=== PATIENT | female | born 1945 | race Hispanic/Latino ===

== ENCOUNTER → 2017-12-23 | Outpatient (CLI) | payer OTHER | END | disposition home or self-care (01) | LOC: SHCH 08:29 | PROVIDERS: ATTEND Internal Medicine Cardiovascular Disease | DX: I08.1 Rheumatic disorders of both mitral and tricuspid valves (principal); I10 Essential (primary) hypertension; I48.91 Unspecified atrial fibrillation; E78.5 Hyperlipidemia, unspecified | CPT/HCPCS: 93306 ==

== ENCOUNTER → 2019-04-22 | Outpatient (CLI) | payer OTHER ==
[~2019-04-22] MED LIST: IOHEXOL 350 MG/ML 100ML INFUS..BTL IV ONE
== END | disposition home or self-care (01) ==
LOC: RAH 08:15
PROVIDERS: ATTEND Internal Medicine Cardiovascular Disease
DX: J98.11 Atelectasis (principal); I71.2 Thoracic aortic aneurysm, without rupture; Z95.2 Presence of prosthetic heart valve
CPT/HCPCS: 71275; Q9967

== ENCOUNTER → 2019-12-03 | Outpatient (CLI) | payer OTHER | END | disposition home or self-care (01) | LOC: SHCH 10:00 | PROVIDERS: ATTEND Internal Medicine Cardiovascular Disease | DX: I08.3 Combined rheumatic disorders of mitral, aortic and tricuspid valves (principal); I27.20 Pulmonary hypertension, unspecified; Z95.0 Presence of cardiac pacemaker; Z95.4 Presence of other heart-valve replacement | CPT/HCPCS: 93306; 93356 ==

== ENCOUNTER → 2019-12-14 | Outpatient (CLI) | payer OTHER | END | disposition home or self-care (01) | LOC: RAH 13:46 | PROVIDERS: ATTEND Internal Medicine Cardiovascular Disease | DX: I49.5 Sick sinus syndrome (principal); Z45.010 Encounter for checking and testing of cardiac pacemaker pulse generator [battery] | CPT/HCPCS: 78481; A9512 ==

== ENCOUNTER 2020-01-24 05:45 | Day surgery (SDC) | payer OTHER ==
[2020-01-21 13:40] LABS: BASOPHILS % (AUTO) 0.3 % (0.0-5.0); EOSINOPHILS % (AUTO) 3.5 % (0.0-8.0); HEMATOCRIT 41.2 % (36-48); LYMPHOCYTES % (AUTO) 22.7 % (21.0-51.0); MEAN CORPUSCULAR HEMOGLOBIN 29.4 pg (27.0-33.0); MEAN CORPUSCULAR VOLUME 91.8 fL (79-99); MONOCYTES % (AUTO) 10.8 % (3.0-13.0); NEUTROPHILS % (AUTO) 61.9 % (40.0-77.0); PLATELET COUNT (AUTO) 368 K/uL (130-400); RED BLOOD CELL COUNT(AUTO) 4.49 MIL/uL (4.00-5.50); RED CELL DISTRIBUTION WIDTH 14.5 % (11.0-15.5); WHITE BLOOD COUNT (AUTO) 14.3 K/uL (4.8-10.8)
[2020-01-21 13:56] LABS: CREATININE 0.9 mg/dL (0.5-1.5); POTASSIUM 4.5 mmol/L (3.5-5.1)
[2020-01-21 13:58] LABS: PARTIAL THROMBOPLASTIN TIME 24.5 SEC (26.3-35.5); PROTHROMBIN TIME 10.8 SEC (9.6-11.6)
[2020-01-21 14:50] VITALS: BP 142/66
--- NOTE | 2020-01-21 15:42 | NUR ---
RE: ABNORMAL LABS REPORTED ELEVATED WBC 14.[address] NAVARRO. RECEIVED ORDERS TO REPEAT CBC IN AM OF PROCEDURE.
[2020-01-24] VITALS (11 sets, daily range): BP systolic 112–146; BP diastolic 40–53
[~2020-01-24] VITALS: Ht 152.4 cm; Wt 63.1 kg
[~2020-01-24 05:45] MED LIST changes: +AMLO2.5T4 PO; +FE F1CAP8 PO; +FURO20TA4 PO; -IOHEXOL 350 MG/ML 100ML INFUS..BTL IV ONE; +METO-409 PO; +OMEP40CA13 PO; +POTA10CA44 PO
[2020-01-24] MEDS ORDERED: SODIUM CHLORIDE 0.9% 1000ML 1,000 ML IV ONE (06:19)
[2020-01-24 06:43] LABS: BASOPHILS % (AUTO) 0.4 % (0.0-5.0); HEMATOCRIT 37.9 % (36-48); LYMPHOCYTES % (AUTO) 19.6 % (21.0-51.0); MEAN CORPUSCULAR HEMOGLOBIN 29.6 pg (27.0-33.0); MEAN CORPUSCULAR HGB CONC 32.5 g/dL (32.0-36.0); MEAN CORPUSCULAR VOLUME 91.1 fL (79-99); MONOCYTES % (AUTO) 11.4 % (3.0-13.0); NEUTROPHILS % (AUTO) 63.8 % (40.0-77.0); PLATELET COUNT (AUTO) 276 K/uL (130-400); RED BLOOD CELL COUNT(AUTO) 4.16 MIL/uL (4.00-5.50); RED CELL DISTRIBUTION WIDTH 14.7 % (11.0-15.5); WHITE BLOOD COUNT (AUTO) 10.3 K/uL (4.8-10.8)
[2020-01-24] MEDS ORDERED: BUPIVACAINE/PF 0.25% 30ML VIAL IJ ONE (07:37)
[2020-01-24] MEDS ORDERED: MIDAZOLAM HCL 1 MG/ML 2ML VIAL ONE (07:38)
[2020-01-24] MEDS ORDERED: CEFAZOLIN SODIUM 1 GM VIAL ONE (07:38)
[2020-01-24] MEDS ORDERED: LIDOCAINE HCL 1% MDV 50ML VIAL ONE (07:38)
[2020-01-24] MEDS ORDERED: MEPERIDINE-PF 25 MG/ML SYG ONE (07:38)
[2020-01-24] MEDS ORDERED: ACETAMINOPHEN-CODEINE 300/30MG TAB PO PRN (09:30)
--- NOTE | 2020-01-24 09:30 | NUR ---
PATIENT RETURNED FROM [facility] VIA BED BY JIM OGLESBY. PATIENT AAOX3, RESPIRATIONS UNLABORED, VITAL SIGNS STABLE. DENIES ANY PAIN AT THIS TIME. DRESSING TO LEFT UPPER CHEST WITH NON ADHERENT PAD AND TEGADERM IS DRY/INTACT. NO HEMATOMA, NO BLEEDING NOTED. PATIENT'S SPOUSE AT BEDSIDE.
--- NOTE | 2020-01-24 10:15 | NUR ---
DRESSING TO LEFT UPPER CHEST IS DRY/INTACT. NO BLEEDING/NO HEMATOMA NOTED.
--- NOTE | 2020-01-24 10:30 | NUR ---
DRESSING TO LEFT UPPER CHEST IS DRY/INTACT. NO BLEEDING/NO HEMATOMA NOTED.
--- NOTE | 2020-01-24 10:45 | NUR ---
DRESSING TO LEFT UPPER CHEST IS DRY/INTACT. NO BLEEDING/NO HEMATOMA NOTED.
--- NOTE | 2020-01-24 11:15 | NUR ---
DRESSING TO LEFT UPPER CHEST IS DRY/INTACT. NO BLEEDING/NO HEMATOMA NOTED.
--- NOTE | 2020-01-24 11:45 | NUR ---
DRESSING TO LEFT UPPER CHEST IS DRY/INTACT. NO BLEEDING/NO HEMATOMA NOTED.
--- NOTE | 2020-01-24 12:15 | NUR ---
DRESSING TO LEFT UPPER CHEST IS DRY/INTACT.SCANT AMOUNT OF SEROSANGUINEOUS DRAINAGE NOTED TO GAUZE. NO HEMATOMA NO BLEEDING NOTED.
--- NOTE | 2020-01-24 12:30 | NUR ---
DRESSING TO LEFT UPPER CHEST IS DRY/INTACT.SCANT AMOUNT OF SEROSANGUINEOUS DRAINAGE NOTED TO GAUZE. NO HEMATOMA NO BLEEDING NOTED.
--- NOTE | 2020-01-24 12:35 | NUR ---
DISCHARGE INSTRUCTIONS PROVIDED TO PATIENT AND PATIENT'S SPOUSE. FOLLOW UP APPOINTMENT PROVIDED AND DRESSING CHANGE INSTRUCTIONS PROVIDED WELL. PATIENT VERBALIZED UNDERSTANDING.
--- NOTE | 2020-01-24 12:55 | NUR ---
PATIENT DISCHARGED FROM FACILITY VIA WHEELCHAIR AND ASSISTED INTO PRIVATE VEHICLE DRIVEN BY SPOUSE.
== END 2020-01-24 12:55 | disposition home or self-care (01) ==
LOC: DAH 05:45
PROVIDERS: ATTEND Internal Medicine Cardiovascular Disease
DX: Z45.010 Encounter for checking and testing of cardiac pacemaker pulse generator [battery] (principal); I44.2 Atrioventricular block, complete; I49.5 Sick sinus syndrome; I10 Essential (primary) hypertension; I48.0 Paroxysmal atrial fibrillation; Z98.890 Other specified postprocedural states; Z98.891 History of uterine scar from previous surgery; Z79.01 Long term (current) use of anticoagulants; Z95.2 Presence of prosthetic heart valve; Z79.899 Other long term (current) drug therapy
CPT/HCPCS: 33228; 36415 ×2; 80048; 85025 ×2; 85610; 85730; 93005; A4215; A4216; A4221; A4222; A4223 ×3; A4606; A4663; C1785; J0690; J2175; J2250; J3490 ×2; J7030; 99156; 99157

== ENCOUNTER → 2020-06-01 | Outpatient (CLI) | payer MEDICARE | END | disposition home or self-care (01) | LOC: SHCH 10:42 | PROVIDERS: ATTEND Internal Medicine Cardiovascular Disease | DX: I08.3 Combined rheumatic disorders of mitral, aortic and tricuspid valves (principal); I27.20 Pulmonary hypertension, unspecified; Z95.0 Presence of cardiac pacemaker; Z95.4 Presence of other heart-valve replacement | CPT/HCPCS: 93306; 93356 ==

== ENCOUNTER 2020-12-06 08:47 | Day surgery (SDC) | payer MEDICARE ==
[2020-12-06] VITALS (7 sets, daily range): BP systolic 120–148; BP diastolic 44–69
[~2020-12-06 08:47] MED LIST changes: -OMEP40CA13 PO; +OMEP40CA21 PO
[2020-12-06 09:32] LABS: HEMATOCRIT 39.7 % (36-48); MEAN CORPUSCULAR HGB CONC 32.7 g/dL (32.0-36.0); MEAN CORPUSCULAR VOLUME 94.7 fL (79-99); PLATELET COUNT (AUTO) 356 K/uL (130-400); RED BLOOD CELL COUNT(AUTO) 4.19 MIL/uL (4.00-5.50); RED CELL DISTRIBUTION WIDTH 13.1 % (11.0-15.5); WHITE BLOOD COUNT (AUTO) 8.2 K/uL (4.8-10.8)
[2020-12-06 09:47] LABS: INR 0.99 (0.85-1.15); PROTHROMBIN TIME 10.8 SEC (9.6-11.6)
[2020-12-06 09:48] LABS: PARTIAL THROMBOPLASTIN TIME 25.5 SEC (26.3-35.5)
[2020-12-06 10:31] LABS: BASOPHILS % (MANUAL) 1 % (0-2); EOSINOPHILS % (MANUAL) 3 % (1-6); LYMPHOCYTES % (MANUAL) 33 % (22-44); MAN.DIFF COMMENT-IMPRESSION MANUAL DIFFERENTIAL; MONOCYTES % (MANUAL) 9 % (2-9); PLATELET MORPHOLOGY COMMENT ADEQUATE; SEGMENTED NEUTROPHILS % 54 % (40-70)
[2020-12-06] MEDS ORDERED: MIDAZOLAM HCL 1 MG/ML 2ML VIAL ONE (10:53)
[2020-12-06] MEDS ORDERED: FENTANYL CITRATE PF 50 MCG/1 ML 2ML VIAL ONE (10:53)
[2020-12-06] MEDS ORDERED: ACETAMINOPHEN 500 MG TABLET ONE (13:13)
== END 2020-12-06 15:05 | disposition home or self-care (01) ==
LOC: DAH 08:47 → EDSTATUS 09:00 → DAH 15:05
PROVIDERS: ATTEND Family Medicine
DX: R59.0 Localized enlarged lymph nodes (principal); S36.892A Contusion of other intra-abdominal organs, initial encounter; K21.9 Gastro-esophageal reflux disease without esophagitis; I48.91 Unspecified atrial fibrillation; Z98.49 Cataract extraction status, unspecified eye; Z98.891 History of uterine scar from previous surgery; Z86.010 Personal history of colon polyps; Z98.890 Other specified postprocedural states; Z79.01 Long term (current) use of anticoagulants; X58.XXXA Exposure to other specified factors, initial encounter
CPT/HCPCS: 36415; 49180; 77012; 85025; 85610; 85730; 88305; 88341; 88342; A4215; J2250; J3010; 99152

== ENCOUNTER → 2021-05-04 | Outpatient (CLI) | payer MEDICARE ==
[~2021-05-04] MED LIST changes: -AMLO2.5T4 PO; +FE F1CAP33 PO; -FE F1CAP8 PO; -FURO20TA4 PO; +METO-391 PO; -METO-409 PO; -POTA10CA44 PO
== END | disposition home or self-care (01) ==
LOC: RAH 11:49
PROVIDERS: ATTEND Internal Medicine Cardiovascular Disease
DX: I08.1 Rheumatic disorders of both mitral and tricuspid valves (principal)
CPT/HCPCS: 93306

== ENCOUNTER → 2022-03-21 | Outpatient (CLI) | payer MEDICARE | END | disposition home or self-care (01) | LOC: LAB 13:15 | PROVIDERS: ATTEND Internal Medicine Cardiovascular Disease | DX: E87.5 Hyperkalemia (principal) | CPT/HCPCS: 36415; 80048 ==

== ENCOUNTER → 2022-09-19 | Outpatient (CLI) | payer MEDICARE ==
[2022-09-19 17:02] LABS: ALBUMIN 4.3 g/dL (3.5-5.0); POTASSIUM 4.3 mmol/L (3.5-5.1)
== END | disposition home or self-care (01) ==
LOC: LAB 11:59
PROVIDERS: ATTEND Internal Medicine Cardiovascular Disease
DX: I71.20 Thoracic aortic aneurysm, without rupture, unspecified (principal)
CPT/HCPCS: 36415; 80053

== ENCOUNTER → 2022-09-24 | Outpatient (CLI) | payer MEDICARE ==
[~2022-09-24] MED LIST changes: +IOHEXOL 350 MG/ML 100ML INFUS..BTL IV ONE
== END | disposition home or self-care (01) ==
LOC: RAH 07:37
PROVIDERS: ATTEND Internal Medicine Cardiovascular Disease
DX: I71.21 Aneurysm of the ascending aorta, without rupture (principal); I70.0 Atherosclerosis of aorta; I51.7 Cardiomegaly
CPT/HCPCS: 71275; Q9967

== ENCOUNTER → 2023-03-27 | Outpatient (CLI) | payer MEDICARE ==
[~2023-03-27] MED LIST changes: -IOHEXOL 350 MG/ML 100ML INFUS..BTL IV ONE
[2023-03-27 16:19] LABS: CREATININE 1.1 mg/dL (0.5-1.5); POTASSIUM 5.3 mmol/L (3.5-5.1)
== END | disposition home or self-care (01) ==
LOC: LAB 12:45
PROVIDERS: ATTEND Internal Medicine Cardiovascular Disease
DX: I50.32 Chronic diastolic (congestive) heart failure (principal)
CPT/HCPCS: 36415; 80048

== ENCOUNTER 2023-04-16 08:28 | Emergency (ER) | payer MEDICARE ==
[~2023-04-16] VITALS: Ht 157.5 cm; Wt 50.8 kg
[2023-04-16 09:18] LABS: BASOPHILS # (AUTO) 0.04 K/uL (0.00-0.20); BASOPHILS % (AUTO) 0.6 % (0.0-5.0); EOSINOPHILS # (AUTO) 0.14 K/uL (0.00-0.70); EOSINOPHILS % (AUTO) 2.2 % (0.0-8.0); HEMATOCRIT 36.4 % (36-48); IMMATURE GRANULOCYTE ABSOLUTE 0.03 K/uL (0-1); LYMPHOCYTES # (AUTO) 1.4 K/uL (1.0-4.8); LYMPHOCYTES % (AUTO) 21.8 % (21.0-51.0); MEAN CORPUSCULAR HEMOGLOBIN 34.7 pg (27.0-33.0); MEAN CORPUSCULAR HGB CONC 34.3 g/dL (32.0-36.0); MEAN CORPUSCULAR VOLUME 101.1 fL (79-99); MONOCYTES # (AUTO) 0.5 K/uL (0.1-1.0); MONOCYTES % (AUTO) 7.9 % (3.0-13.0); NEUTROPHILS # (AUTO) 4.3 K/uL (1.8-7.7); PLATELET COUNT (AUTO) 233 K/uL (130-400); RED CELL DISTRIBUTION WIDTH 12.8 % (11.0-15.5); WHITE BLOOD COUNT (AUTO) 6.4 K/uL (4.8-10.8)
[2023-04-16 09:29] LABS: POTASSIUM 5.6 mmol/L (3.5-5.1)
[2023-04-16 09:33] LABS: ALBUMIN 4.2 g/dL (3.5-5.0); BILIRUBIN,TOTAL 1.2 mg/dL (0.2-1.0); TOTAL PROTEIN, SERUM 7.8 g/dL (6.0-8.3)
[2023-04-16 10:19] VITALS: BP 151/42; PULSE 83; RESP 18; O2SAT 100
[2023-04-16] MEDS ORDERED: KAYEXALATE 15GM/60ML PO ONE (10:30)
== END 2023-04-16 10:23 | disposition home or self-care (01) ==
LOC: EDH 08:28
DX: E87.6 Hypokalemia (principal); C56.9 Malignant neoplasm of unspecified ovary
CPT/HCPCS: 36415; 80053; 85025; 93005

== ENCOUNTER → 2023-05-16 | Outpatient (CLI) | payer MEDICARE ==
[2023-05-16 12:23] LABS: POTASSIUM 5.3 mmol/L (3.5-5.1)
== END | disposition home or self-care (01) ==
LOC: LAB 10:22
PROVIDERS: ATTEND Internal Medicine Cardiovascular Disease
DX: I50.32 Chronic diastolic (congestive) heart failure (principal)
CPT/HCPCS: 36415; 80048

== ENCOUNTER → 2023-05-22 | Outpatient (CLI) | payer MEDICARE ==
[2023-05-22 12:15] LABS: CREATININE 1.1 mg/dL (0.5-1.5)
== END | disposition home or self-care (01) ==
LOC: LAB 09:11
PROVIDERS: ATTEND Internal Medicine Cardiovascular Disease
DX: E87.5 Hyperkalemia (principal)
CPT/HCPCS: 36415; 80048

== ENCOUNTER → 2023-09-23 | Outpatient (CLI) | payer MEDICARE | END | disposition home or self-care (01) | LOC: SHCH 13:15 | PROVIDERS: ATTEND Internal Medicine Cardiovascular Disease | DX: I50.32 Chronic diastolic (congestive) heart failure (principal); I35.1 Nonrheumatic aortic (valve) insufficiency; Z95.3 Presence of xenogenic heart valve; Z95.2 Presence of prosthetic heart valve | CPT/HCPCS: 93306 ==

== ENCOUNTER 2025-01-20 09:01 | Inpatient (IN) | payer MEDICARE ==
[~2025-01-20] VITALS: Ht 154.9 cm; Wt 43.9 kg
[2025-01-20 09:25] LABS: IMMATURE GRANULOCYTE ABSOLUTE 0.08 K/uL (0-1); NUCLEATED RED BLOOD CELLS 0.0 % (0.0-0.19); PLATELET COUNT (AUTO) 237 K/uL (130-400); RED BLOOD CELL COUNT(AUTO) 3.25 MIL/uL (4.00-5.50); RED CELL DISTRIBUTION WIDTH 13.3 % (11.0-15.5); WHITE BLOOD COUNT (AUTO) 12.5 K/uL (4.8-10.8)
[2025-01-20 09:37] LABS: CREATININE 1.0 mg/dL (0.5-1.0); GLOMERULAR FILTR. RATE CALC 57.0 mL/min (>90); GLUCOSE,RANDOM 131.0 mg/dL (70-105); SODIUM SERUM 132.0 mmol/L (136-145); UREA NITROGEN, BLOOD 33.0 mg/dL (7-18)
[2025-01-20 09:38] LABS: INR 0.98 (0.85-1.15)
[2025-01-20 09:42] LABS: CREATINE KINASE, TOTAL 37.0 U/L (21-232)
[2025-01-20 10:30] LABS: APPEARANCE,URINE CLEAR (CLEAR); GLUCOSE, URINE (UA) NEGATIVE (NEGATIVE); LEUKOCYTE ESTERASE ,URINE NEGATIVE Leu/uL (NEGATIVE); NITRATE,URINE NEGATIVE (NEGATIVE); OCCULT BLOOD,URINE MODERATE (NEGATIVE)
[2025-01-20 10:35] LABS: ADD UA MICROSCOPIC YES
[2025-01-20 10:58] VITALS: PULSE 82; RESP 24
--- NOTE | 2025-01-20 10:59 | ERN ---
General Chief Complaint: Cough Stated Complaint: COUGHING BLOOD Time Seen by MD: 09:07 Source: patient, family History of Present Illness Initial Comments Patient is an 79-year-old female coming in complaining of URI symptoms. Per patient she was evaluated by her PCP and sent in due to an abnormal x-ray. Patient states that she has been having right upper chest discomfort. Allergies: Coded Allergies: No Allergy Information Available (Verified Allergy, Unknown, 01/24/20) Home Meds Active Scripts Metoprolol Succinate (Metoprolol Succinate) 50 Mg Tab.er.24h, 50 MG PO DAILY for 30 Days, #30 TAB Prov:ERICKA MAIN Jr., MD 04/17/21 Reported Medications Fe Fumarate/FA/Mv, Min Comb#15 (Centratex Capsule) 1 Each Capsule, 1 EACH PO DAILY, CAP 04/17/21 Omeprazole (Omeprazole) 40 Mg Capsule.dr, 40 MG PO DAILY, CAP 04/17/21 Past Medical History Past Medical History: Cancer, Other Medical History Other: ovarian cancer Past Surgical History: Other Surgical History Other: hear valve Social History Social History: Lives with family Female( History) History: Not Applicable ROS Dictation CONSTITUTIONAL: No chills, no fever, no weakness, no diaphoresis, no malaise. HEAD/FACE: No signs of trauma. EENT: No eye pain, no blurred vision, no tearing, no double vision, no ear pain, no ear discharge, no nose pain, no nasal congestion, no throat pain, no throat swelling, no mouth pain. RESPIRATORY: cough, no orthopnea, no SOB, no stridor, no wheezing. CARDIOVASCULAR: No chest pain, no edema, no palpitations, no syncope. GASTROINTESTINAL/ABDOMINAL: No abdominal pain, no constipation, no diarrhea, no nausea, no vomiting. GENITOURINARY: No abnormal discharge, no dysuria, no frequent urination, no hematuria. No complaints of pain in the genitals. MUSCULOSKELETAL: No back pain, no gout, no joint pain, no joint swelling, no muscle pain, no muscle stiffness, no neck pain. INTEGUMENTARY: No change in color, no change in hair/nails, no dryness, no lesion, no lumps, no rash. NEUROLOGICAL/PSYCH: No anxiety, not depressed, no emotional problem, no headache, no numbness, no pre-existing deficit, no history of seizures, no tremors, no weakness. HEMATOLOGIC/LYMPHATIC: Not anemic, no history of blood clots, no apparent bleeding, no bruising, glands not swollen. All Systems Negative, Except as Noted. Physical Exam Physical Exam Dictation VITAL SIGNS: Reviewed. GENERAL APPEARANCE: Alert, oriented x3, no acute distress, obese. HEAD AND FACE: Non-traumatic. EYES: PERRL, pink conjunctivas, eyelid no trauma, anterior chamber clear. EARS: Pinnas intact and no signs of trauma or erythema. Ear canals clear and no discharge. TMs no erythema. NOSE: No discharge, no bleeding. OROPHARYNX: Mouth normal, teeth no caries, tongue pink. Pharynx clear, no erythema. Tonsils no exudates, no abscesses noted. Mucous membrane moist. NECK: Supple, non-tender, no thyromegaly, no masses, no JVD, no bruits. BREAST: Deferred. CHEST: No tenderness, no crepitus, no paradoxical movement, no retractions. LUNGS: Clear, well-ventilated, symmetric, no rales, no wheezing, no rhonchi, no stridor, good breath sounds bilaterally. HEART: Regular rate, regular rhythm, no murmur, no gallops. VASCULAR: No peripheral edema. ABDOMEN: Soft, positive bowel sounds, nondistended, no guarding, nontender, no rebound, no masses no hepatomegaly, no splenomegaly, no Aragon's sign, no hernias. RECTAL: Deferred. GENITAL: Deferred. NEUROLOGICAL: Normal speech, gross motor function intact, gross sensory function intact. MUSCULOSKELETAL: Neck nontender, full range of motion, back nontender, full range of motion. EXTREMITIES: Nontender, full range of motion. SKIN: Color pink, dry, no turgor, no rash, no lacerations, no abrasions, no contusions. LYMPHATICS: Deferred. Results Laboratory and Microbiology Lab and Micro Result Laboratory Tests Test 01/20/25 09:22 01/20/25 10:18 01/20/25 10:59 White Blood Count 12.5 K/uL (4.8-10.8) H Red Blood Count 3.25 MIL/uL (4.00-5.50) L Hemoglobin 10.5 g/dL (12.0-16.0) L Hematocrit 31.5 % (36-48) L Mean Corpuscular Volume 96.9 fL (79-99) Mean Corpuscular Hemoglobin 32.3 pg (27.0-33.0) Mean Corpuscular Hemoglobin Concent 33.3 g/dL (32.0-36.0) Red Cell Distribution Width 13.3 % (11.0-15.5) Platelet Count 237 K/uL (130-400) Mean Platelet Volume 10.3 fL (7.5-10.5) Immature Granulocyte % (Auto) 0.6 % (0-1) Neutrophils (%) (Auto) 84.0 % (40.0-77.0) H Lymphocytes (%) (Auto) 7.9 % (21.0-51.0) L Monocytes (%) (Auto) 6.6 % (3.0-13.0) Eosinophils (%) (Auto) 0.7 % (0.0-8.0) Basophils (%) (Auto) 0.2 % (0.0-5.0) Neutrophils # (Auto) 10.5 K/uL (1.8-7.7) H Lymphocytes # (Auto) 1.0 K/uL (1.0-4.8) Monocytes # (Auto) 0.8 K/uL (0.1-1.0) Eosinophils # (Auto) 0.09 K/uL (0.00-0.70) Basophils # (Auto) 0.02 K/uL (0.00-0.20) Absolute Immature Granulocyte (auto 0.08 K/uL (0-1) Nucleated Red Blood Cells 0.0 % (0.0-0.19) White Cell Morphology Comment See comments Prothrombin Time 10.4 SEC (9.6-11.6) Prothromb Time International Ratio 0.98 (0.85-1.15) Activated Partial Thromboplast Time 28.0 SEC (26.3-35.5) Sodium Level 132 mmol/L (136-145) L Potassium Level 4.1 mmol/L (3.5-5.1) Chloride Level 99 mmol/L (101-111) L Carbon Dioxide Level 22 mmol/L (21-32) Blood Urea Nitrogen 33 mg/dL (7-18) H Creatinine 1.0 mg/dL (0.5-1.0) Glomerular Filtration Rate Calc 57 mL/min (>90) Random Glucose 131 mg/dL (70-105) H Total Calcium 9.0 mg/dL (8.5-10.1) Magnesium Level 2.20 mg/dL (1.80-2.40) Total Creatine Kinase 37 U/L (21-232) # Troponin I High Sensitivity 17 ng/L (4-50) Urine Color LIGHT-YELLOW (YELLOW) Urine Appearance CLEAR (CLEAR) Urine pH 5.0 (5.0-8.0) Urine Specific [place] 1.009 (1.001-1.031) Urine Protein NEGATIVE mg/dL (NEGATIVE) Urine Glucose (UA) NEGATIVE mg/dL (NEGATIVE) Urine Ketones NEGATIVE mg/dL (NEGATIVE) Urine Occult Blood MODERATE (NEGATIVE) H Urine Nitrate NEGATIVE (NEGATIVE) Urine Bilirubin NEGATIVE mg/dL (NEGATIVE) Urine Urobilinogen 0.2 mg/dL (0.2-1.0) Urine Leukocyte Esterase NEGATIVE [place]/uL Urine RBC 2-5 /HPF (0-1) H Urine WBC 2-5 /HPF (0-1) H Urine Bacteria None Seen /HPF (None Seen) Blood Gas Specimen Type Arterial Arterial Blood pH 7.436 (7.350-7.450) Arterial Blood Partial Pressure CO2 29 mmHg (32-45) L Arterial Blood Partial Pressure O2 66.1 mmHg (83.0-108.0) L Arterial Blood HCO3 18.7 mmol/L (21.0-28.0) L Arterial Blood Oxygen Saturation 93.3 % (94.0-98.0) L Arterial Blood Base Excess -4.4 mmol/L (-2.0-3.0) L Hemoglobin (Blood Gas) 10.7 g/dL (12.0-16.0) L Sodium (Blood Gas) 129 MMOL/L (136-145) L Bedside Potassium (Blood Gas) 4.3 MMOL/L (3.4-4.5) Bedside Chloride (Blood Gas) 102 MMOL/L (98-107) Bedside Glucose (Blood Gas) 123 MG/DL (65-95) H Bedside Ionized Calcium (Blood Gas) 1.20 MMOL/L (1.15-1.33) Bedside Lactic Acid (Blood Gas) 0.86 MMOL/L (0.36-0.75) H Blood Gas Temperature 37.0 CELSIUS (35.5-37.0) FiO2 28.0 % Blood Gas Specimen Comment DR.REYNA LEONOR Labs Reviewed?: Yes EKG/XRAY/US/CT/MRI EKG Comment 01/20/2025 time 9:10 a.m. Ventricular rate 106 Ventricular paced rhythm [place] [address] wave elevation or depression X-RAY Comment Chest x-ray-right lung infiltrates suggestive of pneumonia MDM MDM: Differential diagnosis: Right lung pneumonia, URI, respiratory distress Rationale: Tests considered and ordered secondary to shared decision making include: labs, ECG and radiology Previous outside records reviewed: Old ER visits. Risk of complication and/or morbidity or mortality of patient management: None Medications-Per medication reconciliation Need for hospitalization: Patient does meet criteria for hospitalization. Need for emergency major/minor surgery: No There are no social concerns with this patient. Prescription drug management Prescriptions will include symptomatic care Patient's prior external medical records from other ER visits were reviewed by me as indicated. Prior testing and results from previous visits were reviewed. Prior tests were taken into account with medical decision making and resource utilization, independent historian/historians were used to obtain complete medical history. I independently interpreted the test that were performed, results were reviewed by me and considered findings on radiology if ordered. Medical management and examination interpretation discussions were had by me with other qualified healthcare professionals as indicated for the patient's care. Patient will be admitted under the care of hospitalist group for ongoing management ED Course Orders Procedure Category Date Status Time Cbc With Differential LAB 01/20/25 Complete 09:09 Prothrombin Time With LAB 01/20/25 Complete INR 09:09 Chest 1vw RAD 01/20/25 Taken 09:09 12 Lead Ekg Tracing- EKG 01/20/25 Logged Technical 09:09 Magnesium LAB 01/20/25 Complete 09:09 Creatine Kinase, Total LAB 01/20/25 Complete 09:09 Troponin I High LAB 01/20/25 Complete Sensitivity 09:09 Urinalysis Profile LAB 01/20/25 Complete 09:09 Partial LAB 01/20/25 Complete Thromboplastin Time 09:09 Basic Metabolic Panel LAB 01/20/25 Complete 09:09 Arterial Blood Gas + RT 01/20/25 Transmitted 10:39 Ipratropium/Albuterol PHA 01/20/25 Complete Neb (Duoneb) 11:00 Methylprednisolone PHA 01/20/25 Complete Succ 125mg (Solu-Medr 11:00 Covid Rna Naat LAB 01/20/25 In Process 10:52 Influenza Type A & B, LAB 01/20/25 In Process Rapid 10:52 Rapid (Group A Strep) LAB 01/20/25 In Process 10:52 Arterial Blood Gas LAB 01/20/25 Complete Arterial + 10:59 Ceftriaxone 1g Vial PHA 01/20/25 Complete (Rocephine 1g Inj) 11:30 Azithromycin 500mg+Ns PHA 01/20/25 In Process 250ml (Azithromyci 12:00 Current Medications Medications (Trade) Dose Ordered Sig/Sadi Route PRN Reason Start Time Stop Time Status Last Admin Dose Admin Albuterol (DUOneb) 2 udvial ONCE ONCE IH 01/20/25 11:00 01/20/25 11:01 DC 01/20/25 10:52 Azithromycin 250 ml @ 250 mls/hr Q24H ONCE IVPB 01/20/25 12:00 01/20/25 12:59 Ceftriaxone Sodium (ROCEphine 1G INJ) 1 gm ONCE ONCE IVPB 01/20/25 11:30 01/20/25 11:31 DC Methylprednisolone Sodium Succinate (Solu-medROL 125MG) 125 mg ONCE ONCE IVP 01/20/25 11:00 01/20/25 11:01 DC 01/20/25 11:13 Vital Signs Date Time Temp Pulse Resp B/P (MAP) Pulse Ox O2 Delivery O2 Flow Rate FiO2 01/20/25 10:58 82 24 01/20/25 09:10 98.4 99 20 149/38 95 Room Air* 0 21 01/20/25 09:05 98.4 99 20 149/38 95 0 DX & DISP Disposition: Inpatient Decision to Admit Time: 11:33 Departure Impression: Primary Impression: Pneumonia involving right lung Additional Impressions: Respiratory distress, Mild dehydration Condition: Stable Referrals: AMEYA HOLDER MD (PCP) NIDIA MCKEON MD Jan 20, 2025 10:59
[2025-01-20 11:01] LABS: ABG BASE EXCESS -4.4 mmol/L (-2.0-3.0); ABG HCO3 18.7 mmol/L (21.0-28.0); ABG OXYGEN SATURATION 93.3 % (94.0-98.0); ABG PCO2 29 mmHg (32-45); ABG PH 7.436 (7.350-7.450); CARBON MONOXIDE 0.4 % (0.5-1.5); PO2, ARTERIAL BG 66.1 mmHg (83.0-108.0); TEMPERATURE, CELSIUS BG 37.0 CELSIUS (35.5-37.0)
[2025-01-20 11:37] LABS: RAPID GROUP A STREP negative (NEGATIVE)
[2025-01-20 11:40] LABS: SARS-CoV-2, RNA, NAAT NEGATIVE SARS CoV-2 (NEGATIVE)
[2025-01-20 11:46] LABS: INFLUENZA TYPE A Negative For Type A (NEGATIVE); INFLUENZA TYPE B Negative For Type B (NEGATIVE)
--- NOTE | 2025-01-20 11:50 | NUR ---
dr mercado hospitalist at bedside for admission
[2025-01-20] MEDS ORDERED: 0.9%NACL 50ML IV SCH (12:00)
[2025-01-20] MEDS: AZITHROMYCIN 500MG+NS 250ML 250 ML IVPB ONE (12:12)
--- NOTE | 2025-01-20 12:36 | HP ---
[facility] PH[facility] Date of Service: Jan 20, 2025 Time of Service: 12:19 HISTORY OF PRESENT ILLNESS: 79-year-old female with past medical history of ovarian cancer, hypertension, history of gastric ulcer, history of history of aortic valve stenosis status post valve replacement who presented to the hospital secondary to hemoptysis. The patient states she has noted cough at home which is productive in nature. She has noted blood with her sputum. She does not have any hematemesis, melena, hematochezia. Denied any recent epistaxis. She has noted previous episodes of epistaxis in the past but denied any recent episode. Her blood is mainly present after coughing in the sputum. Denied any fever, chills, chest pain, abdominal pain, nausea. She does get short of breath with her underlying cough. She has been followed by Dr. Small as outpatient regards to aortic valve stenosis. She currently denies taking any antiplatelet or anticoagulants at home. She denied any night sweats, recent weight loss. Labs were notable for white count of 12.5, hemoglobin was 10.5, platelet count was 237 K, sodium was 132, potassium was 4.1, creatinine was 1.0 Chest x-ray infiltrates on the right side. REVIEW OF SYSTEMS CONSTITUTIONAL: Denies fevers, chills, or night sweats. No unintentional weight loss reported. NEUROLOGICAL: Denies headache, amaurosis fugax, motor weakness, sensory deficit, vertigo/spinning sensation, gait abnormalities, or tremors. ENT: No hearing loss, otalgia, otorrhea, rhinitis, rhinorrhea, hoarseness, or sore throat. CARDIOVASCULAR: Denies any exertional angina, dyspnea on exertion, orthopnea, paroxysmal nocturnal dyspnea, palpitations, life-threatening arrhythmias, claudication. PULMONARY: Positive for hemoptysis, cough, sputum production SLEEP: Denies morning headaches, daytime somnolence or napping. Denies difficulty falling asleep, staying asleep, waking from sleep. Denies knowledge of snoring. GASTROINTESTINAL: Denies any type of dysphagia to either liquids or solids. Denies nausea, vomiting, pyrosis, early satiety, abdominal pain, diarrhea, constipation, or changes in stool consistency or caliber. Denies coffee-ground emesis, hematemesis, hematochezia, or melanotic stools. GENITOURINARY: Denies frequency, urgency, nocturia, hematuria or incontinence (Storage/Irritative symptoms.) Low urinary stream, straining to void, urinary intermittency or hesitancy, splitting of the voiding stream, terminal dribbling. ENDOCRINOLOGIC: Denies polyuria, polydipsia, polyphagia or heat/cold intolerances. HEMATOLOGIC: Denies thrombophilia/previous clots, or coagulopathy/bleeding disorders. ONCOLOGIC: Denies personal history of malignancy. DERMATOLOGIC: Denies rashes or pruritus. PSYCHIATRIC: Denies any suicidal or homicidal ideation. Denies hallucinations. PAST MEDICAL HISTORY: History of ovarian cancer, hypertension, history of gastric ulcer, history of aortic valve stenosis, PAST SURGICAL HISTORY: History of aortic valve replacement PAST SOCIAL HISTORY: Denied any smoking, alcohol, drug use FAMILY HISTORY: Denied any pertinent family history Coded Allergies: No Allergy Information Available (Verified Allergy, Unknown, 01/24/20) PHYSICAL EXAM GENERAL APPEARANCE: The patient is awake, alert, and oriented, in no acute cardiopulmonary distress. Patient is bright red blood in the cup present at bedside NEUROLOGICAL: Cranial nerves II-XII grossly intact. Motor is 5/5 in bilateral upper and lower extremities proximal to distal. No sensory deficits. HEENT: Face is symmetric. Pupils are equal and reactive. Extraocular movements are intact. NECK: Supple. No JVD. No thyromegaly. No submental, submandibular, pre- /postauricular, occipital or supraclavicular lymphadenopathy. CHEST: Normal chest expansion. No Telemetry. LUNGS: She has a crackles present bilaterally CARDIOVASCULAR: Regular. S1 and S2 normal. No appreciable rubs, murmurs or gallops. ABDOMEN: Soft, nontender, and nondistended. There is no rebound, voluntary guarding, or rigidity. : Deferred. No Wallace. EXTREMITIES: Non-edematous and not cyanotic. No clubbing. Good capillary refill. SKIN: No skin breakdown. Vital Sign (Last 24 Hours) 01/20/25 01/20/25 09:10 10:58 Temp 98.4 Pulse 82 Resp 24 B/P (MAP) 149/38 Pulse Ox 95 O2 Delivery Room Air* O2 Flow Rate 0 FiO2 21 LABS: Laboratory: Test 01/20/25 11:16 01/20/25 10:59 01/20/25 10:18 01/20/25 09:22 Range/Units Influenza Type A Antigen Negative For Type A NEGATIVE Influenza Type B Antigen Negative For Type B NEGATIVE SARS-CoV-2, RNA, NAAT NEGATIVE SARS CoV-2 NEGATIVE Group A Streptococcus Rapid negative NEGATIVE Blood Gas Specimen Type Arterial Arterial Blood pH 7.436 7.350-7.450 Arterial Blood Partial Pressure CO2 29 L 32-45 mmHg Arterial Blood Partial Pressure O2 66.1 L 83.0-108.0 mmHg Arterial Blood HCO3 18.7 L 21.0-28.0 mmol/L Arterial Blood Oxygen Saturation 93.3 L 94.0-98.0 % Arterial Blood Base Excess -4.4 L -2.0-3.0 mmol/L Hemoglobin (Blood Gas) 10.7 L 12.0-16.0 g/dL Sodium (Blood Gas) 129 L 136-145 MMOL/L Bedside Potassium (Blood Gas) 4.3 3.4-4.5 MMOL/L Bedside Chloride (Blood Gas) 102 98-107 MMOL/L Bedside Glucose (Blood Gas) 123 H 65-95 MG/DL Bedside Ionized Calcium (Blood Gas) 1.20 1.15-1.33 MMOL/L Bedside Lactic Acid (Blood Gas) 0.86 H 0.36-0.75 MMOL/L Blood Gas Temperature 37.0 35.5-37.0 CELSIUS FiO2 28.0 % Blood Gas Specimen Comment LEONOR, Urine Color LIGHT-YELLOW YELLOW Urine Appearance CLEAR CLEAR Urine pH 5.0 5.0-8.0 Urine Specific [place] 1.009 1.001-1.031 Urine Protein NEGATIVE NEGATIVE mg/dL Urine Glucose (UA) NEGATIVE NEGATIVE mg/dL Urine Ketones NEGATIVE NEGATIVE mg/dL Urine Occult Blood MODERATE H NEGATIVE Urine Nitrate NEGATIVE NEGATIVE Urine Bilirubin NEGATIVE NEGATIVE mg/dL Urine Urobilinogen 0.2 0.2-1.0 mg/dL Urine Leukocyte Esterase NEGATIVE NEGATIVE [place]/uL Urine RBC 2-5 H 0-1 /HPF Urine WBC 2-5 H 0-1 /HPF Urine Bacteria None Seen None Seen /HPF White Blood Count 12.5 H 4.8-10.8 K/uL Red Blood Count 3.25 L 4.00-5.50 MIL/uL Hemoglobin 10.5 L 12.0-16.0 g/dL Hematocrit 31.5 L 36-48 % Mean Corpuscular Volume 96.9 79-99 fL Mean Corpuscular Hemoglobin 32.3 27.0-33.0 pg Mean Corpuscular Hemoglobin Concent 33.3 32.0-36.0 g/dL Red Cell Distribution Width 13.3 11.0-15.5 % Platelet Count 237 130-400 K/uL Mean Platelet Volume 10.3 7.5-10.5 fL Immature Granulocyte % (Auto) 0.6 0-1 % Neutrophils (%) (Auto) 84.0 H 40.0-77.0 % Lymphocytes (%) (Auto) 7.9 L 21.0-51.0 % Monocytes (%) (Auto) 6.6 3.0-13.0 % Eosinophils (%) (Auto) 0.7 0.0-8.0 % Basophils (%) (Auto) 0.2 0.0-5.0 % Neutrophils # (Auto) 10.5 H 1.8-7.7 K/uL Lymphocytes # (Auto) 1.0 1.0-4.8 K/uL Monocytes # (Auto) 0.8 0.1-1.0 K/uL Eosinophils # (Auto) 0.09 0.00-0.70 K/uL Basophils # (Auto) 0.02 0.00-0.20 K/uL Absolute Immature Granulocyte (auto 0.08 0-1 K/uL Nucleated Red Blood Cells 0.0 0.0-0.19 % White Cell Morphology Comment See comments Prothrombin Time 10.4 9.6-11.6 SEC Prothromb Time International Ratio 0.98 0.85-1.15 Activated Partial Thromboplast Time 28.0 26.3-35.5 SEC Sodium Level 132 L 136-145 mmol/L Potassium Level 4.1 3.5-5.1 mmol/L Chloride Level 99 L 101-111 mmol/L Carbon Dioxide Level 22 21-32 mmol/L Blood Urea Nitrogen 33 H 7-18 mg/dL Creatinine 1.0 0.5-1.0 mg/dL Glomerular Filtration Rate Calc 57 >90 mL/min Random Glucose 131 H 70-105 mg/dL Total Calcium 9.0 8.5-10.1 mg/dL Magnesium Level 2.20 1.80-2.40 mg/dL Total Creatine Kinase 37 # 21-232 U/L Troponin I High Sensitivity 17 4-50 ng/L Current Medications Medications (Trade) Dose Ordered Sig/Sadi Route PRN Reason Start Time Stop Time Status Last Admin Dose Admin Famotidine (Pepcid 20mg Vial) 20 mg Q24H IV 01/20/25 21:00 02/19/25 20:59 Magnesium Sulfate 50 ml @ 0 mls/hr PROTOCOL PRN IV hypomagnesemia 01/20/25 12:00 02/19/25 11:59 Piperacillin Sod/ Tazobactam Sod (Zosyn 3.375gm+NS 50ml) 3.375 gm Q8H IVPB 01/20/25 12:00 01/30/25 11:59 Potassium Chloride 100 ml @ 100 mls/hr AD PRN IV POTASSIUM PROTOCOL 01/20/25 12:00 02/19/25 11:59 Potassium Chloride (K-Dur/Klor-Con 20meq) 20 meq AD PRN PO POTASSIUM PROTOCOL 01/20/25 12:00 02/19/25 11:59 Potassium Chloride (KCl 10% Elixir 20meq/15ml) 20 meq AD PRN PO POTASSIUM PROTOCOL 01/20/25 12:00 02/19/25 11:59 Sodium Chloride (NS 50ml) 50 ml AD IV 01/20/25 12:00 01/20/25 12:10 DC DIAGNOSTICS / RADIOLOGY: CXR shows right-sided infiltrate ASSESSMENT: Hemoptysis POA Suspected a community-acquired pneumonia POA Aortic valve stenosis status post aortic valve replacement with a repeat echo from 2023 showing moderate aortic regurgitation moderate Hypertension Hyperlipidemia History of gastric ulcer History of ovarian cancer Mild hyponatremia PLAN: -patient to be admitted to PCCU -in reference to hemoptysis. We will keep patient upright for now we will request consultation with pulmonology. We will consider CT chest for further evaluation -in reference to right-sided infiltrate with concern for pneumonia. Patient will be started on Zosyn and azithromycin. Obtain a sputum culture. Check mycoplasma, Legionella, Streptococcus -obtain patient's home medications will be reconciled once available. -patient currently declines a repeat echocardiogram. -check TSH, A1c, procaine, CRP -further orders per hospitalization Advanced Care Planning Which of the following were discussed: Hospice care: Yes __ No _x_ Therapeutic options: Yes __ No __ Advance directives: Yes __ No __ Other discussions: Pt is full code Discussed with who?: patient (Patient, family or surrogates) Voluntary nature of this service was explained to the patient? Yes _x_ No __ Amount of time spent: 25 minutes MERVIN Lozada MD, MD Jan 20, 2025 12:36
--- NOTE | 2025-01-20 12:55 | EKG ---
[facility] Test Date: 2025-01-20 Test Time: 09:10:49 Pat Name: NEHEMIAS BAINS Department: EDHIP Room: ED 11 Gender: F Evaluator: [id number] : 1945 Requested By: NIDIA MCKEON Order Number: [id number] Reading MD: Nabil Bello Measurements Intervals [place] Rate: 106 P: 0 MS: 161 QRS: -75 QRSD: 168 T: 103 QT: 398 QTc: 529 Interpretive Statements Ventricular-paced rhythm Compared to ECG 04/16/2023 08:38:27 Atrial-paced complex(es) or rhythm no longer present Left ventricular hypertrophy no longer present Q waves no longer present Electronically Signed On 01-20-2025 16:32:19 CDT by Nabil Bello Please click the below link to view image of tracing.
[2025-01-20] MEDS ORDERED: LIDOCAINE HCL 2% VISCOUS 30 ML, MAG/ALUM/SIMETH 30ML 30 ML, DICYCLOMINE HCL 20 MG PO PRN (13:00)
[2025-01-20] MEDS ORDERED: LOPERAMIDE HCL 2 MG CAP PO PRN (13:00)
[2025-01-20] MEDS ORDERED: NITROGLYCERIN 0.4 MG SL TAB SL PRN (13:00)
[2025-01-20] MEDS ORDERED: ARTIFICAL TEARS SOL 15 ML OP PRN (13:00)
[2025-01-20] MEDS ORDERED: LACTULOSE 20 GM/30 ML UDCUP PO PRN (13:00)
[2025-01-20] MEDS ORDERED: guaiFENesin-DM 200/20MG 10ML PO PRN (13:00)
[2025-01-20] MEDS ORDERED: BENZOCAINE/MENTH/CETYLPYRD CL 1 EACH LOZENGE MM PRN (13:00)
[2025-01-20] MEDS: ZOSYN 3.375GM +NS 50ML IVPB SCH (13:11)
--- NOTE | 2025-01-20 14:27 | NUR ---
DCP:HOME Pt currently lives at home with her Franklin Lazo [phone]. Pt does not have any DME, home health, or provider services. Pt states that she is able to complete ADLs independently. PCP is Dr Sandeep Curry and uses [facility] for any RX needs. At MD pt will want to go home and family can assist with transportation. Addendum: 01/20/25 at 1429 by JOSÉ MANUEL SANTIAGO SS Amended: Links added.
[2025-01-20] MEDS ORDERED: IOHEXOL-350 75 ML VIAL IV ONE (14:31)
--- NOTE | 2025-01-20 14:58 | CONS ---
[facility] CONSULTATION NOTE Date Patient Seen: Jan 20, 2025 Time of Visit: 14:58 Supervising Physician: Dr. Trevor Jane Reason for Consultation: Hemotysis, shortness of the breath Primary Care Physician: [ ] Outpatient Specialists: [ ] Inpatient Consults: [ ] PROBLEM LIST: 1. Acute hypoxic respiratory failure 2. Right lower lobe pneumonia 3. Hemotysis HPI: Bobbi Lazo is an 79-year-old lady , health history: Hypertension, gastric ulcer, GERD, ovarian cancer status post treatment, aortic valves diagnosis s/p aortic valve replacement, presented to the emergency department on 01/20/2025 because of generalized body weakness, and hemoptysis. The patient reports having a few episodes. Patient denies Melena, hematochezia, & hematemesis, additionally patient denies recent ill person contact foreign travel, fever, chills, nauseousness, and diarrhea currently. Vital signs: Temperature 98.4, pulse 99, respirations 20, blood pressure 149/39, oxygen saturation 95 FiO2 21. Lab results: Sodium 132, potassium 4.1, BUN 33, creatinine 1.0, GFR 57, WBC 12.5, hemoglobin 10.5 hematocrit 31.5%, and platelets 237. Urine: Negative for nitrate, leukocyte esterase. EKG rate 106 beats per minute. Rhythm sinus tach. No ST segment elevation or depression. This is from ED provider report. Chest x-ray: Right lower lobe pneumonia. CT chest without contrast results: Ground-glass opacities right lower lobe. Pulmonary congestion. Recommendations: Telemetry. Antibiotics: Zithromax 250 mg IV Q 24 hours and Zosyn 3.375 g IV q.8 hours Breathing treatments scheduled q.6 hours Continue with DVT and GI prophylaxis A.m. labs PAST MEDICAL HX: see above PAST SURGICAL HX: noncontributory SOCIAL HISTORY: No tobacco, ETOH, or illicit drug use Coded Allergies: No Allergy Information Available (Verified Allergy, Unknown, 01/24/20) REVIEW OF SYSTEMS: 12 point ROS reviewed with patient. Pertinent positives mentioned above. Otherwise negative. PHYSICAL EXAM: GENERAL: alert, weak, awake oriented x 3 HEENT: EOMI, Sclera non icteric, moist mucosa NECK: Supple, no JVD, trachea midline LUNGS: Clear breath sounds bilaterally. No wheezes HEART: Regular rate and rhythm. Normal S1 and S2, without murmurs ABD: Abdomen soft, nontender. Bowel sounds present EXT: No clubbing cyanosis or edema NEURO: Alert and oriented to person, follows commands Vital Signs (last 8hr) Date Time Temp Pulse Resp B/P (MAP) Pulse Ox O2 Delivery O2 Flow Rate FiO2 01/20/25 10:58 82 24 01/20/25 09:10 98.4 99 20 149/38 95 Room Air* 0 21 01/20/25 09:05 98.4 99 20 149/38 95 0 LABS: Hematology Labs: Test 01/20/25 09:22 Range/Units White Blood Count 12.5 H 4.8-10.8 K/uL Red Blood Count 3.25 L 4.00-5.50 MIL/uL Hemoglobin 10.5 L 12.0-16.0 g/dL Hematocrit 31.5 L 36-48 % Mean Corpuscular Volume 96.9 79-99 fL Mean Corpuscular Hemoglobin 32.3 27.0-33.0 pg Mean Corpuscular Hemoglobin Concent 33.3 32.0-36.0 g/dL Red Cell Distribution Width 13.3 11.0-15.5 % Platelet Count 237 130-400 K/uL Mean Platelet Volume 10.3 7.5-10.5 fL Immature Granulocyte % (Auto) 0.6 0-1 % Neutrophils (%) (Auto) 84.0 H 40.0-77.0 % Lymphocytes (%) (Auto) 7.9 L 21.0-51.0 % Monocytes (%) (Auto) 6.6 3.0-13.0 % Eosinophils (%) (Auto) 0.7 0.0-8.0 % Basophils (%) (Auto) 0.2 0.0-5.0 % Neutrophils # (Auto) 10.5 H 1.8-7.7 K/uL Lymphocytes # (Auto) 1.0 1.0-4.8 K/uL Monocytes # (Auto) 0.8 0.1-1.0 K/uL Eosinophils # (Auto) 0.09 0.00-0.70 K/uL Basophils # (Auto) 0.02 0.00-0.20 K/uL Absolute Immature Granulocyte (auto 0.08 0-1 K/uL Nucleated Red Blood Cells 0.0 0.0-0.19 % White Cell Morphology Comment See comments Chemistry Labs: Test 01/20/25 09:22 Range/Units Sodium Level 132 L 136-145 mmol/L Potassium Level 4.1 3.5-5.1 mmol/L Chloride Level 99 L 101-111 mmol/L Carbon Dioxide Level 22 21-32 mmol/L Blood Urea Nitrogen 33 H 7-18 mg/dL Creatinine 1.0 0.5-1.0 mg/dL Glomerular Filtration Rate Calc 57 >90 mL/min Random Glucose 131 H 70-105 mg/dL Hemoglobin A1c 5.2 4.0-6.0 % Estimated Average Glucose (eAG) 103 70-126 mg/dL Total Calcium 9.0 8.5-10.1 mg/dL Magnesium Level 2.20 1.80-2.40 mg/dL Total Creatine Kinase 37 # 21-232 U/L Troponin I High Sensitivity 17 4-50 ng/L C-Reactive Protein, Quantitative 106.50 H 0.5-3.0 mg/L B-Type Natriuretic Peptide 555 H 0-100 pg/mL Procalcitonin 0.14 0.05-0.5 ng/mL Coagulation Labs: Test 01/20/25 09:22 Range/Units Prothrombin Time 10.4 9.6-11.6 SEC Prothromb Time International Ratio 0.98 0.85-1.15 Activated Partial Thromboplast Time 28.0 26.3-35.5 SEC DIAGNOSTICS / RADIOLOGY RESULTS: [ ] PLAN NEURO: Minimize central acting medications as possible. Maintain fall precautions, adequate lighting during the day PULMONARY: Supplemental 02 as needed. Maintain aspiration precautions at all times CARDIOVASCULAR: Follow hemodynamics. Vital signs per facility protocol GI & NUTRITION: Continue with nutritional support. Continue stool softeners and laxatives as needed. KIDNEYS & ELECTROLYTES: Strict monitoring of intake, output and overall fluid balance. Avoid nephrotoxic medications to the extent possible. Medications to be dosed according to renal function. Monitor electrolytes and replace as needed ENDOCRINE: Maintain blood glucose between 100-180 at all times. Hypoglycemia protocol in place INFECTIOUS DISEASE: Trend temperature, WBC and procalcitonin level Follow cultures, deescalate antibiotics as soon as possible. Panculture if new onset fever ONCOLOGY/HEMATOLOGY/COAGULATION: Monitor for s/s of bleeding Monitor hemoglobin, coagulation studies as needed SKIN: Pressure ulcer prevention per facility protocol Specialty mattress ORTHO/REHAB: Continue PT/OT Prophylaxis: Continue GI and DVT prophylaxis Code Status: Full Resuscitation Disposition: TBD Other: Total patient care time exceeds 35 minutes excluding all procedures. ANNABELLA RODRIGUEZ AGAP Jan 20, 2025 14:58
--- NOTE | 2025-01-20 16:24 | NUR ---
PENDING UPDATE ON MEDICATIONS FAMILY IS GOING TO BRING THEM
--- NOTE | 2025-01-20 18:39 | NUR ---
SPEECH TRIGGER COMPLETED / PNEUMONIA Pt IS AN 79 Y.O. FEMALE ADMITTED SECONDARY TO RIGHT LOWER LOBE PNA. Pt HAS A PAST MEDICAL HISTORY SIGNIFICANT FOR HYPERTENSION, OVARIAN CANCER, GASTRIC ULCER AND AORTIC VALVE STENOSIS. Pt PRESENTED WITH "AREAS OF GOUNDGLASS OPACITIES WITH INTERLOBULAR SEPTAL THICKENING GIVING RISE TO A CRAZY PAVING PATTERN IN THE RIGHT LOWER LOBE" ON MOST RECENT CHEST CT (01/20/2025). Pt CURRENTLY ON CLEAR LIQUIDS (THIN LIQUIDS). PER NURSE BARTOLOME, Pt TOLERATING DIET WITH NO OVERT S/S OF ASPIRATION. PLEASE REQUEST SPEECH THERAPY SERVICES FOR SKILLED BEDSIDE SWALLOW EVALUATION IF Pt PRESENTS WITH +S/S OF ASPIRATION SUCH COUGH RESPONSE, THROAT CLEAR, OR WET VOCAL QUALITY DURING ORAL INTAKE. ALL QUESTIONS ANSWERED AT THIS TIME. Addendum: 01/21/[address] GLORIA SAINI Amended: Links added.
[2025-01-20] MEDS: FAMOTIDINE 20MG VIAL IV SCH (21:03)
--- NOTE | 2025-01-21 00:41 | HMCIMG ---
EXAM: CTA examination of the chest. CLINICAL HISTORY: Hemoptysis. TECHNIQUE: Thin collimated axial CTA images of the chest were obtained, and sagittal and coronal reformatted images were also submitted. A CT scan is done according to ALARA (As Low as Reasonably Achievable). COMPARISON: None provided. FINDINGS: There is a large consolidation along with areas of groundglass opacities with interlobular septal thickening, giving rise to a crazy paving pattern in the right lower lobe. Similar smaller areas are in the right middle lobe and the inferior segment of the lingula. Small subsegmental atelectasis in the left lower lobe posteriorly. No pleural effusions. No pericardial effusion. Moderate cardiomegaly. 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 No filling defect or pulmonary thromboembolism. Significant atherosclerotic calcification of the thoracic aorta. Moderate calcification of the coronary arteries. There is an AICD device. No axillary, supraclavicular, or mediastinal lymphadenopathy. Limited views of the upper abdomen demonstrate no abnormality. No acute or suspicious osseous abnormality. IMPRESSION: No pulmonary thromboembolism. Large consolidation is likely of infectious origin. The areas of groundglass opacities with interlobular septal thickening giving rise to a crazy paving pattern in the right lower lobe could suggest underlying pulmonary edema. Similar smaller areas are in the right middle lobe and the inferior segment of the lingula. Small subsegmental atelectasis in the left lower lobe posteriorly. Moderate cardiomegaly. 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 Other chronic findings as described. /[place]
[2025-01-21 05:17] LABS: IMMATURE GRANULOCYTE ABSOLUTE 0.07 K/uL (0-1); NUCLEATED RED BLOOD CELLS 0.0 % (0.0-0.19); PLATELET COUNT (AUTO) 244 K/uL (130-400); RED BLOOD CELL COUNT(AUTO) 3.13 MIL/uL (4.00-5.50); RED CELL DISTRIBUTION WIDTH 13.7 % (11.0-15.5); WHITE BLOOD COUNT (AUTO) 14.9 K/uL (4.8-10.8)
[2025-01-21 05:33] LABS: CREATININE 1.0 mg/dL (0.5-1.0); GLOMERULAR FILTR. RATE CALC 57.0 mL/min (>90); GLUCOSE,RANDOM 138.0 mg/dL (70-105); SODIUM SERUM 136.0 mmol/L (136-145); UREA NITROGEN, BLOOD 27.0 mg/dL (7-18)
[2025-01-21] MEDS ORDERED: AMLO-258 PO (08:22)
[2025-01-21] MEDS ORDERED: FURO20TA4 PO (08:22)
[2025-01-21] MEDS ORDERED: RAMI10CA76 PO (08:22)
--- NOTE | 2025-01-21 09:21 | NUR ---
ATTEMPTED TO CALL REPORT AT THIS TIME. GOT TRANSFERRED 5 TIMES. NO ANSWER. PENDING CALL BACK.
--- NOTE | 2025-01-21 09:59 | NUR ---
GAVE REPORT TO RADHA AT THIS TIME.
--- NOTE | 2025-01-21 10:20 | NUR ---
TRANSFER TO FLOOR DELAY: ROUNDING MD'S HAVE ASKED PT NOT TO BE SENT TO THE FLOOR UNTIL THEY HAVE SPOKEN/ASSESSED THE PT.
[2025-01-21] MEDS: DOXYCYCLINE 100MG+NS 250ML 250 ML IV SCH (11:06)
[2025-01-21 12:00] VITALS: BP 129/48; PULSE 72; RESP 16; TEMP 97.4
--- NOTE | 2025-01-21 13:10 | HMCIMG ---
CHEST 1VW REASON: cp COMPARISON: None. FINDINGS: Single view of the chest was obtained. There is cardiomegaly with median sternotomy with cardiac revascularization procedure. There is a left-sided pacemaker with lead in right atrium and right ventricle. The lung avila demonstrate airspace consolidation involving the right upper and middle lobe. The left lung appears to be clear. There is blunting of both costophrenic sulcus suggesting of pleural reaction.. Mediastinum appears minimal. The bony thorax demonstrate osteopenia and deformity of the right humeral neck suggesting of an old trauma. IMPRESSION: 1. Cardiomegaly with median sternotomy with cardiac tube aspiration procedure 2. There is airspace consolidation involving the right middle and right lower lung 3. There is blunting of both costophrenic sulcus suggesting a pleural reaction.
--- NOTE | 2025-01-21 13:49 | PN ---
[facility] PROGRESS NOTE Date of Service: Jan 21, 2025 Time of Service: 13:47 SUBJECTIVE: 79-year-old female with past medical history of ovarian cancer, hypertension, history of gastric ulcer, history of history of aortic valve stenosis status post valve replacement who presented to the hospital secondary to hemoptysis. The patient states she has noted cough at home which is productive in nature. She has noted blood with her sputum. She does not have any hematemesis, melena, hematochezia. Denied any recent epistaxis. She has noted previous episodes of epistaxis in the past but denied any recent episode. Her blood is mainly present after coughing in the sputum. Denied any fever, chills, chest pain, abdominal pain, nausea. She does get short of breath with her underlying cough. She has been followed by Dr. Small as outpatient regards to aortic valve stenosis. She currently denies taking any antiplatelet or anticoagulants at home. She denied any night sweats, recent weight loss. Labs were notable for white count of 12.5, hemoglobin was 10.5, platelet count was 237 K, sodium was 132, potassium was 4.1, creatinine was 1.0. Chest x-ray infiltrates on the right side. Patient will be admitted for further medical management. 01/21/2025: Patient was seen and evaluated bedside in ED 11. Case discussed with RN, no acute overnight events. Patient says she is feeling well, denies chest pain, shortness of breath, palpitations, nausea, vomiting. X-ray shows airspace consolidation involving right middle and right lower lung and blunting of both costophrenic sulcus suggesting a pleural reaction. CT chest shows large consolidation likely of infectious origin, ground-glass opacities with interlobular septal thickening giving rise to crazy paving pattern in right lower lobe suggesting underlying pulmonary edema. Lab shows white count 14.9, CRP 106, BNP 555. EKG showed prolonged QTC, azithromycin was discontinued and doxycycline was started, continue Zosyn. Cardiology was consulted for further evaluation. REVIEW OF SYSTEMS CONSTITUTIONAL: Denies fevers, chills, or night sweats. No unintentional weight loss reported. NEUROLOGICAL: Denies headache, amaurosis fugax, motor weakness, sensory deficit, vertigo/spinning sensation, gait abnormalities, or tremors. ENT: No hearing loss, otalgia, otorrhea, rhinitis, rhinorrhea, hoarseness, or sore throat. CARDIOVASCULAR: Denies any exertional angina, dyspnea on exertion, orthopnea, paroxysmal nocturnal dyspnea, palpitations, life-threatening arrhythmias, claudication. PULMONARY: Positive for hemoptysis, cough, sputum production SLEEP: Denies morning headaches, daytime somnolence or napping. Denies difficulty falling asleep, staying asleep, waking from sleep. Denies knowledge of snoring. GASTROINTESTINAL: Denies any type of dysphagia to either liquids or solids. Denies nausea, vomiting, pyrosis, early satiety, abdominal pain, diarrhea, constipation, or changes in stool consistency or caliber. Denies coffee-ground emesis, hematemesis, hematochezia, or melanotic stools. GENITOURINARY: Denies frequency, urgency, nocturia, hematuria or incontinence (Storage/Irritative symptoms.) Low urinary stream, straining to void, urinary intermittency or hesitancy, splitting of the voiding stream, terminal dribbling. ENDOCRINOLOGIC: Denies polyuria, polydipsia, polyphagia or heat/cold intolerances. HEMATOLOGIC: Denies thrombophilia/previous clots, or coagulopathy/bleeding disorders. ONCOLOGIC: Denies personal history of malignancy. DERMATOLOGIC: Denies rashes or pruritus. PSYCHIATRIC: Denies any suicidal or homicidal ideation. Denies hallucinations. PHYSICAL EXAM GENERAL APPEARANCE: The patient is awake, alert, and oriented, in no acute cardiopulmonary distress. Patient is bright red blood in the cup present at bedside NEUROLOGICAL: Cranial nerves II-XII grossly intact. Motor is 5/5 in bilateral upper and lower extremities proximal to distal. No sensory deficits. HEENT: Face is symmetric. Pupils are equal and reactive. Extraocular movements are intact. NECK: Supple. No JVD. No thyromegaly. No submental, submandibular, pre- /postauricular, occipital or supraclavicular lymphadenopathy. CHEST: Normal chest expansion. No Telemetry. LUNGS: She has a crackles present bilaterally CARDIOVASCULAR: Regular. S1 and S2 normal. No appreciable rubs, murmurs or gallops. ABDOMEN: Soft, nontender, and nondistended. There is no rebound, voluntary guarding, or rigidity. : Deferred. No Wallace. EXTREMITIES: Non-edematous and not cyanotic. No clubbing. Good capillary refill. SKIN: No skin breakdown. Vital Signs (last 8hr) Date Time Temp Pulse Resp B/P (MAP) Pulse Ox O2 Delivery O2 Flow Rate FiO2 01/21/25 12:00 97.3 72 16 129/48 98 Nasal Cannula 2.0 01/21/25 11:30 Nasal Cannula* 2 28 01/21/25 09:59 78 20 136/67 99 Room Air* 0 21 01/21/25 07:44 98.1 67 20 113/57 97 Nasal Cannula* 2 28 01/21/25 06:27 98.4 91 19 159/53 99 Nasal Cannula* 3 32 LABS: Laboratory: Test 01/21/25 05:07 01/20/25 11:16 01/20/25 10:59 01/20/25 10:18 Range/Units White Blood Count 14.9 H 4.8-10.8 K/uL Red Blood Count 3.13 L 4.00-5.50 MIL/uL Hemoglobin 10.3 L 12.0-16.0 g/dL Hematocrit 29.9 L 36-48 % Mean Corpuscular Volume 95.5 79-99 fL Mean Corpuscular Hemoglobin 32.9 27.0-33.0 pg Mean Corpuscular Hemoglobin Concent 34.4 32.0-36.0 g/dL Red Cell Distribution Width 13.7 11.0-15.5 % Platelet Count 244 130-400 K/uL Mean Platelet Volume 10.8 H 7.5-10.5 fL Immature Granulocyte % (Auto) 0.5 0-1 % Neutrophils (%) (Auto) 92.5 H 40.0-77.0 % Lymphocytes (%) (Auto) 3.2 L 21.0-51.0 % Monocytes (%) (Auto) 3.7 3.0-13.0 % Eosinophils (%) (Auto) 0.0 0.0-8.0 % Basophils (%) (Auto) 0.1 0.0-5.0 % Neutrophils # (Auto) 13.8 H 1.8-7.7 K/uL Lymphocytes # (Auto) 0.5 L 1.0-4.8 K/uL Monocytes # (Auto) 0.6 0.1-1.0 K/uL Eosinophils # (Auto) 0.00 0.00-0.70 K/uL Basophils # (Auto) 0.01 0.00-0.20 K/uL Absolute Immature Granulocyte (auto 0.07 0-1 K/uL Nucleated Red Blood Cells 0.0 0.0-0.19 % Sodium Level 136 136-145 mmol/L Potassium Level 4.4 3.5-5.1 mmol/L Chloride Level 101 101-111 mmol/L Carbon Dioxide Level 21 21-32 mmol/L Blood Urea Nitrogen 27 H 7-18 mg/dL Creatinine 1.0 0.5-1.0 mg/dL Glomerular Filtration Rate Calc 57 >90 mL/min Random Glucose 138 H 70-105 mg/dL Total Calcium 9.4 8.5-10.1 mg/dL Mycoplasma pneumoniae IgM Antibody NEGATIVE NEGATIVE Influenza Type A Antigen Negative For Type A NEGATIVE Influenza Type B Antigen Negative For Type B NEGATIVE SARS-CoV-2, RNA, NAAT NEGATIVE SARS CoV-2 NEGATIVE Group A Streptococcus Rapid negative NEGATIVE Blood Gas Specimen Type Arterial Arterial Blood pH 7.436 7.350-7.450 Arterial Blood Partial Pressure CO2 29 L 32-45 mmHg Arterial Blood Partial Pressure O2 66.1 L 83.0-108.0 mmHg Arterial Blood HCO3 18.7 L 21.0-28.0 mmol/L Arterial Blood Oxygen Saturation 93.3 L 94.0-98.0 % Arterial Blood Base Excess -4.4 L -2.0-3.0 mmol/L Hemoglobin (Blood Gas) 10.7 L 12.0-16.0 g/dL Sodium (Blood Gas) 129 L 136-145 MMOL/L Bedside Potassium (Blood Gas) 4.3 3.4-4.5 MMOL/L Bedside Chloride (Blood Gas) 102 98-107 MMOL/L Bedside Glucose (Blood Gas) 123 H 65-95 MG/DL Bedside Ionized Calcium (Blood Gas) 1.20 1.15-1.33 MMOL/L Bedside Lactic Acid (Blood Gas) 0.86 H 0.36-0.75 MMOL/L Blood Gas Temperature 37.0 35.5-37.0 CELSIUS FiO2 28.0 % Blood Gas Specimen Comment DR.REYNA LEONOR Urine Color LIGHT-YELLOW YELLOW Urine Appearance CLEAR CLEAR Urine pH 5.0 5.0-8.0 Urine Specific [place] 1.009 1.001-1.031 Urine Protein NEGATIVE NEGATIVE mg/dL Urine Glucose (UA) NEGATIVE NEGATIVE mg/dL Urine Ketones NEGATIVE NEGATIVE mg/dL Urine Occult Blood MODERATE H NEGATIVE Urine Nitrate NEGATIVE NEGATIVE Urine Bilirubin NEGATIVE NEGATIVE mg/dL Urine Urobilinogen 0.2 0.2-1.0 mg/dL Urine Leukocyte Esterase NEGATIVE NEGATIVE [place]/uL Urine RBC 2-5 H 0-1 /HPF Urine WBC 2-5 H 0-1 /HPF Urine Bacteria None Seen None Seen /HPF Test 01/20/25 09:22 Range/Units White Cell Morphology Comment See comments Prothrombin Time 10.4 9.6-11.6 SEC Prothromb Time International Ratio 0.98 0.85-1.15 Activated Partial Thromboplast Time 28.0 26.3-35.5 SEC Hemoglobin A1c 5.2 4.0-6.0 % Estimated Average Glucose (eAG) 103 70-126 mg/dL Magnesium Level 2.20 1.80-2.40 mg/dL Total Creatine Kinase 37 # 21-232 U/L Troponin I High Sensitivity 17 4-50 ng/L C-Reactive Protein, Quantitative 106.50 H 0.5-3.0 mg/L B-Type Natriuretic Peptide 555 H 0-100 pg/mL Procalcitonin 0.14 0.05-0.5 ng/mL Current Medications Medications (Trade) Dose Ordered Sig/Sadi Route PRN Reason Start Time Stop Time Status Last Admin Dose Admin Acetaminophen (TYLenol 325MG TAB) 650 mg Q4H PRN PO MILD PAIN (1-3) 01/20/25 13:00 02/19/25 12:59 Acetaminophen (TYLenol 325MG TAB) 650 mg Q6H PRN PO TEMPERATURE GREATER THAN 101.5 01/20/25 13:00 02/19/25 12:59 Amlodipine Besylate (NorvASC 2.5MG TAB) 2.5 mg DAILY PO 01/22/25 09:00 02/21/25 08:59 Amlodipine Besylate (NorvASC 5MG TAB) 5 mg DAILY PO 01/22/25 09:00 02/21/25 08:59 Artificial Tears (Artificial Tears) 1 DROP Q2H PRN OP DRY EYES 01/20/25 13:00 02/19/25 12:59 Azithromycin 250 ml @ 250 mls/hr Q24H IVPB 01/21/25 14:30 01/21/25 10:33 DC Benzocaine (Cepacol Sore Throat Lozenge) 1 each Q2H PRN MM SORE THROAT 01/20/25 13:00 02/19/25 12:59 Docusate Sodium (COLace 100MG CAP) 100 mg BID PRN PO CONSTIPATION 01/20/25 13:00 02/19/25 12:59 Doxycycline Hyclate 250 ml @ 125 mls/hr Q12H IV 01/21/25 10:30 01/31/25 10:29 01/21/25 11:06 125 MLS/HR Famotidine (Pepcid 20mg Vial) 20 mg Q24H IV 01/20/25 21:00 02/19/25 20:59 01/20/25 21:03 20 MG Furosemide (LASix 20MG TAB) 20 mg AD PO 01/21/25 09:00 01/21/25 08:59 DC Guaifenesin (RobiTUSSin SUGAR-FREE 100 MG/ 5 ML UDCUP) 200 mg Q4H PRN PO COUGH 01/20/25 13:00 02/19/25 12:59 Guaifenesin/ Dextromethorphan (RobiTUSSin DM 200/20MG 10ML) 10 ml Q4H PRN PO COUGH 01/20/25 13:00 02/19/25 12:59 Lactulose (Constulose 20gm/ 30ml Udcup) 20 gm BID PRN PO CONSTIPATION 01/20/25 13:00 02/19/25 12:59 Lidocaine HCl/Al Hydroxide/Mg Hydroxide/ Dicyclomine HCl 20ML OR AD MAALOX P... Q6H PRN PO HEARTBURN 01/20/25 13:00 02/19/25 12:59 Lisinopril (Prinivil 20mg) 20 mg DAILY PO 01/22/25 09:00 02/21/25 08:59 Loperamide HCl (Imodium) 2 mg Q6H PRN PO AFTER EACH LOOSE STOOL 01/20/25 13:00 02/19/25 12:59 Magnesium Sulfate 50 ml @ 0 mls/hr PROTOCOL PRN IV hypomagnesemia 01/20/25 12:00 02/19/25 11:59 Metoprolol Succinate (TopROL XL) 50 mg DAILY PO 01/21/25 09:00 02/20/25 08:59 01/21/25 10:21 50 MG Nitroglycerin (Nitrostat) 0.4 mg PROTOCOL PRN SL CHEST PAIN 01/20/25 13:00 02/19/25 12:59 Ondansetron HCl (zoFRAN 4MG INJ) 4 mg Q6H PRN IV NAUSEA/VOMITING 01/20/25 13:00 02/19/25 12:59 Piperacillin Sod/ Tazobactam Sod (Zosyn 3.375gm+NS 50ml) 3.375 gm Q8H IVPB 01/20/25 12:00 01/21/25 13:17 DC 01/21/25 04:05 3.375 GM Piperacillin Sod/ Tazobactam Sod (Zosyn 3.375gm+NS 50ml) 3.375 gm Q8H IVPB 01/21/25 14:30 01/31/25 14:29 Polyethylene Glycol (MIRalax 3350 17 GM POWD.PACK) 17 gm DAILY PRN PO CONSTIPATION 01/20/25 13:00 02/19/25 12:59 Potassium Chloride 100 ml @ 100 mls/hr AD PRN IV POTASSIUM PROTOCOL 01/20/25 12:00 02/19/25 11:59 Potassium Chloride (K-Dur/Klor-Con 20meq) 20 meq AD PRN PO POTASSIUM PROTOCOL 01/20/25 12:00 02/19/25 11:59 Potassium Chloride (KCl 10% Elixir 20meq/15ml) 20 meq AD PRN PO POTASSIUM PROTOCOL 01/20/25 12:00 02/19/25 11:59 Sodium Chloride (NS 50ml) 50 ml AD IV 01/20/25 12:00 01/20/25 12:10 DC DIAGNOSTICS / RADIOLOGY: [place] [address] IMAGING REPORT Signed PATIENT: NEHEMIAS BAINS MR#: [id number] : 1945 SEX: F AGE: 79 LOCATION: 3CH ORDER 0 STATUS: ADM IN REPORT#: [id number] SERVICE 0909 REASON: cp ORDERING PHYSICIAN: INDIA MCKEON MD PROCEDURE: CXR1VW - CHEST 1VW CHEST 1VW REASON: cp COMPARISON: None. FINDINGS: Single view of the chest was obtained. There is cardiomegaly with median sternotomy with cardiac revascularization procedure. There is a left-sided pacemaker with lead in right atrium and right ventricle. The lung avila demonstrate airspace consolidation involving the right upper and middle lobe. The left lung appears to be clear. There is blunting of both costophrenic sulcus suggesting of pleural reaction.. Mediastinum appears minimal. The bony thorax demonstrate osteopenia and deformity of the right humeral neck suggesting of an old trauma. IMPRESSION: 1. Cardiomegaly with median sternotomy with cardiac tube aspiration procedure 2. There is airspace consolidation involving the right middle and right lower lung 3. There is blunting of both costophrenic sulcus suggesting a pleural reaction. DICTATED BY: SPRING RODRÍGUEZ MD DATE: 01/21/25 1306 ELECTRONICALLY SIGNED BY: SPRING RODRÍGUEZ MD DATE: 01/21/[address] [address] IMAGING REPORT Signed PATIENT: NEHEMIAS BAINS MR#: [id number] : 1945 SEX: F AGE: 79 LOCATION: EDHIP ORDER 1340 STATUS: ADM IN REPORT#: [id number] SERVICE 1339 REASON: hemoptysis ORDERING PHYSICIAN: MERVIN FARNSWORTH MD PROCEDURE: PE CHEST - CT CHEST PE WWO EXAM: CTA examination of the chest. CLINICAL HISTORY: Hemoptysis. TECHNIQUE: Thin collimated axial CTA images of the chest were obtained, and sagittal and coronal reformatted images were also submitted. A CT scan is done according to ALARA (As Low as Reasonably Achievable). COMPARISON: None provided. FINDINGS: There is a large consolidation along with areas of groundglass opacities with interlobular septal thickening, giving rise to a crazy paving pattern in the right lower lobe. Similar smaller areas are in the right middle lobe and the inferior segment of the lingula. Small subsegmental atelectasis in the left lower lobe posteriorly. No pleural effusions. No pericardial effusion. Moderate cardiomegaly. 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 No filling defect or pulmonary thromboembolism. Significant atherosclerotic calcification of the thoracic aorta. Moderate calcification of the coronary arteries. There is an AICD device. No axillary, supraclavicular, or mediastinal lymphadenopathy. Limited views of the upper abdomen demonstrate no abnormality. No acute or suspicious osseous abnormality. IMPRESSION: No pulmonary thromboembolism. Large consolidation is likely of infectious origin. The areas of groundglass opacities with interlobular septal thickening giving rise to a crazy paving pattern in the right lower lobe could suggest underlying pulmonary edema. Similar smaller areas are in the right middle lobe and the inferior segment of the lingula. Small subsegmental atelectasis in the left lower lobe posteriorly. Moderate cardiomegaly. 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 Other chronic findings as described. /[place] DICTATED BY: ZHANE MOORE Jr., MD DATE: 01/21/25139 ELECTRONICALLY SIGNED BY: ZHANE MOORE Jr., MD DATE: 01/21/25139 ASSESSMENT: Hemoptysis POA Community-acquired pneumonia POA Aortic valve stenosis status post aortic valve replacement POA Hypertension POA Hyperlipidemia History of gastric ulcer History of ovarian cancer Mild hyponatremia PLAN: Community-acquired pneumonia POA * Patient came to ED with cough which is productive in nature noted blood with her sputum. * CT chest showed large consolidation likely of infectious origin * WBC Count trended up from 12.5 to 14.9 this morning * Patient was started on Zosyn IV, azithromycin IV on 01/20/2025 * Patient's EKG showed prolonged QTC, azithromycin was discontinued this morning. * Continue IV Zosyn 3.375 G IV Q8 (day 2), started doxycycline 250 mL IV q.12h (day 1) * Critical Care on board, we will follow up with the recommendations. Hemoptysis POA * Patient noted blood after coughing out phlegm at home. * CBC shows hemoglobin 10.5, hematocrit 31.5 at presentation. * Patient denied further episodes of coughing out blood this morning. * Critical Care on board for further evaluation Aortic valve stenosis status post aortic valve replacement POA * Patient has history of recall stenosis status post valve replacement. * We echo from 09/23/2023 shows bioprosthetic aortic wall is present, with thickened and possible degenerating left coronary cusp, moderate aortic regurgitation. * Patient denied 2D echo yesterday and said that she follows with Dr. Small. * Dr. Small was consulted for further evaluation. Hypertension POA * Patient is known case of hypertension taking amlodipine 10 mg, metoprolol 50 mg ER, ramipril 10 mg at home * Presentation blood pressure was 149/38 * Patient was started on her home medication Pepcid 20 mg Q 24 H IV for GI prophylaxis ATTESTATION BY PHYSICIAN I have seen and examined the patient. I reviewed the documentation, medical decision making, and treatment plan as noted by the resident physician above. I agree with the findings and plan of care. STACY BAUMAN MD, ADIL SHAH QUADRI MD Jan 21, 2025 13:49
[2025-01-21] MEDS ORDERED: AZITHROMYCIN 500MG+NS 250ML 250 ML IVPB SCH (14:30)
[2025-01-21] MEDS: ZOSYN 3.375GM +NS 50ML IVPB SCH (14:45)
--- NOTE | 2025-01-21 15:59 | PN ---
[facility] PROGRESS NOTE Date Patient Seen: Jan 21, 2025 Time of Visit: 15:58 Supervising Physician: Dr Maxime Reynoso Primary Care Physician: [ ] Outpatient Specialists: [ ] Inpatient Consults: [ ] PROBLEM LIST: Community-acquired pneumonia Aortic valve stenosis history of aortic valve replacement Hemoptysis Hypertension INTERVAL HISTORY: Patient seen and examined, sitting comfortably in bed, she remained in ER bed 11 pending transfer upstairs We will family at bedside Nursing reports no acute events overnight. Labs and imaging have been reviewed, she is pending a echocardiogram her last 1 performed in September of 2024 revealed an EF of 60% with moderate mitral regurg along with the aortic valve replacement No anticoagulation therapy per med review Azithromycin was discontinued because of prolonged QTC she is now on doxycycline and Zosyn Sputum cultures have resulted with Gram-negative rods and Gram-positive cocci Plan: Follow cultures, sensitivities, antibiotics Supplemental O2, RT treatments Possible addition of steroids in a.m. Viral panel was negative Daily labs Care time 47 minutes, this excludes any time spent on teaching or procedures REVIEW OF SYSTEMS: 12 point ROS reviewed with patient. Pertinent positives mentioned above. Otherwise negative. PHYSICAL EXAM: GENERAL: alert, weak, awake oriented x 3 HEENT: EOMI, Sclera non icteric, moist mucosa NECK: Supple, no JVD, trachea midline LUNGS: Clear breath sounds bilaterally. No wheezes HEART: Regular rate and rhythm. Normal S1 and S2, without murmurs ABD: Abdomen soft, nontender. Bowel sounds present EXT: No clubbing cyanosis or edema NEURO: Alert and oriented to person, follows commands Vital Signs (last 8hr) Date Time Temp Pulse Resp B/P (MAP) Pulse Ox O2 Delivery O2 Flow Rate FiO2 01/21/25 12:00 97.3 72 16 129/48 98 Nasal Cannula 2.0 01/21/25 11:30 Nasal Cannula* 2 28 01/21/25 09:59 78 20 136/67 99 Room Air* 0 21 LABS: Hematology Labs: Test 01/21/25 05:07 01/20/25 09:22 Range/Units White Blood Count 14.9 H 4.8-10.8 K/uL Red Blood Count 3.13 L 4.00-5.50 MIL/uL Hemoglobin 10.3 L 12.0-16.0 g/dL Hematocrit 29.9 L 36-48 % Mean Corpuscular Volume 95.5 79-99 fL Mean Corpuscular Hemoglobin 32.9 27.0-33.0 pg Mean Corpuscular Hemoglobin Concent 34.4 32.0-36.0 g/dL Red Cell Distribution Width 13.7 11.0-15.5 % Platelet Count 244 130-400 K/uL Mean Platelet Volume 10.8 H 7.5-10.5 fL Immature Granulocyte % (Auto) 0.5 0-1 % Neutrophils (%) (Auto) 92.5 H 40.0-77.0 % Lymphocytes (%) (Auto) 3.2 L 21.0-51.0 % Monocytes (%) (Auto) 3.7 3.0-13.0 % Eosinophils (%) (Auto) 0.0 0.0-8.0 % Basophils (%) (Auto) 0.1 0.0-5.0 % Neutrophils # (Auto) 13.8 H 1.8-7.7 K/uL Lymphocytes # (Auto) 0.5 L 1.0-4.8 K/uL Monocytes # (Auto) 0.6 0.1-1.0 K/uL Eosinophils # (Auto) 0.00 0.00-0.70 K/uL Basophils # (Auto) 0.01 0.00-0.20 K/uL Absolute Immature Granulocyte (auto 0.07 0-1 K/uL Nucleated Red Blood Cells 0.0 0.0-0.19 % White Cell Morphology Comment See comments Chemistry Labs: Test 01/21/25 05:07 01/20/25 09:22 Range/Units Sodium Level 136 136-145 mmol/L Potassium Level 4.4 3.5-5.1 mmol/L Chloride Level 101 101-111 mmol/L Carbon Dioxide Level 21 21-32 mmol/L Blood Urea Nitrogen 27 H 7-18 mg/dL Creatinine 1.0 0.5-1.0 mg/dL Glomerular Filtration Rate Calc 57 >90 mL/min Random Glucose 138 H 70-105 mg/dL Total Calcium 9.4 8.5-10.1 mg/dL Hemoglobin A1c 5.2 4.0-6.0 % Estimated Average Glucose (eAG) 103 70-126 mg/dL Magnesium Level 2.20 1.80-2.40 mg/dL Total Creatine Kinase 37 # 21-232 U/L Troponin I High Sensitivity 17 4-50 ng/L C-Reactive Protein, Quantitative 106.50 H 0.5-3.0 mg/L B-Type Natriuretic Peptide 555 H 0-100 pg/mL Procalcitonin 0.14 0.05-0.5 ng/mL Coagulation Labs: Test 01/20/25 09:22 Range/Units Prothrombin Time 10.4 9.6-11.6 SEC Prothromb Time International Ratio 0.98 0.85-1.15 Activated Partial Thromboplast Time 28.0 26.3-35.5 SEC DIAGNOSTICS / RADIOLOGY RESULTS: [ ] PLAN NEURO: Minimize central acting medications as possible. Maintain fall precautions, adequate lighting during the day PULMONARY: Supplemental 02 as needed. Maintain aspiration precautions at all times CARDIOVASCULAR: Follow hemodynamics. Vital signs per facility protocol GI & NUTRITION: Continue with nutritional support. Continue stool softeners and laxatives as needed. KIDNEYS & ELECTROLYTES: Strict monitoring of intake, output and overall fluid balance. Avoid nephrotoxic medications to the extent possible. Medications to be dosed according to renal function. Monitor electrolytes and replace as needed ENDOCRINE: Maintain blood glucose between 100-180 at all times. Hypoglycemia protocol in place INFECTIOUS DISEASE: Trend temperature, WBC and procalcitonin level Follow cultures, deescalate antibiotics as soon as possible. Panculture if new onset fever ONCOLOGY/HEMATOLOGY/COAGULATION: Monitor for s/s of bleeding Monitor hemoglobin, coagulation studies as needed SKIN: Pressure ulcer prevention per facility protocol Specialty mattress ORTHO/REHAB: Continue PT/OT Prophylaxis: Continue GI and DVT prophylaxis Code Status: Full Resuscitation Disposition: APRYL TRAN PAC Jan 21, 2025 15:59
[2025-01-21 16:00] VITALS: BP 123/66; PULSE 77; RESP 16; TEMP 97.4
[2025-01-21 17:39] LABS: CREATININE 1.1 mg/dL (0.5-1.0); GLOMERULAR FILTR. RATE CALC 51.0 mL/min (>90); GLUCOSE,RANDOM 117.0 mg/dL (70-105); SODIUM SERUM 136.0 mmol/L (136-145); UREA NITROGEN, BLOOD 26.0 mg/dL (7-18)
--- NOTE | 2025-01-21 19:05 | CONS ---
CONSULT NOTE: Reason for consult: delirium Reason for medical admission: 79-year-old female with past medical history of ovarian cancer, hypertension, history of gastric ulcer, history of history of aortic valve stenosis status post valve replacement who presented to the hospital secondary to hemoptysis. The patient states she has noted cough at home which is productive in nature. She has noted blood with her sputum. She does not have any hematemesis, melena, hematochezia. Denied any recent epistaxis. She has noted previous episodes of epistaxis in the past but denied any recent episode. Her blood is mainly present after coughing in the sputum. Denied any fever, chills, chest pain, abdominal pain, nausea. She does get short of breath with her underlying cough. She has been followed by Dr. Small as outpatient regards to aortic valve stenosis. She currently denies taking any antiplatelet or anticoagulants at home. She denied any night sweats, recent weight loss. Labs were notable for white count of 12.5, hemoglobin was 10.5, platelet count was 237 K, sodium was 132, potassium was 4.1, creatinine was 1.0 Chest x-ray infiltrates on the right side. 01/21/2025: Patient was seen and evaluated bedside in ED 11. Case discussed w ith RN, no acute overnight events. Patient says she is feeling well, denies chest pain, shortness of breath, palpitations, nausea, vomiting. X-ray shows airspace consolidation involving right middle and right lower lung and blunting of both costophrenic sulcus suggesting a pleural reaction. CT chest shows large consolidation likely of infectious origin, ground-glass opacities with interlobular septal thickening giving rise to crazy paving pattern in right lower lobe suggesting underlying pulmonary edema. Lab shows white count 14.9, CRP 106, BNP 555. EKG showed prolonged QTC, azithromycin was discontinued and doxycycline was started, continue Zosyn. Cardiology was consulted for further evaluation. CC: "I'm very well" HPI: Patient states she is doing very well today. Her son is in the room visiting her. When asked why she is in the hospital she starts talking about being to the same man for 51 years. 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 She says she is in the hospital to get her daughter checked out and she does not think she is the patient. When I ask her to tell me her name and . She tells me her name and address. When I ask her her again she is able to report it. She thinks she is in her house in [place]. She can tell me date, month and year. She reports the season as Fall and the next holiday as ow. She can report current president but not past president. She cannot do simple calculations. She can spell WORLD forwards and backwards. She cannot do serial 7's. She denies sadness or depression and she says she is very happy. She denied anxiety or nervousness. She denied AVH. She does not make any paranoid statements. She is eating and sleeping well. She is taking her medications. Son reports that she has not slept and she has been very restless and agitated. She has been seeing babies and dogs in the room and having conversations with people that are not there. Vital Signs Date Time Temp Pulse Resp B/P (MAP) Pulse Ox O2 Delivery O2 Flow Rate FiO2 01/21/25 16:00 97.3 77 16 123/66 97 Nasal Cannula 2.0 01/21/25 11:30 28 Current Medications Medications Dose Ordered Sig/Sadi Start Time Stop Time Status Last Admin Famotidine 20 mg Q24H 01/20/25 21:00 02/19/25 20:59 01/20/25 21:03 Potassium Chloride 100 ml @ 100 mls/hr AD PRN 01/20/25 12:00 02/19/25 11:59 Potassium Chloride 20 meq AD PRN 01/20/25 12:00 02/19/25 11:59 Potassium Chloride 20 meq AD PRN 01/20/25 12:00 02/19/25 11:59 Magnesium Sulfate 50 ml @ 0 mls/hr PROTOCOL PRN 01/20/25 12:00 02/19/25 11:59 Acetaminophen 650 mg Q6H PRN 01/20/25 13:00 02/19/25 12:59 Acetaminophen 650 mg Q4H PRN 01/20/25 13:00 02/19/25 12:59 Ondansetron HCl 4 mg Q6H PRN 01/20/25 13:00 02/19/25 12:59 Lactulose 20 gm BID PRN 01/20/25 13:00 02/19/25 12:59 Nitroglycerin 0.4 mg PROTOCOL PRN 01/20/25 13:00 02/19/25 12:59 Guaifenesin/ Dextromethorphan 10 ml Q4H PRN 01/20/25 13:00 02/19/25 12:59 Guaifenesin 200 mg Q4H PRN 01/20/25 13:00 02/19/25 12:59 Loperamide HCl 2 mg Q6H PRN 01/20/25 13:00 02/19/25 12:59 Docusate Sodium 100 mg BID PRN 01/20/25 13:00 02/19/25 12:59 Polyethylene Glycol 17 gm DAILY PRN 01/20/25 13:00 02/19/25 12:59 Lidocaine HCl/Al Hydroxide/Mg Hydroxide/ Dicyclomine HCl 20ML OR AD MAALOX P... Q6H PRN 01/20/25 13:00 02/19/25 12:59 Artificial Tears 1 DROP Q2H PRN 01/20/25 13:00 02/19/25 12:59 Benzocaine 1 each Q2H PRN 01/20/25 13:00 02/19/25 12:59 Metoprolol Succinate 50 mg DAILY 01/21/25 09:00 02/20/25 08:59 01/21/25 10:21 Amlodipine Besylate 5 mg DAILY 01/22/25 09:00 02/21/25 08:59 Lisinopril 20 mg DAILY 01/22/25 09:00 02/21/25 08:59 Amlodipine Besylate 2.5 mg DAILY 01/22/25 09:00 02/21/25 08:59 Doxycycline Hyclate 250 ml @ 125 mls/hr Q12H 01/21/25 10:30 01/31/25 10:29 01/21/25 11:06 Piperacillin Sod/ Tazobactam Sod 3.375 gm Q8H 01/21/25 14:30 01/31/25 14:29 01/21/25 14:45 Enoxaparin Sodium 30 mg DAILY 01/22/25 09:00 02/21/25 08:59 Laboratory Tests Test 01/21/25 05:07 01/21/25 17:16 White Blood Count 14.9 K/uL (4.8-10.8) H Red Blood Count 3.13 MIL/uL (4.00-5.50) L Hemoglobin 10.3 g/dL (12.0-16.0) L Hematocrit 29.9 % (36-48) L Mean Corpuscular Volume 95.5 fL (79-99) Mean Corpuscular Hemoglobin 32.9 pg (27.0-33.0) Mean Corpuscular Hemoglobin Concent 34.4 g/dL (32.0-36.0) Red Cell Distribution Width 13.7 % (11.0-15.5) Platelet Count 244 K/uL (130-400) Mean Platelet Volume 10.8 fL (7.5-10.5) H Immature Granulocyte % (Auto) 0.5 % (0-1) Neutrophils (%) (Auto) 92.5 % (40.0-77.0) H Lymphocytes (%) (Auto) 3.2 % (21.0-51.0) L Monocytes (%) (Auto) 3.7 % (3.0-13.0) Eosinophils (%) (Auto) 0.0 % (0.0-8.0) Basophils (%) (Auto) 0.1 % (0.0-5.0) Neutrophils # (Auto) 13.8 K/uL (1.8-7.7) H Lymphocytes # (Auto) 0.5 K/uL (1.0-4.8) L Monocytes # (Auto) 0.6 K/uL (0.1-1.0) Eosinophils # (Auto) 0.00 K/uL (0.00-0.70) Basophils # (Auto) 0.01 K/uL (0.00-0.20) Absolute Immature Granulocyte (auto 0.07 K/uL (0-1) Nucleated Red Blood Cells 0.0 % (0.0-0.19) Sodium Level 136 mmol/L (136-145) 136 mmol/L (136-145) Potassium Level 4.4 mmol/L (3.5-5.1) 5.2 mmol/L (3.5-5.1) H Chloride Level 101 mmol/L (101-111) 101 mmol/L (101-111) Carbon Dioxide Level 21 mmol/L (21-32) 23 mmol/L (21-32) Blood Urea Nitrogen 27 mg/dL (7-18) H 26 mg/dL (7-18) H Creatinine 1.0 mg/dL (0.5-1.0) 1.1 mg/dL (0.5-1.0) H Glomerular Filtration Rate Calc 57 mL/min (>90) 51 mL/min (>90) Random Glucose 138 mg/dL (70-105) H 117 mg/dL (70-105) H Total Calcium 9.4 mg/dL (8.5-10.1) 9.5 mg/dL (8.5-10.1) Mycoplasma pneumoniae IgM Antibody NEGATIVE (NEGATIVE) Ammonia < 10 umol/L (11-32) L Vitamin B12 Level 5005 pg/mL (193-986) H MSE: Patient is an 79 yo female. She is awake and alert. She is pleasant but confused. She is orient to person. Speech is fluent. Eye contact is intermittent. Gait is not evaluated. No AIMS or psychomotor disturbances. Mood is "happy" and affect is a bit elevated. Thought process is mostly goal directed but a bit odd and tangential. Thought content is + for AVH. No SI, HI, paranoia. Memory and cognition are impaired. Insight and judgment are limited. Assessment: Acute delirium Recommendations: -Patient likely having acute delirium from multiple medical issues. Her WBC and Cr are trending up. She is hallucinating, agitated and not sleeping. Ultimately, treating the underlying cause of the delirium is the main treatment and this is being addressed by medical team. -Recommend that EKG be repeated. Her QTc was elevated yesterday but she was also tachycardic. -Recommend use of PRN antipsychotics if QTc has come down. Seroquel 12.5 mg BID PRN for agitation, restlessness or psycohsis and 25 mg QHS for sleep. -If she cannot tolerate antipsychotics due to QTc then recommend PRN Ativan tonight 0.5-1 mg QHS to help her rest and get some sleep. Getting her back on a good sleep schedule will also greatly help the delirium. USE BENOS VERY SPARINGLY. They will not help the psychosis at all, they will only calm her down. -Patient does not meet criteria for psychiatric hospitalization and that is not necessary at this time. -Please re-consult as needed. *20 mins was spent [id number] with patient and 25 mins was spent on chart review and documentation. SEE CHILDRESS DO Jan 21, 2025 19:05
[2025-01-21 20:00] VITALS: BP 136/48; PULSE 78; RESP 17; TEMP 97.8
--- NOTE | 2025-01-21 21:49 | NUR ---
Report given to Bull @ this time; pt. to be transferred to Rm. #[id number].
--- NOTE | 2025-01-21 22:18 | NUR ---
Pt. transferred to 4th floor @ this time via bed, son accompanying pt.; pt. in no distress.
--- NOTE | 2025-01-21 22:27 | NUR ---
PATIENT ARRIVED TO FLOOR, IN A CONFUSED STATE, UNABLE TO STATE NAME AND , FAMILY AT BEDSIDE REPORT PATIENT HAS BEEN CONFUSED THOUGH OUT THE DAY. IV PATENT AND FLUSHED, O2 AT 2 LITERS PER NC
[2025-01-22] VITALS (33 sets, daily range): BP systolic 95–140; BP diastolic 33–73; PULSE 66–166; RESP 16–38; TEMP 97.7–100.2; O2SAT 94–100
--- NOTE | 2025-01-22 00:25 | NUR ---
LATE ENTRY PATIENT RESTLESS
--- NOTE | 2025-01-22 00:25 | NUR ---
VITALS 117/71 p75 O2 SAT 86, PATIENT CONTINUES IN CONFUSED STATE, RECHECKED AT 0038 BP 95/69 o2SAT 84 ON 2L PATIENT OXYGEN INCREASED TO 5 LITERS
[2025-01-22 01:05] LABS: ABG BASE EXCESS -4.0 mmol/L (-2.0-3.0); ABG HCO3 18.7 mmol/L (21.0-28.0); ABG OXYGEN SATURATION 86.6 % (94.0-98.0); ABG PCO2 29 mmHg (32-45); ABG PH 7.436 (7.350-7.450); DEVICE COMMENT RR RN; TEMPERATURE, CELSIUS BG 37.0 CELSIUS (35.5-37.0); VENT MODE, BG 4LNC (ROOM AIR)
--- NOTE | 2025-01-22 01:05 | NUR ---
[employer] SALES ENGINEER PROVIDER NOTIFIED OF LOW O2 SATS IN THE 80'S,PATIENT APPEARED PALE AND CONFUSED ORDER GIVEN FOR STATE ABG, CXR, CBC, CMP. AT 0107 NOTIFIED PROVIDER REGARDING ABG RESULTS
--- NOTE | 2025-01-22 01:21 | NUR ---
PAGED TIRE MOLD ENGRAVER PENDING CALL BACK
--- NOTE | 2025-01-22 01:35 | NUR ---
CALL BACK FROM PROVIDER ORDER GIVEN FOR [place], AND CONSULT PULMONARY TOP KNITTER FOR POSSIBLE TRANSFER TO ICU
[2025-01-22 01:50] LABS: IMMATURE GRANULOCYTE ABSOLUTE 0.11 K/uL (0-1); NUCLEATED RED BLOOD CELLS 0.0 % (0.0-0.19); PLATELET COUNT (AUTO) 248 K/uL (130-400); RED BLOOD CELL COUNT(AUTO) 2.79 MIL/uL (4.00-5.50); RED CELL DISTRIBUTION WIDTH 13.6 % (11.0-15.5); WHITE BLOOD COUNT (AUTO) 16.6 K/uL (4.8-10.8)
--- NOTE | 2025-01-22 01:55 | NUR ---
NOTIFIED PULMONOLOGY INTERNAL GRINDING MACHINE OPERATOR DR LOJA, ORDER GIVEN TO HOLD TRANSFER AND TO RECONSULT HOSPITALIST FOR EVALUATION. PER DR LOJA HOSPITALIST CAN CALL HIM DIRECTLY FOR ORDERS
[2025-01-22 01:59] LABS: CREATININE 0.9 mg/dL (0.5-1.0); GLOMERULAR FILTR. RATE CALC 65.0 mL/min (>90); GLUCOSE,RANDOM 108.0 mg/dL (70-105); SODIUM SERUM 138.0 mmol/L (136-145); UREA NITROGEN, BLOOD 27.0 mg/dL (7-18)
[2025-01-22 02:03] LABS: ASPARTATE AMINOTRANSFERASE 23.0 U/L (10-37); TOTAL PROTEIN, SERUM 6.2 g/dL (6.0-8.3)
--- NOTE | 2025-01-22 02:17 | NUR ---
SHILPA ON FLOOR TO EVALUATE PATIENT NEW ORDERS GIVEN FOR BNP, D-DIMER, LASIX 20MG IV PUSH ONCE, 2 D ECHO IN AM , PLACE HERNANDEZ CATH, PATIENT TO BE ON BIPAP
--- NOTE | 2025-01-22 02:25 | NUR ---
ORDER GIVEN FOR BIPAP, RESPIRATORY NOTIFIED STTING 01/09 -16 100%
--- NOTE | 2025-01-22 02:40 | NUR ---
BP 140/56 O2SAT 100% ON BIPAP
--- NOTE | 2025-01-22 02:48 | CONS ---
[facility] CONSULTATION NOTE Date Patient Seen: Jan 22, 2025 Time of Visit: 02:48 Supervising Physician: Dr. Neeru Reynoso Reason for Consultation: [facility] Primary Care Physician: [facility] hospitalist team Outpatient Specialists: Inpatient Consults: BIS, critical Care team PROBLEM LIST: Acute hypoxemic respiratory failure, SpO2 worsened on 01/23/2024 from prior/arrival POA Community-acquired pneumonia, POA worsening on 01/22/2025 POA Fluid overload, Elevated BNP, increased from POA (BNP 555 on 01/20/2025 and 1530 on 01/22/2025) Elevated DDIMER, negative for PE and DVT on 01/20/2025 Leukocytosis, POA, worsened from arrival LVEF 45-50% Lactic acidosis Acute on chronic renal failure stage 3a, GFR 51 Hyperglycemia Hypoalbuminemia Aortic valve stenosis history of aortic valve replacement Hypertension Multiple wound ulcers to bilateral lower extremities, POA Peripheral vascular disease, POA Hypertension, hyperlipidemia, uncontrolled diabetes mellitus Anemia of chronic disease Debility/frailty/general body weakness Severe bilateral hearing impairment Hematuria HPI: Per chart review: Bobbi Lazo is an 79-year-old female with history of hypertension, gastric ulcer, GERD, ovarian cancer status post treatment, aortic valves diagnosis s/p aortic valve replacement who presented to the emergency department on 01/20/2025 for evaluation of generalized body weakness, and hemoptoic sputum. The patient reported having a few episodes. Patient denied Melena, hematochezia, & hematemesis, additionally patient denies recent ill person contact foreign travel, fever, chills, nauseousness, and diarrhea currently. EKG rate 106 beats per minute. Rhythm sinus tach. No ST segment elevation or depression. Chest x-ray: Right lower lobe pneumonia. CT chest without contrast results: Ground-glass opacities right lower lobe. Pulmonary congestion. Swabs : Influenza, COVID, strep, mycoplasma pneumoniae are all negative. On 01/22/2025 at 2:15 [place], ICU AMBULATORY CARE NURSE called me to report that RN called him to reports hypoxemia O2 sats in the 80s on this patient. I went to assess the patient at bedside in room number 402. Son was at bedside who reported that he and his sister are the patient caretakers and help make decisions for the patient. The patient was on BiPAP, tachypneic, breathing 38-42 breaths per minute, O2 sats 84-87%, and very anxious. No attempt to follow command, no attempt to track, no attempt to speak. Multiple nursing staff were in the room holding the patient down. The patient was anxious, swinging her arms. RN attempting to put a Wallace catheter and two RNs attempting to start IV lines. ABGs: PH 7.436, pCO2 29, PO2 49 (last PO2 66.1 on 01/20/25), bicarbonate 18.7, O2 sats 96.6, base excess -4. I spoke to the son at bedside and informed him of ABGs/hypoxemia. He reports that he and his sister will like patient to be a full code. I informed him of medications that patient will be receiving (albuterol treatments q.4 hours, Solu-Medrol 125 now then Solu-Medrol 40 mg IV q.6 hours, Versed 2.5 mg IV now for anxiety and to stop biting the vent), and that the patient we will be going to ICU for closer monitoring. I answered the sons multiple questions. He verbalized understanding and is in agreement with the plan. Plan and assessment are listed below. PAST MEDICAL HX: see above PAST SURGICAL HX: noncontributory SOCIAL HISTORY: No tobacco, ETOH, or illicit drug use Coded Allergies: No Allergy Information Available (Verified Allergy, Unknown, 01/24/20) REVIEW OF SYSTEMS: Unable to obtain ROS from patient due to patient being confused, and in respiratory distress. PHYSICAL EXAM: GENERAL: Anxious. HEENT: EOMI, Sclera non icteric, moist mucosa NECK: Supple, no JVD, trachea midline LUNGS: Tachypneic, on BiPAP, respiration rate 40s. Diminished breath sounds bilaterally. No wheezes HEART: Tachycardic. Regular rate and rhythm. Normal S1 and S2, without murmurs ABD: Abdomen soft, nontender. Bowel sounds present EXT: No clubbing cyanosis or edema NEURO: No attempt to follow command, no attempt to speak, no attempt to track. Vital Signs (last 8hr) Date Time Temp Pulse Resp B/P (MAP) Pulse Ox O2 Delivery O2 Flow Rate FiO2 01/22/25 02:36 84 38 100 01/21/25 20:00 97.9 78 17 136/48 90 Room Air LABS: Hematology Labs: Test 01/22/25 01:35 01/20/25 09:22 Range/Units White Blood Count 16.6 H 4.8-10.8 K/uL Red Blood Count 2.79 L 4.00-5.50 MIL/uL Hemoglobin 9.1 L 12.0-16.0 g/dL Hematocrit 26.7 L 36-48 % Mean Corpuscular Volume 95.7 79-99 fL Mean Corpuscular Hemoglobin 32.6 27.0-33.0 pg Mean Corpuscular Hemoglobin Concent 34.1 32.0-36.0 g/dL Red Cell Distribution Width 13.6 11.0-15.5 % Platelet Count 248 130-400 K/uL Mean Platelet Volume 10.3 7.5-10.5 fL Immature Granulocyte % (Auto) 0.7 0-1 % Neutrophils (%) (Auto) 87.3 H 40.0-77.0 % Lymphocytes (%) (Auto) 4.4 L 21.0-51.0 % Monocytes (%) (Auto) 7.4 3.0-13.0 % Eosinophils (%) (Auto) 0.1 0.0-8.0 % Basophils (%) (Auto) 0.1 0.0-5.0 % Neutrophils # (Auto) 14.5 H 1.8-7.7 K/uL Lymphocytes # (Auto) 0.7 L 1.0-4.8 K/uL Monocytes # (Auto) 1.2 H 0.1-1.0 K/uL Eosinophils # (Auto) 0.01 0.00-0.70 K/uL Basophils # (Auto) 0.01 0.00-0.20 K/uL Absolute Immature Granulocyte (auto 0.11 0-1 K/uL Nucleated Red Blood Cells 0.0 0.0-0.19 % White Cell Morphology Comment See comments Chemistry Labs: Test 01/22/25 01:35 01/21/25 17:16 01/20/25 09:22 Range/Units Sodium Level 138 136-145 mmol/L Potassium Level 4.0 3.5-5.1 mmol/L Chloride Level 102 101-111 mmol/L Carbon Dioxide Level 22 21-32 mmol/L Blood Urea Nitrogen 27 H 7-18 mg/dL Creatinine 0.9 0.5-1.0 mg/dL Glomerular Filtration Rate Calc 65 >90 mL/min Random Glucose 108 H 70-105 mg/dL Total Calcium 9.0 8.5-10.1 mg/dL Total Bilirubin 1.4 H 0.2-1.0 mg/dL Aspartate Amino Transf (AST/SGOT) 23 10-37 U/L Alanine Aminotransferase (ALT/SGPT) 29 12-78 U/L Alkaline Phosphatase 63 50-136 U/L Total Protein 6.2 6.0-8.3 g/dL Albumin 3.1 L 3.5-5.0 g/dL Ammonia < 10 L 11-32 umol/L Vitamin B12 Level 5005 H 193-986 pg/mL Hemoglobin A1c 5.2 4.0-6.0 % Estimated Average Glucose (eAG) 103 70-126 mg/dL Magnesium Level 2.20 1.80-2.40 mg/dL Total Creatine Kinase 37 # 21-232 U/L Troponin I High Sensitivity 17 4-50 ng/L C-Reactive Protein, Quantitative 106.50 H 0.5-3.0 mg/L B-Type Natriuretic Peptide 555 H 0-100 pg/mL Procalcitonin 0.14 0.05-0.5 ng/mL Coagulation Labs: Test 01/20/25 09:22 Range/Units Prothrombin Time 10.4 9.6-11.6 SEC Prothromb Time International Ratio 0.98 0.85-1.15 Activated Partial Thromboplast Time 28.0 26.3-35.5 SEC DIAGNOSTICS / RADIOLOGY RESULTS: [ ] PLAN The patient was admitted to ICU by [facility] hospitalist team with BIS team as critical care management. Lasix 40 mg IV b.i.d., 1st dose now. Obtain echo in a.m.. Start BiPAP, titrate to keep SpO2 equal to greater than 92% and according to ABGs. Start Solu-Medrol 125 mg IV push now then Solu-Medrol 40 mg IV b.i.d.. Diazepam 2.5 mg IV x1 dose, while patient gets moved to ICU and started on Precedex. Monitor respiratory status closely. Start Precedex in ICU. Albuterol and Atrovent nebulizer treatment scheduled q.6 hours. Continue antibiotic therapy: Doxycycline IV and Zosyn IV. Strict I&Os. Fluid restriction 1500 mL in 24 hours. P.r.n. medications for: Pain management, fever, hypertension, nausea, vomiting, constipation. Glucometer checks a.c. and HS with insulin regular sliding scale coverage as needed per protocol. Vital signs per ICU. Monitor renal and liver function. Monitor electrolytes and treat accordingly. A.m. labs. Repeat ABGS in a.m.. GI and DVT prophylaxis. Further plan/orders per hospitalization course and per admitting team. NEURO: Minimize central acting medications as possible. Fall Precautions. Well lighted room through the day and minimize interruptions through the night to prevent acute delirium. PULMONARY: Supplemental 02 as needed Titrate Fio2 to keep Spo2 > or = 90% DuoNebs and CPT as needed IS hourly while awake for pulmonary hygiene Out of bed to chair as tolerated VAP Bundle CARDIOVASCULAR: Follow hemodynamics. Titrate vasopressor to keep MAP >65 or systolic blood pressure >95mmHg GI & NUTRITION: Continue nutritional support Aspirations precautions Prokinetic agents and laxatives as needed KIDNEYS & ELECTROLYTES: Strict monitoring of intake and output Daily weights Avoid nephrotoxic agents Monitor electrolytes and replace as needed Goal urine output of 30mL/hr or 0.5mL/kg/hr ENDOCRINE: Maintain blood glucose between 100-180 at all times. Insulin sliding scale for blood glucose management INFECTIOUS DISEASE: Trend temperature. Greenberg-culture if febrile. HEMATOLOGY & COAGULATION: Monitor H&H. Keep Hgb > 7 Transfuse 1 unit of PRBC for Hgb < 7 Transfuse 1 pack of platelets of platelets < 20, 000 Watch for any signs and symptoms of bleeding SKIN: Pressure ulcer prevention per facility protocol Rehab: PT/OT Code Status: Full Resuscitation Disposition: [Admit to ICU ] Other: Total patient critical care time exceeds 45 minutes excluding all procedures. ATTESTATION BY PHYSICIAN I reviewed the documentation, medical decision making, and treatment plan as noted by the mid-level provider above. I agree with the findings and plan of care. Neeru Reynoso MD, [facility] [employer] Jan 22, 2025 02:48 NEERU REYNOSO MD Jan 22, 2025 15:34
--- NOTE | 2025-01-22 02:50 | NUR ---
EVELIO TO EVALUATE PATIENT NEW STAT ORDERS GIVEN, ORDER GIVEN TO TRANSFER TO ICU.
--- NOTE | 2025-01-22 02:55 | HMCIMG ---
EXAM: CR Chest, 1 view CLINICAL HISTORY: Shortness of breath. COMPARISON: Chest radiograph dated 01/20/2025. FINDINGS: Status poststernotomy. Left-sided cardiac pacemaker device in place. Moderate cardiomegaly with mild pulmonary vascular congestion. Diffuse airspace disease on the right side with air bronchogram in the right upper to mid zones, concerning pneumonia. Small pleural effusions bilaterally. Mild to moderate COPD. Mild atherosclerotic aorta. Mild osteopenia. Oblique fracture around the right humeral neck. Degenerative osseous changes. No acute osseous abnormality. IMPRESSION: Diffuse airspace disease on the right side with air bronchogram in the right upper to mid zones, concerning pneumonia. Mild interval worsening in this finding. Stable moderate cardiomegaly with mild pulmonary vascular congestion. Stable small pleural effusions bilaterally. /Rapelje
[2025-01-22 02:56] LABS: PO2, ARTERIAL BG 49.0 mmHg (83.0-108.0)
[2025-01-22] MEDS: ALBUTEROL 0.083% 2.5 MG/3 ML INH IH SCH (03:12)
[2025-01-22] MEDS ORDERED: dexmedeTOMIDINE 200MCG/NS 50ML IV SCH (03:30)
--- NOTE | 2025-01-22 03:52 | NUR ---
REPORT GIVEN TO ICU, BERNA FERNANDEZ
[2025-01-22 03:54] LABS: NUCLEATED RED BLOOD CELLS 0.0 % (0.0-0.19); PLATELET COUNT (AUTO) 276.0 K/uL (130-400); RED BLOOD CELL COUNT(AUTO) 2.92 MIL/uL (4.00-5.50); RED CELL DISTRIBUTION WIDTH 13.8 % (11.0-15.5); WHITE BLOOD COUNT (AUTO) 18.3 K/uL (4.8-10.8)
[2025-01-22 04:11] LABS: ASPARTATE AMINOTRANSFERASE 24.0 U/L (10-37); CREATININE 1.1 mg/dL (0.5-1.0); GLOMERULAR FILTR. RATE CALC 51.0 mL/min (>90); GLUCOSE,RANDOM 148.0 mg/dL (70-105); SODIUM SERUM 139.0 mmol/L (136-145); TOTAL PROTEIN, SERUM 6.4 g/dL (6.0-8.3); UREA NITROGEN, BLOOD 26.0 mg/dL (7-18)
[2025-01-22] MEDS ORDERED: ENOXAPARIN SODIUM 30 MG/0.3 ML SQ SCH ×2 (09:00→16:00)
[2025-01-22] MEDS ORDERED: LISINOPRIL 20 MG TABLET PO SCH (09:00)
[2025-01-22 09:53] LABS: ABG BASE EXCESS -1.5 mmol/L (-2.0-3.0); ABG HCO3 21.5 mmol/L (21.0-28.0); ABG OXYGEN SATURATION 96.3 % (94.0-98.0); ABG PCO2 30 mmHg (32-45); ABG PH 7.474 (7.350-7.450); CARBON MONOXIDE 0.3 % (0.5-1.5); DEVICE COMMENT RBJOSE; PO2, ARTERIAL BG 80.6 mmHg (83.0-108.0); TEMPERATURE, CELSIUS BG 37.0 CELSIUS (35.5-37.0); VENT MODE, BG BIPAP 12-6 (ROOM AIR)
[2025-01-22] MEDS: amLODIPine 2.5 MG TAB PO SCH (11:11)
[2025-01-22] MEDS: amLODIPine 5 MG TAB PO SCH (11:11)
--- NOTE | 2025-01-22 12:01 | CONS ---
[facility] CARDIOLOGY CONSULTATION NOTE Date Patient Seen: Jan 22, 2025 Time of Visit: 11:34 Requesting Physician: [ ] Reason for Consultation: [ ] History of Present Illness: [ 79-year-old female that follows up in cardiology clinic with Dr Small , with a history of sick sinus syndrome status post permanent pacemaker insertion and subsequent generator replacement on 01/24/2020 with a Biotronik Edora 8 DR-T dual-chamber device, brief self-limiting episodes of atrial fibrillation and atrial tachycardia (with recurrent epistaxis limiting anticoagulation in the past), hypertension, stable 3,8 cm descending aortic aneurysm, normal coronaries by remote cardiac catheterization 03/26/2001, prior gastric ulcer with upper GI bleed in 2019, severe aortic stenosis status post mechanical aortic valve replacement in March 2001, complicated by a perivalvular leak, requiring a redo aortic valve replacement with a mechanical prosthesis on 03/31/2001, complicated by sepsis and perivalvular leak with hemolysis, requiring a second redo procedure in [place], [place] with a homograft in April 2001. 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 Finally she has been diagnosed with ovarian cancer, status post chemotherapy and hysterectomy/oophorectomy in early 2021, followed at [facility]. Who presented to the hospital secondary to hemoptysis on 01-20-25 ,Chest x-ray infiltrates on the right side, was found with a multifocal pneumonia, started on broad-spectrum antibiotics, and placed on BiPAP therapy due to worsening S O2, Sputum cultures have resulted with Gram-negative rods and Gram-positive cocci , presenting ECG ventricular paced rhythm, troponin was negative x2, [employer] 1530, Cr 1.1. Of note she is known to have perivalvular leak with at least moderate degree of aortic insufficiency. Her 2D echocardiogram 09/23/2023 demonstrated an increased LV cavity size to 5.5 cm, moderate central valvular aortic regurgitation primarily over the left coronary cusp with a 30% jet diameter and within AR pressure half- time of 441 ms. She was recommended to undergo a transesophageal 2D echocardiogram in February 2024 which she declined. Patient currently on BiPAP support, altered, alert and oriented x2, she is not endorsing any chest pain, side from ongoing shortness of breath. Past Medical History: [ Refer to chart] Past Surgical History: [Refer to HPI ] Family History: [Refer to HPI ] Social History: [Refer to HPI ] Habits: [Never] smoker. [Denies] alcohol consumption. [Denies] illicit drug use Review of Systems: A review of12 point system was negative set per HPI Physical Examination: GENERAL: Anxious. HEENT: EOMI, Sclera non icteric, moist mucosa NECK: Supple, no JVD, trachea midline LUNGS: Tachypneic, on BiPAP, respiration rate 40s. Diminished breath sounds bilaterally. No wheezes HEART: Tachycardic. Regular rate and rhythm. Normal S1 and S2, without murmurs ABD: Abdomen soft, nontender. Bowel sounds present EXT: No clubbing cyanosis or edema NEURO: Altered, alert and oriented x2 Vital Signs (last 8hr) Date Time Temp Pulse Resp B/P (MAP) Pulse Ox O2 Delivery O2 Flow Rate FiO2 01/22/25 10:30 86 18 N/Cannula Low lpm 4.0 36 01/22/25 10:02 82 38 35 01/22/25 10:00 50 01/22/25 10:00 88 22 121/46 99 BIPAP 40 01/22/25 09:00 89 23 115/43 100 BIPAP 60 01/22/25 08:22 82 38 70 01/22/25 08:00 100 Bi-PAP+ 70 01/22/25 08:00 98.2 86 22 123/38 100 BIPAP 70 01/22/25 06:39 66 28 01/22/25 06:37 90 28 80 01/22/25 06:30 99.7 80 26 111/46 100 BIPAP 80 01/22/25 06:00 79 25 113/39 100 BIPAP 80 01/22/25 05:30 80 27 102/49 100 BIPAP 80 01/22/25 05:00 92 29 132/57 100 BIPAP 100 01/22/25 05:00 100 Bi-PAP+ 100 01/22/25 04:30 100.2 80 24 136/59 99 BIPAP 100 01/22/25 04:15 71 24 124/73 99 BIPAP 100 Laboratory: [ ] Hematology Labs: Test 01/22/25 03:44 01/22/25 01:35 Range/Units White Blood Count 18.3 H 4.8-10.8 K/uL Red Blood Count 2.92 L 4.00-5.50 MIL/uL Hemoglobin 9.5 L 12.0-16.0 g/dL Hematocrit 27.6 L 36-48 % Mean Corpuscular Volume 94.5 79-99 fL Mean Corpuscular Hemoglobin 32.5 27.0-33.0 pg Mean Corpuscular Hemoglobin Concent 34.4 32.0-36.0 g/dL Red Cell Distribution Width 13.8 11.0-15.5 % Platelet Count 276 130-400 K/uL Mean Platelet Volume 10.5 7.5-10.5 fL Nucleated Red Blood Cells 0.0 0.0-0.19 % Immature Granulocyte % (Auto) 0.7 0-1 % Neutrophils (%) (Auto) 87.3 H 40.0-77.0 % Lymphocytes (%) (Auto) 4.4 L 21.0-51.0 % Monocytes (%) (Auto) 7.4 3.0-13.0 % Eosinophils (%) (Auto) 0.1 0.0-8.0 % Basophils (%) (Auto) 0.1 0.0-5.0 % Neutrophils # (Auto) 14.5 H 1.8-7.7 K/uL Lymphocytes # (Auto) 0.7 L 1.0-4.8 K/uL Monocytes # (Auto) 1.2 H 0.1-1.0 K/uL Eosinophils # (Auto) 0.01 0.00-0.70 K/uL Basophils # (Auto) 0.01 0.00-0.20 K/uL Absolute Immature Granulocyte (auto 0.11 0-1 K/uL Chemistry Labs: Test 01/22/25 07:50 01/22/25 03:44 01/22/25 01:35 01/21/25 17:16 Range/Units Lactic Acid Level 1.3 0.8-2.5 mmol/L Magnesium Level 2.10 1.80-2.40 mg/dL Thyroid Stimulating Hormone (TSH) 0.56 0.36-3.74 uIU/mL Sodium Level 139 136-145 mmol/L Potassium Level 4.0 3.5-5.1 mmol/L Chloride Level 102 101-111 mmol/L Carbon Dioxide Level 21 21-32 mmol/L Blood Urea Nitrogen 26 H 7-18 mg/dL Creatinine 1.1 H 0.5-1.0 mg/dL Glomerular Filtration Rate Calc 51 >90 mL/min Random Glucose 148 H 70-105 mg/dL Total Calcium 8.9 8.5-10.1 mg/dL Total Bilirubin 1.5 H 0.2-1.0 mg/dL Aspartate Amino Transf (AST/SGOT) 24 10-37 U/L Alanine Aminotransferase (ALT/SGPT) 30 12-78 U/L Alkaline Phosphatase 67 50-136 U/L C-Reactive Protein, Quantitative 85.20 H 0.5-3.0 mg/L B-Type Natriuretic Peptide 1530 H 0-100 pg/mL Total Protein 6.4 6.0-8.3 g/dL Albumin 3.2 L 3.5-5.0 g/dL Troponin I High Sensitivity 28 4-50 ng/L Ammonia < 10 L 11-32 umol/L Vitamin B12 Level 5005 H 193-986 pg/mL Coagulation Labs: Test 01/22/25 03:44 Range/Units D-Dimer Quantitative (PE/DVT) 2294 *H 0-500 ng/mL Diagnostics / Radiology: [Copy/Paste Echos/Imaging Report here] Assessment: [Sick sinus syndrome status post permanent pacemaker insertion and subsequent generator replacement on 01/24/2020 with a Biotronik Edora 8 DR-T dual-chamber device Atrial fibrillation not on anticoagulation for history of epistaxis Hypertension Stable ascending aortic aneurysm (3.8 cm) Hemoptysis Community-acquired pneumonia Plan: [# moderate prosthetic aortic valve regurgitation ] Status post mechanical aortic valve replacement in March 2001 Complicated by a perivalvular leak, requiring a redo aortic valve replacement with a mechanical prosthesis on 03/31/2001 Complicated by sepsis and perivalvular leak with hemolysis, requiring a second redo procedure in [place], [place] with a homograft in April 2001. She is known to have perivalvular leak with at least moderate degree of aortic insufficiency. Her 2D echocardiogram 09/23/2023 demonstrated an increased LV cavity size to 5.5 cm, moderate central valvular aortic regurgitation primarily over the left alexis nary cusp with a 30% jet diameter and within AR pressure half-time of 441 ms. She was recommended to undergo a transesophageal 2D echocardiogram in February 2024 which she declined. Strict I's and O's and daily weights. We will start Lasix IV 40 mg every 12 hours For afterload reduction we will start [id number] mg daily Defer use of beta-blockers for the moment given her aortic regurgitation Keep on telemetry, monitor/replace electrolytes as needed We will order a repeat 2D echocardiogram to assess her bioprosthetic aortic valve and wall motion abnormalities Thank you for this consult cardiology will continue to follow along, formal recommendations pending 2D echocardiogram results Bouchra claros MD ATTESTATION BY PHYSICIAN I have seen and examined the patient, reviewed the above documentation, participated in medical decision making, made necessary modifications, and agree with the treatment plan as documented by my mid-level provider above. MD PINKY Glez,BOUCHRA Argueta MD Jan 22, 2025 12:01
--- NOTE | 2025-01-22 12:07 | PN ---
[facility] PROGRESS NOTE Date of Service: Jan 22, 2025 Time of Service: 12:07 SUBJECTIVE: 79-year-old female with past medical history of ovarian cancer, hypertension, history of gastric ulcer, history of history of aortic valve stenosis status post valve replacement who presented to the hospital secondary to hemoptysis. The patient states she has noted cough at home which is productive in nature. She has noted blood with her sputum. She does not have any hematemesis, melena, hematochezia. Denied any recent epistaxis. She has noted previous episodes of epistaxis in the past but denied any recent episode. Her blood is mainly present after coughing in the sputum. Denied any fever, chills, chest pain, abdominal pain, nausea. She does get short of breath with her underlying cough. She has been followed by Dr. Small as outpatient regards to aortic valve stenosis. She currently denies taking any antiplatelet or anticoagulants at home. She denied any night sweats, recent weight loss. Labs were notable for white count of 12.5, hemoglobin was 10.5, platelet count was 237 K, sodium was 132, potassium was 4.1, creatinine was 1.0. Chest x-ray infiltrates on the right side. Patient will be admitted for further medical management. 01/21/2025: Patient was seen and evaluated bedside in ED 11. Case discussed with RN, no acute overnight events. Patient says she is feeling well, denies chest pain, shortness of breath, palpitations, nausea, vomiting. X-ray shows airspace consolidation involving right middle and right lower lung and blunting of both costophrenic sulcus suggesting a pleural reaction. CT chest shows large consolidation likely of infectious origin, ground-glass opacities with interlobular septal thickening giving rise to crazy paving pattern in right lower lobe suggesting underlying pulmonary edema. Lab shows white count 14.9, CRP 106, BNP 555. EKG showed prolonged QTC, azithromycin was discontinued and doxycycline was started, continue Zosyn. Cardiology was consulted for further evaluation. 01/22/2025: Patient was seen and evaluated bedside in room 228. Patient developed acute delirium yesterday afternoon and tele psychiatric consultation was requested. Psychiatry evaluation revealed acute delirium and recommended to start Seroquel 12.5 mg b.i.d. p.r.n. for agitation, restlessness or psychosis and 25 mg q.h.s. for sleep. Lab this morning shows elevated white count at 18.3, BNP 1500, D-dimer 2294. X-ray revealed worsening consolidation on right side. Patient started on Lasix 40 mg q.12h, Solu-Medrol 40 mg q.6h, continue IV antibiotics. Infectious Disease, Cardiology, pulmonology on board and we will follow up with the recommendations. REVIEW OF SYSTEMS CONSTITUTIONAL: Denies fevers, chills, or night sweats. No unintentional weight loss reported. NEUROLOGICAL: Denies headache, amaurosis fugax, motor weakness, sensory deficit, vertigo/spinning sensation, gait abnormalities, or tremors. ENT: No hearing loss, otalgia, otorrhea, rhinitis, rhinorrhea, hoarseness, or sore throat. CARDIOVASCULAR: Denies any exertional angina, dyspnea on exertion, orthopnea, paroxysmal nocturnal dyspnea, palpitations, life-threatening arrhythmias, claudication. PULMONARY: Positive for hemoptysis, cough, sputum production SLEEP: Denies morning headaches, daytime somnolence or napping. Denies difficulty falling asleep, staying asleep, waking from sleep. Denies knowledge of snoring. GASTROINTESTINAL: Denies any type of dysphagia to either liquids or solids. Denies nausea, vomiting, pyrosis, early satiety, abdominal pain, diarrhea, constipation, or changes in stool consistency or caliber. Denies coffee-ground emesis, hematemesis, hematochezia, or melanotic stools. GENITOURINARY: Denies frequency, urgency, nocturia, hematuria or incontinence (Storage/Irritative symptoms.) Low urinary stream, straining to void, urinary intermittency or hesitancy, splitting of the voiding stream, terminal dribbling. ENDOCRINOLOGIC: Denies polyuria, polydipsia, polyphagia or heat/cold intolerances. HEMATOLOGIC: Denies thrombophilia/previous clots, or coagulopathy/bleeding disorders. ONCOLOGIC: Denies personal history of malignancy. DERMATOLOGIC: Denies rashes or pruritus. PSYCHIATRIC: Denies any suicidal or homicidal ideation. Denies hallucinations. PHYSICAL EXAM GENERAL APPEARANCE: The patient is awake, alert, and oriented, in no acute cardiopulmonary distress. Patient is bright red blood in the cup present at b edside NEUROLOGICAL: Cranial nerves II-XII grossly intact. Motor is 5/5 in bilateral upper and lower extremities proximal to distal. No sensory deficits. HEENT: Face is symmetric. Pupils are equal and reactive. Extraocular movements are intact. NECK: Supple. No JVD. No thyromegaly. No submental, submandibular, pre- /postauricular, occipital or supraclavicular lymphadenopathy. CHEST: Normal chest expansion. No Telemetry. LUNGS: She has a crackles present bilaterally CARDIOVASCULAR: Regular. S1 and S2 normal. No appreciable rubs, murmurs or gallops. ABDOMEN: Soft, nontender, and nondistended. There is no rebound, voluntary guarding, or rigidity. : Deferred. No Wallace. EXTREMITIES: Non-edematous and not cyanotic. No clubbing. Good capillary refill. SKIN: No skin breakdown. Vital Signs (last 8hr) Date Time Temp Pulse Resp B/P (MAP) Pulse Ox O2 Delivery O2 Flow Rate FiO2 01/22/25 10:30 86 18 N/Cannula Low lpm 4.0 36 01/22/25 10:02 82 38 35 01/22/25 10:00 50 01/22/25 10:00 88 22 121/46 99 BIPAP 40 01/22/25 09:00 89 23 115/43 100 BIPAP 60 01/22/25 08:22 82 38 70 01/22/25 08:00 100 Bi-PAP+ 70 01/22/25 08:00 98.2 86 22 123/38 100 BIPAP 70 01/22/25 06:39 66 28 01/22/25 06:37 90 28 80 01/22/25 06:30 99.7 80 26 111/46 100 BIPAP 80 01/22/25 06:00 79 25 113/39 100 BIPAP 80 01/22/25 05:30 80 27 102/49 100 BIPAP 80 01/22/25 05:00 92 29 132/57 100 BIPAP 100 01/22/25 05:00 100 Bi-PAP+ 100 01/22/25 04:30 100.2 80 24 136/59 99 BIPAP 100 01/22/25 04:15 71 24 124/73 99 BIPAP 100 LABS: Laboratory: Test 01/22/25 09:51 01/22/25 07:50 01/22/25 03:44 01/22/25 01:35 Range/Units Blood Gas Specimen Type Arterial Arterial Blood pH 7.474 H 7.350-7.450 Arterial Blood Partial Pressure CO2 30 L 32-45 mmHg Arterial Blood Partial Pressure O2 80.6 L 83.0-108.0 mmHg Arterial Blood HCO3 21.5 21.0-28.0 mmol/L Arterial Blood Oxygen Saturation 96.3 94.0-98.0 % Arterial Blood Base Excess -1.5 -2.0-3.0 mmol/L Hemoglobin (Blood Gas) 9.5 L 12.0-16.0 g/dL Sodium (Blood Gas) 135 L 136-145 MMOL/L Bedside Potassium (Blood Gas) 3.8 3.4-4.5 MMOL/L Bedside Chloride (Blood Gas) 105 98-107 MMOL/L Bedside Glucose (Blood Gas) 130 H 65-95 MG/DL Bedside Ionized Calcium (Blood Gas) 1.18 1.15-1.33 MMOL/L Bedside Lactic Acid (Blood Gas) 1.04 H 0.36-0.75 MMOL/L Blood Gas Temperature 37.0 35.5-37.0 CELSIUS Blood Gas Vent Mode BIPAP 12-6 ROOM AIR FiO2 50.0 % Blood Gas Specimen Comment RBJOSE Lactic Acid Level 1.3 0.8-2.5 mmol/L Magnesium Level 2.10 1.80-2.40 mg/dL Thyroid Stimulating Hormone (TSH) 0.56 0.36-3.74 uIU/mL White Blood Count 18.3 H 4.8-10.8 K/uL Red Blood Count 2.92 L 4.00-5.50 MIL/uL Hemoglobin 9.5 L 12.0-16.0 g/dL Hematocrit 27.6 L 36-48 % Mean Corpuscular Volume 94.5 79-99 fL Mean Corpuscular Hemoglobin 32.5 27.0-33.0 pg Mean Corpuscular Hemoglobin Concent 34.4 32.0-36.0 g/dL Red Cell Distribution Width 13.8 11.0-15.5 % Platelet Count 276 130-400 K/uL Mean Platelet Volume 10.5 7.5-10.5 fL Nucleated Red Blood Cells 0.0 0.0-0.19 % D-Dimer Quantitative (PE/DVT) 2294 *H 0-500 ng/mL Sodium Level 139 136-145 mmol/L Potassium Level 4.0 3.5-5.1 mmol/L Chloride Level 102 101-111 mmol/L Carbon Dioxide Level 21 21-32 mmol/L Blood Urea Nitrogen 26 H 7-18 mg/dL Creatinine 1.1 H 0.5-1.0 mg/dL Glomerular Filtration Rate Calc 51 >90 mL/min Random Glucose 148 H 70-105 mg/dL Total Calcium 8.9 8.5-10.1 mg/dL Total Bilirubin 1.5 H 0.2-1.0 mg/dL Aspartate Amino Transf (AST/SGOT) 24 10-37 U/L Alanine Aminotransferase (ALT/SGPT) 30 12-78 U/L Alkaline Phosphatase 67 50-136 U/L C-Reactive Protein, Quantitative 85.20 H 0.5-3.0 mg/L B-Type Natriuretic Peptide 1530 H 0-100 pg/mL Total Protein 6.4 6.0-8.3 g/dL Albumin 3.2 L 3.5-5.0 g/dL Immature Granulocyte % (Auto) 0.7 0-1 % Neutrophils (%) (Auto) 87.3 H 40.0-77.0 % Lymphocytes (%) (Auto) 4.4 L 21.0-51.0 % Monocytes (%) (Auto) 7.4 3.0-13.0 % Eosinophils (%) (Auto) 0.1 0.0-8.0 % Basophils (%) (Auto) 0.1 0.0-5.0 % Neutrophils # (Auto) 14.5 H 1.8-7.7 K/uL Lymphocytes # (Auto) 0.7 L 1.0-4.8 K/uL Monocytes # (Auto) 1.2 H 0.1-1.0 K/uL Eosinophils # (Auto) 0.01 0.00-0.70 K/uL Basophils # (Auto) 0.01 0.00-0.20 K/uL Absolute Immature Granulocyte (auto 0.11 0-1 K/uL Troponin I High Sensitivity 28 4-50 ng/L Test 01/22/25 01:04 01/21/25 17:16 01/21/25 05:07 Range/Units Blood Gas Flow-by 4.00 0.00-15.00 L/min Ammonia < 10 L 11-32 umol/L Vitamin B12 Level 5005 H 193-986 pg/mL Mycoplasma pneumoniae IgM Antibody NEGATIVE NEGATIVE Current Medications Medications (Trade) Dose Ordered Sig/Sadi Route PRN Reason Start Time Stop Time Status Last Admin Dose Admin Acetaminophen (TYLenol 325MG TAB) 650 mg Q4H PRN PO MILD PAIN (1-3) 01/20/25 13:00 02/19/25 12:59 Acetaminophen (TYLenol 325MG TAB) 650 mg Q6H PRN PO TEMPERATURE GREATER THAN 101.5 01/20/25 13:00 02/19/25 12:59 Albuterol (DUOneb) 1 UDVIAL [id number] IH 01/22/25 06:00 01/22/25 03:00 DC Albuterol Sulfate (Proventil 0.083% 2.5mg/3ml) 2.5 mg W2HDTFI IH 01/22/25 03:00 02/21/25 02:59 01/22/25 06:35 2.5 MG Amlodipine Besylate (NorvASC 2.5MG TAB) 2.5 mg DAILY PO 01/22/25 09:00 02/21/25 08:59 01/22/25 11:11 2.5 MG Amlodipine Besylate (NorvASC 5MG TAB) 5 mg DAILY PO 01/22/25 09:00 02/21/25 08:59 01/22/25 11:11 5 MG Artificial Tears (Artificial Tears) 1 DROP Q2H PRN OP DRY EYES 01/20/25 13:00 02/19/25 12:59 Azithromycin 250 ml @ 250 mls/hr Q24H IVPB 01/21/25 14:30 01/21/25 10:33 DC Benzocaine (Cepacol Sore Throat Lozenge) 1 each Q2H PRN MM SORE THROAT 01/20/25 13:00 02/19/25 12:59 Dexmedetomidine/ Sodium Chloride (PRECEdex 200MCG/ 50ML-NS) 200 mcg PROTOCOL IV 01/22/25 03:30 02/21/25 03:29 Docusate Sodium (COLace 100MG CAP) 100 mg BID PRN PO CONSTIPATION 01/20/25 13:00 02/19/25 12:59 Doxycycline Hyclate 250 ml @ 125 mls/hr Q12H IV 01/21/25 10:30 01/31/25 10:29 01/22/25 09:40 125 MLS/HR Enoxaparin Sodium (Lovenox) 30 mg DAILY SQ 01/22/25 09:00 01/22/25 09:00 DC Famotidine (Pepcid 20mg Vial) 20 mg Q24H IV 01/20/25 21:00 02/19/25 20:59 01/21/25 20:38 20 MG Furosemide (LASix 20MG TAB) 20 mg AD PO 01/21/25 09:00 01/21/25 08:59 DC Furosemide (LASix 20MG TAB) 20 mg DAILY PO 01/23/25 09:00 01/22/25 09:17 DC Furosemide (LASix 40MG VIAL) 40 mg Q12H IV 01/22/25 09:30 02/21/25 09:29 01/22/25 09:40 40 MG Guaifenesin (RobiTUSSin SUGAR-FREE 100 MG/ 5 ML UDCUP) 200 mg Q4H PRN PO COUGH 01/20/25 13:00 02/19/25 12:59 01/21/25 20:38 200 MG Guaifenesin/ Dextromethorphan (RobiTUSSin DM 200/20MG 10ML) 10 ml Q4H PRN PO COUGH 01/20/25 13:00 02/19/25 12:59 Ipratropium [place] (AtrovENT UD) 0.5 mg [id number] IH 01/22/25 03:00 02/21/25 02:59 01/22/25 10:00 0.5 MG Lactulose (Constulose 20gm/ 30ml Udcup) 20 gm BID PRN PO CONSTIPATION 01/20/25 13:00 02/19/25 12:59 Lidocaine HCl/Al Hydroxide/Mg Hydroxide/ Dicyclomine HCl 20ML OR AD MAALOX P... Q6H PRN PO HEARTBURN 01/20/25 13:00 02/19/25 12:59 Lisinopril (Prinivil 20mg) 20 mg DAILY PO 01/22/25 09:00 01/22/25 09:26 DC Loperamide HCl (Imodium) 2 mg Q6H PRN PO AFTER EACH LOOSE STOOL 01/20/25 13:00 02/19/25 12:59 Lorazepam (AtiVAN) 0.5 mg HS PRN PO INSOMNIA 01/21/25 22:30 02/20/25 22:29 01/21/25 23:29 0.5 MG Losartan Potassium (CozAAR 25MG TAB) 25 mg DAILY PO 01/22/25 11:00 02/21/25 10:59 01/22/25 11:11 25 MG Losartan Potassium (CozAAR 25MG TAB) 25 mg DAILY PO 01/23/25 09:00 01/22/25 10:58 DC Magnesium Sulfate 50 ml @ 0 mls/hr PROTOCOL PRN IV hypomagnesemia 01/20/25 12:00 02/19/25 11:59 Methylprednisolone Sodium Succinate (Solu-medROL 125MG) 40 mg Q6H IVP 01/22/25 09:00 02/21/25 08:59 01/22/25 09:55 40 MG Metoprolol Succinate (TopROL XL) 50 mg DAILY PO 01/21/25 09:00 01/22/25 09:17 DC 01/21/25 10:21 50 MG Nitroglycerin (Nitrostat) 0.4 mg PROTOCOL PRN SL CHEST PAIN 01/20/25 13:00 02/19/25 12:59 Ondansetron HCl (zoFRAN 4MG INJ) 4 mg Q6H PRN IV NAUSEA/VOMITING 01/20/25 13:00 02/19/25 12:59 Piperacillin Sod/ Tazobactam Sod (Zosyn 3.375gm+NS 50ml) 3.375 gm Q8H IVPB 01/20/25 12:00 01/21/25 13:17 DC 01/21/25 04:05 3.375 GM Piperacillin Sod/ Tazobactam Sod (Zosyn 3.375gm+NS 50ml) 3.375 gm Q8H IVPB 01/21/25 14:30 01/31/25 14:29 01/22/25 06:31 3.375 GM Polyethylene Glycol (MIRalax 3350 17 GM POWD.PACK) 17 gm DAILY PRN PO CONSTIPATION 01/20/25 13:00 02/19/25 12:59 Potassium Chloride 100 ml @ 100 mls/hr AD PRN IV POTASSIUM PROTOCOL 01/20/25 12:00 02/19/25 11:59 Potassium Chloride (K-Dur/Klor-Con 20meq) 20 meq AD PRN PO POTASSIUM PROTOCOL 01/20/25 12:00 02/19/25 11:59 Potassium Chloride (KCl 10% Elixir 20meq/15ml) 20 meq AD PRN PO POTASSIUM PROTOCOL 01/20/25 12:00 02/19/25 11:59 Quetiapine Fumarate (SEROquel 25 mg TAB) 12.5 mg BID PRN PO Agitation 01/21/25 22:30 02/20/25 22:29 Quetiapine Fumarate (SEROquel 25 mg TAB) 25 mg HS PO 01/22/25 21:00 02/21/25 20:59 Sodium Chloride (NS 50ml) 50 ml AD IV 01/20/25 12:00 01/20/25 12:10 DC DIAGNOSTICS / RADIOLOGY: [place] [address] IMAGING REPORT Signed PATIENT: NEHEMIAS BAINS MR#: [id number] : 1945 SEX: F AGE: 79 LOCATION: [facility] ORDER 0101 STATUS: ADM IN REPORT#: [id number] SERVICE [id number] REASON: SOB ORDERING PHYSICIAN: LEILANI MASSEY DENTAL HYGIENE TEACHER PROCEDURE: CXR1VW - CHEST 1VW EXAM: CR Chest, 1 view CLINICAL HISTORY: Shortness of breath. COMPARISON: Chest radiograph dated 01/20/2025. FINDINGS: Status poststernotomy. Left-sided cardiac pacemaker device in place. Moderate cardiomegaly with mild pulmonary vascular congestion. Diffuse airspace disease on the right side with air bronchogram in the right upper to mid zones, concerning pneumonia. Small pleural effusions bilaterally. Mild to moderate COPD. Mild atherosclerotic aorta. Mild osteopenia. Oblique fracture around the right humeral neck. Degenerative osseous changes. No acute osseous abnormality. IMPRESSION: Diffuse airspace disease on the right side with air bronchogram in the right upper to mid zones, concerning pneumonia. Mild interval worsening in this finding. Stable moderate cardiomegaly with mild pulmonary vascular congestion. Stable small pleural effusions bilaterally. /[place] DICTATED BY: ZHANE MOORE Jr., MD DATE: 01/22/25353 ELECTRONICALLY SIGNED BY: ZHANE MOORE Jr., MD DATE: 01/22/25353 ASSESSMENT: Hemoptysis POA Community-acquired pneumonia POA Aortic valve stenosis status post aortic valve replacement POA Hypertension POA Hyperlipidemia History of gastric ulcer History of ovarian cancer Mild hyponatremia PLAN: Community-acquired pneumonia POA * Patient came to ED with cough which is productive in nature noted blood with her sputum. * CT chest showed large consolidation likely of infectious origin * WBC Count trended up from 14.9 to 18.3 this morning * Patient was started on Zosyn IV, azithromycin IV on 01/20/2025 * Patient's EKG showed prolonged QTC, azithromycin was discontinued this morning. * Continue IV Zosyn 3.375 G IV Q8 (day 3), started doxycycline 250 mL IV q.12h (day 2) * Critical Care on board, we will follow up with the recommendations. Hemoptysis POA * Patient noted blood after coughing out phlegm at home. * CBC shows hemoglobin 10.5, hematocrit 31.5 at presentation. * Patient denied further episodes of coughing out blood this morning. * CBC shows hemoglobin 9.5, hematocrit 27.6 on 01/22/2025 * Critical Care on board for further evaluation Aortic valve stenosis status post aortic valve replacement POA * Patient has history of recall stenosis status post valve replacement. * We echo from 09/23/2023 shows bioprosthetic aortic wall is present, with thickened and possible degenerating left coronary cusp, moderate aortic regurgitation. * Lab showed BNP of 1530 this morning, IV Lasix 40 mg b.i.d. has been started * 2D echo was done, pending report. Hypertension POA * Patient is known case of hypertension taking amlodipine 10 mg, metoprolol 50 mg ER, ramipril 10 mg at home * Presentation blood pressure was 116/38 * Patient was started on her home medication amlodipine, metoprolol and losartan 25 mg daily started Pepcid 20 mg Q 24 H IV for GI prophylaxis Lovenox 30 mg SQ daily for DVT prophylaxis ATTESTATION BY PHYSICIAN I have seen and examined the patient. I reviewed the documentation, medical decision making, and treatment plan as noted by the resident physician above. I agree with the findings and plan of care. MITUL, TONI ASHLEY MD, MD Jan 22, 2025 12:07
--- NOTE | 2025-01-22 13:09 | NUR ---
[employer] answering service notified of device interrogation, spoke with Tawanna.
--- NOTE | 2025-01-22 13:22 | PN ---
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 Currently on nasal cannula at 4 L with good O2 saturations She is awake alert and oriented, following commands Nursing reports that she was on Precedex overnight to tolerate the BiPAP currently off No acute events overnight. Afebrile Currently on Zosyn and doxycycline for community-acquired pneumonia CTA was negative for PE Patient pending echocardiogram Plan: Follow cultures, sensitivities, antibiotics Supplemental O2, RT treatments Steroids, diuresis Follow cardiology recs RT, nebs, BiPAP p.r.n. Care time 54 minutes, this excludes any time spent on teaching or procedures REVIEW OF SYSTEMS: Unable to obtain ROS from patient due to patient being confused, and in respiratory distress. PHYSICAL EXAM: GENERAL: Anxious. HEENT: EOMI, Sclera non icteric, moist mucosa NECK: Supple, no JVD, trachea midline LUNGS: Tachypneic, on BiPAP, respiration rate 40s. Diminished breath sounds bilaterally. No wheezes HEART: Tachycardic. Regular rate and rhythm. Normal S1 and S2, without murmurs ABD: Abdomen soft, nontender. Bowel sounds present EXT: No clubbing cyanosis or edema NEURO: No attempt to follow command, no attempt to speak, no attempt to track. Vital Signs (last 8hr) Date Time Temp Pulse Resp B/P (MAP) Pulse Ox O2 Delivery O2 Flow Rate FiO2 01/22/25 11:40 97.9 93 18 120/52 99 36 01/22/25 10:30 86 18 N/Cannula Low lpm 4.0 36 01/22/25 10:02 82 38 35 01/22/25 10:00 50 01/22/25 10:00 88 22 121/46 99 BIPAP 40 01/22/25 09:00 89 23 115/43 100 BIPAP 60 01/22/25 08:22 82 38 70 01/22/25 08:00 100 Bi-PAP+ 70 01/22/25 08:00 98.2 86 22 123/38 100 BIPAP 70 01/22/25 06:39 66 28 01/22/25 06:37 90 28 80 01/22/25 06:30 99.7 80 26 111/46 100 BIPAP 80 01/22/25 06:00 79 25 113/39 100 BIPAP 80 01/22/25 05:30 80 27 102/49 100 BIPAP 80 LABS: Hematology Labs: Test 01/22/25 03:44 01/22/25 01:35 Range/Units White Blood Count 18.3 H 4.8-10.8 K/uL Red Blood Count 2.92 L 4.00-5.50 MIL/uL Hemoglobin 9.5 L 12.0-16.0 g/dL Hematocrit 27.6 L 36-48 % Mean Corpuscular Volume 94.5 79-99 fL Mean Corpuscular Hemoglobin 32.5 27.0-33.0 pg Mean Corpuscular Hemoglobin Concent 34.4 32.0-36.0 g/dL Red Cell Distribution Width 13.8 11.0-15.5 % Platelet Count 276 130-400 K/uL Mean Platelet Volume 10.5 7.5-10.5 fL Nucleated Red Blood Cells 0.0 0.0-0.19 % Immature Granulocyte % (Auto) 0.7 0-1 % Neutrophils (%) (Auto) 87.3 H 40.0-77.0 % Lymphocytes (%) (Auto) 4.4 L 21.0-51.0 % Monocytes (%) (Auto) 7.4 3.0-13.0 % Eosinophils (%) (Auto) 0.1 0.0-8.0 % Basophils (%) (Auto) 0.1 0.0-5.0 % Neutrophils # (Auto) 14.5 H 1.8-7.7 K/uL Lymphocytes # (Auto) 0.7 L 1.0-4.8 K/uL Monocytes # (Auto) 1.2 H 0.1-1.0 K/uL Eosinophils # (Auto) 0.01 0.00-0.70 K/uL Basophils # (Auto) 0.01 0.00-0.20 K/uL Absolute Immature Granulocyte (auto 0.11 0-1 K/uL Chemistry Labs: Test 01/22/25 07:50 01/22/25 03:44 01/22/25 01:35 01/21/25 17:16 Range/Units Lactic Acid Level 1.3 0.8-2.5 mmol/L Magnesium Level 2.10 1.80-2.40 mg/dL Thyroid Stimulating Hormone (TSH) 0.56 0.36-3.74 uIU/mL Sodium Level 139 136-145 mmol/L Potassium Level 4.0 3.5-5.1 mmol/L Chloride Level 102 101-111 mmol/L Carbon Dioxide Level 21 21-32 mmol/L Blood Urea Nitrogen 26 H 7-18 mg/dL Creatinine 1.1 H 0.5-1.0 mg/dL Glomerular Filtration Rate Calc 51 >90 mL/min Random Glucose 148 H 70-105 mg/dL Total Calcium 8.9 8.5-10.1 mg/dL Total Bilirubin 1.5 H 0.2-1.0 mg/dL Aspartate Amino Transf (AST/SGOT) 24 10-37 U/L Alanine Aminotransferase (ALT/SGPT) 30 12-78 U/L Alkaline Phosphatase 67 50-136 U/L C-Reactive Protein, Quantitative 85.20 H 0.5-3.0 mg/L B-Type Natriuretic Peptide 1530 H 0-100 pg/mL Total Protein 6.4 6.0-8.3 g/dL Albumin 3.2 L 3.5-5.0 g/dL Troponin I High Sensitivity 28 4-50 ng/L Ammonia < 10 L 11-32 umol/L Vitamin B12 Level 5005 H 193-986 pg/mL Coagulation Labs: Test 01/22/25 03:44 Range/Units D-Dimer Quantitative (PE/DVT) 2294 *H 0-500 ng/mL DIAGNOSTICS / RADIOLOGY RESULTS: [ ] PLAN NEURO: Minimize central acting medications as possible. Maintain fall precautions, adequate lighting during the day PULMONARY: Supplemental 02 as needed. Maintain aspiration precautions at all times CARDIOVASCULAR: Follow hemodynamics. Vital signs per facility protocol GI & NUTRITION: Continue with nutritional support. Continue stool softeners and laxatives as needed. KIDNEYS & ELECTROLYTES: Strict monitoring of intake, output and overall fluid balance. Avoid nephrotoxic medications to the extent possible. Medications to be dosed according to renal function. Monitor electrolytes and replace as needed ENDOCRINE: Maintain blood glucose between 100-180 at all times. Hypoglycemia protocol in place INFECTIOUS DISEASE: Trend temperature, WBC and procalcitonin level Follow cultures, deescalate antibiotics as soon as possible. Panculture if new onset fever ONCOLOGY/HEMATOLOGY/COAGULATION: Monitor for s/s of bleeding Monitor hemoglobin, coagulation studies as needed SKIN: Pressure ulcer prevention per facility protocol Specialty mattress ORTHO/REHAB: Continue PT/OT Prophylaxis: Continue GI and DVT prophylaxis Code Status: Full Resuscitation Disposition: APRYL TRAN PAC Jan 22, 2025 13:22
--- NOTE | 2025-01-22 17:40 | HMCSR ---
APPROVED REPORT EXAM: Two-dimensional and M-mode echocardiogram with Doppler and color Doppler. INDICATION ICD: overload 2D Dimensions RVDd3.7 cmLVEF(%)45.8 (>50%)LVED Vol(simp.)121.0 mL IVSd0.8 (0.7-1.1cm)FS(%)23 %LVES Vol(simp.)59.5 mL LVDd5.2 (3.8-5.6cm)LA (2D)3.3 (1.6-4.0cm)LVEF(%, simp.)51 % PWd1.0 (0.7-1.1cm)Ao Root(2D)2.5 (2.0-3.7cm)LA ESV INDEX (BP)62.42 mL/m2 LVDs4.0 (2.5-4.0cm)LVOT diam2.1 (1.8-2.4cm) IVC diam2.3 cm Deformation Strain Apical 4-16.6 % Apical 2-15.0 % Apical 3-19.9 % Global Strain-17.2 % M-Mode Dimensions EPSS1.2 cm Aortic Valve AoV Vmax3.3 m/Caryn Peak GR45.4 mmHgLVOT Vmax1.2 m/s AoV VTI0.7 mAo Mean GR25.5 mmHgLVOT VTI0.23 m THEE (VMAX)1.24 cm2Al P1/2T277 msAVA (VTI) 1.2 cm2 Mitral Valve MV E Vmax76.1 cm/sDECEL Dzcq588 ms MV A Vmax91.5 cm/sP 1/2 T43 ms E/A ratio0.8MVA (PHT)5.1 cm2 TDI E/E' Wivkky12.5E/E' Lateral6.9 Medial E' Peak V4.34 cm/sLateral E' Peak V11.09 cm/s Pulmonary Valve PV Vmax1.2 m/sPV VTI0.24 mPV Mean GR3.0 mmHg PV Peak GR5.9 mmHg Tricuspid Valve TR Vmax3.0 m/sRAP (EST) 15 dpBdSGNG74.2 mmHg TR Peak GR37.2 mmHg Left Ventricle The left ventricle is normal size. There is normal LV segmental wall motion. Mild concentric left jorje tricular hypertrophy. LVEF is 50-55%. Stage II diastolic dysfunction. Right Ventricle The right ventricle is normal size. The right ventricular systolic function is normal. Device lead is present in the right ventricle. Atria The left atrium is severely dilated. The right atrium is dilated. Pacemaker lead is present in the ri ght atrium. Aortic Valve Bioprosthetic aortic valve is present. Prosthetic aortic valve opening is decreased with highest mean gradient of 31mmHg, pk gradient of 59mmHg. Trace-mild aortic regurgitation. There is no aortic valv ular stenosis. Mitral Valve The mitral valve is normal in structure. Mitral regurgitation is mild. There is no mitral valve steno sis. Tricuspid Valve The tricuspid valve is normal in structure. There is moderate tricuspid valve regurgitation noted, RV SP 52mmHg. Pulmonic Valve Pulmonic valve is not well visualized. There is no pulmonic valvular regurgitation. Great Vessels The aortic root is normal in size. IVC is dilated and collapses <50% with inspiration. Pericardium There is no pericardial effusion. Other Information Quality : Good Conclusion The left ventricle is normal size. LVEF is 50-55% with normal LV segmental wall motion. Mild concentric left ventricular hypertrophy. Stage II diastolic dysfunction. The right ventricular systolic function is normal. Device lead is present in the rightsided chambers. The left atrium is severely dilated. Bioprosthetic aortic valve is present. (Prosthetic aortic valve opening is decreased with highest genesis n gradient of 31mmHg) Trace-mild aortic regurgitation. There is moderate tricuspid valve regurgitation noted, RVSP 52mmHg. IVC is dilated and collapses <50% with inspiration. There is no pericardial effusion.
[2025-01-22] MEDS ORDERED: ALBUTEROL 0.083% 2.5 MG/3 ML INH IH SCH (18:00)
[2025-01-22] MEDS: ENOXAPARIN SODIUM 30 MG/0.3 ML SQ SCH (19:29)
--- NOTE | 2025-01-22 19:45 | NUR ---
CARDIOLOGY DR. VANCE CALLED UPDATED ON PT STATUS HR 160'S SVT ON 12LEAD EKG PT IS ASYMPTOMATIC. NEW ORDERS RECEIVED AT THIS TIME.
--- NOTE | 2025-01-22 19:50 | EKG ---
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
--- NOTE | 2025-01-22 19:50 | EKG ---
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 : 1945 Requested By: LEILANI MASSEY Order Number: [id number] Reading MD: Aaron Sotomayor Measurements Intervals [place] Rate: 160 P: 0 NM: 272 QRS: 80 QRSD: 94 T: 269 QT: 286 QTc: 469 Interpretive Statements Supraventricular tachycardia PVCs Probable LVH with secondary repol abnrm Anterior Q waves, possibly due to LVH ST depression, probably rate related Compared to ECG 01/22/2025 18:22:05 Sinus pause or arrest now present Left ventricular hypertrophy now present Q waves now present ST (T wave) deviation now present Electronically Signed On 01-23-2025 12:50:40 CDT by Aaron Sotomayor Please click the below link to view image of tracing.
[2025-01-22] MEDS: Solu-medROL 40MG VIAL IVP SCH (21:31)
--- NOTE | 2025-01-22 21:53 | CONS ---
INFECTIOUS DISEASE CONSULTATION DATE OF SERVICE: 01/22/2025 REASON FOR CONSULTATION: Pneumonia and antibiotic management. HISTORY OF PRESENT ILLNESS: An 79-year-old female with a history of ovarian cancer, hypertension, gastric ulcer, and aortic stenosis, brought to the Emergency Room with ____. The patient has no fever, no chills. The patient has some pleuritic pain. CT angiogram done, came back unremarkable, but shows large consolidation. The patient developed respiratory failure and was admitted to the ICU. No nausea, vomiting, or diarrhea. The patient has been started on Zosyn and doxycycline. PAST MEDICAL HISTORY: * Ovarian cancer. * Gastroesophageal reflux disease. * Hypertension. * Atrial fibrillation. * Stenosis. PAST SURGICAL HISTORY: * Mitral valve replacement. ALLERGIES: No known drug allergy. CURRENT MEDICATIONS: * Zosyn. * Solu-Medrol. * Lasix. * Pepcid. * Doxycycline. * Meropenem. SOCIAL HISTORY: No alcohol, tobacco or illicit drug use. FAMILY HISTORY: Noncontributory. REVIEW OF SYSTEMS: Greater than 10 systems were reviewed, negative except as documented above. PHYSICAL EXAMINATION: GENERAL: Elderly female, alert, not in distress. VITAL SIGNS: Temperature 97.9, pulse 93, respiratory rate 18, BP 122/52. EYES: No icterus. Pupils are equal and reactive. HENT: No oral thrush. Moist oral mucosa. NECK: Supple. No JVD or thyromegaly. LUNGS: Good air entry. Crackles bilaterally. CARDIOVASCULAR SYSTEM: S1, S2, regular. No murmur, no gallop. ABDOMEN: Full, soft. Bowel sounds are present. CENTRAL NERVOUS SYSTEM: The patient is awake, alert, and oriented x3. No focal deficits. SKIN: No rashes. LYMPHATIC: No peripheral lymphadenopathy. BACK: No deformity, no pressure ulcer. MUSCULOSKELETAL: No joint swelling, erythema or tenderness. LABORATORY DATA: Sodium 139, potassium 4.0, BUN 21, creatinine 1.1. WBC 13.7, hemoglobin 9.5, platelets 276. Sputum culture shows normal iram. RADIOLOGY DATA: CT chest negative for pulmonary embolism, showed large consolidation. ASSESSMENT: An 79-year-old female who presented with cough, shortness of breath. * Pneumonia. * Possible respiratory failure. * Anemia. * Hypertension. * History of ovarian cancer. * Leukocytosis due to steroids. PLAN: * We will continue Zosyn. * Continue doxycycline. * Continue nutritional support. * Continue ____. * Follow up cultures. * Continue DVT prophylaxis. * Continue bronchodilator. * Continue Solu-Medrol. * Monitor electrolytes and correct as needed. Thank you for allowing me to participate in the care of this patient. TID: [id number] RECEIPT: [id number]
[2025-01-22] MEDS: ALBUMIN HUMAN 25% 100 ML IV ONE (23:30)
[2025-01-23] VITALS (13 sets, daily range): BP systolic 105–148; BP diastolic 42–72; PULSE 72–120; RESP 18–22; TEMP 97.5–98.6; O2SAT 94–98
--- NOTE | 2025-01-23 00:22 | NUR ---
HR CALLED BY MONITORS HR 130'S AFIB. PT ASYMPTOMATIC WHEN IN ROOM HR 110'S DAUGHTER STATED THEY WERE ADJUSTING HER AND SHEETS IN BED. PT GIVEN METOPROLOL 25MG PO AT THIS TIME WITH MIDODRINE 10MG BP 106/44. WILL CONTINUE TO MONITOR.
[2025-01-23 03:40] LABS: NUCLEATED RED BLOOD CELLS 0.0 % (0.0-0.19); PLATELET COUNT (AUTO) 210.0 K/uL (130-400); RED BLOOD CELL COUNT(AUTO) 2.52 MIL/uL (4.00-5.50); RED CELL DISTRIBUTION WIDTH 13.3 % (11.0-15.5); WHITE BLOOD COUNT (AUTO) 11.0 K/uL (4.8-10.8)
[2025-01-23 03:58] LABS: ASPARTATE AMINOTRANSFERASE 24.0 U/L (10-37); CREATININE 1.0 mg/dL (0.5-1.0); GLOMERULAR FILTR. RATE CALC 57.0 mL/min (>90); GLUCOSE,RANDOM 145.0 mg/dL (70-105); SODIUM SERUM 140.0 mmol/L (136-145); TOTAL PROTEIN, SERUM 6.0 g/dL (6.0-8.3); UREA NITROGEN, BLOOD 29.0 mg/dL (7-18)
[2025-01-23] MEDS: PoTASSium chl 10% ELIXIR 20MEQ 20 MEQ/15 ML UDCUP PO PRN (04:10)
--- NOTE | 2025-01-23 08:23 | HMCIMG ---
EXAM: CR Chest, 1 view CLINICAL HISTORY: Shortness of breath. COMPARISON: Chest radiograph dated 01/20/2025. FINDINGS: Status poststernotomy. Left-sided cardiac pacemaker device in place. Moderate cardiomegaly. Mild pulmonary vascular congestion and diffuse airspace disease on the right side with air bronchogram in the right upper to mid zones -slightly improved when compared with the prior exam. Small pleural effusions bilaterally. Mild to moderate COPD. Mild atherosclerotic aorta. Mild osteopenia. Oblique fracture around the right humeral neck. Degenerative osseous changes. No acute osseous abnormality. IMPRESSION: Mild pulmonary vascular congestion and diffuse airspace disease on the right side with air bronchogram in the right upper to mid zones -slightly improved when compared with the prior exam. Otherwise, stable exam. /Melony
--- NOTE | 2025-01-23 08:31 | HMCIMG ---
EXAMINATION: SPECTRAL DOPPLER ULTRASOUND EXAMINATION OF THE BILATERAL LOWER EXTREMITY VEINS. CLINICAL HISTORY: Elevated D-Dimer. COMPARISON: None provided. TECHNIQUE: Real-time ultrasound scan of the veins of the bilateral lower extremity with color Doppler flow, spectral waveform analysis and compression. FINDINGS: DEEP VEINS: The common femoral, superficial femoral, and popliteal veins are echolucent and compressible. There is normal color Doppler flow throughout. The visualized calf veins appear patent. SUPERFICIAL VEINS: The greater saphenous veins are patent and compressible. SOFT TISSUES: No popliteal fossa cyst or other abnormalities. IMPRESSION: No deep venous thrombosis evident in the bilateral lower extremity. No superficial thrombophlebitis in the bilateral lower extremity. /Melony
[2025-01-23] MEDS: PoTASSium chloRIDE 20MEQ ER 20 MEQ ERTAB PO PRN (09:40)
--- NOTE | 2025-01-23 10:54 | PN ---
[facility] CARDIOLOGY PROGRESS NOTE Date Patient Seen: Jan 23, 2025 Time of Visit: 10:41 Interval History: [ Hb 8.2] Physical Examination: GENERAL: Anxious. HEENT: EOMI, Sclera non icteric, moist mucosa NECK: Supple, no JVD, trachea midline LUNGS: Tachypneic, on BiPAP, respiration rate 40s. Diminished breath sounds bilaterally. No wheezes HEART: Tachycardic. Regular rate and rhythm. diastolic murmur ABD: Abdomen soft, nontender. Bowel sounds present EXT: No clubbing cyanosis or edema NEURO: Altered, alert and oriented x2 Laboratory: [ ] Hematology Labs: Test 01/23/25 09:30 01/23/25 03:18 01/22/25 01:35 Range/Units Hemoglobin 8.6 L 12.0-16.0 g/dL Hematocrit 25.5 L 36-48 % White Blood Count 11.0 #H 4.8-10.8 K/uL Red Blood Count 2.52 L 4.00-5.50 MIL/uL Mean Corpuscular Volume 92.5 79-99 fL Mean Corpuscular Hemoglobin 32.5 27.0-33.0 pg Mean Corpuscular Hemoglobin Concent 35.2 32.0-36.0 g/dL Red Cell Distribution Width 13.3 11.0-15.5 % Platelet Count 210 130-400 K/uL Mean Platelet Volume 10.7 H 7.5-10.5 fL Nucleated Red Blood Cells 0.0 0.0-0.19 % Immature Granulocyte % (Auto) 0.7 0-1 % Neutrophils (%) (Auto) 87.3 H 40.0-77.0 % Lymphocytes (%) (Auto) 4.4 L 21.0-51.0 % Monocytes (%) (Auto) 7.4 3.0-13.0 % Eosinophils (%) (Auto) 0.1 0.0-8.0 % Basophils (%) (Auto) 0.1 0.0-5.0 % Neutrophils # (Auto) 14.5 H 1.8-7.7 K/uL Lymphocytes # (Auto) 0.7 L 1.0-4.8 K/uL Monocytes # (Auto) 1.2 H 0.1-1.0 K/uL Eosinophils # (Auto) 0.01 0.00-0.70 K/uL Basophils # (Auto) 0.01 0.00-0.20 K/uL Absolute Immature Granulocyte (auto 0.11 0-1 K/uL Chemistry Labs: Test 01/23/25 03:18 01/22/25 07:50 01/22/25 01:35 01/21/25 17:16 Range/Units Sodium Level 140 136-145 mmol/L Potassium Level 3.2 L 3.5-5.1 mmol/L Chloride Level 103 101-111 mmol/L Carbon Dioxide Level 25 21-32 mmol/L Blood Urea Nitrogen 29 H 7-18 mg/dL Creatinine 1.0 0.5-1.0 mg/dL Glomerular Filtration Rate Calc 57 >90 mL/min Random Glucose 145 H 70-105 mg/dL Total Calcium 8.7 8.5-10.1 mg/dL Magnesium Level 2.00 1.80-2.40 mg/dL Total Bilirubin 1.6 H 0.2-1.0 mg/dL Aspartate Amino Transf (AST/SGOT) 24 10-37 U/L Alanine Aminotransferase (ALT/SGPT) 26 12-78 U/L Alkaline Phosphatase 74 50-136 U/L C-Reactive Protein, Quantitative 130.30 H 0.5-3.0 mg/L B-Type Natriuretic Peptide 1080 H 0-100 pg/mL Total Protein 6.0 6.0-8.3 g/dL Albumin 3.4 L 3.5-5.0 g/dL Lactic Acid Level 1.3 0.8-2.5 mmol/L Thyroid Stimulating Hormone (TSH) 0.56 0.36-3.74 uIU/mL Troponin I High Sensitivity 28 4-50 ng/L Ammonia < 10 L 11-32 umol/L Vitamin B12 Level 5005 H 193-986 pg/mL Coagulation Labs: Test 01/22/25 03:44 Range/Units D-Dimer Quantitative (PE/DVT) 2294 *H 0-500 ng/mL Diagnostics / Radiology: [Copy/Paste Echos/Imaging Report here] Impression and Plan: [Sick sinus syndrome status post permanent pacemaker insertion and subsequent generator replacement on 01/24/2020 with a Biotronik Edora 8 DR-T dual-chamber device Atrial fibrillation not on anticoagulation for history of epistaxis Hypertension Stable ascending aortic aneurysm (3.8 cm) Hemoptysis Community-acquired pneumonia Plan: [# h/o moderate prosthetic aortic valve regurgitation ] Status post mechanical aortic valve replacement in March 2001 Complicated by a perivalvular leak, requiring a redo aortic valve replacement with a mechanical prosthesis on 03/31/2001 Complicated by sepsis and perivalvular leak with hemolysis, requiring a second redo procedure in [place], [place] with a homograft in April 2001. She is known to have perivalvular leak with at least moderate degree of aortic insufficiency. Given ongoing and worsening anemia, ordered LDH, haptoglobin Her 2D echocardiogram 09/23/2023 demonstrated an increased LV cavity size to 5.5 cm, moderate central valvular aortic regurgitation primarily over the left coronary cusp with a 30% jet diameter and within AR pressure half-time of 441 ms. She was recommended to undergo a transesophageal 2D echocardiogram in February 2024 which she declined. Strict I's and O's and daily weights. We will start Lasix IV 40 mg every 12 hours Patient got midodrine once, so stopped losartan Defer use of beta-blockers for the moment given her echo findings for poor valvu lar systolic excursion Keep on telemetry, monitor/replace electrolytes as needed 2d echo LVEF is 50-55%. Stage II diastolic dysfunction, severe LAE, Bioprosthetic aortic valve is present. Prosthetic aortic valve opening is decreased with highest mean gradient of 31mmHg, DVI 0.4 cm. Mild to moderate aortic valvular regurgitation. For systolic excursion and paravalvular leak an outpatient CCTA in [place] may be obtained since she has deferred OLIVER in the past and if she refuses this procedure again, will discuss options with patient today Thank you for this consult cardiology Jennifer Sotomayor MD ] JENNIFER SOTOMAYOR MD Jan 23, 2025 10:54
--- NOTE | 2025-01-23 13:40 | EKG ---
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 : 1945 Requested By: STACY BAUMAN Order Number: [id number] Reading MD: Gabi Massey Measurements Intervals [place] Rate: 75 P: 0 ND: 45 QRS: 74 QRSD: 97 T: -25 QT: 394 QTc: 440 Interpretive Statements Atrial-paced complexes Probable LVH with secondary repol abnrm Anterior Q waves, possibly due to LVH Compared to ECG 01/22/2025 19:31:00 Supraventricular tachycardia no longer present Ventricular premature complex(es) no longer present ST (T wave) deviation no longer present Electronically Signed On 01-24-2025 20:15:42 CDT by Gabi Massey Please click the below link to view image of tracing.
--- NOTE | 2025-01-23 14:00 | NUR ---
CALL PLACED TO Hire An [employer] HOTLINE TO REQUEST PACEMAKER INTERROGATION. PENDING CALL BACK
--- NOTE | 2025-01-23 14:30 | NUR ---
A FIB PENDING PPM INTERROGATION. Addendum: 01/23/25 at 1516 by BÁRBARA LOPEZ PT Amended: Links added.
--- NOTE | 2025-01-23 15:25 | PN ---
[facility] PROGRESS NOTE Date Patient Seen: Jan 23, 2025 Time of Visit: 15:19 Supervising Physician: Dr Maxime Reynoso Primary Care Physician: [facility] hospitalist team Outpatient Specialists: Inpatient Consults: BIS, critical Care team PROBLEM LIST: New onset AFib with RVR SVT Acute hypoxemic respiratory failure, SpO2 worsened on 01/23/2024 from prior/arrival POA Community-acquired pneumonia, POA worsening on 01/22/2025 POA Fluid overload, Elevated BNP, increased from POA (BNP 555 on 01/20/2025 and 1530 on 01/22/2025) Elevated DDIMER, negative for PE and DVT on 01/20/2025 Leukocytosis, POA, worsened from arrival LVEF 45-50% Lactic acidosis Acute on chronic renal failure stage 3a, GFR 51 Hyperglycemia Hypoalbuminemia Aortic valve stenosis history of aortic valve replacement Hypertension Multiple wound ulcers to bilateral lower extremities, POA Peripheral vascular disease, POA Hypertension, hyperlipidemia, uncontrolled diabetes mellitus Anemia of chronic disease Debility/frailty/general body weakness Severe bilateral hearing impairment Hematuria INTERVAL HISTORY: Patient was seen and examined, patient resting comfortably in bed, tolerating her BiPAP overnight, currently on nasal cannula 2 L satting 98% Patient states that she does not want to proceed with the OLIVER, Her recent echo shows an EF of 50-55%, she has moderate regurg from the prosthetic aortic valve, overnight nursing reports patient had run of supraventricular tachycardia now in AFib RVR. Treated with Lopressor back in sinus Nursing for the I&Os Continues on antibiotics Zosyn and doxycycline, but were deal following cultures No family members present at time of evaluation Plan: Follow cultures, sensitivities, antibiotics Supplemental O2, RT treatments Steroids, diuresis Follow cardiology recs RT, nebs, BiPAP p.r.n. Critical care time 44 minutes, this excludes any time spent on teaching or procedures REVIEW OF SYSTEMS: Unable to obtain ROS from patient due to patient being confused, and in respiratory distress. PHYSICAL EXAM: GENERAL: Anxious. HEENT: EOMI, Sclera non icteric, moist mucosa NECK: Supple, no JVD, trachea midline LUNGS: Tachypneic, on BiPAP, respiration rate 40s. Diminished breath sounds bilaterally. No wheezes HEART: Tachycardic. Regular rate and rhythm. Normal S1 and S2, without murmurs ABD: Abdomen soft, nontender. Bowel sounds present EXT: No clubbing cyanosis or edema NEURO: No attempt to follow command, no attempt to speak, no attempt to track. Vital Signs (last 8hr) Date Time Temp Pulse Resp B/P (MAP) Pulse Ox O2 Delivery O2 Flow Rate FiO2 01/23/25 11:12 76 18 01/23/25 11:12 76 18 N/Cannula Low lpm 3.0 32 01/23/25 11:00 98.1 72 22 113/48 93 Nasal Cannula 2.0 LABS: Hematology Labs: Test 01/23/25 09:30 01/23/25 03:18 01/22/25 01:35 Range/Units Hemoglobin 8.6 L 12.0-16.0 g/dL Hematocrit 25.5 L 36-48 % White Blood Count 11.0 #H 4.8-10.8 K/uL Red Blood Count 2.52 L 4.00-5.50 MIL/uL Mean Corpuscular Volume 92.5 79-99 fL Mean Corpuscular Hemoglobin 32.5 27.0-33.0 pg Mean Corpuscular Hemoglobin Concent 35.2 32.0-36.0 g/dL Red Cell Distribution Width 13.3 11.0-15.5 % Platelet Count 210 130-400 K/uL Mean Platelet Volume 10.7 H 7.5-10.5 fL Nucleated Red Blood Cells 0.0 0.0-0.19 % Immature Granulocyte % (Auto) 0.7 0-1 % Neutrophils (%) (Auto) 87.3 H 40.0-77.0 % Lymphocytes (%) (Auto) 4.4 L 21.0-51.0 % Monocytes (%) (Auto) 7.4 3.0-13.0 % Eosinophils (%) (Auto) 0.1 0.0-8.0 % Basophils (%) (Auto) 0.1 0.0-5.0 % Neutrophils # (Auto) 14.5 H 1.8-7.7 K/uL Lymphocytes # (Auto) 0.7 L 1.0-4.8 K/uL Monocytes # (Auto) 1.2 H 0.1-1.0 K/uL Eosinophils # (Auto) 0.01 0.00-0.70 K/uL Basophils # (Auto) 0.01 0.00-0.20 K/uL Absolute Immature Granulocyte (auto 0.11 0-1 K/uL Chemistry Labs: Test 01/23/25 09:30 01/23/25 03:18 01/22/25 07:50 01/22/25 01:35 Range/Units Lactate Dehydrogenase 243 H 81-234 U/L Sodium Level 140 136-145 mmol/L Potassium Level 3.2 L 3.5-5.1 mmol/L Chloride Level 103 101-111 mmol/L Carbon Dioxide Level 25 21-32 mmol/L Blood Urea Nitrogen 29 H 7-18 mg/dL Creatinine 1.0 0.5-1.0 mg/dL Glomerular Filtration Rate Calc 57 >90 mL/min Random Glucose 145 H 70-105 mg/dL Total Calcium 8.7 8.5-10.1 mg/dL Magnesium Level 2.00 1.80-2.40 mg/dL Total Bilirubin 1.6 H 0.2-1.0 mg/dL Aspartate Amino Transf (AST/SGOT) 24 10-37 U/L Alanine Aminotransferase (ALT/SGPT) 26 12-78 U/L Alkaline Phosphatase 74 50-136 U/L C-Reactive Protein, Quantitative 130.30 H 0.5-3.0 mg/L B-Type Natriuretic Peptide 1080 H 0-100 pg/mL Total Protein 6.0 6.0-8.3 g/dL Albumin 3.4 L 3.5-5.0 g/dL Lactic Acid Level 1.3 0.8-2.5 mmol/L Thyroid Stimulating Hormone (TSH) 0.56 0.36-3.74 uIU/mL Troponin I High Sensitivity 28 4-50 ng/L Test 01/21/25 17:16 Range/Units Ammonia < 10 L 11-32 umol/L Vitamin B12 Level 5005 H 193-986 pg/mL Coagulation Labs: Test 01/22/25 03:44 Range/Units D-Dimer Quantitative (PE/DVT) 2294 *H 0-500 ng/mL DIAGNOSTICS / RADIOLOGY RESULTS: [ ] PLAN NEURO: Minimize central acting medications as possible. Fall Precautions. Well lighted room through the day and minimize interruptions through the night to prevent acute delirium. PULMONARY: Supplemental 02 as needed Titrate Fio2 to keep Spo2 > or = 90% DuoNebs and CPT as needed IS hourly while awake for pulmonary hygiene Out of bed to chair as tolerated VAP Bundle CARDIOVASCULAR: Follow hemodynamics. Titrate vasopressor to keep MAP >65 or systolic blood pressure >95mmHg GI & NUTRITION: Continue nutritional support Aspirations precautions Prokinetic agents and laxatives as needed KIDNEYS & ELECTROLYTES: Strict monitoring of intake and output Daily weights Avoid nephrotoxic agents Monitor electrolytes and replace as needed Goal urine output of 30mL/hr or 0.5mL/kg/hr ENDOCRINE: Maintain blood glucose between 100-180 at all times. Insulin sliding scale for blood glucose management INFECTIOUS DISEASE: Trend temperature. Greenberg-culture if febrile. HEMATOLOGY & COAGULATION: Monitor H&H. Keep Hgb > 7 Transfuse 1 unit of PRBC for Hgb < 7 Transfuse 1 pack of platelets of platelets < 20, 000 Watch for any signs and symptoms of bleeding SKIN: Pressure ulcer prevention per facility protocol Rehab: PT/OT Code Status: Full Resuscitation Disposition: [Admit to ICU ] APRYL STEPHENS PAC Jan 23, 2025 15:25
--- NOTE | 2025-01-23 15:27 | PN ---
[facility] PROGRESS NOTE Date of Service: Jan 23, 2025 Time of Service: 15:27 SUBJECTIVE: 79-year-old female with past medical history of ovarian cancer, hypertension, history of gastric ulcer, history of history of aortic valve stenosis status post valve replacement who presented to the hospital secondary to hemoptysis. The patient states she has noted cough at home which is productive in nature. She has noted blood with her sputum. She does not have any hematemesis, melena, hematochezia. Denied any recent epistaxis. She has noted previous episodes of epistaxis in the past but denied any recent episode. Her blood is mainly present after coughing in the sputum. Denied any fever, chills, chest pain, abdominal pain, nausea. She does get short of breath with her underlying cough. She has been followed by Dr. Small as outpatient regards to aortic valve stenosis. She currently denies taking any antiplatelet or anticoagulants at home. She denied any night sweats, recent weight loss. Labs were notable for white count of 12.5, hemoglobin was 10.5, platelet count was 237 K, sodium was 132, potassium was 4.1, creatinine was 1.0. Chest x-ray infiltrates on the right side. Patient will be admitted for further medical management. 01/21/2025: Patient was seen and evaluated bedside in ED 11. Case discussed with RN, no acute overnight events. Patient says she is feeling well, denies chest pain, shortness of breath, palpitations, nausea, vomiting. X-ray shows airspace consolidation involving right middle and right lower lung and blunting of both costophrenic sulcus suggesting a pleural reaction. CT chest shows large consolidation likely of infectious origin, ground-glass opacities with interlobular septal thickening giving rise to crazy paving pattern in right lower lobe suggesting underlying pulmonary edema. Lab shows white count 14.9, CRP 106, BNP 555. EKG showed prolonged QTC, azithromycin was discontinued and doxycycline was started, continue Zosyn. Cardiology was consulted for further evaluation. 01/22/2025: Patient was seen and evaluated bedside in room 228. Patient developed acute delirium yesterday afternoon and tele psychiatric consultation was requested. Psychiatry evaluation revealed acute delirium and recommended to start Seroquel 12.5 mg b.i.d. p.r.n. for agitation, restlessness or psychosis and 25 mg q.h.s. for sleep. Lab this morning shows elevated white count at 18.3, BNP 1500, D-dimer 2294. X-ray revealed worsening consolidation on right side. Patient started on Lasix 40 mg q.12h, Solu-Medrol 40 mg q.6h, continue IV antibiotics. Infectious Disease, Cardiology, pulmonology on board and we will follow up with the recommendations. 01/23/2025: Patient was seen and evaluated in room 228 while patient's family was present at the bedside. Patient had high heart rate yesterday and the rhythm strip revealed SVTs for which metoprolol tartarate 25 mg once and midodrine 10 mg was given. This morning patient still had her heart rate in 120s but patient was asymptomatic. Patient currently denies shortness of breath, chest pain, palpitations and was well oriented to time, place, person. A repeat chest x-ray today showed slight improvement. Patient reported that she has had history of nosebleeds as a child and had more frequent episodes when she was taking Coumadin. At the time of admission she had hemoptysis when she noticed mild blood-streaked sputum while she cough but does not have hemoptysis now. Currently denies nosebleeds despite being on Lovenox 30 mg for DVT prophylaxis. Cardiology recommended continuing IV Lasix 40 mg q.12 and hold losartan. Patient admitted to declining evaluation with transesophageal ECHO in the past however would like to initiate the conversation with undercutter once the pneumonia is resolved after discharge from the hospital. REVIEW OF SYSTEMS CONSTITUTIONAL: Denies fevers, chills, or night sweats. No unintentional weight loss reported. NEUROLOGICAL: Denies headache, motor weakness, sensory deficit, vertigo/spinning sensation, gait abnormalities, or tremors. ENT: No hearing loss, otalgia, otorrhea, rhinitis, rhinorrhea, hoarseness, or sore throat. CARDIOVASCULAR: Denies any exertional angina, dyspnea on exertion, orthopnea, paroxysmal nocturnal dyspnea, palpitations, life-threatening arrhythmias, claudication. PULMONARY: Positive for hemoptysis, cough, sputum production, all resolved now SLEEP: Denies morning headaches, daytime somnolence or napping. Denies difficulty falling asleep, staying asleep, waking from sleep. Denies knowledge of snoring. GASTROINTESTINAL: Denies any type of dysphagia to either liquids or solids. Denies nausea, vomiting, pyrosis, early satiety, abdominal pain, diarrhea, constipation, or changes in stool consistency or caliber. Denies coffee-ground emesis, hematemesis, hematochezia, or melanotic stools. GENITOURINARY: Denies frequency, urgency, nocturia, hematuria or incontinence (Storage/Irritative symptoms.) Low urinary stream, straining to void, urinary intermittency or hesitancy, splitting of the voiding stream, terminal dribbling. ENDOCRINOLOGIC: Denies polyuria, polydipsia, polyphagia or heat/cold intolerances. HEMATOLOGIC: Denies thrombophilia/previous clots, or coagulopathy/bleeding disorders. PSYCHIATRIC: Denies any suicidal or homicidal ideation. Denies hallucinations. PHYSICAL EXAM GENERAL APPEARANCE: The patient is awake, alert, and oriented, in no acute cardiopulmonary distress. Patient is bright red blood in the cup present at bedside NEUROLOGICAL: Cranial nerves II-XII grossly intact. Motor is 5/5 in bilateral upper and lower extremities proximal to distal. No sensory deficits. HEENT: Face is symmetric. Pupils are equal and reactive. Extraocular movements are intact. NECK: Supple. No JVD. No thyromegaly. No submental, submandibular, pre- /postauricular, occipital or supraclavicular lymphadenopathy. CHEST: Normal chest expansion. No Telemetry. LUNGS: She has a crackles present bilaterally, more on the right side. CARDIOVASCULAR: Regular. S1 and S2 normal. No appreciable rubs, murmurs or gallops. ABDOMEN: Soft, nontender, and nondistended. There is no rebound, voluntary guarding, or rigidity. : Deferred. No Wallace. EXTREMITIES: Non-edematous and not cyanotic. No clubbing. Good capillary refill. SKIN: No skin breakdown. Vital Signs (last 8hr) Date Time Temp Pulse Resp B/P (MAP) Pulse Ox O2 Delivery O2 Flow Rate FiO2 01/23/25 11:12 76 18 01/23/25 11:12 76 18 N/Cannula Low lpm 3.0 32 01/23/25 11:00 98.1 72 22 113/48 93 Nasal Cannula 2.0 LABS: Laboratory: Test 01/23/25 09:30 01/23/25 03:18 01/22/25 09:51 01/22/25 07:50 Range/Units Hemoglobin 8.6 L 12.0-16.0 g/dL Hematocrit 25.5 L 36-48 % Lactate Dehydrogenase 243 H 81-234 U/L White Blood Count 11.0 #H 4.8-10.8 K/uL Red Blood Count 2.52 L 4.00-5.50 MIL/uL Mean Corpuscular Volume 92.5 79-99 fL Mean Corpuscular Hemoglobin 32.5 27.0-33.0 pg Mean Corpuscular Hemoglobin Concent 35.2 32.0-36.0 g/dL Red Cell Distribution Width 13.3 11.0-15.5 % Platelet Count 210 130-400 K/uL Mean Platelet Volume 10.7 H 7.5-10.5 fL Nucleated Red Blood Cells 0.0 0.0-0.19 % Sodium Level 140 136-145 mmol/L Potassium Level 3.2 L 3.5-5.1 mmol/L Chloride Level 103 101-111 mmol/L Carbon Dioxide Level 25 21-32 mmol/L Blood Urea Nitrogen 29 H 7-18 mg/dL Creatinine 1.0 0.5-1.0 mg/dL Glomerular Filtration Rate Calc 57 >90 mL/min Random Glucose 145 H 70-105 mg/dL Total Calcium 8.7 8.5-10.1 mg/dL Magnesium Level 2.00 1.80-2.40 mg/dL Total Bilirubin 1.6 H 0.2-1.0 mg/dL Aspartate Amino Transf (AST/SGOT) 24 10-37 U/L Alanine Aminotransferase (ALT/SGPT) 26 12-78 U/L Alkaline Phosphatase 74 50-136 U/L C-Reactive Protein, Quantitative 130.30 H 0.5-3.0 mg/L B-Type Natriuretic Peptide 1080 H 0-100 pg/mL Total Protein 6.0 6.0-8.3 g/dL Albumin 3.4 L 3.5-5.0 g/dL Blood Gas Specimen Type Arterial Arterial Blood pH 7.474 H 7.350-7.450 Arterial Blood Partial Pressure CO2 30 L 32-45 mmHg Arterial Blood Partial Pressure O2 80.6 L 83.0-108.0 mmHg Arterial Blood HCO3 21.5 21.0-28.0 mmol/L Arterial Blood Oxygen Saturation 96.3 94.0-98.0 % Arterial Blood Base Excess -1.5 -2.0-3.0 mmol/L Hemoglobin (Blood Gas) 9.5 L 12.0-16.0 g/dL Sodium (Blood Gas) 135 L 136-145 MMOL/L Bedside Potassium (Blood Gas) 3.8 3.4-4.5 MMOL/L Bedside Chloride (Blood Gas) 105 98-107 MMOL/L Bedside Glucose (Blood Gas) 130 H 65-95 MG/DL Bedside Ionized Calcium (Blood Gas) 1.18 1.15-1.33 MMOL/L Bedside Lactic Acid (Blood Gas) 1.04 H 0.36-0.75 MMOL/L Blood Gas Temperature 37.0 35.5-37.0 CELSIUS Blood Gas Vent Mode BIPAP 12-6 ROOM AIR FiO2 50.0 % Blood Gas Specimen Comment RBJOSE Lactic Acid Level 1.3 0.8-2.5 mmol/L Thyroid Stimulating Hormone (TSH) 0.56 0.36-3.74 uIU/mL Test 01/22/25 03:44 01/22/25 01:35 01/22/25 01:04 01/21/25 17:16 Range/Units D-Dimer Quantitative (PE/DVT) 2294 *H 0-500 ng/mL Immature Granulocyte % (Auto) 0.7 0-1 % Neutrophils (%) (Auto) 87.3 H 40.0-77.0 % Lymphocytes (%) (Auto) 4.4 L 21.0-51.0 % Monocytes (%) (Auto) 7.4 3.0-13.0 % Eosinophils (%) (Auto) 0.1 0.0-8.0 % Basophils (%) (Auto) 0.1 0.0-5.0 % Neutrophils # (Auto) 14.5 H 1.8-7.7 K/uL Lymphocytes # (Auto) 0.7 L 1.0-4.8 K/uL Monocytes # (Auto) 1.2 H 0.1-1.0 K/uL Eosinophils # (Auto) 0.01 0.00-0.70 K/uL Basophils # (Auto) 0.01 0.00-0.20 K/uL Absolute Immature Granulocyte (auto 0.11 0-1 K/uL Troponin I High Sensitivity 28 4-50 ng/L Blood Gas Flow-by 4.00 0.00-15.00 L/min Ammonia < 10 L 11-32 umol/L Vitamin B12 Level 5005 H 193-986 pg/mL Current Medications Medications (Trade) Dose Ordered Sig/Sadi Route PRN Reason Start Time Stop Time Status Last Admin Dose Admin Acetaminophen (TYLenol 325MG TAB) 650 mg Q4H PRN PO MILD PAIN (1-3) 01/20/25 13:00 02/19/25 12:59 Acetaminophen (TYLenol 325MG TAB) 650 mg Q6H PRN PO TEMPERATURE GREATER THAN 101.5 01/20/25 13:00 02/19/25 12:59 Albuterol (DUOneb) 1 UDVIAL [id number] 01/22/25 06:00 01/22/25 03:00 DC Albuterol Sulfate (Proventil 0.083% 2.5mg/3ml) 2.5 mg [id number] 01/22/25 03:00 01/22/25 14:40 DC 01/22/25 06:35 2.5 MG Albuterol Sulfate (Proventil 0.083% 2.5mg/3ml) 2.5 mg [id number] 01/22/25 18:00 01/22/25 19:08 DC Amlodipine Besylate (NorvASC 2.5MG TAB) 2.5 mg DAILY PO 01/22/25 09:00 02/21/25 08:59 01/22/25 11:11 2.5 MG Amlodipine Besylate (NorvASC 5MG TAB) 5 mg DAILY PO 01/22/25 09:00 02/21/25 08:59 01/22/25 11:11 5 MG Artificial Tears (Artificial Tears) 1 DROP Q2H PRN OP DRY EYES 01/20/25 13:00 02/19/25 12:59 Azithromycin 250 ml @ 250 mls/hr Q24H IVPB 01/21/25 14:30 01/21/25 10:33 DC Benzocaine (Cepacol Sore Throat Lozenge) 1 each Q2H PRN MM SORE THROAT 01/20/25 13:00 02/19/25 12:59 Dexmedetomidine/ Sodium Chloride (PRECEdex 200MCG/ 50ML-NS) 200 mcg PROTOCOL IV 01/22/25 03:30 02/21/25 03:29 Docusate Sodium (COLace 100MG CAP) 100 mg BID PRN PO CONSTIPATION 01/20/25 13:00 02/19/25 12:59 Doxycycline Hyclate 250 ml @ 125 mls/hr Q12H IV 01/21/25 10:30 01/31/25 10:29 01/23/25 09:40 125 MLS/HR Enoxaparin Sodium (Lovenox) 30 mg DAILY SQ 01/22/25 09:00 01/22/25 09:00 DC Enoxaparin Sodium (Lovenox) 30 mg DAILY SQ 01/22/25 16:00 01/22/25 19:25 DC Enoxaparin Sodium (Lovenox) 30 mg Q24H SQ 01/22/25 19:30 02/21/25 19:29 01/22/25 19:29 30 MG Famotidine (Pepcid 20mg Vial) 20 mg Q24H IV 01/20/25 21:00 02/19/25 20:59 01/22/25 21:31 20 MG Furosemide (LASix 20MG TAB) 20 mg AD PO 01/21/25 09:00 01/21/25 08:59 DC Furosemide (LASix 20MG TAB) 20 mg DAILY PO 01/23/25 09:00 01/22/25 09:17 DC Furosemide (LASix 40MG VIAL) 40 mg Q12H IV 01/22/25 09:30 02/21/25 09:29 01/23/25 09:40 40 MG Guaifenesin (RobiTUSSin SUGAR-FREE 100 MG/ 5 ML UDCUP) 200 mg Q4H PRN PO COUGH 01/20/25 13:00 02/19/25 12:59 01/21/25 20:38 200 MG Guaifenesin/ Dextromethorphan (RobiTUSSin DM 200/20MG 10ML) 10 ml Q4H PRN PO COUGH 01/20/25 13:00 02/19/25 12:59 Ipratropium Mcqueeney (AtrovENT UD) 0.5 mg [id number] IH 01/22/25 03:00 01/22/25 14:30 DC 01/22/25 10:00 0.5 MG Ipratropium Mcqueeney (AtrovENT UD) 0.5 mg [id number] IH 01/22/25 18:00 02/21/25 02:59 01/23/25 11:12 0.5 MG Lactulose (Constulose 20gm/ 30ml Udcup) 20 gm BID PRN PO CONSTIPATION 01/20/25 13:00 02/19/25 12:59 Lidocaine HCl/Al Hydroxide/Mg Hydroxide/ Dicyclomine HCl 20ML OR AD MAALOX P... Q6H PRN PO HEARTBURN 01/20/25 13:00 02/19/25 12:59 Lisinopril (Prinivil 20mg) 20 mg DAILY PO 01/22/25 09:00 01/22/25 09:26 DC Loperamide HCl (Imodium) 2 mg Q6H PRN PO AFTER EACH LOOSE STOOL 01/20/25 13:00 02/19/25 12:59 Lorazepam (AtiVAN) 0.5 mg HS PRN PO INSOMNIA 01/21/25 22:30 02/20/25 22:29 01/21/25 23:29 0.5 MG Losartan Potassium (CozAAR 25MG TAB) 25 mg DAILY PO 01/22/25 11:00 01/23/25 10:48 DC 01/22/25 11:11 25 MG Losartan Potassium (CozAAR 25MG TAB) 25 mg DAILY PO 01/23/25 09:00 01/22/25 10:58 DC Magnesium Sulfate 50 ml @ 0 mls/hr PROTOCOL PRN IV hypomagnesemia 01/20/25 12:00 02/19/25 11:59 Methylprednisolone Sodium Succinate (Solu-medROL 40MG) 40 mg Q6H IVP 01/22/25 21:00 02/21/25 08:59 01/23/25 09:40 40 MG Methylprednisolone Sodium Succinate (Solu-medROL 125MG) 40 mg Q6H IVP 01/22/25 09:00 01/22/25 15:45 DC 01/22/25 15:37 40 MG Metoprolol Succinate (TopROL XL) 50 mg DAILY PO 01/21/25 09:00 01/22/25 09:17 DC 01/21/25 10:21 50 MG Metoprolol Tartrate (loprESSOR) 25 mg BID PO 01/22/25 21:00 01/23/25 10:47 DC 01/23/25 09:40 25 MG Midodrine (PROAMatine 5 MG TABLET) 10 mg Q8H PRN PO MAP <65 01/22/25 23:00 02/21/25 22:59 01/23/25 00:16 10 MG Nitroglycerin (Nitrostat) 0.4 mg PROTOCOL PRN SL CHEST PAIN 01/20/25 13:00 02/19/25 12:59 Ondansetron HCl (zoFRAN 4MG INJ) 4 mg Q6H PRN IV NAUSEA/VOMITING 01/20/25 13:00 02/19/25 12:59 Piperacillin Sod/ Tazobactam Sod (Zosyn 3.375gm+NS 50ml) 3.375 gm Q8H IVPB 01/20/25 12:00 01/21/25 13:17 DC 01/21/25 04:05 3.375 GM Piperacillin Sod/ Tazobactam Sod (Zosyn 3.375gm+NS 50ml) 3.375 gm Q8H IVPB 01/21/25 14:30 01/31/25 14:29 01/23/25 05:22 3.375 GM Polyethylene Glycol (MIRalax 3350 17 GM POWD.PACK) 17 gm DAILY PRN PO CONSTIPATION 01/20/25 13:00 02/19/25 12:59 Potassium Chloride 100 ml @ 100 mls/hr AD PRN IV POTASSIUM PROTOCOL 01/20/25 12:00 02/19/25 11:59 Potassium Chloride (K-Dur/Klor-Con 20meq) 20 meq AD PRN PO POTASSIUM PROTOCOL 01/20/25 12:00 02/19/25 11:59 01/23/25 09:40 20 MEQ Potassium Chloride (KCl 10% Elixir 20meq/15ml) 20 meq AD PRN PO POTASSIUM PROTOCOL 01/20/25 12:00 02/19/25 11:59 01/23/25 05:22 20 MEQ Quetiapine Fumarate (SEROquel 25 mg TAB) 12.5 mg BID PRN PO Agitation 01/21/25 22:30 02/20/25 22:29 Hold Quetiapine Fumarate (SEROquel 25 mg TAB) 25 mg HS PO 01/22/25 21:00 02/21/25 20:59 Hold Sodium Chloride (NS 50ml) 50 ml AD IV 01/20/25 12:00 01/20/25 12:10 DC DIAGNOSTICS / RADIOLOGY: [ ] PATIENT: NEHEMIAS BAINS MR#: [id number] : 1945 SEX: F AGE: 79 LOCATION: 2DH ORDER 2300 STATUS: ADM IN REPORT#: [id number] SERVICE 0600 REASON: CAP ORDERING PHYSICIAN: TONI MAR MD PROCEDURE: CXR1VW - CHEST 1VW EXAM: CR Chest, 1 view CLINICAL HISTORY: Shortness of breath. COMPARISON: Chest radiograph dated 01/20/2025. FINDINGS: Status poststernotomy. Left-sided cardiac pacemaker device in place. Moderate cardiomegaly. Mild pulmonary vascular congestion and diffuse airspace disease on the right side with air bronchogram in the right upper to mid zones -slightly improved when compared with the prior exam. Small pleural effusions bilaterally. Mild to moderate COPD. Mild atherosclerotic aorta. Mild osteopenia. Oblique fracture around the right humeral neck. Degenerative osseous changes. No acute osseous abnormality. IMPRESSION: Mild pulmonary vascular congestion and diffuse airspace disease on the right side with air bronchogram in the right upper to mid zones -slightly improved when compared with the prior exam. Otherwise, stable exam. /Gilman DICTATED BY: CASSANDRA LOBATO MD DATE: 01/23/25921 ELECTRONICALLY SIGNED BY: CASSANDRA LOBATO MD DATE: 01/23/25921 ASSESSMENT: Hemoptysis POA Community-acquired pneumonia POA Aortic valve stenosis status post aortic valve replacement POA Atrial fibrillation vs SVT not on anticoagulation for history of epistaxis Hypertension POA Hyperlipidemia History of gastric ulcer History of ovarian cancer Mild hyponatremia PLAN: Community-acquired pneumonia POA * Patient came to ED with cough which is productive in nature noted blood with her sputum. * CT chest showed large consolidation likely of infectious origin * WBC Count trended down to 11k. * Patient was started on Zosyn IV, azithromycin IV on 01/20/2025 * Patient's EKG showed prolonged QTC, azithromycin was discontinued this morning. * Continue IV Zosyn 3.375 G IV Q8 (day 3), started doxycycline 250 mL IV q.12h (day 3) * Critical Care on board, we will follow up with the recommendations. Hemoptysis, due to pneumonia POA * Patient noted blood after coughing out phlegm at home. * CBC shows hemoglobin 10.5, hematocrit 31.5 at presentation. * Patient denied further episodes of coughing out blood this morning. * CBC shows hemoglobin 8.6, hematocrit 25.5 on 01/22/2025 * Critical Care on board for further evaluation Aortic valve stenosis status post aortic valve replacement POA * Patient has history of recall stenosis status post valve replacement in 2000 * We echo from 09/23/2023 shows bioprosthetic aortic wall is present, with thickened and possible degenerating left coronary cusp, moderate aortic regurgitation. * BNP improved to 1080 * Continue IV Lasix 40 mg q.12 * 2D echo on 01/22/2025 showed LVEF of 50-55% with normal LV segmental wall motion, concentric LVH with stage II diastolic dysfunction. Bioprosthetic aortic valve present * Cardiology recommended outpatient [facility] in [place] if the patient refuses transesophageal echo procedure again for evaluation of paravalvular leak for aortic valve. Atrial fibrillation vs SVT not on anticoagulation for history of epistaxis * Patient had high heart rate in the range of 110s to 120s last night and rhythm strip revealed suspected atrial fibrillation or supraventricular tachycardia * Patient was started on metoprolol tartrate 25 mg once and a midodrine 10 mg was given * Cardiology recommended to hold losartan and defer use of beta blockers for the moment * Patient admitted to frequent nosebleeds in the past and increased frequency with Coumadin however no nosebleeds currently * Patient tolerating Lovenox 30 mg daily without any bleeding * We will follow up with Cardiology for further management of anticoagulation Pepcid 20 mg Q 24 H IV for GI prophylaxis Lovenox 30 mg SQ daily for DVT prophylaxis ATTESTATION BY PHYSICIAN I have seen and examined the patient. I reviewed the documentation, medical decision making, and treatment plan as noted by the resident physician above. I agree with the findings and plan of care. STACY BAUMAN MD, HARSHAVARDHA MD Jan 23, 2025 15:27
--- NOTE | 2025-01-23 18:10 | NUR ---
2ND CALL PLACED TO [facility] TO REQUEST INTERROGATION. PENDING CALL FROM LOCAL REP
[2025-01-24] VITALS (17 sets, daily range): BP systolic 108–139; BP diastolic 32–60; PULSE 80–154; RESP 18–32; TEMP 97–98.7; O2SAT 89–98
[2025-01-24 00:37] LABS: ABG BASE EXCESS -2.4 mmol/L (-2.0-3.0); ABG HCO3 20.4 mmol/L (21.0-28.0); ABG OXYGEN SATURATION 89.8 % (94.0-98.0); ABG PCO2 29 mmHg (32-45); ABG PH 7.471 (7.350-7.450); CARBON MONOXIDE 0.3 % (0.5-1.5); DEVICE COMMENT OSCAR RN ,RR; PO2, ARTERIAL BG 55.7 mmHg (83.0-108.0); TEMPERATURE, CELSIUS BG 37.0 CELSIUS (35.5-37.0); VENT MODE, BG NC (ROOM AIR)
--- NOTE | 2025-01-24 01:00 | NUR ---
Patient Agitated 01/24/251999: family is at bedside, family states that patient has not slept in over 2 to 3 days, family at bedside unable to leave patient side since patient will try to pull her IV's/Wallace/Nasal Cannula. 2029: Patient's KACIE PIV began leaking due to patient pulling primary line. 2299: Pee AGRICULTURAL SALES REPRESENTATIVE made aware of patient agitation, orders for Benadryl to be placed. 233: Music Educator stated patient is in the 140s bpm Afib, patient states she is seeing 5 different people in her room and she recognizes them all by name. Pee AGRICULTURAL SALES REPRESENTATIVE at bedside. Order placed for one to one sitter for patient safety. 0015: One to one sitter Nicole VETERINARY MANAGER arrived and family was asked to leave so that they may rest. 0025: ABG performed. 0050: Damian made aware of ABG results, made aware of Afib RVR episodes (due to patient trying to get out of bed and agitation), and provider recommends just increasing nasal cannula from 2L to 4L and continue to monitor patient for any signs of distress.
[2025-01-24 03:50] LABS: IMMATURE GRANULOCYTE ABSOLUTE 0.33 K/uL (0-1); NUCLEATED RED BLOOD CELLS 0.0 % (0.0-0.19); PLATELET COUNT (AUTO) 272 K/uL (130-400); RED BLOOD CELL COUNT(AUTO) 2.79 MIL/uL (4.00-5.50); RED CELL DISTRIBUTION WIDTH 13.6 % (11.0-15.5); WHITE BLOOD COUNT (AUTO) 13.5 K/uL (4.8-10.8)
--- NOTE | 2025-01-24 04:02 | PN ---
INFECTIOUS DISEASE FOLLOWUP NOTE DATE OF SERVICE: 01/23/2025 SUBJECTIVE: The patient is seen at bedside today. No fever. No chills. Shortness of breath is better. No sore throat or rhinorrhea. No depression or suicidal ideation. Overall, the patient is feeling much better. Transferred out of ICU. No dysuria or urinary frequency. PHYSICAL EXAMINATION: VITAL SIGNS: Temperature today is 97.35. EYES: No icterus. Pupils are equal and reactive. HENT: No oral thrush seen. Moist oral mucosa. NECK: Supple. No JVD or thyromegaly. LUNGS: Good air entry. No rales. No rhonchi. CARDIOVASCULAR: S1 and S2, regular. No murmur heard. ABDOMEN: Soft, nontender. Bowel sound is present. CENTRAL NERVOUS SYSTEM: Awake, alert, oriented x3. No focal deficits. SKIN: No rashes. No itchiness. LYMPHATIC: No peripheral lymphadenopathy. BACK: No deformity. No pressure ulcers. HEMATOLOGIC: No bleeding or petechial lesions seen. MUSCULOSKELETAL: No joint swelling, erythema, or tenderness ASSESSMENT: An 79-year-old female. * Pneumonia * Possible respiratory failure. * Anemia * Hypertension * Leukocytosis * History of ovarian cancer PLAN: * Continue Zosyn. * Continue doxycycline. * Continue nutritional support. * Continue pain management. * Continue on GI prophylaxis. * Continue telemetry. * The patient will be followed closely. TID: [id number] RECEIPT: [id number]
[2025-01-24 04:28] LABS: CREATININE 1.5 mg/dL (0.5-1.0); GLOMERULAR FILTR. RATE CALC 35.0 mL/min (>90); GLUCOSE,RANDOM 155.0 mg/dL (70-105); SODIUM SERUM 144.0 mmol/L (136-145); UREA NITROGEN, BLOOD 47.0 mg/dL (7-18)
[2025-01-24] MEDS: MAGNESIUM 2GM PREMIX 50ML 50 ML IV PRN (05:55)
--- NOTE | 2025-01-24 07:30 | NUR ---
[employer] Interrogation Efrao from [employer] interrogated pacemaker at this time
--- NOTE | 2025-01-24 08:19 | PN ---
PROBLEM LIST: 1. Paroxysmal atrial fibrillation with rapid ventricular response. 2. Conduction system disease, status post remote dual-chamber permanent pacemaker implant with subsequent generator change out in 01/2020 with a Biotronik dual-chamber device. 3. Hypertension, stable. 4. Mild aortic root dilation. 5. Normal coronary arteries by remote cardiac catheterization. 6. History of prior gastric ulcer with severe GI bleed in 2019. 7. Severe aortic stenosis, status post remote mechanical aortic valve replacement in 03/2001, complicated by perivalvular leak, requiring redo valve replacement with a mechanical prosthesis in 03/2021, complicated by sepsis and perivalvular leak, as well as hemolysis, requiring redo procedure in [place], [place], with a homograft with a bioprosthetic valve in 2001. 8. Documentation of moderate perivalvular leak and aortic insufficiency in 2017. 9. Ovarian cancer, status post chemotherapy, hysterectomy and oophorectomy in early 2022, followed by MD Johansen. 10. History of discontinuation of anticoagulation due to prior history of GI bleed and recurrent epistaxis. 11. Presentation with hemoptysis on this admission with likely right middle lobe multifactorial pneumonia. 12. EF of 50-55% with increased LV cavity size to 5.5 with moderate central valve aortic regurgitation with pressure half-time of 441. 13. Respiratory therapy, requiring BiPAP therapy. 14. Sputum culture positive for Gram-negative rods and Gram-positive cocci. 15. Frail octogenarian. 16. Altered mental status. SUBJECTIVE: This patient is presenting with complex problems, including paroxysmal atrial fibrillation with rapid ventricular response. initially revealed atrial pacing; however, currently she is not pacing. She had concerns for QT prolongation and her medications have been adjusted. She is currently maintained on midodrine, which is on a p.r.n. use. She is on methylprednisolone. Her Seroquel has been held because of concerns for QT prolongation. She is on low-dose Lovenox and Atrovent. Her losartan has been held because of marginal pressures. She is on furosemide and amlodipine, which is reduced to 2.5 mg because of her marginal pressures and is currently on hold. She is on Zosyn, doxycycline, famotidine and p.r.n. medications. OBJECTIVE: The patient's vital signs in the last 24 hours have revealed stable status. She is afebrile. Her heart rate is in the 80s. Her respiratory rate is 18-20. Blood pressure is in the 135-145 systolic range; however, she does have widened pulse pressure likely due to her AI. Her diastolic is in the 40s. She is saturating at 97% on nasal cannula. She has been previously on BiPAP. She is currently maintained on 5 L of nasal cannula. The patient is followed by Pulmonary and Critical Care, Infectious Diseases, Primary Care and Cardiology. On exam, the patient appears to be comfortable but is confused. She is lying flat in bed, in no apparent distress. The cardiac exam is remarkable for prominent parasternal heave and displaced PMI. The patient has a normal S1 and a soft S2. She has 3/6 systolic ejection murmur at the left sternal border and the aortic region and a 2-3/6 decrescendo diastolic murmur with features of an Linwood Hatteras murmur. LABORATORY DATA: The patient's current laboratory studies reveal white count of 13.5, down from 16.6 and 18.3 on 01/22. She has an H and H of 8.9 and 26.9, which have been essentially stable. Platelet count is currently 272,000. Chemistries reveal sodium of 144, potassium is 3.6, chloride is 106, CO2 is 24, BUN is 47 with creatinine of 1.5, up from 1.0 on 01/23, and GFR of 35, down from 57. The patient's random glucose is 155. Her calcium is 9.1 and magnesium is 1.9. The BNP is measured at 1210. The albumin was measured at 3.4 yesterday. PLAN: At this point, the patient has been confused and will be monitored closely. She is going to get an EKG today to check for QT interval. Her device interrogation has revealed evidence of paroxysmal atrial fibrillation with previous left ventricular response with no other complex ectopy. The patient's neurologic status will be monitored closely and followed by the primary care team. She had been offered OLIVER in the past and had declined that, but at this point, she is clearly not a candidate for that procedure. Her valvular disease status will be addressed once she has stabilized. TID: [id number] RECEIPT: [id number]
--- NOTE | 2025-01-24 10:19 | EKG ---
[facility] Test Date: 2025-01-24 Test Time: 07:31:23 Pat Name: NEHEMIAS BAINS Department: [facility] Room: 420 Gender: F Quality Intern: jermaine : 1945 Requested By: Rafi RAMESH Order Number: [id number] Reading MD: Gabi Massey Measurements Intervals [place] Rate: 117 P: 0 AK: 46 QRS: -72 QRSD: 175 T: 101 QT: 423 QTc: 590 Interpretive Statements A-V dual-paced rhythm with some inhibition Compared to ECG 01/23/2025 13:22:40 Atrial-paced complex(es) or rhythm no longer present Left ventricular hypertrophy no longer present Q waves no longer present Electronically Signed On 01-24-2025 20:14:23 CDT by Gabi Massey Please click the below link to view image of tracing.
--- NOTE | 2025-01-24 12:03 | NUR ---
PATIENT TRANSFERRED VIA BED TO 420. WITH OXYGEN AND NEW IV STARTED TO LEFT WRIST, 20G. AND IV TO LEFT FOREARM DISCONTINUED DUE TO LEAKING. PIV TO LEFT AC INTACT.
--- NOTE | 2025-01-24 12:40 | PN ---
[facility] PROGRESS NOTE Date of Service: Jan 24, 2025 Time of Service: 12:40 SUBJECTIVE: 79-year-old female with past medical history of ovarian cancer, hypertension, history of gastric ulcer, history of history of aortic valve stenosis status post valve replacement who presented to the hospital secondary to hemoptysis. The patient states she has noted cough at home which is productive in nature. She has noted blood with her sputum. She does not have any hematemesis, melena, hematochezia. Denied any recent epistaxis. She has noted previous episodes of epistaxis in the past but denied any recent episode. Her blood is mainly present after coughing in the sputum. Denied any fever, chills, chest pain, abdominal pain, nausea. She does get short of breath with her underlying cough. She has been followed by Dr. Small as outpatient regards to aortic valve stenosis. She currently denies taking any antiplatelet or anticoagulants at home. She denied any night sweats, recent weight loss. Labs were notable for white count of 12.5, hemoglobin was 10.5, platelet count was 237 K, sodium was 132, potassium was 4.1, creatinine was 1.0. Chest x-ray infiltrates on the right side. Patient will be admitted for further medical management. 01/21/2025: Patient was seen and evaluated bedside in ED 11. Case discussed with RN, no acute overnight events. Patient says she is feeling well, denies chest pain, shortness of breath, palpitations, nausea, vomiting. X-ray shows airspace consolidation involving right middle and right lower lung and blunting of both costophrenic sulcus suggesting a pleural reaction. CT chest shows large consolidation likely of infectious origin, ground-glass opacities with interlobular septal thickening giving rise to crazy paving pattern in right lower lobe suggesting underlying pulmonary edema. Lab shows white count 14.9, CRP 106, BNP 555. EKG showed prolonged QTC, azithromycin was discontinued and doxycycline was started, continue Zosyn. Cardiology was consulted for further evaluation. 01/22/2025: Patient was seen and evaluated bedside in room 228. Patient developed acute delirium yesterday afternoon and tele psychiatric consultation was requested. Psychiatry evaluation revealed acute delirium and recommended to start Seroquel 12.5 mg b.i.d. p.r.n. for agitation, restlessness or psychosis and 25 mg q.h.s. for sleep. Lab this morning shows elevated white count at 18.3, BNP 1500, D-dimer 2294. X-ray revealed worsening consolidation on right side. Patient started on Lasix 40 mg q.12h, Solu-Medrol 40 mg q.6h, continue IV antibiotics. Infectious Disease, Cardiology, pulmonology on board and we will follow up with the recommendations. 01/23/2025: Patient was seen and evaluated in room 228 while patient's family was present at the bedside. Patient had high heart rate yesterday and the rhythm strip revealed SVTs for which metoprolol tartarate 25 mg once and midodrine 10 mg was given. This morning patient still had her heart rate in 120s but patient was asymptomatic. Patient currently denies shortness of breath, chest pain, palpitations and was well oriented to time, place, person. A repeat chest x-ray today showed slight improvement. Patient reported that she has had history of nosebleeds as a child and had more frequent episodes when she was taking Coumadin. At the time of admission she had hemoptysis when she noticed mild blood-streaked sputum while she cough but does not have hemoptysis now. Currently denies nosebleeds despite being on Lovenox 30 mg for DVT prophylaxis. Cardiology recommended continuing IV Lasix 40 mg q.12 and hold losartan. Patient admitted to declining evaluation with transesophageal ECHO in the past however would like to initiate the conversation with woodyard operator once the pneumonia is resolved after discharge from the hospital. 01/24/2025: Patient was seen and evaluated bedside in room 228. She is awake, alert, confused and having one on one sitter currently. Currently saturating 97% with3 L nasal cannula and Lab showed BNP 1210, white count 13.5, CRP trended down to 74. Blood culture showed no growth after24 hours, Legionella urine antigen is negative. Continue Lasix 40 mg q.12h , Zosyn and doxycycline. Infectious Disease, Cardiology, pulmonology on board and we will follow up their recommendation. REVIEW OF SYSTEMS CONSTITUTIONAL: Denies fevers, chills, or night sweats. No unintentional weight loss reported. NEUROLOGICAL: Denies headache, motor weakness, sensory deficit, vertigo/spinning sensation, gait abnormalities, or tremors. ENT: No hearing loss, otalgia, otorrhea, rhinitis, rhinorrhea, hoarseness, or sore throat. CARDIOVASCULAR: Denies any exertional angina, dyspnea on exertion, orthopnea, paroxysmal nocturnal dyspnea, palpitations, life-threatening arrhythmias, claudication. PULMONARY: Positive for hemoptysis, cough, sputum production, all resolved now SLEEP: Denies morning headaches, daytime somnolence or napping. Denies difficulty falling asleep, staying asleep, waking from sleep. Denies knowledge of snoring. GASTROINTESTINAL: Denies any type of dysphagia to either liquids or solids. Denies nausea, vomiting, pyrosis, early satiety, abdominal pain, diarrhea, con stipation, or changes in stool consistency or caliber. Denies coffee-ground emesis, hematemesis, hematochezia, or melanotic stools. GENITOURINARY: Denies frequency, urgency, nocturia, hematuria or incontinence (Storage/Irritative symptoms.) Low urinary stream, straining to void, urinary intermittency or hesitancy, splitting of the voiding stream, terminal dribbling. ENDOCRINOLOGIC: Denies polyuria, polydipsia, polyphagia or heat/cold intolerances. HEMATOLOGIC: Denies thrombophilia/previous clots, or coagulopathy/bleeding disorders. PSYCHIATRIC: Denies any suicidal or homicidal ideation. Denies hallucinations. PHYSICAL EXAM GENERAL APPEARANCE: The patient is awake, alert, and oriented, in no acute cardiopulmonary distress. Patient is bright red blood in the cup present at bedside NEUROLOGICAL: Cranial nerves II-XII grossly intact. Motor is 5/5 in bilateral upper and lower extremities proximal to distal. No sensory deficits. HEENT: Face is symmetric. Pupils are equal and reactive. Extraocular movements are intact. NECK: Supple. No JVD. No thyromegaly. No submental, submandibular, pre-/postauricular, occipital or supraclavicular lymphadenopathy. CHEST: Normal chest expansion. No Telemetry. LUNGS: She has a crackles present bilaterally, more on the right side. CARDIOVASCULAR: Regular. S1 and S2 normal. No appreciable rubs, murmurs or gallops. ABDOMEN: Soft, nontender, and nondistended. There is no rebound, voluntary guarding, or rigidity. : Deferred. No Wallace. EXTREMITIES: Non-edematous and not cyanotic. No clubbing. Good capillary refill. SKIN: No skin breakdown. Vital Signs (last 8hr) Date Time Temp Pulse Resp B/P (MAP) Pulse Ox O2 Delivery O2 Flow Rate FiO2 01/24/25 12:14 98.8 117 20 108/55 95 Nasal Cannula 3.0 01/24/25 11:54 98.2 101 18 128/57 95 Nasal Cannula 2.0 01/24/25 11:31 107 32 01/24/25 11:25 107 32 N/Cannula Low lpm 2.0 01/24/25 07:53 98.6 109 20 139/58 94 Nasal Cannula 3.0 01/24/25 06:45 80 20 01/24/25 06:45 80 20 N/Cannula Low lpm 5.0 01/24/25 06:41 80 21 LABS: Laboratory: Test 01/24/25 03:19 01/24/25 00:35 01/23/25 09:30 01/23/25 03:18 Range/Units White Blood Count 13.5 H 4.8-10.8 K/uL Red Blood Count 2.79 L 4.00-5.50 MIL/uL Hemoglobin 8.9 L 12.0-16.0 g/dL Hematocrit 26.9 L 36-48 % Mean Corpuscular Volume 96.4 79-99 fL Mean Corpuscular Hemoglobin 31.9 27.0-33.0 pg Mean Corpuscular Hemoglobin Concent 33.1 32.0-36.0 g/dL Red Cell Distribution Width 13.6 11.0-15.5 % Platelet Count 272 # 130-400 K/uL Mean Platelet Volume 10.4 7.5-10.5 fL Immature Granulocyte % (Auto) 2.4 H 0-1 % Neutrophils (%) (Auto) 86.3 H 40.0-77.0 % Lymphocytes (%) (Auto) 2.7 L 21.0-51.0 % Monocytes (%) (Auto) 8.5 3.0-13.0 % Eosinophils (%) (Auto) 0.0 0.0-8.0 % Basophils (%) (Auto) 0.1 0.0-5.0 % Neutrophils # (Auto) 11.6 H 1.8-7.7 K/uL Lymphocytes # (Auto) 0.4 L 1.0-4.8 K/uL Monocytes # (Auto) 1.2 H 0.1-1.0 K/uL Eosinophils # (Auto) 0.00 0.00-0.70 K/uL Basophils # (Auto) 0.02 0.00-0.20 K/uL Absolute Immature Granulocyte (auto 0.33 0-1 K/uL Nucleated Red Blood Cells 0.0 0.0-0.19 % Sodium Level 144 136-145 mmol/L Potassium Level 3.6 3.5-5.1 mmol/L Chloride Level 106 101-111 mmol/L Carbon Dioxide Level 24 21-32 mmol/L Blood Urea Nitrogen 47 H 7-18 mg/dL Creatinine 1.5 H 0.5-1.0 mg/dL Glomerular Filtration Rate Calc 35 >90 mL/min Random Glucose 155 H 70-105 mg/dL Total Calcium 9.1 8.5-10.1 mg/dL Magnesium Level 1.90 1.80-2.40 mg/dL C-Reactive Protein, Quantitative 74.80 H 0.5-3.0 mg/L B-Type Natriuretic Peptide 1210 H 0-100 pg/mL Blood Gas Specimen Type Arterial Arterial Blood pH 7.471 H 7.350-7.450 Arterial Blood Partial Pressure CO2 29 L 32-45 mmHg Arterial Blood Partial Pressure O2 55.7 L 83.0-108.0 mmHg Arterial Blood HCO3 20.4 L 21.0-28.0 mmol/L Arterial Blood Oxygen Saturation 89.8 L 94.0-98.0 % Arterial Blood Base Excess -2.4 L -2.0-3.0 mmol/L Hemoglobin (Blood Gas) 10.6 L 12.0-16.0 g/dL Sodium (Blood Gas) 140 136-145 MMOL/L Bedside Potassium (Blood Gas) 3.6 3.4-4.5 MMOL/L Bedside Chloride (Blood Gas) 105 98-107 MMOL/L Bedside Glucose (Blood Gas) 189 H 65-95 MG/DL Bedside Ionized Calcium (Blood Gas) 1.19 1.15-1.33 MMOL/L Bedside Lactic Acid (Blood Gas) 2.46 H 0.36-0.75 MMOL/L Blood Gas Temperature 37.0 35.5-37.0 CELSIUS Blood Gas Flow-by 3.00 0.00-15.00 L/min Blood Gas Vent Mode NC ROOM AIR FiO2 32.0 % Blood Gas Specimen Comment ASHOK RN ,RR Lactate Dehydrogenase 243 H 81-234 U/L Total Bilirubin 1.6 H 0.2-1.0 mg/dL Aspartate Amino Transf (AST/SGOT) 24 10-37 U/L Alanine Aminotransferase (ALT/SGPT) 26 12-78 U/L Alkaline Phosphatase 74 50-136 U/L Total Protein 6.0 6.0-8.3 g/dL Albumin 3.4 L 3.5-5.0 g/dL Current Medications Medications (Trade) Dose Ordered Sig/Sadi Route PRN Reason Start Time Stop Time Status Last Admin Dose Admin Acetaminophen (TYLenol 325MG TAB) 650 mg Q4H PRN PO MILD PAIN (1-3) 01/20/25 13:00 02/19/25 12:59 Acetaminophen (TYLenol 325MG TAB) 650 mg Q6H PRN PO TEMPERATURE GREATER THAN 101.5 01/20/25 13:00 02/19/25 12:59 Albuterol (DUOneb) 1 UDVIAL [id number] 01/22/25 06:00 01/22/25 03:00 DC Albuterol Sulfate (Proventil 0.083% 2.5mg/3ml) 2.5 mg [id number] IH 01/22/25 03:00 01/22/25 14:40 DC 01/22/25 06:35 2.5 MG Albuterol Sulfate (Proventil 0.083% 2.5mg/3ml) 2.5 mg [id number] IH 01/22/25 18:00 01/22/25 19:08 DC Amlodipine Besylate (NorvASC 2.5MG TAB) 2.5 mg DAILY PO 01/22/25 09:00 02/21/25 08:59 01/24/25 10:41 2.5 MG Amlodipine Besylate (NorvASC 5MG TAB) 5 mg DAILY PO 01/22/25 09:00 02/21/25 08:59 01/24/25 10:41 5 MG Artificial Tears (Artificial Tears) 1 DROP Q2H PRN OP DRY EYES 01/20/25 13:00 02/19/25 12:59 Azithromycin 250 ml @ 250 mls/hr Q24H IVPB 01/21/25 14:30 01/21/25 10:33 DC Benzocaine (Cepacol Sore Throat Lozenge) 1 each Q2H PRN MM SORE THROAT 01/20/25 13:00 02/19/25 12:59 Dexmedetomidine/ Sodium Chloride (PRECEdex 200MCG/ 50ML-NS) 200 mcg PROTOCOL IV 01/22/25 03:30 02/21/25 03:29 Docusate Sodium (COLace 100MG CAP) 100 mg BID PRN PO CONSTIPATION 01/20/25 13:00 02/19/25 12:59 Doxycycline Hyclate 250 ml @ 125 mls/hr Q12H IV 01/21/25 10:30 01/31/25 10:29 01/24/25 10:42 125 MLS/HR Enoxaparin Sodium (Lovenox) 30 mg DAILY SQ 01/22/25 09:00 01/22/25 09:00 DC Enoxaparin Sodium (Lovenox) 30 mg DAILY SQ 01/22/25 16:00 01/22/25 19:25 DC Enoxaparin Sodium (Lovenox) 30 mg Q24H SQ 01/22/25 19:30 02/21/25 19:29 01/23/25 20:17 30 MG Famotidine (Pepcid 20mg Vial) 20 mg Q24H IV 01/20/25 21:00 02/19/25 20:59 01/23/25 20:18 20 MG Furosemide (LASix 20MG TAB) 20 mg AD PO 01/21/25 09:00 01/21/25 08:59 DC Furosemide (LASix 20MG TAB) 20 mg DAILY PO 01/23/25 09:00 01/22/25 09:17 DC Furosemide (LASix 40MG VIAL) 40 mg Q12H IV 01/22/25 09:30 02/21/25 09:29 01/24/25 10:41 40 MG Guaifenesin (RobiTUSSin SUGAR-FREE 100 MG/ 5 ML UDCUP) 200 mg Q4H PRN PO COUGH 01/20/25 13:00 02/19/25 12:59 01/21/25 20:38 200 MG Guaifenesin/ Dextromethorphan (RobiTUSSin DM 200/20MG 10ML) 10 ml Q4H PRN PO COUGH 01/20/25 13:00 02/19/25 12:59 Ipratropium [place] (AtrovENT UD) 0.5 mg [id number] IH 01/22/25 03:00 01/22/25 14:30 DC 01/22/25 10:00 0.5 MG Ipratropium [place] (AtrovENT UD) 0.5 mg [id number] IH 01/22/25 18:00 02/21/25 02:59 01/24/25 11:31 0.5 MG Lactulose (Constulose 20gm/ 30ml Udcup) 20 gm BID PRN PO CONSTIPATION 01/20/25 13:00 02/19/25 12:59 Lidocaine HCl/Al Hydroxide/Mg Hydroxide/ Dicyclomine HCl 20ML OR AD MAALOX P... Q6H PRN PO HEARTBURN 01/20/25 13:00 02/19/25 12:59 Lisinopril (Prinivil 20mg) 20 mg DAILY PO 01/22/25 09:00 01/22/25 09:26 DC Loperamide HCl (Imodium) 2 mg Q6H PRN PO AFTER EACH LOOSE STOOL 01/20/25 13:00 02/19/25 12:59 Lorazepam (AtiVAN) 0.5 mg HS PRN PO INSOMNIA 01/21/25 22:30 02/20/25 22:29 01/23/25 22:36 0.5 MG Losartan Potassium (CozAAR 25MG TAB) 25 mg DAILY PO 01/22/25 11:00 01/23/25 10:48 DC 01/22/25 11:11 25 MG Losartan Potassium (CozAAR 25MG TAB) 25 mg DAILY PO 01/23/25 09:00 01/22/25 10:58 DC Magnesium Sulfate 50 ml @ 0 mls/hr PROTOCOL PRN IV hypomagnesemia 01/20/25 12:00 02/19/25 11:59 01/24/25 05:55 25 MLS/HR Methylprednisolone Sodium Succinate (Solu-medROL 40MG) 40 mg Q6H IVP 01/22/25 21:00 02/21/25 08:59 01/24/25 10:41 40 MG Methylprednisolone Sodium Succinate (Solu-medROL 125MG) 40 mg Q6H IVP 01/22/25 09:00 01/22/25 15:45 DC 01/22/25 15:37 40 MG Metoprolol Succinate (TopROL XL) 50 mg DAILY PO 01/21/25 09:00 01/22/25 09:17 DC 01/21/25 10:21 50 MG Metoprolol Tartrate (loprESSOR) 25 mg BID PO 01/22/25 21:00 01/23/25 10:47 DC 01/23/25 09:40 25 MG Midodrine (PROAMatine 5 MG TABLET) 10 mg Q8H PRN PO MAP <65 01/22/25 23:00 02/21/25 22:59 01/23/25 00:16 10 MG Nitroglycerin (Nitrostat) 0.4 mg PROTOCOL PRN SL CHEST PAIN 01/20/25 13:00 02/19/25 12:59 Ondansetron HCl (zoFRAN 4MG INJ) 4 mg Q6H PRN IV NAUSEA/VOMITING 01/20/25 13:00 02/19/25 12:59 Piperacillin Sod/ Tazobactam Sod (Zosyn 3.375gm+NS 50ml) 3.375 gm Q8H IVPB 01/20/25 12:00 01/21/25 13:17 DC 01/21/25 04:05 3.375 GM Piperacillin Sod/ Tazobactam Sod (Zosyn 3.375gm+NS 50ml) 3.375 gm Q8H IVPB 01/21/25 14:30 01/31/25 14:29 01/24/25 05:55 3.375 GM Polyethylene Glycol (MIRalax 3350 17 GM POWD.PACK) 17 gm DAILY PRN PO CONSTIPATION 01/20/25 13:00 02/19/25 12:59 Potassium Chloride 100 ml @ 100 mls/hr AD PRN IV POTASSIUM PROTOCOL 01/20/25 12:00 02/19/25 11:59 Potassium Chloride (K-Dur/Klor-Con 20meq) 20 meq AD PRN PO POTASSIUM PROTOCOL 01/20/25 12:00 02/19/25 11:59 01/23/25 16:23 20 MEQ Potassium Chloride (KCl 10% Elixir 20meq/15ml) 20 meq AD PRN PO POTASSIUM PROTOCOL 01/20/25 12:00 02/19/25 11:59 01/23/25 05:22 20 MEQ Quetiapine Fumarate (SEROquel 25 mg TAB) 12.5 mg BID PRN PO Agitation 01/21/25 22:30 02/20/25 22:29 Hold Quetiapine Fumarate (SEROquel 25 mg TAB) 25 mg HS PO 01/22/25 21:00 02/21/25 20:59 Hold Sodium Chloride (NS 50ml) 50 ml AD IV 01/20/25 12:00 01/20/25 12:10 DC DIAGNOSTICS / RADIOLOGY: [facility] [address] [place] [id number] IMAGING REPORT Signed PATIENT: NEHEMIAS BAINS MR#: [id number] : 1945 SEX: F AGE: 79 LOCATION: 2DH ORDER 2300 STATUS: ADM IN REPORT#: [id number] SERVICE 0600 REASON: CAP ORDERING PHYSICIAN: TONI MAR MD PROCEDURE: CXR1VW - CHEST 1VW EXAM: CR Chest, 1 view CLINICAL HISTORY: Shortness of breath. COMPARISON: Chest radiograph dated 01/20/2025. FINDINGS: Status poststernotomy. Left-sided cardiac pacemaker device in place. Moderate cardiomegaly. Mild pulmonary vascular congestion and diffuse airspace disease on the right side with air bronchogram in the right upper to mid zones -slightly improved when compared with the prior exam. Small pleural effusions bilaterally. Mild to moderate COPD. Mild atherosclerotic aorta. Mild osteopenia. Oblique fracture around the right humeral neck. Degenerative osseous changes. No acute osseous abnormality. IMPRESSION: Mild pulmonary vascular congestion and diffuse airspace disease on the right side with air bronchogram in the right upper to mid zones -slightly improved when compared with the prior exam. Otherwise, stable exam. /[place] DICTATED BY: CASSANDRA LOBATO MD DATE: 01/23/25921 ELECTRONICALLY SIGNED BY: CASSANDRA LOBATO MD DATE: 01/23/25921 ASSESSMENT: Hemoptysis POA Community-acquired pneumonia POA Aortic valve stenosis status post aortic valve replacement POA Atrial fibrillation vs SVT not on anticoagulation for history of epistaxis Hypertension POA Hyperlipidemia History of gastric ulcer History of ovarian cancer Mild hyponatremia PLAN: Community-acquired pneumonia POA * Patient came to ED with cough which is productive in nature noted blood with her sputum. * CT chest showed large consolidation likely of infectious origin * WBC Count on 01/24/2025 trended up to 13.5 From 11 yesterday. * Patient was started on Zosyn IV, azithromycin IV on 01/20/2025 * Patient's EKG showed prolonged QTC, azithromycin was discontinued this morning. * Continue IV Zosyn 3.375 G IV Q8 (day 5), started doxycycline 250 mL IV q.12h (day 4) * Critical Care on board, we will follow up with the recommendations. Hemoptysis, due to pneumonia POA * Patient noted blood after coughing out phlegm at home. * CBC shows hemoglobin 10.5, hematocrit 31.5 at presentation. * Patient denied further episodes of coughing out blood this morning. * CBC shows hemoglobin 8.9, hematocrit 26.9 on 01/24/2025 * Critical Care on board for further evaluation Aortic valve stenosis status post aortic valve replacement POA * Patient has history of recall stenosis status post valve replacement in 2000 * We echo from 09/23/2023 shows bioprosthetic aortic wall is present, with thickened and possible degenerating left coronary cusp, moderate aortic regurgitation. * BNP 1210 on 01/24/2025 * Continue IV Lasix 40 mg q.12 * 2D echo on 01/22/2025 showed LVEF of 50-55% with normal LV segmental wall motion, concentric LVH with stage II diastolic dysfunction. Bioprosthetic aortic valve present * Cardiology recommended outpatient CCTA in [place] if the patient refuses transesophageal echo procedure again for evaluation of paravalvular leak for aortic valve. Atrial fibrillation vs SVT not on anticoagulation for history of epistaxis * Patient had high heart rate in the range of 110s to 120s last night and rhythm strip revealed suspected atrial fibrillation or supraventricular tachycardia * Patient was started on metoprolol tartrate 25 mg once and a midodrine 10 mg was given * Cardiology recommended to hold losartan and defer use of beta blockers for the moment * Patient admitted to frequent nosebleeds in the past and increased frequency with Coumadin however no nosebleeds currently * Patient tolerating Lovenox 30 mg daily without any bleeding * We will follow up with Cardiology for further management of anticoagulation Pepcid 20 mg Q 24 H IV for GI prophylaxis Lovenox 30 mg SQ daily for DVT prophylaxis ATTESTATION BY PHYSICIAN I have seen and examined the patient. I reviewed the documentation, medical decision making, and treatment plan as noted by the resident above. I agree with the findings and plan of care. Mickey Dumont IV, MD, ADIL SHAH QUADRI MD Jan 24, 2025 12:40
--- NOTE | 2025-01-24 13:03 | PN ---
[facility] PROGRESS NOTE Date Patient Seen: Jan 24, 2025 Time of Visit: 12:59 Supervising Physician: Dr Jarett Pickett Primary Care Physician: [place] hospitalist team Outpatient Specialists: Inpatient Consults: BIS, critical Care team PROBLEM LIST: New onset AFib with RVR SVT Acute hypoxemic respiratory failure, SpO2 worsened on 01/23/2024 from prior/arrival POA Community-acquired pneumonia, POA worsening on 01/22/2025 POA Fluid overload, Elevated BNP, increased from POA (BNP 555 on 01/20/2025 and 1530 on 01/22/2025) Elevated DDIMER, negative for PE and DVT on 01/20/2025 Leukocytosis, POA, worsened from arrival LVEF 45-50% Lactic acidosis Acute on chronic renal failure stage 3a, GFR 51 Hyperglycemia Hypoalbuminemia Aortic valve stenosis history of aortic valve replacement Hypertension Multiple wound ulcers to bilateral lower extremities, POA Peripheral vascular disease, POA Hypertension, hyperlipidemia, uncontrolled diabetes mellitus Anemia of chronic disease Debility/frailty/general body weakness Severe bilateral hearing impairment Hematuria INTERVAL HISTORY: Patient was seen and examined, patient comfortable, no family members at bedside, patient tolerating BiPAP overnight Currently on nasal cannula 3 L good saturations Patient's BNP up to 1210, she continues on the Lasix 40 mg q.12 Continues on Zosyn and doxy, cultures are negative thus far No plan to proceed with a OLIVER, family wants to do conservative treatment only Nursing advised to keep accurate I&Os Continue diuresis, supplemental O2 and BiPAP Pending discussion with family for code status Plan: Pending family discussion for code status Repeat labs in a.m., repeat BNP, continue diuresis, patient overloaded Supplemental O2, encouraged BiPAP at night Follow cardiology recs RT/nebulizers Patient care time 46 minutes, this excludes any time spent on teaching or procedures REVIEW OF SYSTEMS: Unable to obtain ROS from patient due to patient being confused, and in respiratory distress. PHYSICAL EXAM: GENERAL: Anxious. HEENT: EOMI, Sclera non icteric, moist mucosa NECK: Supple, no JVD, trachea midline LUNGS: Tachypneic, on BiPAP, respiration rate 40s. Diminished breath sounds bilaterally. No wheezes HEART: Tachycardic. Regular rate and rhythm. Normal S1 and S2, without murmurs ABD: Abdomen soft, nontender. Bowel sounds present EXT: No clubbing cyanosis or edema NEURO: No attempt to follow command, no attempt to speak, no attempt to track. Vital Signs (last 8hr) Date Time Temp Pulse Resp B/P (MAP) Pulse Ox O2 Delivery O2 Flow Rate FiO2 01/24/25 12:14 98.8 117 20 108/55 95 Nasal Cannula 3.0 01/24/25 11:54 98.2 101 18 128/57 95 Nasal Cannula 2.0 01/24/25 11:31 107 32 01/24/25 11:25 107 32 N/Cannula Low lpm 2.0 01/24/25 07:53 98.6 109 20 139/58 94 Nasal Cannula 3.0 01/24/25 06:45 80 20 01/24/25 06:45 80 20 N/Cannula Low lpm 5.0 01/24/25 06:41 80 21 LABS: Hematology Labs: Test 01/24/25 03:19 Range/Units White Blood Count 13.5 H 4.8-10.8 K/uL Red Blood Count 2.79 L 4.00-5.50 MIL/uL Hemoglobin 8.9 L 12.0-16.0 g/dL Hematocrit 26.9 L 36-48 % Mean Corpuscular Volume 96.4 79-99 fL Mean Corpuscular Hemoglobin 31.9 27.0-33.0 pg Mean Corpuscular Hemoglobin Concent 33.1 32.0-36.0 g/dL Red Cell Distribution Width 13.6 11.0-15.5 % Platelet Count 272 # 130-400 K/uL Mean Platelet Volume 10.4 7.5-10.5 fL Immature Granulocyte % (Auto) 2.4 H 0-1 % Neutrophils (%) (Auto) 86.3 H 40.0-77.0 % Lymphocytes (%) (Auto) 2.7 L 21.0-51.0 % Monocytes (%) (Auto) 8.5 3.0-13.0 % Eosinophils (%) (Auto) 0.0 0.0-8.0 % Basophils (%) (Auto) 0.1 0.0-5.0 % Neutrophils # (Auto) 11.6 H 1.8-7.7 K/uL Lymphocytes # (Auto) 0.4 L 1.0-4.8 K/uL Monocytes # (Auto) 1.2 H 0.1-1.0 K/uL Eosinophils # (Auto) 0.00 0.00-0.70 K/uL Basophils # (Auto) 0.02 0.00-0.20 K/uL Absolute Immature Granulocyte (auto 0.33 0-1 K/uL Nucleated Red Blood Cells 0.0 0.0-0.19 % Chemistry Labs: Test 01/24/25 03:19 01/23/25 09:30 01/23/25 03:18 Range/Units Sodium Level 144 136-145 mmol/L Potassium Level 3.6 3.5-5.1 mmol/L Chloride Level 106 101-111 mmol/L Carbon Dioxide Level 24 21-32 mmol/L Blood Urea Nitrogen 47 H 7-18 mg/dL Creatinine 1.5 H 0.5-1.0 mg/dL Glomerular Filtration Rate Calc 35 >90 mL/min Random Glucose 155 H 70-105 mg/dL Total Calcium 9.1 8.5-10.1 mg/dL Magnesium Level 1.90 1.80-2.40 mg/dL C-Reactive Protein, Quantitative 74.80 H 0.5-3.0 mg/L B-Type Natriuretic Peptide 1210 H 0-100 pg/mL Lactate Dehydrogenase 243 H 81-234 U/L Total Bilirubin 1.6 H 0.2-1.0 mg/dL Aspartate Amino Transf (AST/SGOT) 24 10-37 U/L Alanine Aminotransferase (ALT/SGPT) 26 12-78 U/L Alkaline Phosphatase 74 50-136 U/L Total Protein 6.0 6.0-8.3 g/dL Albumin 3.4 L 3.5-5.0 g/dL DIAGNOSTICS / RADIOLOGY RESULTS: [ ] PLAN NEURO: Minimize central acting medications as possible. Maintain fall precautions, adequate lighting during the day PULMONARY: Supplemental 02 as needed. Maintain aspiration precautions at all times CARDIOVASCULAR: Follow hemodynamics. Vital signs per facility protocol GI & NUTRITION: Continue with nutritional support. Continue stool softeners and laxatives as needed. KIDNEYS & ELECTROLYTES: Strict monitoring of intake, output and overall fluid balance. Avoid nephrotoxic medications to the extent possible. Medications to be dosed according to renal function. Monitor electrolytes and replace as needed ENDOCRINE: Maintain blood glucose between 100-180 at all times. Hypoglycemia protocol in place INFECTIOUS DISEASE: Trend temperature, WBC and procalcitonin level Follow cultures, deescalate antibiotics as soon as possible. Panculture if new onset fever ONCOLOGY/HEMATOLOGY/COAGULATION: Monitor for s/s of bleeding Monitor hemoglobin, coagulation studies as needed SKIN: Pressure ulcer prevention per facility protocol Specialty mattress ORTHO/REHAB: Continue PT/OT Prophylaxis: Continue GI and DVT prophylaxis Code Status: Full Resuscitation Disposition: APRYL RTAN PAC Jan 24, 2025 13:02
--- NOTE | 2025-01-24 18:47 | PN ---
INFECTIOUS DISEASE PROGRESS NOTE Date of Service: Jan 24, 2025 SUBJECTIVE: This is an 79-year-old female patient who was admitted to the hospital for hemoptysis. Today patient is only oriented to person and is on a 1-1 sitter observation. No fever for the past 24 hours. The WBC is still slightly elevated at 13.5 but also continues on Solu-Medrol every 6 hours. Continues on Zosyn and doxycycline. Patient's daughter present at bedside. Patient is currently on oxygen via nasal cannula 3 L/min. We will continue to follow patient's care. PHYSICAL EXAM EYES: Anicteric. Pupils equal and reactive. HENT: No oral thrush seen, moist Oral mucosa NECK: Supple, no JVD or thyromegaly. LUNGS: Good air entry. Diminished. Oxygen support via nasal cannula. CARDIOVASCULAR: S1, S2 regular. No murmur heard. ABDOMEN: Soft, non tender, bowel sounds present, no organomegaly. CENTRAL NERVOUS SYSTEM: Awake, alert, oriented x 1. SKIN: No rashes, no swelling. LYMPHATICS: No peripheral lymphadenopathy. MUSCULOSKELETAL: No joint swelling, erythema or tenderness. EXTREMITIES: No cyanosis or clubbing. BACK: No deformity, no pressure ulcer. GENITOURINARY: No dysuria or hematuria. Vital Sign (Last 12 Hours) 01/24/25 01/24/25 01/24/25 01/24/25 07:53 11:25 11:31 11:54 Temp 98.6 98.2 Pulse 109 107 107 101 Resp 20 32 32 18 B/P (MAP) 139/58 128/57 Pulse Ox 94 95 O2 Delivery Nasal Cannula N/Cannula Low lpm Nasal Cannula O2 Flow Rate 3.0 2.0 2.0 01/24/25 01/24/25 01/24/25 01/24/25 12:00 12:14 16:00 16:49 Temp 98.8 98.2 Pulse 117 113 113 Resp 20 21 24 B/P (MAP) 108/55 125/32 Pulse Ox 96 95 96 O2 Delivery Nasal Cannula* Nasal Cannula Nasal Cannula Bi-PAP+ O2 Flow Rate 2 3.0 3.0 FiO2 N/A 01/24/25 16:52 Pulse 113 Resp 24 O2 Delivery N/Cannula Low lpm O2 Flow Rate 3.0 Intake & Output (last 24hrs) 01/23/25 01/23/25 01/24/25 15:00 23:00 07:00 Intake Total 370.0 ml 830.0 ml Output Total 350 ml 900 ml Balance 370.0 ml 480.0 ml -900 ml LABS: Laboratory: Test 01/24/25 03:19 01/24/25 00:35 01/23/25 09:30 01/23/25 03:18 Range/Units White Blood Count 13.5 H 4.8-10.8 K/uL Red Blood Count 2.79 L 4.00-5.50 MIL/uL Hemoglobin 8.9 L 12.0-16.0 g/dL Hematocrit 26.9 L 36-48 % Mean Corpuscular Volume 96.4 79-99 fL Mean Corpuscular Hemoglobin 31.9 27.0-33.0 pg Mean Corpuscular Hemoglobin Concent 33.1 32.0-36.0 g/dL Red Cell Distribution Width 13.6 11.0-15.5 % Platelet Count 272 # 130-400 K/uL Mean Platelet Volume 10.4 7.5-10.5 fL Immature Granulocyte % (Auto) 2.4 H 0-1 % Neutrophils (%) (Auto) 86.3 H 40.0-77.0 % Lymphocytes (%) (Auto) 2.7 L 21.0-51.0 % Monocytes (%) (Auto) 8.5 3.0-13.0 % Eosinophils (%) (Auto) 0.0 0.0-8.0 % Basophils (%) (Auto) 0.1 0.0-5.0 % Neutrophils # (Auto) 11.6 H 1.8-7.7 K/uL Lymphocytes # (Auto) 0.4 L 1.0-4.8 K/uL Monocytes # (Auto) 1.2 H 0.1-1.0 K/uL Eosinophils # (Auto) 0.00 0.00-0.70 K/uL Basophils # (Auto) 0.02 0.00-0.20 K/uL Absolute Immature Granulocyte (auto 0.33 0-1 K/uL Nucleated Red Blood Cells 0.0 0.0-0.19 % Sodium Level 144 136-145 mmol/L Potassium Level 3.6 3.5-5.1 mmol/L Chloride Level 106 101-111 mmol/L Carbon Dioxide Level 24 21-32 mmol/L Blood Urea Nitrogen 47 H 7-18 mg/dL Creatinine 1.5 H 0.5-1.0 mg/dL Glomerular Filtration Rate Calc 35 >90 mL/min Random Glucose 155 H 70-105 mg/dL Total Calcium 9.1 8.5-10.1 mg/dL Magnesium Level 1.90 1.80-2.40 mg/dL C-Reactive Protein, Quantitative 74.80 H 0.5-3.0 mg/L B-Type Natriuretic Peptide 1210 H 0-100 pg/mL Blood Gas Specimen Type Arterial Arterial Blood pH 7.471 H 7.350-7.450 Arterial Blood Partial Pressure CO2 29 L 32-45 mmHg Arterial Blood Partial Pressure O2 55.7 L 83.0-108.0 mmHg Arterial Blood HCO3 20.4 L 21.0-28.0 mmol/L Arterial Blood Oxygen Saturation 89.8 L 94.0-98.0 % Arterial Blood Base Excess -2.4 L -2.0-3.0 mmol/L Hemoglobin (Blood Gas) 10.6 L 12.0-16.0 g/dL Sodium (Blood Gas) 140 136-145 MMOL/L Bedside Potassium (Blood Gas) 3.6 3.4-4.5 MMOL/L Bedside Chloride (Blood Gas) 105 98-107 MMOL/L Bedside Glucose (Blood Gas) 189 H 65-95 MG/DL Bedside Ionized Calcium (Blood Gas) 1.19 1.15-1.33 MMOL/L Bedside Lactic Acid (Blood Gas) 2.46 H 0.36-0.75 MMOL/L Blood Gas Temperature 37.0 35.5-37.0 CELSIUS Blood Gas Flow-by 3.00 0.00-15.00 L/min Blood Gas Vent Mode NC ROOM AIR FiO2 32.0 % Blood Gas Specimen Comment ASHOK RN ,RR Lactate Dehydrogenase 243 H 81-234 U/L Total Bilirubin 1.6 H 0.2-1.0 mg/dL Aspartate Amino Transf (AST/SGOT) 24 10-37 U/L Alanine Aminotransferase (ALT/SGPT) 26 12-78 U/L Alkaline Phosphatase 74 50-136 U/L Total Protein 6.0 6.0-8.3 g/dL Albumin 3.4 L 3.5-5.0 g/dL ASSESSMENT: Hypoxic respiratory failure requiring oxygen support. Pneumonia. Leukocytosis. Anemia. Heart failure. History of ovarian cancer. PLAN: Continue Zosyn. Continue doxycycline. Continue pain management. Continue bronchodilators. Continue diuretics. Continue GI prophylaxis. Continue oxygen support. This case was reviewed and discussed with my supervising physician Dr. Briceno and the above assessment and plan was formulated and agreed upon. ATTESTATION BY PHYSICIAN I have seen and examined the patient. I reviewed the documentation, medical decision making, and treatment plan as noted by the mid-level provider above. I agree with the findings and plan of care. JAN BRICENO MD, [facility] Jan 24, 2025 18:47
--- NOTE | 2025-01-24 19:09 | NUR ---
AFIB 150'S PAGED HOSPITALIST TO LET THEM KNOW. PENDING CALL BACK.
--- NOTE | 2025-01-24 19:18 | NUR ---
Spoke with Selam Glasgow NP and reported HR 150s. TORB given, entered, and implemented.
--- NOTE | 2025-01-24 19:23 | NUR ---
Spoke with Dr. Massey and reported patient HR and rhythm, BP, EKG results. Pt comfortably in bed talking to family without complains of CP, no palpitations. MD okayed the 2.5mg Metoprolol IV x1 ordered by hospitalist. MD reviewed chart, TORB orders given, entered into the system and implemented. Will continue to monitor patient.
--- NOTE | 2025-01-24 19:32 | EKG ---
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 BHATIAB: 1945 Requested By: LEILANI MASSEY Order Number: [id number] Reading MD: Gabi Massey Measurements Intervals [place] Rate: 153 P: 0 NJ: 0 QRS: 85 QRSD: 94 T: 265 QT: 324 QTc: 517 Interpretive Statements Supraventricular tachycardia with occasional premature ventricular complexes Septal infarct , age undetermined Marked ST abnormality, possible inferolateral subendocardial injury Compared to ECG 01/24/2025 07:31:23 Ventricular premature complex(es) now present Myocardial infarct finding now present ST (T wave) deviation now present Ventricular-paced complex(es) or rhythm no longer present Electronically Signed On 01-24-2025 20:10:01 CDT by Gabi Massey Please click the below link to view image of tracing.
--- NOTE | 2025-01-24 20:37 | NUR ---
hospitalist spoke with pb holliday about patient's heart rate afib 115-120's. patient is resting in bed without no complains of chest pain or shortness of breath. Dr. conklin is already aware of the patient's condition. no new orders given by pb holliday.
--- NOTE | 2025-01-24 22:28 | HMCIMG ---
EXAM: CR Chest, 1 view CLINICAL HISTORY: Shortness of breath. COMPARISON: Chest radiograph dated 01/23/2025. FINDINGS: Status poststernotomy. Left-sided cardiac pacemaker device in place. Moderate cardiomegaly. diffuse airspace disease on the right side with air bronchogram in the right upper to mid zones -worsened when compared with the prior exam. Small pleural effusions bilaterally. Mild to moderate COPD. Mild atherosclerotic aorta. Mild osteopenia. Oblique fracture around the right humeral neck. Degenerative osseous changes. No acute osseous abnormality. IMPRESSION: 1. Worsening right-sided diffuse airspace disease with air bronchogram in the right upper to mid zones, concerning for pneumonia. 2. Oblique fracture around the right humeral neck. 3. Small bilateral pleural effusions. 4. Moderate cardiomegaly. 5. Mild to moderate COPD. 6. Status post sternotomy with left-sided cardiac pacemaker in place. 7. Mild atherosclerotic aorta. 8. Mild osteopenia and degenerative osseous changes. /[place]
[2025-01-25] VITALS (10 sets, daily range): BP systolic 101–128; BP diastolic 50–87; PULSE 118–156; RESP 18–24; TEMP 97.8–98.4; O2SAT 94–98
[2025-01-25 04:50] LABS: IMMATURE GRANULOCYTE ABSOLUTE 0.23 K/uL (0-1); NUCLEATED RED BLOOD CELLS 0.4 % (0.0-0.19); PLATELET COUNT (AUTO) 260 K/uL (130-400); RED BLOOD CELL COUNT(AUTO) 2.98 MIL/uL (4.00-5.50); RED CELL DISTRIBUTION WIDTH 13.7 % (11.0-15.5); WHITE BLOOD COUNT (AUTO) 9.5 K/uL (4.8-10.8)
[2025-01-25 05:22] LABS: ASPARTATE AMINOTRANSFERASE 18.0 U/L (10-37); CREATININE 1.3 mg/dL (0.5-1.0); GLOMERULAR FILTR. RATE CALC 42.0 mL/min (>90); GLUCOSE,RANDOM 143.0 mg/dL (70-105); PHOSPHORUS 3.7 mg/dL (2.5-4.9); SODIUM SERUM 145.0 mmol/L (136-145); TOTAL PROTEIN, SERUM 6.5 g/dL (6.0-8.3); UREA NITROGEN, BLOOD 46.0 mg/dL (7-18)
--- NOTE | 2025-01-25 06:55 | PN ---
[facility] CARDIOLOGY PROGRESS NOTE Date Patient Seen: Jan 25, 2025 Time of Visit: 06:44 Problem List: 1. Paroxysmal atrial fibrillation with rapid ventricular response. 2. Conduction system disease, status post remote dual-chamber permanent pacemaker implant with subsequent generator change out in 01/2020 with a Biotronik dual-chamber device. 3. Hypertension, stable. 4. Mild aortic root dilation. 5. Normal coronary arteries by remote cardiac catheterization. 6. History of prior gastric ulcer with severe GI bleed in 2019. 7. Severe aortic stenosis, status post remote mechanical aortic valve replacement in 03/2001, complicated by perivalvular leak, requiring redo valve replacement with a mechanical prosthesis in 03/2021, complicated by sepsis and perivalvular leak, as well as hemolysis, requiring redo procedure in [place], [place], with a homograft with a bioprosthetic valve in 2001. 8. Documentation of moderate perivalvular leak and aortic insufficiency in 2017. 9. Ovarian cancer, status post chemotherapy, hysterectomy and oophorectomy in early 2022, followed by MD Johansen. 10. History of discontinuation of anticoagulation due to prior history of GI bleed and recurrent epistaxis. 11. Presentation with hemoptysis on this admission with likely right middle lobe multifactorial pneumonia. 12. EF of 50-55% with increased LV cavity size to 5.5 with moderate central valve aortic regurgitation with pressure half-time of 441. 13. Respiratory therapy, requiring BiPAP therapy. 14. Sputum culture positive for Gram-negative rods and Gram-positive cocci. 15. Frail octogenarian. 16. Altered mental status. Interval History: Pt lying in bed in her room, remains frail, debilitated, and confused. She is elderly, with acute respiratory failure on BIPAP for ventilatory support alternating with nasal canula as she tolerates. This morning her HR is up again in afib with rvr. She has pneumonia and is currently on abx and supportive care. Underlying history of cancer and immunocompromise complicating her condition with recurrent hx of bleeding precluding use of anticoagulant for her paroxysmal afib. Physical Examination: GENERAL: Anxious. HEENT: EOMI, Sclera non icteric, moist mucosa NECK: Supple, no JVD, trachea midline LUNGS: Tachypneic, on BiPAP, respiration rate 40s. Diminished breath sounds bilaterally. No wheezes HEART: Tachycardic. Regular rate and rhythm. diastolic murmur ABD: Abdomen soft, nontender. Bowel sounds present EXT: No clubbing cyanosis or edema NEURO: Altered, alert and oriented x2 Laboratory: [ ] Hematology Labs: Test 01/25/25 04:41 Range/Units White Blood Count 9.5 4.8-10.8 K/uL Red Blood Count 2.98 L 4.00-5.50 MIL/uL Hemoglobin 9.5 L 12.0-16.0 g/dL Hematocrit 28.3 L 36-48 % Mean Corpuscular Volume 95.0 79-99 fL Mean Corpuscular Hemoglobin 31.9 27.0-33.0 pg Mean Corpuscular Hemoglobin Concent 33.6 32.0-36.0 g/dL Red Cell Distribution Width 13.7 11.0-15.5 % Platelet Count 260 130-400 K/uL Mean Platelet Volume 10.1 7.5-10.5 fL Immature Granulocyte % (Auto) 2.4 H 0-1 % Neutrophils (%) (Auto) 83.3 H 40.0-77.0 % Lymphocytes (%) (Auto) 5.1 L 21.0-51.0 % Monocytes (%) (Auto) 9.1 3.0-13.0 % Eosinophils (%) (Auto) 0.0 0.0-8.0 % Basophils (%) (Auto) 0.1 0.0-5.0 % Neutrophils # (Auto) 7.9 H 1.8-7.7 K/uL Lymphocytes # (Auto) 0.5 L 1.0-4.8 K/uL Monocytes # (Auto) 0.9 0.1-1.0 K/uL Eosinophils # (Auto) 0.00 0.00-0.70 K/uL Basophils # (Auto) 0.01 0.00-0.20 K/uL Absolute Immature Granulocyte (auto 0.23 0-1 K/uL Nucleated Red Blood Cells 0.4 H 0.0-0.19 % Chemistry Labs: Test 01/25/25 04:41 01/23/25 09:30 Range/Units Sodium Level 145 136-145 mmol/L Potassium Level 2.7 *L 3.5-5.1 mmol/L Chloride Level 104 101-111 mmol/L Carbon Dioxide Level 29 21-32 mmol/L Blood Urea Nitrogen 46 H 7-18 mg/dL Creatinine 1.3 H 0.5-1.0 mg/dL Glomerular Filtration Rate Calc 42 >90 mL/min Random Glucose 143 H 70-105 mg/dL Lactic Acid Level 1.9 0.8-2.5 mmol/L Total Calcium 8.7 8.5-10.1 mg/dL Phosphorus Level 3.7 2.5-4.9 mg/dL Magnesium Level 1.80 1.80-2.40 mg/dL Total Bilirubin 2.2 H 0.2-1.0 mg/dL Aspartate Amino Transf (AST/SGOT) 18 10-37 U/L Alanine Aminotransferase (ALT/SGPT) 35 12-78 U/L Alkaline Phosphatase 74 50-136 U/L C-Reactive Protein, Quantitative 48.00 H 0.5-3.0 mg/L B-Type Natriuretic Peptide 1910 H 0-100 pg/mL Total Protein 6.5 6.0-8.3 g/dL Albumin 3.3 L 3.5-5.0 g/dL Procalcitonin 0.45 0.05-0.5 ng/mL Thyroid Stimulating Hormone (TSH) 0.07 #L 0.36-3.74 uIU/mL Lactate Dehydrogenase 243 H 81-234 U/L Diagnostics / Radiology: [Copy/Paste Echos/Imaging Report here] Impression and Plan: [Sick sinus syndrome status post permanent pacemaker insertion and subsequent generator replacement on 01/24/2020 with a Biotronik [place] 8 DR-T dual-chamber device Atrial fibrillation not on anticoagulation for history of epistaxis Hypertension Stable ascending aortic aneurysm (3.8 cm) Hemoptysis Community-acquired pneumonia Plan: [# h/o moderate prosthetic aortic valve regurgitation ] Status post mechanical aortic valve replacement in March 2001 Complicated by a perivalvular leak, requiring a redo aortic valve replacement with a mechanical prosthesis on 03/31/2001 Complicated by sepsis and perivalvular leak with hemolysis, requiring a second redo procedure in [place], [place] with a homograft in April 2001. She is known to have perivalvular leak with at least moderate degree of aortic insufficiency. Given ongoing and worsening anemia, ordered LDH, haptoglobin Her 2D echocardiogram 09/23/2023 demonstrated an increased LV cavity size to 5.5 cm, moderate central valvular aortic regurgitation primarily over the left coronary cusp with a 30% jet diameter and within AR pressure half-time of 441 ms. Poor candidate for any invasive intervention or evaluation at this time, continue conservative management Strict I's and O's and daily weights. Defer use of beta-blockers for the moment given her echo findings for poor valvular systolic excursion Consider cardizem/amiodarone and dig for rate control Adding cardizem 30mg po q6h for rate control DC norvasc Adding digoxin bolus 250mcg IV x 1 dose then 125mcg IV q6h x 2 doses, then 125mcg po daily, hold for HR <70 Keep on telemetry, monitor/replace electrolytes as needed 2d echo LVEF is 50-55%. Stage II diastolic dysfunction, severe LAE, Bioprosthetic aortic valve is present. Prosthetic aortic valve opening is decreased with highest mean gradient of 31mmHg, DVI 0.4 cm. Mild to moderate aortic valvular regurgitation. Thank you for this consult cardiology RAMIN ROSE Jan 25, 2025 06:55
--- NOTE | 2025-01-25 08:00 | NUR ---
PATIENT TRANSFER HADOOP CONSULTANT NOTIFIED BY [employer] CHARGE FOR PATIENT TRANSFER TO PCCU. NO BED AVAILABLE WILL INFORM DAY HADOOP CONSULTANT
--- NOTE | 2025-01-25 08:18 | NUR ---
2331 PATIENTS HEART RATE IN 140S. GAVE PRN LOPRESSOR. NO DISTRESS OR CHEST PAIN UPON ASSESSMENT. 0100 PATIENT NEEDED IV. PATIENT BECAME AGITATED. HEART RATE AT 160-170S. ATTEMPTED TO GIVE ATIVAN PO BUT PATIENT REFUSED. CALLED [facility] GRINDER IF CAN GET MEDICATION FOR ANXIETY IV OR IM PATIENT'S HEART RATE WAS IN 160-170S. PER DIAMOND GRINDER, GIVE 1.25 OF DIAZEPAM ONCE , IF PATIENT CONTINUES TO BE AGITATED CAN GIVE 1.25 AFTER 30-1 HOUR POST 1ST DOSE. 0330 CALLED [facility] GRINDER DUE TO PATIENT BEING CALM AND STILL SUSTAINING IN THE 130S-160S. MENTIONED TO DIAMOND GRINDER THAT IT WOULD SUSTAIN FOR 30 SECONDS IN THE 130S-160 THEN GO BACK DOWN FOR A FEW SECONDS THEN GO BACK UP.ALSO MENTIONED PATIENT HAD A BP OF 102/53 AND LOPRESSOR WASNT DUE TILL 530AM. PATIENT NOT IN DISTRESS AND NO CHEST PAIN REPORTED. ASKED IF CAN TRANSFER TO PCCU CHARGE NURSE HAD CALLED AND BED WAS AVAILABLE FOR PCCU. PER [facility] DIAMOND GRINDER, ADD TSH TO LABS, WAIT FOR LABS TO POSSIBLY REPLACE ELECTROLYTES AND NO TRANSFER AT THIS TIME. 0635 PATIENT HR AT 141 WITH BP OF 112/52. NO SIGNS OF DISTRESS OR CHEST PAIN. GAVE LOPRESSOR IV.
--- NOTE | 2025-01-25 11:57 | PN ---
[facility] PROGRESS NOTE Date of Service: Jan 25, 2025 Time of Service: 11:56 SUBJECTIVE: 79-year-old female with past medical history of ovarian cancer, hypertension, history of gastric ulcer, history of history of aortic valve stenosis status post valve replacement who presented to the hospital secondary to hemoptysis. The patient states she has noted cough at home which is productive in nature. She has noted blood with her sputum. She does not have any hematemesis, melena, hematochezia. Denied any recent epistaxis. She has noted previous episodes of epistaxis in the past but denied any recent episode. Her blood is mainly present after coughing in the sputum. Denied any fever, chills, chest pain, abdominal pain, nausea. She does get short of breath with her underlying cough. She has been followed by Dr. Small as outpatient regards to aortic valve stenosis. She currently denies taking any antiplatelet or anticoagulants at home. She denied any night sweats, recent weight loss. Labs were notable for white count of 12.5, hemoglobin was 10.5, platelet count was 237 K, sodium was 132, potassium was 4.1, creatinine was 1.0. Chest x-ray infiltrates on the right side. Patient will be admitted for further medical management. 01/21/2025: Patient was seen and evaluated bedside in ED 11. Case discussed with RN, no acute overnight events. Patient says she is feeling well, denies chest pain, shortness of breath, palpitations, nausea, vomiting. X-ray shows airspace consolidation involving right middle and right lower lung and blunting of both costophrenic sulcus suggesting a pleural reaction. CT chest shows large consolidation likely of infectious origin, ground-glass opacities with interlobular septal thickening giving rise to crazy paving pattern in right lower lobe suggesting underlying pulmonary edema. Lab shows white count 14.9, CRP 106, BNP 555. EKG showed prolonged QTC, azithromycin was discontinued and doxycycline was started, continue Zosyn. Cardiology was consulted for further evaluation. 01/22/2025: Patient was seen and evaluated bedside in room 228. Patient developed acute delirium yesterday afternoon and tele psychiatric consultation was requested. Psychiatry evaluation revealed acute delirium and recommended to start Seroquel 12.5 mg b.i.d. p.r.n. for agitation, restlessness or psychosis and 25 mg q.h.s. for sleep. Lab this morning shows elevated white count at 18.3, BNP 1500, D-dimer 2294. X-ray revealed worsening consolidation on right side. Patient started on Lasix 40 mg q.12h, Solu-Medrol 40 mg q.6h, continue IV antibiotics. Infectious Disease, Cardiology, pulmonology on board and we will follow up with the recommendations. 01/23/2025: Patient was seen and evaluated in room 228 while patient's family was present at the bedside. Patient had high heart rate yesterday and the rhythm strip revealed SVTs for which metoprolol tartarate 25 mg once and midodrine 10 mg was given. This morning patient still had her heart rate in 120s but patient was asymptomatic. Patient currently denies shortness of breath, chest pain, palpitations and was well oriented to time, place, person. A repeat chest x-ray today showed slight improvement. Patient reported that she has had history of nosebleeds as a child and had more frequent episodes when she was taking Coumadin. At the time of admission she had hemoptysis when she noticed mild blood-streaked sputum while she cough but does not have hemoptysis now. Currently denies nosebleeds despite being on Lovenox 30 mg for DVT prophylaxis. Cardiology recommended continuing IV Lasix 40 mg q.12 and hold losartan. Patient admitted to declining evaluation with transesophageal ECHO in the past however would like to initiate the conversation with engineering drawings checker once the pneumonia is resolved after discharge from the hospital. 01/24/2025: Patient was seen and evaluated bedside in room 228. She is awake, alert, confused and having one on one sitter currently. Currently saturating 97% with3 L nasal cannula and Lab showed BNP 1210, white count 13.5, CRP trended down to 74. Blood culture showed no growth after24 hours, Legionella urine antigen is negative. Continue Lasix 40 mg q.12h , Zosyn and doxycycline. Infectious Disease, Cardiology, pulmonology on board and we will follow up their recommendation. 01/25/2025: Patient was seen and evaluated bedside in room 420. She is awake, alert, confused and having one on one sitter currently. Patient's heart rate high fluctuating in 140s and 150s, patient was in AFib with RVR this morning. Cardiology started digoxin, Cardizem and stopped Norvasc, patient will be upgraded to PCCU. Lab showed potassium 2.7 this morning, started replacing per protocol and held Lasix IV temporarily. White count trended down to 9.5, CRP trended down to 48, BNP trended up to 1910. Infectious Disease, Cardiology, pulmonology on board and we will follow up the recommendations. REVIEW OF SYSTEMS CONSTITUTIONAL: Denies fevers, chills, or night sweats. No unintentional weight loss reported. NEUROLOGICAL: Denies headache, motor weakness, sensory deficit, vertigo/spinning sensation, gait abnormalities, or tremors. ENT: No hearing loss, otalgia, otorrhea, rhinitis, rhinorrhea, hoarseness, or sore throat. CARDIOVASCULAR: Denies any exertional angina, dyspnea on exertion, orthopnea, paroxysmal nocturnal dyspnea, palpitations, life-threatening arrhythmias, claudication. PULMONARY: Positive for hemoptysis, cough, sputum production, all resolved now SLEEP: Denies morning headaches, daytime somnolence or napping. Denies difficulty falling asleep, staying asleep, waking from sleep. Denies knowledge of snoring. GASTROINTESTINAL: Denies any type of dysphagia to either liquids or solids. Denies nausea, vomiting, pyrosis, early satiety, abdominal pain, diarrhea, constipation, or changes in stool consistency or caliber. Denies coffee-ground emesis, hematemesis, hematochezia, or melanotic stools. GENITOURINARY: Denies frequency, urgency, nocturia, hematuria or incontinence (Storage/Irritative symptoms.) Low urinary stream, straining to void, urinary intermittency or hesitancy, splitting of the voiding stream, terminal dribbling. ENDOCRINOLOGIC: Denies polyuria, polydipsia, polyphagia or heat/cold intolerances. HEMATOLOGIC: Denies thrombophilia/previous clots, or coagulopathy/bleeding disorders. PSYCHIATRIC: Denies any suicidal or homicidal ideation. Denies hallucinations. PHYSICAL EXAM GENERAL APPEARANCE: The patient is awake, alert, and oriented, in no acute cardiopulmonary distress. Patient is bright red blood in the cup present at bedside NEUROLOGICAL: Cranial nerves II-XII grossly intact. Motor is 5/5 in bilateral upper and lower extremities proximal to distal. No sensory deficits. HEENT: Face is symmetric. Pupils are equal and reactive. Extraocular movements are intact. NECK: Supple. No JVD. No thyromegaly. No submental, submandibular, pre- /postauricular, occipital or supraclavicular lymphadenopathy. CHEST: Normal chest expansion. No Telemetry. LUNGS: She has a crackles present bilaterally, more on the right side. CARDIOVASCULAR: Regular. S1 and S2 normal. No appreciable rubs, murmurs or gallops. ABDOMEN: Soft, nontender, and nondistended. There is no rebound, voluntary guarding, or rigidity. : Deferred. No Wallace. EXTREMITIES: Non-edematous and not cyanotic. No clubbing. Good capillary refill. SKIN: No skin breakdown. Vital Signs (last 8hr) Date Time Temp Pulse Resp B/P (MAP) Pulse Ox O2 Delivery O2 Flow Rate FiO2 01/25/25 11:06 154 24 01/25/25 11:06 154 24 N/Cannula Low lpm 3.0 32 01/25/25 08:01 130 01/25/25 08:00 97.9 120 18 104/57 94 Nasal Cannula 3.0 28 01/25/25 06:35 144 112/52 01/25/25 06:31 156 24 01/25/25 06:28 156 24 N/Cannula Low lpm 3.0 32 01/25/25 04:26 98.1 134 19 103/55 95 Nasal Cannula 3.0 28 LABS: Laboratory: Test 01/25/25 04:41 01/24/25 00:35 Range/Units White Blood Count 9.5 4.8-10.8 K/uL Red Blood Count 2.98 L 4.00-5.50 MIL/uL Hemoglobin 9.5 L 12.0-16.0 g/dL Hematocrit 28.3 L 36-48 % Mean Corpuscular Volume 95.0 79-99 fL Mean Corpuscular Hemoglobin 31.9 27.0-33.0 pg Mean Corpuscular Hemoglobin Concent 33.6 32.0-36.0 g/dL Red Cell Distribution Width 13.7 11.0-15.5 % Platelet Count 260 130-400 K/uL Mean Platelet Volume 10.1 7.5-10.5 fL Immature Granulocyte % (Auto) 2.4 H 0-1 % Neutrophils (%) (Auto) 83.3 H 40.0-77.0 % Lymphocytes (%) (Auto) 5.1 L 21.0-51.0 % Monocytes (%) (Auto) 9.1 3.0-13.0 % Eosinophils (%) (Auto) 0.0 0.0-8.0 % Basophils (%) (Auto) 0.1 0.0-5.0 % Neutrophils # (Auto) 7.9 H 1.8-7.7 K/uL Lymphocytes # (Auto) 0.5 L 1.0-4.8 K/uL Monocytes # (Auto) 0.9 0.1-1.0 K/uL Eosinophils # (Auto) 0.00 0.00-0.70 K/uL Basophils # (Auto) 0.01 0.00-0.20 K/uL Absolute Immature Granulocyte (auto 0.23 0-1 K/uL Nucleated Red Blood Cells 0.4 H 0.0-0.19 % Sodium Level 145 136-145 mmol/L Potassium Level 2.7 *L 3.5-5.1 mmol/L Chloride Level 104 101-111 mmol/L Carbon Dioxide Level 29 21-32 mmol/L Blood Urea Nitrogen 46 H 7-18 mg/dL Creatinine 1.3 H 0.5-1.0 mg/dL Glomerular Filtration Rate Calc 42 >90 mL/min Random Glucose 143 H 70-105 mg/dL Lactic Acid Level 1.9 0.8-2.5 mmol/L Total Calcium 8.7 8.5-10.1 mg/dL Phosphorus Level 3.7 2.5-4.9 mg/dL Magnesium Level 1.80 1.80-2.40 mg/dL Total Bilirubin 2.2 H 0.2-1.0 mg/dL Aspartate Amino Transf (AST/SGOT) 18 10-37 U/L Alanine Aminotransferase (ALT/SGPT) 35 12-78 U/L Alkaline Phosphatase 74 50-136 U/L C-Reactive Protein, Quantitative 48.00 H 0.5-3.0 mg/L B-Type Natriuretic Peptide 1910 H 0-100 pg/mL Total Protein 6.5 6.0-8.3 g/dL Albumin 3.3 L 3.5-5.0 g/dL Procalcitonin 0.45 0.05-0.5 ng/mL Thyroid Stimulating Hormone (TSH) 0.07 #L 0.36-3.74 uIU/mL Blood Gas Specimen Type Arterial Arterial Blood pH 7.471 H 7.350-7.450 Arterial Blood Partial Pressure CO2 29 L 32-45 mmHg Arterial Blood Partial Pressure O2 55.7 L 83.0-108.0 mmHg Arterial Blood HCO3 20.4 L 21.0-28.0 mmol/L Arterial Blood Oxygen Saturation 89.8 L 94.0-98.0 % Arterial Blood Base Excess -2.4 L -2.0-3.0 mmol/L Hemoglobin (Blood Gas) 10.6 L 12.0-16.0 g/dL Sodium (Blood Gas) 140 136-145 MMOL/L Bedside Potassium (Blood Gas) 3.6 3.4-4.5 MMOL/L Bedside Chloride (Blood Gas) 105 98-107 MMOL/L Bedside Glucose (Blood Gas) 189 H 65-95 MG/DL Bedside Ionized Calcium (Blood Gas) 1.19 1.15-1.33 MMOL/L Bedside Lactic Acid (Blood Gas) 2.46 H 0.36-0.75 MMOL/L Blood Gas Temperature 37.0 35.5-37.0 CELSIUS Blood Gas Flow-by 3.00 0.00-15.00 L/min Blood Gas Vent Mode NC ROOM AIR FiO2 32.0 % Blood Gas Specimen Comment ASHOK RN ,RR Current Medications Medications (Trade) Dose Ordered Sig/Sadi Route PRN Reason Start Time Stop Time Status Last Admin Dose Admin Acetaminophen (TYLenol 325MG TAB) 650 mg Q4H PRN PO MILD PAIN (1-3) 01/20/25 13:00 02/19/25 12:59 Acetaminophen (TYLenol 325MG TAB) 650 mg Q6H PRN PO TEMPERATURE GREATER THAN 101.5 01/20/25 13:00 02/19/25 12:59 Albuterol (DUOneb) 1 UDVIAL [id number] 01/22/25 06:00 01/22/25 03:00 DC Albuterol Sulfate (Proventil 0.083% 2.5mg/3ml) 2.5 mg [id number] 01/22/25 03:00 01/22/25 14:40 DC 01/22/25 06:35 2.5 MG Albuterol Sulfate (Proventil 0.083% 2.5mg/3ml) 2.5 mg [id number] 01/22/25 18:00 01/22/25 19:08 DC Amlodipine Besylate (NorvASC 2.5MG TAB) 2.5 mg DAILY PO 01/22/25 09:00 01/25/25 07:40 DC 01/24/25 10:41 2.5 MG Amlodipine Besylate (NorvASC 5MG TAB) 5 mg DAILY PO 01/22/25 09:00 01/25/25 07:40 DC 01/24/25 10:41 5 MG Artificial Tears (Artificial Tears) 1 DROP Q2H PRN OP DRY EYES 01/20/25 13:00 02/19/25 12:59 Azithromycin 250 ml @ 250 mls/hr Q24H IVPB 01/21/25 14:30 01/21/25 10:33 DC Benzocaine (Cepacol Sore Throat Lozenge) 1 each Q2H PRN MM SORE THROAT 01/20/25 13:00 02/19/25 12:59 Dexmedetomidine/ Sodium Chloride (PRECEdex 200MCG/ 50ML-NS) 200 mcg PROTOCOL IV 01/22/25 03:30 02/21/25 03:29 Diazepam (VALium 5 MG/ML 2 ML SYG) 1.25 mg ONCE PRN IV ANXIETY 01/25/25 02:10 02/01/25 02:09 Digoxin (LANOxin 125mcg) 125 mcg DAILY PO 01/26/25 09:00 02/25/25 08:59 Digoxin (LANOxin 250 MCG/ ML 2ML AMP) 125 mcg Q6H IV 01/25/25 14:00 01/26/25 02:00 Digoxin (LANOxin 250 MCG/ ML 2ML AMP) 250 mcg ONCE IV 01/25/25 07:30 01/25/25 08:00 DC 01/25/25 08:01 250 MCG Diltiazem HCl (CARDIzem 60MG TAB) 30 mg Q6H PO 01/25/25 07:30 02/24/25 07:29 01/25/25 08:58 30 MG Docusate Sodium (COLace 100MG CAP) 100 mg BID PRN PO CONSTIPATION 01/20/25 13:00 02/19/25 12:59 Doxycycline Hyclate 250 ml @ 125 mls/hr Q12H IV 01/21/25 10:30 01/31/25 10:29 01/24/25 21:52 125 MLS/HR Enoxaparin Sodium (Lovenox) 30 mg DAILY SQ 01/22/25 09:00 01/22/25 09:00 DC Enoxaparin Sodium (Lovenox) 30 mg DAILY SQ 01/22/25 16:00 01/22/25 19:25 DC Enoxaparin Sodium (Lovenox) 30 mg Q24H SQ 01/22/25 19:30 02/21/25 19:29 01/24/25 21:56 30 MG Famotidine (Pepcid 20mg Vial) 20 mg Q24H IV 01/20/25 21:00 02/19/25 20:59 01/24/25 21:56 20 MG Furosemide (LASix 20MG TAB) 20 mg AD PO 01/21/25 09:00 01/21/25 08:59 DC Furosemide (LASix 20MG TAB) 20 mg DAILY PO 01/23/25 09:00 01/22/25 09:17 DC Furosemide (LASix 40MG VIAL) 40 mg Q12H IV 01/22/25 09:30 02/21/25 09:29 01/24/25 23:24 40 MG Guaifenesin (RobiTUSSin SUGAR-FREE 100 MG/ 5 ML UDCUP) 200 mg Q4H PRN PO COUGH 01/20/25 13:00 02/19/25 12:59 01/21/25 20:38 200 MG Guaifenesin/ Dextromethorphan (RobiTUSSin DM 200/20MG 10ML) 10 ml Q4H PRN PO COUGH 01/20/25 13:00 02/19/25 12:59 Ipratropium Sandy (AtrovENT UD) 0.5 mg [id number] IH 01/22/25 03:00 01/22/25 14:30 DC 01/22/25 10:00 0.5 MG Ipratropium Sandy (AtrovENT UD) 0.5 mg [id number] IH 01/22/25 18:00 02/21/25 02:59 01/25/25 11:06 0.5 MG Lactulose (Constulose 20gm/ 30ml Udcup) 20 gm BID PRN PO CONSTIPATION 01/20/25 13:00 02/19/25 12:59 Lidocaine HCl/Al Hydroxide/Mg Hydroxide/ Dicyclomine HCl 20ML OR AD MAALOX P... Q6H PRN PO HEARTBURN 01/20/25 13:00 02/19/25 12:59 Lisinopril (Prinivil 20mg) 20 mg DAILY PO 01/22/25 09:00 01/22/25 09:26 DC Loperamide HCl (Imodium) 2 mg Q6H PRN PO AFTER EACH LOOSE STOOL 01/20/25 13:00 02/19/25 12:59 Lorazepam (AtiVAN) 0.5 mg HS PRN PO INSOMNIA 01/21/25 22:30 02/20/25 22:29 01/23/25 22:36 0.5 MG Losartan Potassium (CozAAR 25MG TAB) 25 mg DAILY PO 01/22/25 11:00 01/23/25 10:48 DC 01/22/25 11:11 25 MG Losartan Potassium (CozAAR 25MG TAB) 25 mg DAILY PO 01/23/25 09:00 01/22/25 10:58 DC Magnesium Sulfate 50 ml @ 0 mls/hr PROTOCOL PRN IV hypomagnesemia 01/20/25 12:00 02/19/25 11:59 01/24/25 05:55 25 MLS/HR Methylprednisolone Sodium Succinate (Solu-medROL 40MG) 40 mg Q12H IVP 01/25/25 15:00 02/21/25 08:59 Methylprednisolone Sodium Succinate (Solu-medROL 40MG) 40 mg Q6H IVP 01/22/25 21:00 01/25/25 07:40 DC 01/25/25 04:07 40 MG Methylprednisolone Sodium Succinate (Solu-medROL 125MG) 40 mg Q6H IVP 01/22/25 09:00 01/22/25 15:45 DC 01/22/25 15:37 40 MG Metoprolol Succinate (TopROL XL) 50 mg DAILY PO 01/21/25 09:00 01/22/25 09:17 DC 01/21/25 10:21 50 MG Metoprolol Tartrate (loprESSOR) 2.5 mg Q6H PRN IV INCREASED HEART RATE >130 BPM 01/24/25 20:00 02/23/25 19:59 01/25/25 06:35 2.5 MG Metoprolol Tartrate (loprESSOR) 25 mg BID PO 01/22/25 21:00 01/23/25 10:47 DC 01/23/25 09:40 25 MG Midodrine (PROAMatine 5 MG TABLET) 10 mg Q8H PRN PO MAP <65 01/22/25 23:00 02/21/25 22:59 01/23/25 00:16 10 MG Nitroglycerin (Nitrostat) 0.4 mg PROTOCOL PRN SL CHEST PAIN 01/20/25 13:00 02/19/25 12:59 Ondansetron HCl (zoFRAN 4MG INJ) 4 mg Q6H PRN IV NAUSEA/VOMITING 01/20/25 13:00 02/19/25 12:59 Piperacillin Sod/ Tazobactam Sod (Zosyn 3.375gm+NS 50ml) 3.375 gm Q8H IVPB 01/20/25 12:00 01/21/25 13:17 DC 01/21/25 04:05 3.375 GM Piperacillin Sod/ Tazobactam Sod (Zosyn 3.375gm+NS 50ml) 3.375 gm Q8H IVPB 01/21/25 14:30 01/31/25 14:29 01/25/25 06:28 3.375 GM Polyethylene Glycol (MIRalax 3350 17 GM POWD.PACK) 17 gm DAILY PRN PO CONSTIPATION 01/20/25 13:00 02/19/25 12:59 Potassium Chloride 100 ml @ 100 mls/hr AD PRN IV POTASSIUM PROTOCOL 01/20/25 12:00 02/19/25 11:59 01/25/25 08:59 100 MLS/HR Potassium Chloride (K-Dur/Klor-Con 20meq) 20 meq AD PRN PO POTASSIUM PROTOCOL 01/20/25 12:00 02/19/25 11:59 01/23/25 16:23 20 MEQ Potassium Chloride (KCl 10% Elixir 20meq/15ml) 20 meq AD PRN PO POTASSIUM PROTOCOL 01/20/25 12:00 02/19/25 11:59 01/25/25 08:58 20 MEQ Quetiapine Fumarate (SEROquel 25 mg TAB) 12.5 mg BID PRN PO Agitation 01/21/25 22:30 02/20/25 22:29 Hold Quetiapine Fumarate (SEROquel 25 mg TAB) 25 mg HS PO 01/22/25 21:00 02/21/25 20:59 Hold Sodium Chloride (NS 50ml) 50 ml AD IV 01/20/25 12:00 01/20/25 12:10 DC DIAGNOSTICS / RADIOLOGY: [ ] [place] [address] [place] [address] IMAGING REPORT Signed PATIENT: NEHEMIAS BAINS MR#: [id number] : 1945 SEX: F AGE: 79 LOCATION: [facility] ORDER 2 STATUS: ADM IN REPORT#: [id number] SERVICE 1 REASON: f/up pneumonia ORDERING PHYSICIAN: SAMMIE LOVE MD PROCEDURE: CXR1VW - CHEST 1VW EXAM: CR Chest, 1 view CLINICAL HISTORY: Shortness of breath. COMPARISON: Chest radiograph dated 01/23/2025. FINDINGS: Status poststernotomy. Left-sided cardiac pacemaker device in place. Moderate cardiomegaly. diffuse airspace disease on the right side with air bronchogram in the right upper to mid zones -worsened when compared with the prior exam. Small pleural effusions bilaterally. Mild to moderate COPD. Mild atherosclerotic aorta. Mild osteopenia. Oblique fracture around the right humeral neck. Degenerative osseous changes. No acute osseous abnormality. IMPRESSION: 1. Worsening right-sided diffuse airspace disease with air bronchogram in the right upper to mid zones, concerning for pneumonia. 2. Oblique fracture around the right humeral neck. 3. Small bilateral pleural effusions. 4. Moderate cardiomegaly. 5. Mild to moderate COPD. 6. Status post sternotomy with left-sided cardiac pacemaker in place. 7. Mild atherosclerotic aorta. 8. Mild osteopenia and degenerative osseous changes. /[place] DICTATED BY: ALIYA BACA MD DATE: 01/24/252326 ELECTRONICALLY SIGNED BY: ALIYA BACA MD DATE: 01/24/252326 ASSESSMENT: Hemoptysis POA Community-acquired pneumonia POA Aortic valve stenosis status post aortic valve replacement POA Atrial fibrillation vs SVT not on anticoagulation for history of epistaxis Hypertension POA Hyperlipidemia History of gastric ulcer History of ovarian cancer Mild hyponatremia PLAN: Community-acquired pneumonia POA * Patient came to ED with cough which is productive in nature noted blood with her sputum. * CT chest showed large consolidation likely of infectious origin * WBC Count on 01/25/2025 trended to 9.5 from 13.5 yesterday. * Patient was started on Zosyn IV, azithromycin IV on 01/20/2025 * Patient's EKG showed prolonged QTC, azithromycin was discontinued this morning. * Continue IV Zosyn 3.375 G IV Q8 (day 6), started doxycycline 250 mL IV q.12h (day 5) * Critical Care on board, we will follow up with the recommendations. Hemoptysis, due to pneumonia POA * Patient noted blood after coughing out phlegm at home. * CBC shows hemoglobin 10.5, hematocrit 31.5 at presentation. * Patient denied further episodes of coughing out blood this morning. * CBC shows hemoglobin 9.5, hematocrit 28.3 on 01/25/2025 * Critical Care on board for further evaluation Aortic valve stenosis status post aortic valve replacement POA * Patient has history of recall stenosis status post valve replacement in 2000 * We echo from 09/23/2023 shows bioprosthetic aortic wall is present, with thickened and possible degenerating left coronary cusp, moderate aortic regurgitation. * BNP 1910 on 01/24/2025 * Continue IV Lasix 40 mg q.12 * 2D echo on 01/22/2025 showed LVEF of 50-55% with normal LV segmental wall motion, concentric LVH with stage II diastolic dysfunction. Bioprosthetic aortic valve present * Cardiology recommended outpatient CCTA in [place] if the patient refuses transesophageal echo procedure again for evaluation of paravalvular leak for aortic valve. Atrial fibrillation vs SVT not on anticoagulation for history of epistaxis * Patient had high heart rate in the range of 140s to 150s last night and rhythm strip revealed suspected atrial fibrillation or supraventricular tachycardia * Patient is started on digoxin, Cardizem 30 mg q.6 p.o. for AFib with RVR, discontinued Norvasc * Patient was started on metoprolol tartrate 25 mg once and a midodrine 10 mg was given * Cardiology recommended to hold losartan and defer use of beta blockers for the moment * Patient admitted to frequent nosebleeds in the past and increased frequency with Coumadin however no nosebleeds currently * Patient tolerating Lovenox 30 mg daily without any bleeding * We will follow up with Cardiology for further management of anticoagulation Pepcid 20 mg Q 24 H IV for GI prophylaxis Lovenox 30 mg SQ daily for DVT prophylaxis ATTESTATION BY PHYSICIAN I have seen and examined the patient. I reviewed the documentation, medical decision making, and treatment plan as noted by the resident above. I agree with the findings and plan of care. Mickey Dumont IV, MD, ADIL SHAH QUADRI MD Jan 25, 2025 11:56
--- NOTE | 2025-01-25 13:23 | PN ---
INFECTIOUS DISEASE PROGRESS NOTE Date of Service: Jan 25, 2025 SUBJECTIVE: This is an 79-year-old female patient who was examined at bedside in room 420. Patient is awake, alert and oriented to person and recognizes familiar faces. Patient is sitting up to the bedside chair and very anxious. Daughter is visiting at bedside. Patient is on AFib RVR and being transferred to PCCU. Remains on oxygen via nasal cannula. No fever, temperature is 98.2. Continues on Zosyn and doxycycline. We will continue to follow patient's care. PHYSICAL EXAM EYES: Anicteric. Pupils equal and reactive. HENT: No oral thrush seen, moist Oral mucosa NECK: Supple, no JVD or thyromegaly. LUNGS: Good air entry. Crackles to the right side. Diminished. Oxygen support via nasal cannula. CARDIOVASCULAR: S1, S2 regular. No murmur heard. ABDOMEN: Soft, non tender, bowel sounds present, no organomegaly. CENTRAL NERVOUS SYSTEM: Awake, alert, oriented x 1. SKIN: No rashes, no swelling. LYMPHATICS: No peripheral lymphadenopathy. MUSCULOSKELETAL: No joint swelling, erythema or tenderness. EXTREMITIES: No cyanosis or clubbing. BACK: No deformity, no pressure ulcer. GENITOURINARY: No dysuria or hematuria. Vital Sign (Last 12 Hours) 01/25/25 01/25/25 01/25/25 01/25/25 04:26 06:28 06:31 06:35 Temp 98.1 Pulse 134 156 156 144 Resp 19 24 24 B/P (MAP) 103/55 112/52 Pulse Ox 95 O2 Delivery Nasal Cannula N/Cannula Low lpm O2 Flow Rate 3.0 3.0 FiO2 28 32 01/25/25 01/25/25 01/25/25 01/25/25 08:00 08:01 11:06 11:06 Temp 97.9 Pulse 120 130 154 154 Resp 18 24 24 B/P (MAP) 104/57 Pulse Ox 94 O2 Delivery Nasal Cannula N/Cannula Low lpm O2 Flow Rate 3.0 3.0 FiO2 28 32 01/25/25 12:00 Temp 98.2 Pulse 135 Resp 18 B/P (MAP) 109/87 Pulse Ox 95 O2 Delivery Nasal Cannula O2 Flow Rate 3.0 Intake & Output (last 24hrs) 01/24/25 01/24/25 01/25/25 15:00 23:00 07:00 Intake Total 50.0 ml 1200 ml 350.0 ml Output Total 2060 ml 1200 ml Balance 50.0 ml -860 ml -850.0 ml LABS: Laboratory: Test 01/25/25 04:41 01/24/25 00:35 Range/Units White Blood Count 9.5 4.8-10.8 K/uL Red Blood Count 2.98 L 4.00-5.50 MIL/uL Hemoglobin 9.5 L 12.0-16.0 g/dL Hematocrit 28.3 L 36-48 % Mean Corpuscular Volume 95.0 79-99 fL Mean Corpuscular Hemoglobin 31.9 27.0-33.0 pg Mean Corpuscular Hemoglobin Concent 33.6 32.0-36.0 g/dL Red Cell Distribution Width 13.7 11.0-15.5 % Platelet Count 260 130-400 K/uL Mean Platelet Volume 10.1 7.5-10.5 fL Immature Granulocyte % (Auto) 2.4 H 0-1 % Neutrophils (%) (Auto) 83.3 H 40.0-77.0 % Lymphocytes (%) (Auto) 5.1 L 21.0-51.0 % Monocytes (%) (Auto) 9.1 3.0-13.0 % Eosinophils (%) (Auto) 0.0 0.0-8.0 % Basophils (%) (Auto) 0.1 0.0-5.0 % Neutrophils # (Auto) 7.9 H 1.8-7.7 K/uL Lymphocytes # (Auto) 0.5 L 1.0-4.8 K/uL Monocytes # (Auto) 0.9 0.1-1.0 K/uL Eosinophils # (Auto) 0.00 0.00-0.70 K/uL Basophils # (Auto) 0.01 0.00-0.20 K/uL Absolute Immature Granulocyte (auto 0.23 0-1 K/uL Nucleated Red Blood Cells 0.4 H 0.0-0.19 % Sodium Level 145 136-145 mmol/L Potassium Level 2.7 *L 3.5-5.1 mmol/L Chloride Level 104 101-111 mmol/L Carbon Dioxide Level 29 21-32 mmol/L Blood Urea Nitrogen 46 H 7-18 mg/dL Creatinine 1.3 H 0.5-1.0 mg/dL Glomerular Filtration Rate Calc 42 >90 mL/min Random Glucose 143 H 70-105 mg/dL Lactic Acid Level 1.9 0.8-2.5 mmol/L Total Calcium 8.7 8.5-10.1 mg/dL Phosphorus Level 3.7 2.5-4.9 mg/dL Magnesium Level 1.80 1.80-2.40 mg/dL Total Bilirubin 2.2 H 0.2-1.0 mg/dL Aspartate Amino Transf (AST/SGOT) 18 10-37 U/L Alanine Aminotransferase (ALT/SGPT) 35 12-78 U/L Alkaline Phosphatase 74 50-136 U/L C-Reactive Protein, Quantitative 48.00 H 0.5-3.0 mg/L B-Type Natriuretic Peptide 1910 H 0-100 pg/mL Total Protein 6.5 6.0-8.3 g/dL Albumin 3.3 L 3.5-5.0 g/dL Procalcitonin 0.45 0.05-0.5 ng/mL Thyroid Stimulating Hormone (TSH) 0.07 #L 0.36-3.74 uIU/mL Blood Gas Specimen Type Arterial Arterial Blood pH 7.471 H 7.350-7.450 Arterial Blood Partial Pressure CO2 29 L 32-45 mmHg Arterial Blood Partial Pressure O2 55.7 L 83.0-108.0 mmHg Arterial Blood HCO3 20.4 L 21.0-28.0 mmol/L Arterial Blood Oxygen Saturation 89.8 L 94.0-98.0 % Arterial Blood Base Excess -2.4 L -2.0-3.0 mmol/L Hemoglobin (Blood Gas) 10.6 L 12.0-16.0 g/dL Sodium (Blood Gas) 140 136-145 MMOL/L Bedside Potassium (Blood Gas) 3.6 3.4-4.5 MMOL/L Bedside Chloride (Blood Gas) 105 98-107 MMOL/L Bedside Glucose (Blood Gas) 189 H 65-95 MG/DL Bedside Ionized Calcium (Blood Gas) 1.19 1.15-1.33 MMOL/L Bedside Lactic Acid (Blood Gas) 2.46 H 0.36-0.75 MMOL/L Blood Gas Temperature 37.0 35.5-37.0 CELSIUS Blood Gas Flow-by 3.00 0.00-15.00 L/min Blood Gas Vent Mode ME ROOM AIR FiO2 32.0 % Blood Gas Specimen Comment ASHOK RN ,RR ASSESSMENT: Hypoxic respiratory failure requiring oxygen support. Pneumonia. Leukocytosis. Anemia. Heart failure. History of ovarian cancer. AFib RVR. PLAN: Continue Zosyn. Continue doxycycline. Continue pain management. Continue bronchodilators. Continue diuretics. Continue GI prophylaxis. Continue oxygen support. Patient being transferred to PCCU. This case was reviewed and discussed with my supervising physician Dr. Briceno and the above assessment and plan was formulated and agreed upon. ATTESTATION BY PHYSICIAN I have seen and examined the patient. I reviewed the documentation, medical decision making, and treatment plan as noted by the mid-level provider above. I agree with the findings and plan of care. JAN BRICENO MD, MIRTA L [facility] Jan 25, 2025 13:23
--- NOTE | 2025-01-25 13:37 | PN ---
[facility] PROGRESS NOTE Date Patient Seen: Jan 25, 2025 Time of Visit: 13:37 Supervising Physician: Dr. Pickett Primary Care Physician: [facility] hospitalist team Outpatient Specialists: Inpatient Consults: BIS, critical Care team PROBLEM LIST: New onset AFib with RVR SVT Acute hypoxemic respiratory failure, SpO2 worsened on 01/23/2024 from prior/arrival POA Community-acquired pneumonia, POA worsening on 01/22/2025 POA Fluid overload, Elevated BNP, increased from POA (BNP 555 on 01/20/2025 and 1530 on 01/22/2025) Elevated DDIMER, negative for PE and DVT on 01/20/2025 Leukocytosis, POA, worsened from arrival LVEF 45-50% Lactic acidosis Acute on chronic renal failure stage 3a, GFR 51 Hyperglycemia Hypoalbuminemia Aortic valve stenosis history of aortic valve replacement Hypertension Multiple wound ulcers to bilateral lower extremities, POA Peripheral vascular disease, POA Hypertension, hyperlipidemia, uncontrolled diabetes mellitus Anemia of chronic disease Debility/frailty/general body weakness Severe bilateral hearing impairment Hematuria INTERVAL HISTORY: Patient evaluated at bedside with multiple family members present. She is currently on 3 L nasal cannula, resting comfortably, respirations are normal and unlabored. Family states that her encephalopathy appears to be improving, she is slightly more cognitively alert today. Working well with physical therapy. Recommendations to continue with the current treatment plan from a pulmonary standpoint. Continues on Zosyn and doxy, cultures are negative thus far No plan to proceed with a OLIVER, family wants to do conservative treatment only Nursing advised to keep accurate I&Os Continue diuresis, supplemental O2 and BiPAP Pending discussion with family for code status Plan: Pending family discussion for code status Repeat labs in a.m., repeat BNP, continue diuresis, patient overloaded Supplemental O2, encouraged BiPAP at night Follow cardiology recs RT/nebulizers REVIEW OF SYSTEMS: Unable to obtain ROS from patient due to patient being confused, and in respiratory distress. PHYSICAL EXAM: GENERAL: Anxious. HEENT: EOMI, Sclera non icteric, moist mucosa NECK: Supple, no JVD, trachea midline LUNGS: Tachypneic, on BiPAP, respiration rate 40s. Diminished breath sounds bilaterally. No wheezes HEART: Tachycardic. Regular rate and rhythm. Normal S1 and S2, without murmurs ABD: Abdomen soft, nontender. Bowel sounds present EXT: No clubbing cyanosis or edema NEURO: No attempt to follow command, no attempt to speak, no attempt to track. Vital Signs (last 8hr) Date Time Temp Pulse Resp B/P (MAP) Pulse Ox O2 Delivery O2 Flow Rate FiO2 01/25/25 12:00 98.2 135 18 109/87 95 Nasal Cannula 3.0 01/25/25 11:06 154 24 01/25/25 11:06 154 24 N/Cannula Low lpm 3.0 32 01/25/25 08:01 130 01/25/25 08:00 97.9 120 18 104/57 94 Nasal Cannula 3.0 28 01/25/25 06:35 144 112/52 01/25/25 06:31 156 24 01/25/25 06:28 156 24 N/Cannula Low lpm 3.0 32 LABS: Hematology Labs: Test 01/25/25 04:41 Range/Units White Blood Count 9.5 4.8-10.8 K/uL Red Blood Count 2.98 L 4.00-5.50 MIL/uL Hemoglobin 9.5 L 12.0-16.0 g/dL Hematocrit 28.3 L 36-48 % Mean Corpuscular Volume 95.0 79-99 fL Mean Corpuscular Hemoglobin 31.9 27.0-33.0 pg Mean Corpuscular Hemoglobin Concent 33.6 32.0-36.0 g/dL Red Cell Distribution Width 13.7 11.0-15.5 % Platelet Count 260 130-400 K/uL Mean Platelet Volume 10.1 7.5-10.5 fL Immature Granulocyte % (Auto) 2.4 H 0-1 % Neutrophils (%) (Auto) 83.3 H 40.0-77.0 % Lymphocytes (%) (Auto) 5.1 L 21.0-51.0 % Monocytes (%) (Auto) 9.1 3.0-13.0 % Eosinophils (%) (Auto) 0.0 0.0-8.0 % Basophils (%) (Auto) 0.1 0.0-5.0 % Neutrophils # (Auto) 7.9 H 1.8-7.7 K/uL Lymphocytes # (Auto) 0.5 L 1.0-4.8 K/uL Monocytes # (Auto) 0.9 0.1-1.0 K/uL Eosinophils # (Auto) 0.00 0.00-0.70 K/uL Basophils # (Auto) 0.01 0.00-0.20 K/uL Absolute Immature Granulocyte (auto 0.23 0-1 K/uL Nucleated Red Blood Cells 0.4 H 0.0-0.19 % Chemistry Labs: Test 01/25/25 04:41 Range/Units Sodium Level 145 136-145 mmol/L Potassium Level 2.7 *L 3.5-5.1 mmol/L Chloride Level 104 101-111 mmol/L Carbon Dioxide Level 29 21-32 mmol/L Blood Urea Nitrogen 46 H 7-18 mg/dL Creatinine 1.3 H 0.5-1.0 mg/dL Glomerular Filtration Rate Calc 42 >90 mL/min Random Glucose 143 H 70-105 mg/dL Lactic Acid Level 1.9 0.8-2.5 mmol/L Total Calcium 8.7 8.5-10.1 mg/dL Phosphorus Level 3.7 2.5-4.9 mg/dL Magnesium Level 1.80 1.80-2.40 mg/dL Total Bilirubin 2.2 H 0.2-1.0 mg/dL Aspartate Amino Transf (AST/SGOT) 18 10-37 U/L Alanine Aminotransferase (ALT/SGPT) 35 12-78 U/L Alkaline Phosphatase 74 50-136 U/L C-Reactive Protein, Quantitative 48.00 H 0.5-3.0 mg/L B-Type Natriuretic Peptide 1910 H 0-100 pg/mL Total Protein 6.5 6.0-8.3 g/dL Albumin 3.3 L 3.5-5.0 g/dL Procalcitonin 0.45 0.05-0.5 ng/mL Thyroid Stimulating Hormone (TSH) 0.07 #L 0.36-3.74 uIU/mL DIAGNOSTICS / RADIOLOGY RESULTS: [ ] PLAN NEURO: Minimize central acting medications as possible. Maintain fall precautions, adequate lighting during the day PULMONARY: Supplemental 02 as needed. Maintain aspiration precautions at all times CARDIOVASCULAR: Follow hemodynamics. Vital signs per facility protocol GI & NUTRITION: Continue with nutritional support. Continue stool softeners and laxatives as needed. KIDNEYS & ELECTROLYTES: Strict monitoring of intake, output and overall fluid balance. Avoid nephrotoxic medications to the extent possible. Medications to be dosed according to renal function. Monitor electrolytes and replace as needed ENDOCRINE: Maintain blood glucose between 100-180 at all times. Hypoglycemia protocol in place INFECTIOUS DISEASE: Trend temperature, WBC and procalcitonin level Follow cultures, deescalate antibiotics as soon as possible. Panculture if new onset fever ONCOLOGY/HEMATOLOGY/COAGULATION: Monitor for s/s of bleeding Monitor hemoglobin, coagulation studies as needed SKIN: Pressure ulcer prevention per facility protocol Specialty mattress ORTHO/REHAB: Continue PT/OT Prophylaxis: Continue GI and DVT prophylaxis Code Status: Full Resuscitation Disposition: DUTCH NAYAK PAC Jan 25, 2025 13:37
--- NOTE | 2025-01-25 13:45 | NUR ---
PATIENT TRANSFER PATIENT TRANSFERRED TO ROOM 223, REPORT GIVEN TO PCCU NURSE.
[2025-01-25] MEDS: Solu-medROL 40MG VIAL IVP SCH (15:00)
--- NOTE | 2025-01-25 18:19 | NUR ---
SPEECH NOTE: [employer] DRIVER coordinated with nurse Ang Johnson at 1430 today. Orders for MBSS received; however, patient not stable and/or appropriate for MBSS at this time due to AFib. Nurse will call Varun Shirley to notify of the situation. [employer] DRIVER called nurse at 1800; however, no response from MD at this time. We will re-attempt MBSS tomorrow if patient is stable. All questions answered. Addendum: 01/25/[address] [facility]ORIA SAINI Amended: Links added.
[2025-01-26] VITALS (15 sets, daily range): BP systolic 100–139; BP diastolic 38–78; PULSE 83–130; RESP 18–22; TEMP 97.7–98.2; O2SAT 88–98
[2025-01-26 03:50] LABS: IMMATURE GRANULOCYTE ABSOLUTE 0.38 K/uL (0-1); NUCLEATED RED BLOOD CELLS 0.6 % (0.0-0.19); PLATELET COUNT (AUTO) 247 K/uL (130-400); RED BLOOD CELL COUNT(AUTO) 2.92 MIL/uL (4.00-5.50); RED CELL DISTRIBUTION WIDTH 13.8 % (11.0-15.5); WHITE BLOOD COUNT (AUTO) 15.4 K/uL (4.8-10.8)
[2025-01-26 03:58] LABS: CREATININE 1.0 mg/dL (0.5-1.0); GLOMERULAR FILTR. RATE CALC 57.0 mL/min (>90); GLUCOSE,RANDOM 103.0 mg/dL (70-105); SODIUM SERUM 147.0 mmol/L (136-145); UREA NITROGEN, BLOOD 46.0 mg/dL (7-18)
[2025-01-26 04:03] LABS: ASPARTATE AMINOTRANSFERASE 18.0 U/L (10-37); TOTAL PROTEIN, SERUM 5.9 g/dL (6.0-8.3)
--- NOTE | 2025-01-26 09:54 | HMCIMG ---
EXAM: CHEST RADIOGRAPH, ONE VIEW Technique: Single frontal chest radiograph was obtained. Evaluation is limited by the single projection, which reduces sensitivity for small pneumothorax, small effusions, and subtle parenchymal or mediastinal abnormalities. Clinical Information: History of community-acquired pneumonia. Comparison: Chest radiograph dated January 24, 2025 at 08:57 Eastern Daylight Time. Findings: Cardiac silhouette is enlarged. Left costophrenic angle is obscured on the single frontal view. Diffuse prominence of the bronchovascular markings is present. Patchy inhomogeneous air-space opacity is present in the right hemithorax, which may reflect consolidation or atelectasis. Median sternotomy wires are present and unchanged. A cardiac pacemaker is in situ with intact-appearing leads. Mild calcification of the aortic arch with unfolding of the thoracic aorta is present. No pneumothorax is identified on this single projection. No acute osseous abnormality is identified.IMPRESSION: 1. Patchy inhomogeneous air-space opacity in the right hemithorax, possibly representing consolidation or atelectasis. 2. Left costophrenic angle obscuration, potentially indicating pleural effusion. 3. Enlarged cardiac silhouette. 4. Diffuse prominence of bronchovascular markings. /Melony
--- NOTE | 2025-01-26 11:08 | NUR ---
SPEECH NOTE: CRYPTOZOOLOGIST coordinated with nurse Ang Johnson to inform her that the MBSS machine is down at the moment and there is not an estimated time of when it will be fixed. As per nurse, MBSS order was cancelled this morning. Pt had a nursing bedside exam and no s/s of aspirations or concerns were present. Please re-consult speech therapy services if any s/s of aspiration arise. All questions answered. Addendum: 01/26/[address] GLORIA SAINI Amended: Links added.
--- NOTE | 2025-01-26 11:23 | CCATH ---
PROBLEM LIST: 1. Paroxysmal atrial fibrillation with persistent atrial fibrillation on this admission with rapid ventricular response. 2. Conduction system disease, status post remote dual chamber permanent pacemaker implant with subsequent generator change out in 01/2020 with a Biotronik device. 3. Hypertension. 4. Mild aortic root dilation. 5. Normal coronary arteries by remote cardiac catheterization. 6. History of gastric ulcer with severe GI bleeding in 2019. 7. History of severe aortic stenosis, status post multiple surgical procedures with two separate mechanical valves in 2000 and finally the patient had surgery in 2020 for mechanical aortic valve redo complicated by sepsis and perivalvular leak with hemolysis, requiring redo surgery in [place] with aortic homograft with a bioprosthetic valve in 2021. 8. Evidence of moderate aortic insufficiency with EF of 50% to 55% on this admission with a dilated left ventricular cavity and a pressure half-time of 441 milliseconds. 9. Ovarian cancer, status post hysterectomy, bilateral salpingo-oophorectomy, and chemotherapy at [facility] in 2022. 10. History of recurrent epistaxis resulting in discontinuation of anticoagulation therapy. 11. Presentation with hemoptysis on this admission with right lower lobe infiltrate, questionable pneumonia. 12. Positive sputum culture for gram-negative rods and gram-positive cocci. 13. Altered mental status with dementia. 14. Frail octogenarian. SUBJECTIVE: This patient has been stable from the cardiac standpoint since our assessment yesterday. She was started on digoxin yesterday because of persistent rapid ventricular response. We also added diltiazem. On assessing with the patient this morning, she has remained intermittently confused. Her vital signs have been stable. She is afebrile. Her blood pressure is in the 110/38 range. She has a respiratory rate of 18 to 22. She is saturated at 97% on 2 L of nasal cannula as low as 93% last night. The patient does not have any jugular venous distention. She has 2/6 systolic ejection murmur and a 2-3/6 decrescendo diastolic murmur with an [place] component. The patient has no obvious stigmata of congestive heart failure. The patient is currently maintained on digoxin, which will be changed to p.o. daily. She is on methylprednisolone, diltiazem, midodrine for marginal pressures, low-dose Lovenox, Atrovent, furosemide, Zosyn, doxycycline, famotidine, and p.r.n. medications. When assessing the patient's telemetry, she has remained in atrial fibrillation; however, her rate is better controlled. The patient's laboratory studies with revealed a sodium of 147, potassium 3.2 being managed per protocol, it was as low as 2.7 yesterday. The patient's chloride is 106, CO2 is 29, BUN is 46 with a creatinine of 1.0, the patient has a GFR of 57. The total bilirubin is elevated at 2.0 down from 2.2 yesterday, questionably due to Gilbert's syndrome versus passive hepatic congestion; however, the other liver enzymes are normal. The patient's albumin is low at 3.2 consistent with protein malnutrition. The TSH is low at 0.51 with a normal T4. The patient's BNP was 1910 yesterday and down to 3070 today. The white count is 15.4 up from 9.5 yesterday. The H and H has remained low at 9.4 and 27.7 respectively. Platelet count is 247,000. At this point, we will continue the current medications. I will add daily digoxin of 0.25 mg daily p.o. We have to monitor the patient's digoxin levels really carefully given her frail status and advanced age. The patient's long-term prognosis is guarded at best given her multiple comorbid conditions. Her confusion needs to be addressed by the primary care team and possibly Neurology. TID: [id number] RECEIPT: [id number]
--- NOTE | 2025-01-26 13:27 | PN ---
[facility] PROGRESS NOTE Date of Service: Jan 26, 2025 Time of Service: 13:27 SUBJECTIVE: 79-year-old female with past medical history of ovarian cancer, hypertension, history of gastric ulcer, history of history of aortic valve stenosis status post valve replacement who presented to the hospital secondary to hemoptysis. The patient states she has noted cough at home which is productive in nature. She has noted blood with her sputum. She does not have any hematemesis, melena, hematochezia. Denied any recent epistaxis. She has noted previous episodes of epistaxis in the past but denied any recent episode. Her blood is mainly present after coughing in the sputum. Denied any fever, chills, chest pain, abdominal pain, nausea. She does get short of breath with her underlying cough. She has been followed by Dr. Small as outpatient regards to aortic valve stenosis. She currently denies taking any antiplatelet or anticoagulants at home. She denied any night sweats, recent weight loss. Labs were notable for white count of 12.5, hemoglobin was 10.5, platelet count was 237 K, sodium was 132, potassium was 4.1, creatinine was 1.0. Chest x-ray infiltrates on the right side. Patient will be admitted for further medical management. 01/21/2025: Patient was seen and evaluated bedside in ED 11. Case discussed with RN, no acute overnight events. Patient says she is feeling well, denies chest pain, shortness of breath, palpitations, nausea, vomiting. X-ray shows airspace consolidation involving right middle and right lower lung and blunting of both costophrenic sulcus suggesting a pleural reaction. CT chest shows large consolidation likely of infectious origin, ground-glass opacities with interlobular septal thickening giving rise to crazy paving pattern in right lower lobe suggesting underlying pulmonary edema. Lab shows white count 14.9, CRP 106, BNP 555. EKG showed prolonged QTC, azithromycin was discontinued and doxycycline was started, continue Zosyn. Cardiology was consulted for further evaluation. 01/22/2025: Patient was seen and evaluated bedside in room 228. Patient developed acute delirium yesterday afternoon and tele psychiatric consultation was requested. Psychiatry evaluation revealed acute delirium and recommended to start Seroquel 12.5 mg b.i.d. p.r.n. for agitation, restlessness or psychosis and 25 mg q.h.s. for sleep. Lab this morning shows elevated white count at 18.3, BNP 1500, D-dimer 2294. X-ray revealed worsening consolidation on right side. Patient started on Lasix 40 mg q.12h, Solu-Medrol 40 mg q.6h, continue IV antibiotics. Infectious Disease, Cardiology, pulmonology on board and we will follow up with the recommendations. 01/23/2025: Patient was seen and evaluated in room 228 while patient's family was present at the bedside. Patient had high heart rate yesterday and the rhythm strip revealed SVTs for which metoprolol tartarate 25 mg once and midodrine 10 mg was given. This morning patient still had her heart rate in 120s but patient was asymptomatic. Patient currently denies shortness of breath, chest pain, palpitations and was well oriented to time, place, person. A repeat chest x-ray today showed slight improvement. Patient reported that she has had history of nosebleeds as a child and had more frequent episodes when she was taking Coumadin. At the time of admission she had hemoptysis when she noticed mild blood-streaked sputum while she cough but does not have hemoptysis now. Currently denies nosebleeds despite being on Lovenox 30 mg for DVT prophylaxis. Cardiology recommended continuing IV Lasix 40 mg q.12 and hold losartan. Patient admitted to declining evaluation with transesophageal ECHO in the past however would like to initiate the conversation with physician practice manager once the pneumonia is resolved after discharge from the hospital. 01/24/2025: Patient was seen and evaluated bedside in room 228. She is awake, alert, confused and having one on one sitter currently. Currently saturating 97% with3 L nasal cannula and Lab showed BNP 1210, white count 13.5, CRP trended down to 74. Blood culture showed no growth after24 hours, Legionella urine antigen is negative. Continue Lasix 40 mg q.12h , Zosyn and doxycycline. Infectious Disease, Cardiology, pulmonology on board and we will follow up their recommendation. 01/25/2025: Patient was seen and evaluated bedside in room 420. She is awake, alert, confused and having one on one sitter currently. Patient's heart rate high fluctuating in 140s and 150s, patient was in AFib with RVR this morning. Cardiology started digoxin, Cardizem and stopped Norvasc, patient will be upgraded to PCCU. Lab showed potassium 2.7 this morning, started replacing per protocol and held Lasix IV temporarily. White count trended down to 9.5, CRP trended down to 48, BNP trended up to 1910. Infectious Disease, Cardiology, pulmonology on board and we will follow up the recommendations. 01/26/2025: Patient was seen and evaluated bedside in room 223. She is awake, alert, confused and having one on one sitter currently. Patient heart rate has been improved to 100s, continue current regimen. White Count has trended up to 15.4, BNP trended down to 1370. Infectious Disease, Cardiology, and pulmonology on board and we will follow up with the recommendations. REVIEW OF SYSTEMS CONSTITUTIONAL: Denies fevers, chills, or night sweats. No unintentional weight loss reported. NEUROLOGICAL: Denies headache, motor weakness, sensory deficit, vertigo/spinning sensation, gait abnormalities, or tremors. ENT: No hearing loss, otalgia, otorrhea, rhinitis, rhinorrhea, hoarseness, or sore throat. CARDIOVASCULAR: Denies any exertional angina, dyspnea on exertion, orthopnea, paroxysmal nocturnal dyspnea, palpitations, life-threatening arrhythmias, claudication. PULMONARY: Positive for hemoptysis, cough, sputum production, all resolved now SLEEP: Denies morning headaches, daytime somnolence or napping. Denies difficulty falling asleep, staying asleep, waking from sleep. Denies knowledge of snoring. GASTROINTESTINAL: Denies any type of dysphagia to either liquids or solids. Denies nausea, vomiting, pyrosis, early satiety, abdominal pain, diarrhea, constipation, or changes in stool consistency or caliber. Denies coffee-ground emesis, hematemesis, hematochezia, or melanotic stools. GENITOURINARY: Denies frequency, urgency, nocturia, hematuria or incontinence (Storage/Irritative symptoms.) Low urinary stream, straining to void, urinary intermittency or hesitancy, splitting of the voiding stream, terminal dribbling. ENDOCRINOLOGIC: Denies polyuria, polydipsia, polyphagia or heat/cold intolerances. HEMATOLOGIC: Denies thrombophilia/previous clots, or coagulopathy/bleeding disorders. PSYCHIATRIC: Denies any suicidal or homicidal ideation. Denies hallucinations. PHYSICAL EXAM GENERAL APPEARANCE: The patient is awake, alert, and oriented, in no acute cardiopulmonary distress. Patient is bright red blood in the cup present at bedside NEUROLOGICAL: Cranial nerves II-XII grossly intact. Motor is 5/5 in bilateral upper and lower extremities proximal to distal. No sensory deficits. HEENT: Face is symmetric. Pupils are equal and reactive. Extraocular movements are intact. NECK: Supple. No JVD. No thyromegaly. No submental, submandibular, pre- /postauricular, occipital or supraclavicular lymphadenopathy. CHEST: Normal chest expansion. No Telemetry. LUNGS: She has a crackles present bilaterally, more on the right side. CARDIOVASCULAR: Regular. S1 and S2 normal. No appreciable rubs, murmurs or gallops. ABDOMEN: Soft, nontender, and nondistended. There is no rebound, voluntary guarding, or rigidity. : Deferred. No Wallace. EXTREMITIES: Non-edematous and not cyanotic. No clubbing. Good capillary refill. SKIN: No skin breakdown. Vital Signs (last 8hr) Date Time Temp Pulse Resp B/P (MAP) Pulse Ox O2 Delivery O2 Flow Rate FiO2 01/26/25 11:36 115 18 21 130 22 21 126 18 28 01/26/25 11:35 120 18 01/26/25 11:34 120 18 N/Cannula Low lpm 2.0 28 01/26/25 11:15 98.1 116 20 136/60 96 Nasal Cannula 2.0 01/26/25 10:40 103 01/26/25 09:45 100 01/26/25 07:00 98.2 100 22 117/51 97 Nasal Cannula 2.0 01/26/25 06:39 100 01/26/25 06:35 91 18 01/26/25 06:35 91 18 N/Cannula Low lpm 2.0 28 01/26/25 05:39 110 LABS: Laboratory: Test 01/26/25 03:42 01/25/25 04:41 Range/Units White Blood Count 15.4 #H 4.8-10.8 K/uL Red Blood Count 2.92 L 4.00-5.50 MIL/uL Hemoglobin 9.4 L 12.0-16.0 g/dL Hematocrit 27.7 L 36-48 % Mean Corpuscular Volume 94.9 79-99 fL Mean Corpuscular Hemoglobin 32.2 27.0-33.0 pg Mean Corpuscular Hemoglobin Concent 33.9 32.0-36.0 g/dL Red Cell Distribution Width 13.8 11.0-15.5 % Platelet Count 247 130-400 K/uL Mean Platelet Volume 9.8 7.5-10.5 fL Immature Granulocyte % (Auto) 2.5 H 0-1 % Neutrophils (%) (Auto) 80.1 H 40.0-77.0 % Lymphocytes (%) (Auto) 9.8 L 21.0-51.0 % Monocytes (%) (Auto) 7.3 3.0-13.0 % Eosinophils (%) (Auto) 0.1 0.0-8.0 % Basophils (%) (Auto) 0.2 0.0-5.0 % Neutrophils # (Auto) 12.3 H 1.8-7.7 K/uL Lymphocytes # (Auto) 1.5 1.0-4.8 K/uL Monocytes # (Auto) 1.1 H 0.1-1.0 K/uL Eosinophils # (Auto) 0.02 0.00-0.70 K/uL Basophils # (Auto) 0.03 0.00-0.20 K/uL Absolute Immature Granulocyte (auto 0.38 0-1 K/uL Nucleated Red Blood Cells 0.6 H 0.0-0.19 % Sodium Level 147 H 136-145 mmol/L Potassium Level 3.2 L 3.5-5.1 mmol/L Chloride Level 106 101-111 mmol/L Carbon Dioxide Level 29 21-32 mmol/L Blood Urea Nitrogen 46 H 7-18 mg/dL Creatinine 1.0 0.5-1.0 mg/dL Glomerular Filtration Rate Calc 57 >90 mL/min Random Glucose 103 70-105 mg/dL Total Calcium 8.9 8.5-10.1 mg/dL Total Bilirubin 2.0 H 0.2-1.0 mg/dL Aspartate Amino Transf (AST/SGOT) 18 10-37 U/L Alanine Aminotransferase (ALT/SGPT) 33 12-78 U/L Alkaline Phosphatase 62 50-136 U/L B-Type Natriuretic Peptide 1370 H 0-100 pg/mL Total Protein 5.9 L 6.0-8.3 g/dL Albumin 3.2 L 3.5-5.0 g/dL Thyroxine (T4) 8.8 4.7-13.3 ug/dL Free Triiodothyronine (T3) pg/mL 1.51 L 2.18-3.98 pg/mL Lactic Acid Level 1.9 0.8-2.5 mmol/L Phosphorus Level 3.7 2.5-4.9 mg/dL Magnesium Level 1.80 1.80-2.40 mg/dL C-Reactive Protein, Quantitative 48.00 H 0.5-3.0 mg/L Procalcitonin 0.45 0.05-0.5 ng/mL Thyroid Stimulating Hormone (TSH) 0.07 #L 0.36-3.74 uIU/mL Current Medications Medications (Trade) Dose Ordered Sig/Sadi Route PRN Reason Start Time Stop Time Status Last Admin Dose Admin Acetaminophen (TYLenol 325MG TAB) 650 mg Q4H PRN PO MILD PAIN (1-3) 01/20/25 13:00 02/19/25 12:59 Acetaminophen (TYLenol 325MG TAB) 650 mg Q6H PRN PO TEMPERATURE GREATER THAN 101.5 01/20/25 13:00 02/19/25 12:59 Albuterol (DUOneb) 1 UDVIAL [id number] 01/22/25 06:00 01/22/25 03:00 DC Albuterol Sulfate (Proventil 0.083% 2.5mg/3ml) 2.5 mg [id number] 01/22/25 03:00 01/22/25 14:40 DC 01/22/25 06:35 2.5 MG Albuterol Sulfate (Proventil 0.083% 2.5mg/3ml) 2.5 mg [id number] 01/22/25 18:00 01/22/25 19:08 DC Amlodipine Besylate (NorvASC 2.5MG TAB) 2.5 mg DAILY PO 01/22/25 09:00 01/25/25 07:40 DC 01/24/25 10:41 2.5 MG Amlodipine Besylate (NorvASC 5MG TAB) 5 mg DAILY PO 01/22/25 09:00 01/25/25 07:40 DC 01/24/25 10:41 5 MG Artificial Tears (Artificial Tears) 1 DROP Q2H PRN OP DRY EYES 01/20/25 13:00 02/19/25 12:59 Azithromycin 250 ml @ 250 mls/hr Q24H IVPB 01/21/25 14:30 01/21/25 10:33 DC Benzocaine (Cepacol Sore Throat Lozenge) 1 each Q2H PRN MM SORE THROAT 01/20/25 13:00 02/19/25 12:59 Dexmedetomidine/ Sodium Chloride (PRECEdex 200MCG/ 50ML-NS) 200 mcg PROTOCOL IV 01/22/25 03:30 02/21/25 03:29 Diazepam (VALium 5 MG/ML 2 ML SYG) 1.25 mg ONCE PRN IV ANXIETY 01/25/25 02:10 02/01/25 02:09 Digoxin (LANOxin 125mcg) 125 mcg DAILY PO 01/26/25 09:00 01/26/25 08:33 DC Digoxin (LANOxin 125mcg) 125 mcg DAILY PO 01/26/25 09:00 02/25/25 08:59 01/26/25 09:45 125 MCG Digoxin (LANOxin 250 MCG/ ML 2ML AMP) 125 mcg Q6H IV 01/25/25 14:00 01/26/25 02:00 DC 01/26/25 00:08 125 MCG Digoxin (LANOxin 250 MCG/ ML 2ML AMP) 250 mcg ONCE IV 01/25/25 07:30 01/25/25 08:00 DC 01/25/25 08:01 250 MCG Diltiazem HCl (CARDIzem 60MG TAB) 30 mg Q6H PO 01/25/25 07:30 02/24/25 07:29 01/26/25 09:46 30 MG Docusate Sodium (COLace 100MG CAP) 100 mg BID PRN PO CONSTIPATION 01/20/25 13:00 02/19/25 12:59 Doxycycline Hyclate 250 ml @ 125 mls/hr Q12H IV 01/21/25 10:30 01/31/25 10:29 01/26/25 09:43 125 MLS/HR Enoxaparin Sodium (Lovenox) 30 mg DAILY SQ 01/22/25 09:00 01/22/25 09:00 DC Enoxaparin Sodium (Lovenox) 30 mg DAILY SQ 01/22/25 16:00 01/22/25 19:25 DC Enoxaparin Sodium (Lovenox) 30 mg Q24H SQ 01/22/25 19:30 02/21/25 19:29 01/25/25 18:23 30 MG Famotidine (Pepcid 20mg Vial) 20 mg Q24H IV 01/20/25 21:00 02/19/25 20:59 01/25/25 21:47 20 MG Furosemide (LASix 20MG TAB) 20 mg AD PO 01/21/25 09:00 01/21/25 08:59 DC Furosemide (LASix 20MG TAB) 20 mg DAILY PO 01/23/25 09:00 01/22/25 09:17 DC Furosemide (LASix 40MG VIAL) 40 mg Q12H IV 01/22/25 09:30 02/21/25 09:29 01/26/25 09:44 40 MG Guaifenesin (RobiTUSSin SUGAR-FREE 100 MG/ 5 ML UDCUP) 200 mg Q4H PRN PO COUGH 01/20/25 13:00 02/19/25 12:59 01/21/25 20:38 200 MG Guaifenesin/ Dextromethorphan (RobiTUSSin DM 200/20MG 10ML) 10 ml Q4H PRN PO COUGH 01/20/25 13:00 02/19/25 12:59 Ipratropium [place] (AtrovENT UD) 0.5 mg [id number] IH 01/22/25 03:00 01/22/25 14:30 DC 01/22/25 10:00 0.5 MG Ipratropium [place] (AtrovENT UD) 0.5 mg Q0TEMKS IH 01/22/25 18:00 02/21/25 02:59 01/26/25 11:34 0.5 MG Lactulose (Constulose 20gm/ 30ml Udcup) 20 gm BID PRN PO CONSTIPATION 01/20/25 13:00 02/19/25 12:59 Lidocaine HCl/Al Hydroxide/Mg Hydroxide/ Dicyclomine HCl 20ML OR AD MAALOX P... Q6H PRN PO HEARTBURN 01/20/25 13:00 02/19/25 12:59 Lisinopril (Prinivil 20mg) 20 mg DAILY PO 01/22/25 09:00 01/22/25 09:26 DC Loperamide HCl (Imodium) 2 mg Q6H PRN PO AFTER EACH LOOSE STOOL 01/20/25 13:00 02/19/25 12:59 Lorazepam (AtiVAN) 0.5 mg HS PRN PO INSOMNIA 01/21/25 22:30 02/20/25 22:29 01/23/25 22:36 0.5 MG Losartan Potassium (CozAAR 25MG TAB) 25 mg DAILY PO 01/22/25 11:00 01/23/25 10:48 DC 01/22/25 11:11 25 MG Losartan Potassium (CozAAR 25MG TAB) 25 mg DAILY PO 01/23/25 09:00 01/22/25 10:58 DC Magnesium Sulfate 50 ml @ 0 mls/hr PROTOCOL PRN IV hypomagnesemia 01/20/25 12:00 02/19/25 11:59 01/24/25 05:55 25 MLS/HR Methylprednisolone Sodium Succinate (Solu-medROL 40MG) 40 mg Q12H IVP 01/25/25 15:00 02/21/25 08:59 01/26/25 03:55 40 MG Methylprednisolone Sodium Succinate (Solu-medROL 40MG) 40 mg Q6H IVP 01/22/25 21:00 01/25/25 07:40 DC 01/25/25 04:07 40 MG Methylprednisolone Sodium Succinate (Solu-medROL 125MG) 40 mg Q6H IVP 01/22/25 09:00 01/22/25 15:45 DC 01/22/25 15:37 40 MG Metoprolol Succinate (TopROL XL) 50 mg DAILY PO 01/21/25 09:00 01/22/25 09:17 DC 01/21/25 10:21 50 MG Metoprolol Tartrate (loprESSOR) 2.5 mg Q6H PRN IV INCREASED HEART RATE >130 BPM 01/24/25 20:00 02/23/25 19:59 01/25/25 06:35 2.5 MG Metoprolol Tartrate (loprESSOR) 25 mg BID PO 01/22/25 21:00 01/23/25 10:47 DC 01/23/25 09:40 25 MG Midodrine (PROAMatine 5 MG TABLET) 10 mg Q8H PRN PO MAP <65 01/22/25 23:00 02/21/25 22:59 01/23/25 00:16 10 MG Nitroglycerin (Nitrostat) 0.4 mg PROTOCOL PRN SL CHEST PAIN 01/20/25 13:00 02/19/25 12:59 Ondansetron HCl (zoFRAN 4MG INJ) 4 mg Q6H PRN IV NAUSEA/VOMITING 01/20/25 13:00 02/19/25 12:59 Piperacillin Sod/ Tazobactam Sod (Zosyn 3.375gm+NS 50ml) 3.375 gm Q8H IVPB 01/20/25 12:00 01/21/25 13:17 DC 01/21/25 04:05 3.375 GM Piperacillin Sod/ Tazobactam Sod (Zosyn 3.375gm+NS 50ml) 3.375 gm Q8H IVPB 01/21/25 14:30 01/31/25 14:29 01/26/25 05:42 3.375 GM Polyethylene Glycol (MIRalax 3350 17 GM POWD.PACK) 17 gm DAILY PRN PO CONSTIPATION 01/20/25 13:00 02/19/25 12:59 Potassium Chloride 100 ml @ 100 mls/hr AD PRN IV POTASSIUM PROTOCOL 01/20/25 12:00 02/19/25 11:59 01/25/25 08:59 100 MLS/HR Potassium Chloride (K-Dur/Klor-Con 20meq) 20 meq AD PRN PO POTASSIUM PROTOCOL 01/20/25 12:00 02/19/25 11:59 01/23/25 16:23 20 MEQ Potassium Chloride (KCl 10% Elixir 20meq/15ml) 20 meq AD PRN PO POTASSIUM PROTOCOL 01/20/25 12:00 02/19/25 11:59 01/26/25 09:49 20 MEQ Quetiapine Fumarate (SEROquel 25 mg TAB) 12.5 mg BID PRN PO Agitation 01/21/25 22:30 01/26/25 08:42 DC Quetiapine Fumarate (SEROquel 25 mg TAB) 25 mg HS PO 01/22/25 21:00 01/26/25 08:42 DC Sodium Chloride (NS 50ml) 50 ml AD IV 01/20/25 12:00 01/20/25 12:10 DC DIAGNOSTICS / RADIOLOGY: [facility] [address] [place] [address] IMAGING REPORT Signed PATIENT: NEHEMIAS BAINS MR#: [id number] : 1945 SEX: F AGE: 79 LOCATION: [facility] ORDER 2300 STATUS: ADM IN REPORT#: [id number] SERVICE 0600 REASON: pp ORDERING PHYSICIAN: APRYL STEPHENS PAC PROCEDURE: CXR1VW - CHEST 1VW EXAM: CHEST RADIOGRAPH, ONE VIEW Technique: A single frontal chest radiograph was obtained. Single-view technique limits sensitivity for small pleural effusions, small pneumothoraces, and subtle mediastinal or parenchymal abnormalities. Clinical Information: ???pp??? per requisition. Comparison: Chest radiograph dated January 25, 2025 at 05:33 EDT. Findings: Cardiac silhouette is enlarged. Left costophrenic angle remains obscured on this projection; a small left pleural effusion cannot be excluded. Diffuse prominence of the bronchovascular markings is present, compatible with vascular congestion; appearance is unchanged from the prior study. Patchy inhomogeneous air-space opacity is present in the right hemithorax, which may reflect consolidation or atelectasis; unchanged. Median sternotomy wires are present and unchanged. Cardiac pacemaker is in situ with intact-appearing leads. Mild calcification of the aortic arch with unfolding of the thoracic aorta is noted. No pneumothorax is identified on this single projection. No acute osseous abnormality is identified. Impression: * Cardiomegaly with stable diffuse vascular congestion. * Stable patchy right-sided air-space opacity???atelectasis versus consolidation in the appropriate clinical context. * Left costophrenic angle obscuration; a small left pleural effusion cannot be excluded on a single frontal view. * Postsurgical median sternotomy changes and cardiac pacemaker with intact-appearing leads. * Aortic arch atherosclerotic calcification with unfolding of the thoracic aorta. /[place] DICTATED BY: ALIYA BACA MD DATE: 01/26/251727 ELECTRONICALLY SIGNED BY: ALIYA BACA MD DATE: 01/26/25 3895 ASSESSMENT: Hemoptysis POA Community-acquired pneumonia POA Aortic valve stenosis status post aortic valve replacement POA Atrial fibrillation vs SVT not on anticoagulation for history of epistaxis Hypertension POA Hyperlipidemia History of gastric ulcer History of ovarian cancer Mild hyponatremia PLAN: Community-acquired pneumonia POA * Patient came to ED with cough which is productive in nature noted blood with her sputum. * CT chest showed large consolidation likely of infectious origin * WBC Count on 01/26/2025 trended up to 15.4 * Patient was started on Zosyn IV, azithromycin IV on 01/20/2025 * Patient's EKG showed prolonged QTC, azithromycin was discontinued this morning. * Continue IV Zosyn 3.375 G IV Q8 (day 7), started doxycycline 250 mL IV q.12h (day 6) * Critical Care on board, we will follow up with the recommendations. Hemoptysis, due to pneumonia POA * Patient noted blood after coughing out phlegm at home. * CBC shows hemoglobin 10.5, hematocrit 31.5 at presentation. * Patient denied further episodes of coughing out blood this morning. * CBC shows hemoglobin 9.4, hematocrit 27.7 on 01/26/2025 * Critical Care on board for further evaluation Aortic valve stenosis status post aortic valve replacement POA * Patient has history of recall stenosis status post valve replacement in 2000 * We echo from 09/23/2023 shows bioprosthetic aortic wall is present, with thickened and possible degenerating left coronary cusp, moderate aortic regurgitation. * BNP 1370 on 01/26/2025 * Continue IV Lasix 40 mg q.12 * 2D echo on 01/22/2025 showed LVEF of 50-55% with normal LV segmental wall motion, concentric LVH with stage II diastolic dysfunction. Bioprosthetic aortic valve present * Cardiology recommended outpatient CCTA in [place] if the patient refuses transesophageal echo procedure again for evaluation of paravalvular leak for aortic valve. Atrial fibrillation vs SVT not on anticoagulation for history of epistaxis * Patient had high heart rate in the range of 140s to 150s last night and rhythm strip revealed suspected atrial fibrillation or supraventricular tachycardia * Patient is started on digoxin, Cardizem 30 mg q.6 p.o. for AFib with RVR, discontinued Norvasc * Patient was started on metoprolol tartrate 25 mg once and a midodrine 10 mg was given * Cardiology recommended to hold losartan and defer use of beta blockers for the moment * Patient admitted to frequent nosebleeds in the past and increased frequency with Coumadin however no nosebleeds currently * Patient tolerating Lovenox 30 mg daily without any bleeding * We will follow up with Cardiology for further management of anticoagulation Pepcid 20 mg Q 24 H IV for GI prophylaxis Lovenox 30 mg SQ daily for DVT prophylaxis ATTESTATION BY PHYSICIAN I have seen and examined the patient. I reviewed the documentation, medical decision making, and treatment plan as noted by the resident above. I agree with the findings and plan of care. Mickey Dumont IV, MD, ADIL SHAH QUADRI MD Jan 26, 2025 13:27
--- NOTE | 2025-01-26 14:39 | PN ---
[facility] PROGRESS NOTE Date Patient Seen: Jan 26, 2025 Time of Visit: 14:36 Supervising Physician: Dr. Pickett Primary Care Physician: [facility] hospitalist team Outpatient Specialists: Inpatient Consults: BIS, critical Care team PROBLEM LIST: New onset AFib with RVR SVT Acute hypoxemic respiratory failure, SpO2 worsened on 01/23/2024 from prior/arrival POA Community-acquired pneumonia, POA worsening on 01/22/2025 POA Fluid overload, Elevated BNP, increased from POA (BNP 555 on 01/20/2025 and 1530 on 01/22/2025) Elevated DDIMER, negative for PE and DVT on 01/20/2025 Leukocytosis, POA, worsened from arrival LVEF 45-50% Lactic acidosis Acute on chronic renal failure stage 3a, GFR 51 Hyperglycemia Hypoalbuminemia Aortic valve stenosis history of aortic valve replacement Hypertension Multiple wound ulcers to bilateral lower extremities, POA Peripheral vascular disease, POA Hypertension, hyperlipidemia, uncontrolled diabetes mellitus Anemia of chronic disease Debility/frailty/general body weakness Severe bilateral hearing impairment Hematuria INTERVAL HISTORY: Patient was evaluated at bedside today, family members present, patient's heart rate slightly elevated at 103 this morning. She has been placed on digoxin, diltiazem I Cardiology Services. She continues on Zosyn at this time as well for suspected aspiration pneumonia. Patient on Lasix 40 mg b.i.d., urine output at this time is acceptable. Currently on 2 L nasal cannula with a white count of 3.8 and hemoglobin 7.8. Renal function within normal limits at 0.5. Questions answered at bedside. Per nursing staff cardiology's recommended CT of the chest, orders placed for routine study. Patient overall improved, prognosis remains guarded. Continues on Zosyn and doxy, cultures are negative thus far No plan to proceed with a OLIVER, family wants to do conservative treatment only Nursing advised to keep accurate I&Os Continue diuresis, supplemental O2 and BiPAP Pending discussion with family for code status Plan: Pending CT of the chest Repeat labs in a.m., repeat BNP, continue diuresis, patient overloaded Supplemental O2, encouraged BiPAP at night Follow cardiology recs RT/nebulizers REVIEW OF SYSTEMS: Unable to obtain ROS from patient due to patient being confused, and in respiratory distress. PHYSICAL EXAM: GENERAL: Anxious. HEENT: EOMI, Sclera non icteric, moist mucosa NECK: Supple, no JVD, trachea midline LUNGS: Tachypneic, on BiPAP, respiration rate 40s. Diminished breath sounds bilaterally. No wheezes HEART: Tachycardic. Regular rate and rhythm. Normal S1 and S2, without murmurs ABD: Abdomen soft, nontender. Bowel sounds present EXT: No clubbing cyanosis or edema NEURO: No attempt to follow command, no attempt to speak, no attempt to track. Vital Signs (last 8hr) Date Time Temp Pulse Resp B/P (MAP) Pulse Ox O2 Delivery O2 Flow Rate FiO2 01/26/25 11:36 115 18 21 130 22 21 126 18 28 01/26/25 11:35 120 18 01/26/25 11:34 120 18 N/Cannula Low lpm 2.0 28 01/26/25 11:15 98.1 116 20 136/60 96 Nasal Cannula 2.0 01/26/25 10:40 103 01/26/25 09:45 100 01/26/25 07:00 98.2 100 22 117/51 97 Nasal Cannula 2.0 01/26/25 06:39 100 LABS: Hematology Labs: Test 01/26/25 03:42 Range/Units White Blood Count 15.4 #H 4.8-10.8 K/uL Red Blood Count 2.92 L 4.00-5.50 MIL/uL Hemoglobin 9.4 L 12.0-16.0 g/dL Hematocrit 27.7 L 36-48 % Mean Corpuscular Volume 94.9 79-99 fL Mean Corpuscular Hemoglobin 32.2 27.0-33.0 pg Mean Corpuscular Hemoglobin Concent 33.9 32.0-36.0 g/dL Red Cell Distribution Width 13.8 11.0-15.5 % Platelet Count 247 130-400 K/uL Mean Platelet Volume 9.8 7.5-10.5 fL Immature Granulocyte % (Auto) 2.5 H 0-1 % Neutrophils (%) (Auto) 80.1 H 40.0-77.0 % Lymphocytes (%) (Auto) 9.8 L 21.0-51.0 % Monocytes (%) (Auto) 7.3 3.0-13.0 % Eosinophils (%) (Auto) 0.1 0.0-8.0 % Basophils (%) (Auto) 0.2 0.0-5.0 % Neutrophils # (Auto) 12.3 H 1.8-7.7 K/uL Lymphocytes # (Auto) 1.5 1.0-4.8 K/uL Monocytes # (Auto) 1.1 H 0.1-1.0 K/uL Eosinophils # (Auto) 0.02 0.00-0.70 K/uL Basophils # (Auto) 0.03 0.00-0.20 K/uL Absolute Immature Granulocyte (auto 0.38 0-1 K/uL Nucleated Red Blood Cells 0.6 H 0.0-0.19 % Chemistry Labs: Test 01/26/25 03:42 01/25/25 04:41 Range/Units Sodium Level 147 H 136-145 mmol/L Potassium Level 3.2 L 3.5-5.1 mmol/L Chloride Level 106 101-111 mmol/L Carbon Dioxide Level 29 21-32 mmol/L Blood Urea Nitrogen 46 H 7-18 mg/dL Creatinine 1.0 0.5-1.0 mg/dL Glomerular Filtration Rate Calc 57 >90 mL/min Random Glucose 103 70-105 mg/dL Total Calcium 8.9 8.5-10.1 mg/dL Total Bilirubin 2.0 H 0.2-1.0 mg/dL Aspartate Amino Transf (AST/SGOT) 18 10-37 U/L Alanine Aminotransferase (ALT/SGPT) 33 12-78 U/L Alkaline Phosphatase 62 50-136 U/L B-Type Natriuretic Peptide 1370 H 0-100 pg/mL Total Protein 5.9 L 6.0-8.3 g/dL Albumin 3.2 L 3.5-5.0 g/dL Thyroxine (T4) 8.8 4.7-13.3 ug/dL Free Triiodothyronine (T3) pg/mL 1.51 L 2.18-3.98 pg/mL Lactic Acid Level 1.9 0.8-2.5 mmol/L Phosphorus Level 3.7 2.5-4.9 mg/dL Magnesium Level 1.80 1.80-2.40 mg/dL C-Reactive Protein, Quantitative 48.00 H 0.5-3.0 mg/L Procalcitonin 0.45 0.05-0.5 ng/mL Thyroid Stimulating Hormone (TSH) 0.07 #L 0.36-3.74 uIU/mL DIAGNOSTICS / RADIOLOGY RESULTS: [ ] PLAN NEURO: Minimize central acting medications as possible. Maintain fall precautions, adequate lighting during the day PULMONARY: Supplemental 02 as needed. Maintain aspiration precautions at all times CARDIOVASCULAR: Follow hemodynamics. Vital signs per facility protocol GI & NUTRITION: Continue with nutritional support. Continue stool softeners and laxatives as needed. KIDNEYS & ELECTROLYTES: Strict monitoring of intake, output and overall fluid balance. Avoid nephrotoxic medications to the extent possible. Medications to be dosed according to renal function. Monitor electrolytes and replace as needed ENDOCRINE: Maintain blood glucose between 100-180 at all times. Hypoglycemia protocol in place INFECTIOUS DISEASE: Trend temperature, WBC and procalcitonin level Follow cultures, deescalate antibiotics as soon as possible. Panculture if new onset fever ONCOLOGY/HEMATOLOGY/COAGULATION: Monitor for s/s of bleeding Monitor hemoglobin, coagulation studies as needed SKIN: Pressure ulcer prevention per facility protocol Specialty mattress ORTHO/REHAB: Continue PT/OT Prophylaxis: Continue GI and DVT prophylaxis Code Status: Full Resuscitation Disposition: DUTCH NAYAK PAC Jan 26, 2025 14:39
--- NOTE | 2025-01-26 16:29 | HMCIMG ---
EXAM: CHEST RADIOGRAPH, ONE VIEW Technique: A single frontal chest radiograph was obtained. Single-view technique limits sensitivity for small pleural effusions, small pneumothoraces, and subtle mediastinal or parenchymal abnormalities. Clinical Information: ???pp??? per requisition. Comparison: Chest radiograph dated January 25, 2025 at 05:33 EDT. Findings: Cardiac silhouette is enlarged. Left costophrenic angle remains obscured on this projection; a small left pleural effusion cannot be excluded. Diffuse prominence of the bronchovascular markings is present, compatible with vascular congestion; appearance is unchanged from the prior study. Patchy inhomogeneous air-space opacity is present in the right hemithorax, which may reflect consolidation or atelectasis; unchanged. Median sternotomy wires are present and unchanged. Cardiac pacemaker is in situ with intact-appearing leads. Mild calcification of the aortic arch with unfolding of the thoracic aorta is noted. No pneumothorax is identified on this single projection. No acute osseous abnormality is identified. Impression: * Cardiomegaly with stable diffuse vascular congestion. * Stable patchy right-sided air-space opacity???atelectasis versus consolidation in the appropriate clinical context. * Left costophrenic angle obscuration; a small left pleural effusion cannot be excluded on a single frontal view. * Postsurgical median sternotomy changes and cardiac pacemaker with intact-appearing leads. * Aortic arch atherosclerotic calcification with unfolding of the thoracic aorta. /Chadron
--- NOTE | 2025-01-26 22:24 | PN ---
[facility] PROGRESS NOTE Date Patient Seen: Jan 26, 2025 Time of Visit: 22:24 Supervising Physician: [ ] Primary Care Physician: [facility] hospitalist team Outpatient Specialists: Inpatient Consults: BIS, critical Care team PROBLEM LIST: New onset AFib with RVR SVT Acute hypoxemic respiratory failure, SpO2 worsened on 01/23/2024 from prior/arrival POA Community-acquired pneumonia, POA worsening on 01/22/2025 POA Fluid overload, Elevated BNP, increased from POA (BNP 555 on 01/20/2025 and 1530 on 01/22/2025) Elevated DDIMER, negative for PE and DVT on 01/20/2025 Leukocytosis, POA, worsened from arrival LVEF 45-50% Lactic acidosis Acute on chronic renal failure stage 3a, GFR 51 Hyperglycemia Hypoalbuminemia Aortic valve stenosis history of aortic valve replacement Hypertension Multiple wound ulcers to bilateral lower extremities, POA Peripheral vascular disease, POA Hypertension, hyperlipidemia, uncontrolled diabetes mellitus Anemia of chronic disease Debility/frailty/general body weakness Severe bilateral hearing impairment Hematuria INTERVAL HISTORY: Patient was evaluated at bedside today, family members present, patient's heart rate slightly elevated at 103 this morning. She has been placed on digoxin, diltiazem I Cardiology Services. She continues on Zosyn at this time as well for suspected aspiration pneumonia. Patient on Lasix 40 mg b.i.d., urine output at this time is acceptable. Currently on 2 L nasal cannula with a white count of 3.8 and hemoglobin 7.8. Renal function within normal limits at 0.5. Questions answered at bedside. Per nursing staff cardiology's recommended CT of the chest, orders placed for routine study. Patient overall improved, prognosis remains guarded. Continues on Zosyn and doxy, cultures are negative thus far No plan to proceed with a OLIVER, family wants to do conservative treatment only Nursing advised to keep accurate I&Os Continue diuresis, supplemental O2 and BiPAP Pending discussion with family for code status Plan: Pending CT of the chest Repeat labs in a.m., repeat BNP, continue diuresis, patient overloaded Supplemental O2, encouraged BiPAP at night Follow cardiology recs RT/nebulizers REVIEW OF SYSTEMS: Unable to obtain ROS from patient due to patient being confused, and in respiratory distress. PHYSICAL EXAM: GENERAL: Anxious. HEENT: EOMI, Sclera non icteric, moist mucosa NECK: Supple, no JVD, trachea midline LUNGS: Tachypneic, on BiPAP, respiration rate 40s. Diminished breath sounds bilaterally. No wheezes HEART: Tachycardic. Regular rate and rhythm. Normal S1 and S2, without murmurs ABD: Abdomen soft, nontender. Bowel sounds present EXT: No clubbing cyanosis or edema NEURO: No attempt to follow command, no attempt to speak, no attempt to track. Vital Signs (last 8hr) Date Time Temp Pulse Resp B/P (MAP) Pulse Ox O2 Delivery O2 Flow Rate FiO2 01/26/25 20:00 98 Nasal Cannula* 2 28 01/26/25 19:14 97.7 103 18 102/41 98 Room Air 01/26/25 18:41 122 18 N/Cannula Low lpm 2.0 28 01/26/25 18:39 122 18 01/26/25 16:00 97.9 85 22 114/50 96 Nasal Cannula 2.0 LABS: Hematology Labs: Test 01/26/25 03:42 Range/Units White Blood Count 15.4 #H 4.8-10.8 K/uL Red Blood Count 2.92 L 4.00-5.50 MIL/uL Hemoglobin 9.4 L 12.0-16.0 g/dL Hematocrit 27.7 L 36-48 % Mean Corpuscular Volume 94.9 79-99 fL Mean Corpuscular Hemoglobin 32.2 27.0-33.0 pg Mean Corpuscular Hemoglobin Concent 33.9 32.0-36.0 g/dL Red Cell Distribution Width 13.8 11.0-15.5 % Platelet Count 247 130-400 K/uL Mean Platelet Volume 9.8 7.5-10.5 fL Immature Granulocyte % (Auto) 2.5 H 0-1 % Neutrophils (%) (Auto) 80.1 H 40.0-77.0 % Lymphocytes (%) (Auto) 9.8 L 21.0-51.0 % Monocytes (%) (Auto) 7.3 3.0-13.0 % Eosinophils (%) (Auto) 0.1 0.0-8.0 % Basophils (%) (Auto) 0.2 0.0-5.0 % Neutrophils # (Auto) 12.3 H 1.8-7.7 K/uL Lymphocytes # (Auto) 1.5 1.0-4.8 K/uL Monocytes # (Auto) 1.1 H 0.1-1.0 K/uL Eosinophils # (Auto) 0.02 0.00-0.70 K/uL Basophils # (Auto) 0.03 0.00-0.20 K/uL Absolute Immature Granulocyte (auto 0.38 0-1 K/uL Nucleated Red Blood Cells 0.6 H 0.0-0.19 % Chemistry Labs: Test 01/26/25 03:42 01/25/25 04:41 Range/Units Sodium Level 147 H 136-145 mmol/L Potassium Level 3.2 L 3.5-5.1 mmol/L Chloride Level 106 101-111 mmol/L Carbon Dioxide Level 29 21-32 mmol/L Blood Urea Nitrogen 46 H 7-18 mg/dL Creatinine 1.0 0.5-1.0 mg/dL Glomerular Filtration Rate Calc 57 >90 mL/min Random Glucose 103 70-105 mg/dL Total Calcium 8.9 8.5-10.1 mg/dL Total Bilirubin 2.0 H 0.2-1.0 mg/dL Aspartate Amino Transf (AST/SGOT) 18 10-37 U/L Alanine Aminotransferase (ALT/SGPT) 33 12-78 U/L Alkaline Phosphatase 62 50-136 U/L B-Type Natriuretic Peptide 1370 H 0-100 pg/mL Total Protein 5.9 L 6.0-8.3 g/dL Albumin 3.2 L 3.5-5.0 g/dL Thyroxine (T4) 8.8 4.7-13.3 ug/dL Free Triiodothyronine (T3) pg/mL 1.51 L 2.18-3.98 pg/mL Lactic Acid Level 1.9 0.8-2.5 mmol/L Phosphorus Level 3.7 2.5-4.9 mg/dL Magnesium Level 1.80 1.80-2.40 mg/dL C-Reactive Protein, Quantitative 48.00 H 0.5-3.0 mg/L Procalcitonin 0.45 0.05-0.5 ng/mL Thyroid Stimulating Hormone (TSH) 0.07 #L 0.36-3.74 uIU/mL DIAGNOSTICS / RADIOLOGY RESULTS: [ ] PLAN NEURO: Minimize central acting medications as possible. Maintain fall precautions, adequate lighting during the day PULMONARY: Supplemental 02 as needed. Maintain aspiration precautions at all times CARDIOVASCULAR: Follow hemodynamics. Vital signs per facility protocol GI & NUTRITION: Continue with nutritional support. Continue stool softeners and laxatives as needed. KIDNEYS & ELECTROLYTES: Strict monitoring of intake, output and overall fluid balance. Avoid nephrotoxic medications to the extent possible. Medications to be dosed according to renal function. Monitor electrolytes and replace as needed ENDOCRINE: Maintain blood glucose between 100-180 at all times. Hypoglycemia protocol in place INFECTIOUS DISEASE: Trend temperature, WBC and procalcitonin level Follow cultures, deescalate antibiotics as soon as possible. Panculture if new onset fever ONCOLOGY/HEMATOLOGY/COAGULATION: Monitor for s/s of bleeding Monitor hemoglobin, coagulation studies as needed SKIN: Pressure ulcer prevention per facility protocol Specialty mattress ORTHO/REHAB: Continue PT/OT Prophylaxis: Continue GI and DVT prophylaxis Code Status: Full Resuscitation Disposition: DUTCH NAYAK PAC Jan 26, 2025 22:24
--- NOTE | 2025-01-26 23:34 | PN ---
INFECTIOUS DISEASE PROGRESS NOTE Date of Service: Jan 26, 2025 SUBJECTIVE: This is an 79-year-old female patient who was examined at bedside in room 223. Patient is awake, alert and able to answer basic questions. Continues with confusion episodes and currently on 1:1 sitter observation. Remains afebrile, temperature is 98.1. Continues on Zosyn and doxycycline. Daughter visiting at bedside. We will continue to follow patient closely. PHYSICAL EXAM EYES: Anicteric. Pupils equal and reactive. HENT: No oral thrush seen, moist Oral mucosa NECK: Supple, no JVD or thyromegaly. LUNGS: Good air entry. Crackles to the right side. Diminished. Oxygen support via nasal cannula. CARDIOVASCULAR: S1, S2 regular. No murmur heard. ABDOMEN: Soft, non tender, bowel sounds present, no organomegaly. CENTRAL NERVOUS SYSTEM: Awake, alert, oriented x 1. SKIN: No rashes, no swelling. LYMPHATICS: No peripheral lymphadenopathy. MUSCULOSKELETAL: No joint swelling, erythema or tenderness. EXTREMITIES: No cyanosis or clubbing. BACK: No deformity, no pressure ulcer. GENITOURINARY: No dysuria or hematuria. Vital Sign (Last 12 Hours) 01/26/25 01/26/25 01/26/25 01/26/25 11:34 11:35 11:36 16:00 Temp 97.9 Pulse 120 120 115 85 130 126 Resp 18 18 18 22 22 18 B/P (MAP) 114/50 Pulse Ox 96 O2 Delivery N/Cannula Low lpm Nasal Cannula O2 Flow Rate 2.0 2.0 FiO2 28 21 21 28 01/26/25 01/26/25 01/26/25 01/26/25 18:39 18:41 19:14 20:00 Temp 97.7 Pulse 122 122 103 Resp 18 18 18 B/P (MAP) 102/41 Pulse Ox 98 98 O2 Delivery N/Cannula Low lpm Room Air Nasal Cannula* O2 Flow Rate 2.0 2 FiO2 28 28 Intake & Output (last 24hrs) 01/25/25 01/25/25 01/26/25 15:00 23:00 07:00 Intake Total 840.0 ml 240 ml 350.0 ml Output Total 200 ml 200 ml 1350 ml Balance 640.0 ml 40 ml -1000.0 ml LABS: Laboratory: Test 01/26/25 03:42 01/25/25 04:41 Range/Units White Blood Count 15.4 #H 4.8-10.8 K/uL Red Blood Count 2.92 L 4.00-5.50 MIL/uL Hemoglobin 9.4 L 12.0-16.0 g/dL Hematocrit 27.7 L 36-48 % Mean Corpuscular Volume 94.9 79-99 fL Mean Corpuscular Hemoglobin 32.2 27.0-33.0 pg Mean Corpuscular Hemoglobin Concent 33.9 32.0-36.0 g/dL Red Cell Distribution Width 13.8 11.0-15.5 % Platelet Count 247 130-400 K/uL Mean Platelet Volume 9.8 7.5-10.5 fL Immature Granulocyte % (Auto) 2.5 H 0-1 % Neutrophils (%) (Auto) 80.1 H 40.0-77.0 % Lymphocytes (%) (Auto) 9.8 L 21.0-51.0 % Monocytes (%) (Auto) 7.3 3.0-13.0 % Eosinophils (%) (Auto) 0.1 0.0-8.0 % Basophils (%) (Auto) 0.2 0.0-5.0 % Neutrophils # (Auto) 12.3 H 1.8-7.7 K/uL Lymphocytes # (Auto) 1.5 1.0-4.8 K/uL Monocytes # (Auto) 1.1 H 0.1-1.0 K/uL Eosinophils # (Auto) 0.02 0.00-0.70 K/uL Basophils # (Auto) 0.03 0.00-0.20 K/uL Absolute Immature Granulocyte (auto 0.38 0-1 K/uL Nucleated Red Blood Cells 0.6 H 0.0-0.19 % Sodium Level 147 H 136-145 mmol/L Potassium Level 3.2 L 3.5-5.1 mmol/L Chloride Level 106 101-111 mmol/L Carbon Dioxide Level 29 21-32 mmol/L Blood Urea Nitrogen 46 H 7-18 mg/dL Creatinine 1.0 0.5-1.0 mg/dL Glomerular Filtration Rate Calc 57 >90 mL/min Random Glucose 103 70-105 mg/dL Total Calcium 8.9 8.5-10.1 mg/dL Total Bilirubin 2.0 H 0.2-1.0 mg/dL Aspartate Amino Transf (AST/SGOT) 18 10-37 U/L Alanine Aminotransferase (ALT/SGPT) 33 12-78 U/L Alkaline Phosphatase 62 50-136 U/L B-Type Natriuretic Peptide 1370 H 0-100 pg/mL Total Protein 5.9 L 6.0-8.3 g/dL Albumin 3.2 L 3.5-5.0 g/dL Thyroxine (T4) 8.8 4.7-13.3 ug/dL Free Triiodothyronine (T3) pg/mL 1.51 L 2.18-3.98 pg/mL Lactic Acid Level 1.9 0.8-2.5 mmol/L Phosphorus Level 3.7 2.5-4.9 mg/dL Magnesium Level 1.80 1.80-2.40 mg/dL C-Reactive Protein, Quantitative 48.00 H 0.5-3.0 mg/L Procalcitonin 0.45 0.05-0.5 ng/mL Thyroid Stimulating Hormone (TSH) 0.07 #L 0.36-3.74 uIU/mL ASSESSMENT: Hypoxic respiratory failure requiring oxygen support. Pneumonia. Leukocytosis. Anemia. Heart failure. History of ovarian cancer. AFib RVR. PLAN: Continue Zosyn. Continue doxycycline. Continue pain management. Continue bronchodilators. Continue diuretics. Continue GI prophylaxis. Continue oxygen support. Rear Admiral following patient and is currently on digoxin. This case was reviewed and discussed with my supervising physician Dr. Briceno and the above assessment and plan was formulated and agreed upon. ATTESTATION BY PHYSICIAN I have seen and examined the patient. I reviewed the documentation, medical decision making, and treatment plan as noted by the mid-level provider above. I agree with the findings and plan of care. JNA BRICENO MD, [facility] Jan 26, 2025 23:34
[2025-01-27] VITALS (12 sets, daily range): BP systolic 105–113; BP diastolic 38–58; PULSE 82–158; RESP 18–22; TEMP 97.5–98.7; O2SAT 97–100
[2025-01-27 03:34] LABS: IMMATURE GRANULOCYTE ABSOLUTE 0.35 K/uL (0-1); NUCLEATED RED BLOOD CELLS 0.5 % (0.0-0.19); PLATELET COUNT (AUTO) 246 K/uL (130-400); RED BLOOD CELL COUNT(AUTO) 2.91 MIL/uL (4.00-5.50); RED CELL DISTRIBUTION WIDTH 13.9 % (11.0-15.5); WHITE BLOOD COUNT (AUTO) 7.9 K/uL (4.8-10.8)
[2025-01-27 03:54] LABS: CREATININE 1.2 mg/dL (0.5-1.0); GLOMERULAR FILTR. RATE CALC 46.0 mL/min (>90); GLUCOSE,RANDOM 148.0 mg/dL (70-105); SODIUM SERUM 143.0 mmol/L (136-145); UREA NITROGEN, BLOOD 51.0 mg/dL (7-18)
[2025-01-27 03:55] LABS: ASPARTATE AMINOTRANSFERASE 12.0 U/L (10-37); TOTAL PROTEIN, SERUM 5.8 g/dL (6.0-8.3)
--- NOTE | 2025-01-27 09:21 | HMCIMG ---
EXAM: CT Chest Without IV contrast. CLINICAL HISTORY: HEMOPTYSIS TECHNIQUE: Axial computed tomography images of the chest without intravenous contrast. COMPARISON: CT chest contrast dated 20 January 2025. FINDINGS: LUNGS: Interval progression in multiple patchy ground-glass opacities with interlobular septal thickening is diffusely scattered along the bilateral lung parenchyma, with a few of these ground-glass opacities coalescing to form a consolidatory patch along the superior segment of the right lower lobe. Small sub-segmental atelectatic bands are seen along the left lower lobe. PLEURAL SPACES: Minimal right-sided pleural effusion is noted. HEART: Similar moderate cardiomegaly is present. There is stable ectasia of the ascending aorta, measuring up to 4.1 cm. Significant atherosclerotic changes with vessel wall calcification are seen along the thoracic aorta, the arch of the aorta, and the coronaries. The ICD device is seen along the left chest wall with its lead tip along the right atrium and ventricle. LYMPH NODES: No lymphadenopathy is evident. UPPER ABDOMEN: Hiatus hernia present. BONES: Trabeculation is seen along the visualized appendicular and axial skeleton, likely due to changes of osteopenia. Degenerative changes are seen in the spine. Sternotomy clips seen IMPRESSION: 1. Interval progression of bilateral patchy ground-glass opacities with interlobular septal thickening. This is nonspecific, but in the setting of hemoptysis this may represent alveolar hemorrhage. 2. Interval progression in focal consolidation in the right lower lobe superior segment, possibly worsening of pneumonia. 3. Minimal right pleural effusion. 4. Moderate cardiomegaly, unchanged. 5. Stable ectasia of the ascending aorta. /Melony
--- NOTE | 2025-01-27 10:03 | PN ---
[facility] PROGRESS NOTE Date of Service: Jan 27, 2025 Time of Service: 10:03 SUBJECTIVE: 79-year-old female with past medical history of ovarian cancer, hypertension, history of gastric ulcer, history of history of aortic valve stenosis status post valve replacement who presented to the hospital secondary to hemoptysis. The patient states she has noted cough at home which is productive in nature. She has noted blood with her sputum. She does not have any hematemesis, melena, hematochezia. Denied any recent epistaxis. She has noted previous episodes of epistaxis in the past but denied any recent episode. Her blood is mainly present after coughing in the sputum. Denied any fever, chills, chest pain, abdominal pain, nausea. She does get short of breath with her underlying cough. She has been followed by Dr. Small as outpatient regards to aortic valve stenosis. She currently denies taking any antiplatelet or anticoagulants at home. She denied any night sweats, recent weight loss. Labs were notable for white count of 12.5, hemoglobin was 10.5, platelet count was 237 K, sodium was 132, potassium was 4.1, creatinine was 1.0. Chest x-ray infiltrates on the right side. Patient will be admitted for further medical management. 01/21/2025: Patient was seen and evaluated bedside in ED 11. Case discussed with RN, no acute overnight events. Patient says she is feeling well, denies chest pain, shortness of breath, palpitations, nausea, vomiting. X-ray shows airspace consolidation involving right middle and right lower lung and blunting of both costophrenic sulcus suggesting a pleural reaction. CT chest shows large consolidation likely of infectious origin, ground-glass opacities with interlobular septal thickening giving rise to crazy paving pattern in right lower lobe suggesting underlying pulmonary edema. Lab shows white count 14.9, CRP 106, BNP 555. EKG showed prolonged QTC, azithromycin was discontinued and doxycycline was started, continue Zosyn. Cardiology was consulted for further evaluation. 01/22/2025: Patient was seen and evaluated bedside in room 228. Patient developed acute delirium yesterday afternoon and tele psychiatric consultation was requested. Psychiatry evaluation revealed acute delirium and recommended to start Seroquel 12.5 mg b.i.d. p.r.n. for agitation, restlessness or psychosis and 25 mg q.h.s. for sleep. Lab this morning shows elevated white count at 18.3, BNP 1500, D-dimer 2294. X-ray revealed worsening consolidation on right side. Patient started on Lasix 40 mg q.12h, Solu-Medrol 40 mg q.6h, continue IV antibiotics. Infectious Disease, Cardiology, pulmonology on board and we will follow up with the recommendations. 01/23/2025: Patient was seen and evaluated in room 228 while patient's family was present at the bedside. Patient had high heart rate yesterday and the rhythm strip revealed SVTs for which metoprolol tartarate 25 mg once and midodrine 10 mg was given. This morning patient still had her heart rate in 120s but patient was asymptomatic. Patient currently denies shortness of breath, chest pain, palpitations and was well oriented to time, place, person. A repeat chest x-ray today showed slight improvement. Patient reported that she has had history of nosebleeds as a child and had more frequent episodes when she was taking Coumadin. At the time of admission she had hemoptysis when she noticed mild blood-streaked sputum while she cough but does not have hemoptysis now. Currently denies nosebleeds despite being on Lovenox 30 mg for DVT prophylaxis. Cardiology recommended continuing IV Lasix 40 mg q.12 and hold losartan. Patient admitted to declining evaluation with transesophageal ECHO in the past however would like to initiate the conversation with magnetic resonance technologist once the pneumonia is resolved after discharge from the hospital. 01/24/2025: Patient was seen and evaluated bedside in room 228. She is awake, alert, confused and having one on one sitter currently. Currently saturating 97% with3 L nasal cannula and Lab showed BNP 1210, white count 13.5, CRP trended down to 74. Blood culture showed no growth after24 hours, Legionella urine antigen is negative. Continue Lasix 40 mg q.12h , Zosyn and doxycycline. Infectious Disease, Cardiology, pulmonology on board and we will follow up their recommendation. 01/25/2025: Patient was seen and evaluated bedside in room 420. She is awake, alert, confused and having one on one sitter currently. Patient's heart rate high fluctuating in 140s and 150s, patient was in AFib with RVR this morning. Cardiology started digoxin, Cardizem and stopped Norvasc, patient will be upgraded to PCCU. Lab showed potassium 2.7 this morning, started replacing per protocol and held Lasix IV temporarily. White count trended down to 9.5, CRP trended down to 48, BNP trended up to 1910. Infectious Disease, Cardiology, pulmonology on board and we will follow up the recommendations. 01/26/2025: Patient was seen and evaluated bedside in room 223. She is awake, alert, confused and having one on one sitter currently. Patient heart rate has been improved to 100s, continue current regimen. White Count has trended up to 15.4, BNP trended down to 1370. Infectious Disease, Cardiology, and pulmonology on board and we will follow up with the recommendations. 01/27/2025: Patient was seen and evaluated bedside in room 223. She is awake, alert, confused and having one on one sitter currently. Patient heart rate this morning fluctuating in 100s and 110s, cardiology wanted to evaluate further with a OLIVER to look her aortic valve after her pneumonia is resolved. White count trended down to 7.9, BNP trended down to 1240, her digoxin level this morning within normal limits. Pending CT chest report. Started tapering Solu-Medrol, continue IV antibiotics, continue regimen recommended by Cardiology. Case management on board for disposition of patient to SNF/rehabilitation. Infectious Disease, Cardiology and pulmonology on board and we will follow up with the recommendations. REVIEW OF SYSTEMS CONSTITUTIONAL: Denies fevers, chills, or night sweats. No unintentional weight loss reported. NEUROLOGICAL: Denies headache, motor weakness, sensory deficit, v ertigo/spinning sensation, gait abnormalities, or tremors. ENT: No hearing loss, otalgia, otorrhea, rhinitis, rhinorrhea, hoarseness, or sore throat. CARDIOVASCULAR: Denies any exertional angina, dyspnea on exertion, orthopnea, paroxysmal nocturnal dyspnea, palpitations, life-threatening arrhythmias, claudication. PULMONARY: Positive for hemoptysis, cough, sputum production, all resolved now SLEEP: Denies morning headaches, daytime somnolence or napping. Denies difficulty falling asleep, staying asleep, waking from sleep. Denies knowledge of snoring. GASTROINTESTINAL: Denies any type of dysphagia to either liquids or solids. Denies nausea, vomiting, pyrosis, early satiety, abdominal pain, diarrhea, constipation, or changes in stool consistency or caliber. Denies coffee-ground emesis, hematemesis, hematochezia, or melanotic stools. GENITOURINARY: Denies frequency, urgency, nocturia, hematuria or incontinence (Storage/Irritative symptoms.) Low urinary stream, straining to void, urinary intermittency or hesitancy, splitting of the voiding stream, terminal dribbling. ENDOCRINOLOGIC: Denies polyuria, polydipsia, polyphagia or heat/cold intolerances. HEMATOLOGIC: Denies thrombophilia/previous clots, or coagulopathy/bleeding disorders. PSYCHIATRIC: Denies any suicidal or homicidal ideation. Denies hallucinations. PHYSICAL EXAM GENERAL APPEARANCE: The patient is awake, alert, and oriented, in no acute cardiopulmonary distress. Patient is bright red blood in the cup present at bedside NEUROLOGICAL: Cranial nerves II-XII grossly intact. Motor is 5/5 in bilateral upper and lower extremities proximal to distal. No sensory deficits. HEENT: Face is symmetric. Pupils are equal and reactive. Extraocular movements are intact. NECK: Supple. No JVD. No thyromegaly. No submental, submandibular, pre- /postauricular, occipital or supraclavicular lymphadenopathy. CHEST: Normal chest expansion. No Telemetry. LUNGS: She has a crackles present bilaterally, more on the right side. CARDIOVASCULAR: Regular. S1 and S2 normal. No appreciable rubs, murmurs or gallops. ABDOMEN: Soft, nontender, and nondistended. There is no rebound, voluntary guarding, or rigidity. : Deferred. No Wallace. EXTREMITIES: Non-edematous and not cyanotic. No clubbing. Good capillary refill. SKIN: No skin breakdown. Vital Signs (last 8hr) Date Time Temp Pulse Resp B/P (MAP) Pulse Ox O2 Delivery O2 Flow Rate FiO2 01/27/25 09:53 98 01/27/25 07:05 97.5 98 22 106/41 100 Nasal Cannula 2.0 01/27/25 07:05 116 18 N/Cannula Low lpm 2.0 28 01/27/25 06:38 116 18 01/27/25 03:20 98.1 95 18 107/49 96 Nasal Cannula 1.0 LABS: Laboratory: Test 01/27/25 03:16 01/26/25 03:42 Range/Units White Blood Count 7.9 # 4.8-10.8 K/uL Red Blood Count 2.91 L 4.00-5.50 MIL/uL Hemoglobin 9.5 L 12.0-16.0 g/dL Hematocrit 28.0 L 36-48 % Mean Corpuscular Volume 96.2 79-99 fL Mean Corpuscular Hemoglobin 32.6 27.0-33.0 pg Mean Corpuscular Hemoglobin Concent 33.9 32.0-36.0 g/dL Red Cell Distribution Width 13.9 11.0-15.5 % Platelet Count 246 130-400 K/uL Mean Platelet Volume 10.7 H 7.5-10.5 fL Immature Granulocyte % (Auto) 4.4 H 0-1 % Neutrophils (%) (Auto) 79.4 H 40.0-77.0 % Lymphocytes (%) (Auto) 8.5 L 21.0-51.0 % Monocytes (%) (Auto) 7.4 3.0-13.0 % Eosinophils (%) (Auto) 0.0 0.0-8.0 % Basophils (%) (Auto) 0.3 0.0-5.0 % Neutrophils # (Auto) 6.3 1.8-7.7 K/uL Lymphocytes # (Auto) 0.7 L 1.0-4.8 K/uL Monocytes # (Auto) 0.6 0.1-1.0 K/uL Eosinophils # (Auto) 0.00 0.00-0.70 K/uL Basophils # (Auto) 0.02 0.00-0.20 K/uL Absolute Immature Granulocyte (auto 0.35 0-1 K/uL Nucleated Red Blood Cells 0.5 H 0.0-0.19 % Sodium Level 143 136-145 mmol/L Potassium Level 4.2 3.5-5.1 mmol/L Chloride Level 105 101-111 mmol/L Carbon Dioxide Level 30 21-32 mmol/L Blood Urea Nitrogen 51 H 7-18 mg/dL Creatinine 1.2 H 0.5-1.0 mg/dL Glomerular Filtration Rate Calc 46 >90 mL/min Random Glucose 148 H 70-105 mg/dL Total Calcium 8.9 8.5-10.1 mg/dL Total Bilirubin 1.9 H 0.2-1.0 mg/dL Aspartate Amino Transf (AST/SGOT) 12 10-37 U/L Alanine Aminotransferase (ALT/SGPT) 27 12-78 U/L Alkaline Phosphatase 64 50-136 U/L C-Reactive Protein, Quantitative 53.70 H 0.5-3.0 mg/L B-Type Natriuretic Peptide 1240 H 0-100 pg/mL Total Protein 5.8 L 6.0-8.3 g/dL Albumin 2.9 L 3.5-5.0 g/dL Digoxin Level 1.71 0.50-2.00 ng/mL Thyroxine (T4) 8.8 4.7-13.3 ug/dL Free Triiodothyronine (T3) pg/mL 1.51 L 2.18-3.98 pg/mL Current Medications Medications (Trade) Dose Ordered Sig/Sadi Route PRN Reason Start Time Stop Time Status Last Admin Dose Admin Acetaminophen (TYLenol 325MG TAB) 650 mg Q4H PRN PO MILD PAIN (1-3) 01/20/25 13:00 02/19/25 12:59 Acetaminophen (TYLenol 325MG TAB) 650 mg Q6H PRN PO TEMPERATURE GREATER THAN 101.5 01/20/25 13:00 02/19/25 12:59 Albuterol (DUOneb) 1 UDVIAL [id number] 01/22/25 06:00 01/22/25 03:00 DC Albuterol Sulfate (Proventil 0.083% 2.5mg/3ml) 2.5 mg [id number] 01/22/25 03:00 01/22/25 14:40 DC 01/22/25 06:35 2.5 MG Albuterol Sulfate (Proventil 0.083% 2.5mg/3ml) 2.5 mg [id number] 01/22/25 18:00 01/22/25 19:08 DC Amlodipine Besylate (NorvASC 2.5MG TAB) 2.5 mg DAILY PO 01/22/25 09:00 01/25/25 07:40 DC 01/24/25 10:41 2.5 MG Amlodipine Besylate (NorvASC 5MG TAB) 5 mg DAILY PO 01/22/25 09:00 01/25/25 07:40 DC 01/24/25 10:41 5 MG Artificial Tears (Artificial Tears) 1 DROP Q2H PRN OP DRY EYES 01/20/25 13:00 02/19/25 12:59 Azithromycin 250 ml @ 250 mls/hr Q24H IVPB 01/21/25 14:30 01/21/25 10:33 DC Benzocaine (Cepacol Sore Throat Lozenge) 1 each Q2H PRN MM SORE THROAT 01/20/25 13:00 02/19/25 12:59 Dexmedetomidine/ Sodium Chloride (PRECEdex 200MCG/ 50ML-NS) 200 mcg PROTOCOL IV 01/22/25 03:30 02/21/25 03:29 Diazepam (VALium 5 MG/ML 2 ML SYG) 1.25 mg ONCE PRN IV ANXIETY 01/25/25 02:10 02/01/25 02:09 Digoxin (LANOxin 125mcg) 125 mcg DAILY PO 01/26/25 09:00 01/26/25 08:33 DC Digoxin (LANOxin 125mcg) 125 mcg DAILY PO 01/26/25 09:00 02/25/25 08:59 01/27/25 09:53 125 MCG Digoxin (LANOxin 250 MCG/ ML 2ML AMP) 125 mcg Q6H IV 01/25/25 14:00 01/26/25 02:00 DC 01/26/25 00:08 125 MCG Digoxin (LANOxin 250 MCG/ ML 2ML AMP) 250 mcg ONCE IV 01/25/25 07:30 01/25/25 08:00 DC 01/25/25 08:01 250 MCG Diltiazem HCl (CARDIzem 60MG TAB) 30 mg Q6H PO 01/25/25 07:30 02/24/25 07:29 01/27/25 09:53 30 MG Docusate Sodium (COLace 100MG CAP) 100 mg BID PRN PO CONSTIPATION 01/20/25 13:00 02/19/25 12:59 Doxycycline Hyclate 250 ml @ 125 mls/hr Q12H IV 01/21/25 10:30 01/31/25 10:29 01/27/25 09:53 125 MLS/HR Enoxaparin Sodium (Lovenox) 30 mg DAILY SQ 01/22/25 09:00 01/22/25 09:00 DC Enoxaparin Sodium (Lovenox) 30 mg DAILY SQ 01/22/25 16:00 01/22/25 19:25 DC Enoxaparin Sodium (Lovenox) 30 mg Q24H SQ 01/22/25 19:30 02/21/25 19:29 01/26/25 20:19 30 MG Famotidine (Pepcid 20mg Vial) 20 mg Q24H IV 01/20/25 21:00 02/19/25 20:59 01/26/25 20:18 20 MG Furosemide (LASix 20MG TAB) 20 mg AD PO 01/21/25 09:00 01/21/25 08:59 DC Furosemide (LASix 20MG TAB) 20 mg DAILY PO 01/23/25 09:00 01/22/25 09:17 DC Furosemide (LASix 40MG VIAL) 40 mg Q12H IV 01/22/25 09:30 02/21/25 09:29 01/27/25 09:53 40 MG Guaifenesin (RobiTUSSin SUGAR-FREE 100 MG/ 5 ML UDCUP) 200 mg Q4H PRN PO COUGH 01/20/25 13:00 02/19/25 12:59 01/21/25 20:38 200 MG Guaifenesin/ Dextromethorphan (RobiTUSSin DM 200/20MG 10ML) 10 ml Q4H PRN PO COUGH 01/20/25 13:00 02/19/25 12:59 Ipratropium [place] (AtrovENT UD) 0.5 mg [id number] IH 01/22/25 03:00 01/22/25 14:30 DC 01/22/25 10:00 0.5 MG Ipratropium [place] (AtrovENT UD) 0.5 mg [id number] IH 01/22/25 18:00 02/21/25 02:59 01/27/25 06:38 0.5 MG Lactulose (Constulose 20gm/ 30ml Udcup) 20 gm BID PRN PO CONSTIPATION 01/20/25 13:00 02/19/25 12:59 Lidocaine HCl/Al Hydroxide/Mg Hydroxide/ Dicyclomine HCl 20ML OR AD MAALOX P... Q6H PRN PO HEARTBURN 01/20/25 13:00 02/19/25 12:59 Lisinopril (Prinivil 20mg) 20 mg DAILY PO 01/22/25 09:00 01/22/25 09:26 DC Loperamide HCl (Imodium) 2 mg Q6H PRN PO AFTER EACH LOOSE STOOL 01/20/25 13:00 02/19/25 12:59 Lorazepam (AtiVAN) 0.5 mg HS PRN PO INSOMNIA 01/21/25 22:30 02/20/25 22:29 01/23/25 22:36 0.5 MG Losartan Potassium (CozAAR 25MG TAB) 25 mg DAILY PO 01/22/25 11:00 01/23/25 10:48 DC 01/22/25 11:11 25 MG Losartan Potassium (CozAAR 25MG TAB) 25 mg DAILY PO 01/23/25 09:00 01/22/25 10:58 DC Magnesium Sulfate 50 ml @ 0 mls/hr PROTOCOL PRN IV hypomagnesemia 01/20/25 12:00 02/19/25 11:59 01/24/25 05:55 25 MLS/HR Methylprednisolone Sodium Succinate (Solu-medROL 40MG) 40 mg Q12H IVP 01/25/25 15:00 02/21/25 08:59 01/27/25 03:53 40 MG Methylprednisolone Sodium Succinate (Solu-medROL 40MG) 40 mg Q6H IVP 01/22/25 21:00 01/25/25 07:40 DC 01/25/25 04:07 40 MG Methylprednisolone Sodium Succinate (Solu-medROL 125MG) 40 mg Q6H IVP 01/22/25 09:00 01/22/25 15:45 DC 01/22/25 15:37 40 MG Metoprolol Succinate (TopROL XL) 50 mg DAILY PO 01/21/25 09:00 01/22/25 09:17 DC 01/21/25 10:21 50 MG Metoprolol Tartrate (loprESSOR) 2.5 mg Q6H PRN IV INCREASED HEART RATE >130 BPM 01/24/25 20:00 02/23/25 19:59 01/25/25 06:35 2.5 MG Metoprolol Tartrate (loprESSOR) 25 mg BID PO 01/22/25 21:00 01/23/25 10:47 DC 01/23/25 09:40 25 MG Midodrine (PROAMatine 5 MG TABLET) 10 mg Q8H PRN PO MAP <65 10/18/25 23:00 02/21/25 22:59 01/23/25 00:16 10 MG Nitroglycerin (Nitrostat) 0.4 mg PROTOCOL PRN SL CHEST PAIN 01/20/25 13:00 02/19/25 12:59 Ondansetron HCl (zoFRAN 4MG INJ) 4 mg Q6H PRN IV NAUSEA/VOMITING 01/20/25 13:00 02/19/25 12:59 Piperacillin Sod/ Tazobactam Sod (Zosyn 3.375gm+NS 50ml) 3.375 gm Q8H IVPB 01/20/25 12:00 01/21/25 13:17 DC 01/21/25 04:05 3.375 GM Piperacillin Sod/ Tazobactam Sod (Zosyn 3.375gm+NS 50ml) 3.375 gm Q8H IVPB 01/21/25 14:30 01/31/25 14:29 01/27/25 05:37 3.375 GM Polyethylene Glycol (MIRalax 3350 17 GM POWD.PACK) 17 gm DAILY PRN PO CONSTIPATION 01/20/25 13:00 02/19/25 12:59 Potassium Chloride 100 ml @ 100 mls/hr AD PRN IV POTASSIUM PROTOCOL 01/20/25 12:00 02/19/25 11:59 01/25/25 08:59 100 MLS/HR Potassium Chloride (K-Dur/Klor-Con 20meq) 20 meq AD PRN PO POTASSIUM PROTOCOL 01/20/25 12:00 02/19/25 11:59 01/23/25 16:23 20 MEQ Potassium Chloride (KCl 10% Elixir 20meq/15ml) 20 meq AD PRN PO POTASSIUM PROTOCOL 01/20/25 12:00 02/19/25 11:59 01/26/25 09:49 20 MEQ Quetiapine Fumarate (SEROquel 25 mg TAB) 12.5 mg BID PRN PO Agitation 01/21/25 22:30 01/26/25 08:42 DC Quetiapine Fumarate (SEROquel 25 mg TAB) 25 mg HS PO 01/22/25 21:00 01/26/25 08:42 DC Sodium Chloride (NS 50ml) 50 ml AD IV 01/20/25 12:00 01/20/25 12:10 DC DIAGNOSTICS / RADIOLOGY: [ ] [facility] [address] [place], [place] [id number] IMAGING REPORT Signed PATIENT: NEHEMIAS BAINS MR#: [id number] : 1945 SEX: F AGE: 79 LOCATION: [facility] ORDER 230 STATUS: ADM IN REPORT#: [id number] SERVICE 0600 REASON: pp ORDERING PHYSICIAN: APRYL STEPHENS PAC PROCEDURE: CXR1VW - CHEST 1VW EXAM: CHEST RADIOGRAPH, ONE VIEW Technique: A single frontal chest radiograph was obtained. Single-view technique limits sensitivity for small pleural effusions, small pneumothoraces, and subtle mediastinal or parenchymal abnormalities. Clinical Information: ???pp??? per requisition. Comparison: Chest radiograph dated January 25, 2025 at 05:33 EDT. Findings: Cardiac silhouette is enlarged. Left costophrenic angle remains obscured on this projection; a small left pleural effusion cannot be excluded. Diffuse prominence of the bronchovascular markings is present, compatible with vascular congestion; appearance is unchanged from the prior study. Patchy inhomogeneous air-space opacity is present in the right hemithorax, which may reflect consolidation or atelectasis; unchanged. Median sternotomy wires are present and unchanged. Cardiac pacemaker is in situ with intact-appearing leads. Mild calcification of the aortic arch with unfolding of the thoracic aorta is noted. No pneumothorax is identified on this single projection. No acute osseous abnormality is identified. Impression: * Cardiomegaly with stable diffuse vascular congestion. * Stable patchy right-sided air-space opacity???atelectasis versus consolidation in the appropriate clinical context. * Left costophrenic angle obscuration; a small left pleural effusion cannot be excluded on a single frontal view. * Postsurgical median sternotomy changes and cardiac pacemaker with intact-appearing leads. * Aortic arch atherosclerotic calcification with unfolding of the thoracic aorta. /[place] DICTATED BY: ALIYA BACA MD DATE: 10/1727 ELECTRONICALLY SIGNED BY: ALIYA BACA MD DATE: 01/26/251727 ASSESSMENT: Hemoptysis POA Community-acquired pneumonia POA Aortic valve stenosis status post aortic valve replacement POA Atrial fibrillation vs SVT not on anticoagulation for history of epistaxis Hypertension POA Hyperlipidemia History of gastric ulcer History of ovarian cancer Mild hyponatremia PLAN: Community-acquired pneumonia POA * Patient came to ED with cough which is productive in nature noted blood with her sputum. * CT chest showed large consolidation likely of infectious origin * WBC Count on 01/27/2025 trended down to 7.9 * Patient was started on Zosyn IV, azithromycin IV on 01/20/2025 * Patient's EKG showed prolonged QTC, azithromycin was discontinued this morning. * Continue IV Zosyn 3.375 G IV Q8 (day 8), started doxycycline 250 mL IV q.12h (day 7) * Critical Care on board, we will follow up with the recommendations. Hemoptysis, due to pneumonia POA * Patient noted blood after coughing out phlegm at home. * CBC shows hemoglobin 10.5, hematocrit 31.5 at presentation. * Patient denied further episodes of coughing out blood this morning. * CBC shows hemoglobin 9.5, hematocrit 28 on 01/27/2025 * Critical Care on board for further evaluation Aortic valve stenosis status post aortic valve replacement POA * Patient has history of recall stenosis status post valve replacement in 2000 * We echo from 09/23/2023 shows bioprosthetic aortic wall is present, with thickened and possible degenerating left coronary cusp, moderate aortic regurgitation. * BNP 1240 on 01/27/2025 * Continue IV Lasix 40 mg q.12 * 2D echo on 01/22/2025 showed LVEF of 50-55% with normal LV segmental wall mo tion, concentric LVH with stage II diastolic dysfunction. Bioprosthetic aortic valve present * Cardiology recommended outpatient CCTA in [place] if the patient refuses transesophageal echo procedure again for evaluation of paravalvular leak for aortic valve. Atrial fibrillation vs SVT not on anticoagulation for history of epistaxis * Patient had high heart rate in the range of 140s to 150s last night and rhythm strip revealed suspected atrial fibrillation or supraventricular tachycardia * Patient is started on digoxin, Cardizem 30 mg q.6 p.o. for AFib with RVR, discontinued Norvasc * Patient was started on metoprolol tartrate 25 mg once and a midodrine 10 mg was given * Cardiology recommended to hold losartan and defer use of beta blockers for the moment * Patient admitted to frequent nosebleeds in the past and increased frequency with Coumadin however no nosebleeds currently * Patient tolerating Lovenox 30 mg daily without any bleeding * We will follow up with Cardiology for further management of anticoagulation Pepcid 20 mg Q 24 H IV for GI prophylaxis Lovenox 30 mg SQ daily for DVT prophylaxis ATTESTATION BY PHYSICIAN I have seen and examined the patient. I reviewed the documentation, medical decision making, and treatment plan as noted by the received above. I agree with the findings and plan of care. Mickey Dumont IV, MD, ADIL SHAH QUADRI MD Jan 27, 2025 10:03
--- NOTE | 2025-01-27 10:59 | PN ---
[facility] PROGRESS NOTE Date Patient Seen: Jan 27, 2025 Time of Visit: 10:59 Supervising Physician: Trevor Jane MD Primary Care Physician: [facility] hospitalist team Outpatient Specialists: Inpatient Consults: [facility], critical Care team PROBLEM LIST: New onset AFib with RVR not on AC 2/2 epistaxis SVT Acute hypoxemic respiratory failure, SpO2 worsened on 01/23/2024 from prior/arrival POA Community-acquired pneumonia, POA worsening on 01/22/2025 POA Fluid overload, Elevated BNP, increased from POA (BNP 555 on 01/20/2025 and 1530 on 01/22/2025) Elevated DDIMER, negative for PE and DVT on 01/20/2025 Leukocytosis, POA, worsened from arrival LVEF 45-50% Lactic acidosis Acute on chronic renal failure stage 3a, GFR 51 Hyperglycemia Hypoalbuminemia Aortic valve stenosis history of Bioprosthetic aortic valve replacement Hypertension Multiple wound ulcers to bilateral lower extremities, POA Peripheral vascular disease, POA Hypertension, hyperlipidemia, uncontrolled diabetes mellitus Anemia of chronic disease Debility/frailty/general body weakness Severe bilateral hearing impairment Hematuria INTERVAL HISTORY: Pt is awake alert and oriented. Pt with sitter one to one 2/2 increased confusion. She is not awake alert and oriented x 3 but forgetful and requires frequent coaching. She is tolerating PO diet.she failer 6 min walk yesterday and continues on o2 at 2 L in NAD. Hemodynamically stable and HR in the 80's Dispo per primary Plan: Continue Zosyn Doxy and steroids continue light diuresing wean steroids as possible. Supplemental O2, encouraged BiPAP at night Follow cardiology recs RT/nebulizers REVIEW OF SYSTEMS: Unable to obtain ROS from patient due to patient being confused, and in respiratory distress. PHYSICAL EXAM: GENERAL: Anxious. HEENT: EOMI, Sclera non icteric, moist mucosa NECK: Supple, no JVD, trachea midline LUNGS: Tachypneic, on BiPAP, respiration rate 40s. Diminished breath sounds bilaterally. No wheezes HEART: Tachycardic. Regular rate and rhythm. Normal S1 and S2, without murmurs ABD: Abdomen soft, nontender. Bowel sounds present EXT: No clubbing cyanosis or edema NEURO: No attempt to follow command, no attempt to speak, no attempt to track. Vital Signs (last 8hr) Date Time Temp Pulse Resp B/P (MAP) Pulse Ox O2 Delivery O2 Flow Rate FiO2 01/27/25 09:53 98 01/27/25 07:05 97.5 98 22 106/41 100 Nasal Cannula 2.0 01/27/25 07:05 116 18 N/Cannula Low lpm 2.0 28 01/27/25 06:38 116 18 01/27/25 03:20 98.1 95 18 107/49 96 Nasal Cannula 1.0 LABS: Hematology Labs: Test 01/27/25 03:16 Range/Units White Blood Count 7.9 # 4.8-10.8 K/uL Red Blood Count 2.91 L 4.00-5.50 MIL/uL Hemoglobin 9.5 L 12.0-16.0 g/dL Hematocrit 28.0 L 36-48 % Mean Corpuscular Volume 96.2 79-99 fL Mean Corpuscular Hemoglobin 32.6 27.0-33.0 pg Mean Corpuscular Hemoglobin Concent 33.9 32.0-36.0 g/dL Red Cell Distribution Width 13.9 11.0-15.5 % Platelet Count 246 130-400 K/uL Mean Platelet Volume 10.7 H 7.5-10.5 fL Immature Granulocyte % (Auto) 4.4 H 0-1 % Neutrophils (%) (Auto) 79.4 H 40.0-77.0 % Lymphocytes (%) (Auto) 8.5 L 21.0-51.0 % Monocytes (%) (Auto) 7.4 3.0-13.0 % Eosinophils (%) (Auto) 0.0 0.0-8.0 % Basophils (%) (Auto) 0.3 0.0-5.0 % Neutrophils # (Auto) 6.3 1.8-7.7 K/uL Lymphocytes # (Auto) 0.7 L 1.0-4.8 K/uL Monocytes # (Auto) 0.6 0.1-1.0 K/uL Eosinophils # (Auto) 0.00 0.00-0.70 K/uL Basophils # (Auto) 0.02 0.00-0.20 K/uL Absolute Immature Granulocyte (auto 0.35 0-1 K/uL Nucleated Red Blood Cells 0.5 H 0.0-0.19 % Chemistry Labs: Test 01/27/25 03:16 01/26/25 03:42 Range/Units Sodium Level 143 136-145 mmol/L Potassium Level 4.2 3.5-5.1 mmol/L Chloride Level 105 101-111 mmol/L Carbon Dioxide Level 30 21-32 mmol/L Blood Urea Nitrogen 51 H 7-18 mg/dL Creatinine 1.2 H 0.5-1.0 mg/dL Glomerular Filtration Rate Calc 46 >90 mL/min Random Glucose 148 H 70-105 mg/dL Total Calcium 8.9 8.5-10.1 mg/dL Total Bilirubin 1.9 H 0.2-1.0 mg/dL Aspartate Amino Transf (AST/SGOT) 12 10-37 U/L Alanine Aminotransferase (ALT/SGPT) 27 12-78 U/L Alkaline Phosphatase 64 50-136 U/L C-Reactive Protein, Quantitative 53.70 H 0.5-3.0 mg/L B-Type Natriuretic Peptide 1240 H 0-100 pg/mL Total Protein 5.8 L 6.0-8.3 g/dL Albumin 2.9 L 3.5-5.0 g/dL Thyroxine (T4) 8.8 4.7-13.3 ug/dL Free Triiodothyronine (T3) pg/mL 1.51 L 2.18-3.98 pg/mL DIAGNOSTICS / RADIOLOGY RESULTS: [[place] [address] IMAGING REPORT Signed PATIENT: NEHEMIAS BAINS MR#: [id number] : 1945 SEX: F AGE: 79 LOCATION: [facility] ORDER 2300 STATUS: ADM IN REPORT#: [id number] SERVICE 0600 REASON: pp ORDERING PHYSICIAN: APRYL STEPHENS PAC PROCEDURE: CXR1VW - CHEST 1VW CHEST 1VW REASON: pp COMPARISON: Prior chest radiograph from 01/26/2025 is available. FINDINGS: Single view of the chest was obtained. There is cardiomegaly with median sternotomy. There is uncoiling atherosclerotic change of thoracic aorta. There is a left-sided pacemaker with lead in right atrium and right ventricle. There is diffuse interstitial pulmonary edema. This appears to BE mildly resolving as compared to prior study. There is small bilateral pleural effusion.. Mediastinum and bony thorax appear unremarkable. There is deformity of the right humeral head suggesting of an old trauma. There is osteopenia of the bony thorax. IMPRESSION: 1. Cardiomegaly with median sternotomy with interstitial pulmonary edema which appears to BE mildly resolving as compared to prior radiograph DICTATED BY: SPRING RODRÍGUEZ MD DATE: 01/27/251620 ELECTRONICALLY SIGNED BY: SPRING RODRÍGUEZ MD DATE: 01/27/251626 ] PLAN NEURO: Minimize central acting medications as possible. Maintain fall precautions, adequate lighting during the day PULMONARY: Supplemental 02 as needed. Maintain aspiration precautions at all times CARDIOVASCULAR: Follow hemodynamics. Vital signs per facility protocol GI & NUTRITION: Continue with nutritional support. Continue stool softeners and laxatives as needed. KIDNEYS & ELECTROLYTES: Strict monitoring of intake, output and overall fluid balance. Avoid nephrotoxic medications to the extent possible. Medications to be dosed according to renal function. Monitor electrolytes and replace as needed ENDOCRINE: Maintain blood glucose between 100-180 at all times. Hypoglycemia protocol in place INFECTIOUS DISEASE: Trend temperature, WBC and procalcitonin level Follow cultures, deescalate antibiotics as soon as possible. Panculture if new onset fever ONCOLOGY/HEMATOLOGY/COAGULATION: Monitor for s/s of bleeding Monitor hemoglobin, coagulation studies as needed SKIN: Pressure ulcer prevention per facility protocol Specialty mattress ORTHO/REHAB: Continue PT/OT Prophylaxis: Continue GI and DVT prophylaxis Code Status: Full Resuscitation Disposition: TBD ATTESTATION BY PHYSICIAN The patient has been seen and evaluated, the case has been discussed with the DRUM SAW OPERATOR, I agree with the clinical findings and plan of care. Trevor Jane MD, NELLY J AGACNP Jan 27, 2025 10:59
--- NOTE | 2025-01-27 12:43 | PN ---
INFECTIOUS DISEASE PROGRESS NOTE Date of Service: Jan 27, 2025 SUBJECTIVE: This is an 79-year-old female patient who was examined at bedside in room 223. Patient is awake and alert. Patient remains afebrile this morning, temperature is 97.5 and the WBC trended down to 7.9. Hemoglobin is stable at 9.5. Per report patient ate a little better this morning. No reports of nausea or vomiting. Patient's daughter visiting at bedside. We will continue on doxycycline and Zosyn IV. Patient is to continue on current IV antibiotics for 7 more days at SNF. No need for midline. PHYSICAL EXAM EYES: Anicteric. Pupils equal and reactive. HENT: No oral thrush seen, moist Oral mucosa NECK: Supple, no JVD or thyromegaly. LUNGS: Good air entry. Crackles to the right side. Diminished. Oxygen support via nasal cannula. CARDIOVASCULAR: S1, S2 regular. No murmur heard. ABDOMEN: Soft, non tender, bowel sounds present, no organomegaly. CENTRAL NERVOUS SYSTEM: Awake, alert, oriented x 1. SKIN: No rashes, no swelling. LYMPHATICS: No peripheral lymphadenopathy. MUSCULOSKELETAL: No joint swelling, erythema or tenderness. EXTREMITIES: No cyanosis or clubbing. BACK: No deformity, no pressure ulcer. GENITOURINARY: No dysuria or hematuria. Vital Sign (Last 12 Hours) 01/27/25 01/27/25 01/27/25 01/27/25 03:20 06:38 07:05 07:05 Temp 98.1 97.5 Pulse 95 116 116 98 Resp 18 18 18 22 B/P (MAP) 107/49 106/41 Pulse Ox 96 100 O2 Delivery Nasal Cannula N/Cannula Low lpm Nasal Cannula O2 Flow Rate 1.0 2.0 2.0 FiO2 28 01/27/25 01/27/25 09:53 11:00 Temp 97.5 Pulse 98 104 Resp 22 B/P (MAP) 113/38 Pulse Ox 100 O2 Delivery Nasal Cannula O2 Flow Rate 2.0 Intake & Output (last 24hrs) 01/26/25 01/26/25 01/27/25 15:00 23:00 07:00 Intake Total 480 ml 860.0 ml 50.0 ml Output Total 1400 ml 1400 ml Balance 480 ml -540.0 ml -1350.0 ml LABS: Laboratory: Test 01/27/25 03:16 01/26/25 03:42 Range/Units White Blood Count 7.9 # 4.8-10.8 K/uL Red Blood Count 2.91 L 4.00-5.50 MIL/uL Hemoglobin 9.5 L 12.0-16.0 g/dL Hematocrit 28.0 L 36-48 % Mean Corpuscular Volume 96.2 79-99 fL Mean Corpuscular Hemoglobin 32.6 27.0-33.0 pg Mean Corpuscular Hemoglobin Concent 33.9 32.0-36.0 g/dL Red Cell Distribution Width 13.9 11.0-15.5 % Platelet Count 246 130-400 K/uL Mean Platelet Volume 10.7 H 7.5-10.5 fL Immature Granulocyte % (Auto) 4.4 H 0-1 % Neutrophils (%) (Auto) 79.4 H 40.0-77.0 % Lymphocytes (%) (Auto) 8.5 L 21.0-51.0 % Monocytes (%) (Auto) 7.4 3.0-13.0 % Eosinophils (%) (Auto) 0.0 0.0-8.0 % Basophils (%) (Auto) 0.3 0.0-5.0 % Neutrophils # (Auto) 6.3 1.8-7.7 K/uL Lymphocytes # (Auto) 0.7 L 1.0-4.8 K/uL Monocytes # (Auto) 0.6 0.1-1.0 K/uL Eosinophils # (Auto) 0.00 0.00-0.70 K/uL Basophils # (Auto) 0.02 0.00-0.20 K/uL Absolute Immature Granulocyte (auto 0.35 0-1 K/uL Nucleated Red Blood Cells 0.5 H 0.0-0.19 % Sodium Level 143 136-145 mmol/L Potassium Level 4.2 3.5-5.1 mmol/L Chloride Level 105 101-111 mmol/L Carbon Dioxide Level 30 21-32 mmol/L Blood Urea Nitrogen 51 H 7-18 mg/dL Creatinine 1.2 H 0.5-1.0 mg/dL Glomerular Filtration Rate Calc 46 >90 mL/min Random Glucose 148 H 70-105 mg/dL Total Calcium 8.9 8.5-10.1 mg/dL Total Bilirubin 1.9 H 0.2-1.0 mg/dL Aspartate Amino Transf (AST/SGOT) 12 10-37 U/L Alanine Aminotransferase (ALT/SGPT) 27 12-78 U/L Alkaline Phosphatase 64 50-136 U/L C-Reactive Protein, Quantitative 53.70 H 0.5-3.0 mg/L B-Type Natriuretic Peptide 1240 H 0-100 pg/mL Total Protein 5.8 L 6.0-8.3 g/dL Albumin 2.9 L 3.5-5.0 g/dL Digoxin Level 1.71 0.50-2.00 ng/mL Thyroxine (T4) 8.8 4.7-13.3 ug/dL Free Triiodothyronine (T3) pg/mL 1.51 L 2.18-3.98 pg/mL Thyroglobulin Antibody <1.0 0.0-0.9 IU/mL Thyroid Peroxidase Antibodies 13 0-34 IU/mL ASSESSMENT: Hypoxic respiratory failure requiring oxygen support. Pneumonia. Leukocytosis. Anemia. Heart failure. History of ovarian cancer. AFib RVR. PLAN: Continue Zosyn. Continue doxycycline. Patient is to continue on current IV antibiotics for 7 more days at SNF. No need for midline. Continue bronchodilators. Continue diuretics. Continue GI prophylaxis. Continue oxygen support. Design Painter following patient and is currently on digoxin. This case was reviewed and discussed with my supervising physician Dr. Briceno and the above assessment and plan was formulated and agreed upon. ATTESTATION BY PHYSICIAN I have seen and examined the patient. I reviewed the documentation, medical decision making, and treatment plan as noted by the mid-level provider above. I agree with the findings and plan of care. JAN BRICENO MD, MIRTA L [facility] Jan 27, 2025 12:43
--- NOTE | 2025-01-27 14:06 | PN ---
PROBLEM LIST: * Paroxysmal atrial fibrillation with rapid ventricular response and persistent atrial fibrillation on this admission. 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 * Hypertension. * History of normal coronary arteries by remote cardiac catheterization. * History of gastric ulcer with severe GI bleeding in 2019. * History of severe aortic stenosis, status post multiple surgical interventions with 2 separate mechanical valve placements in 2000 and finally the patient's surgery in 2020 for mechanical valve with redo complicated by sepsis and perivalvular leak with hemolysis requiring redo surgery in [place] with aortic homograft and bioprosthetic valve in 2021. * Evidence of moderate aortic insufficiency with an EF of 50%-55% on this admission with a dilated left ventricular cavity. Pressure halftime as measured at 441 milliseconds. * Ovarian cancer, status post hysterectomy, bilateral salpingo-oophorectomy, with chemotherapy at [facility] in 2022. * History of recurrent epistaxis resulting in discontinuation of anticoagulation therapy. * Presentation with hemoptysis on this admission with probable right lower lobe pneumonia. * Positive sputum culture for gram positive rods and gram-positive cocci. * Altered mental status and dementia. * Frail octogenarian. * The patient is requesting only conservative medical management as does the family. This patient has remained fairly stable from the cardiac standpoint. She has continued to have atrial fibrillation with periods of rapid ventricular response. The patient's current telemetry has revealed a heart rate in the 80s; however, the patient was transferred from the fourth floor to the telemetry because of the rapid response noted. On assessing the patient this morning, she states that she is feeling fine and she denies any complaints. Her vital signs are stable with a heart rate in the 95-105 per minute range. She is having a respiratory rate of 18 and she is afebrile. The patient's blood pressure has continued to reveal widened pulse pressures with 120/45. She is saturating at 96%-99% on 1 L of nasal cannula. The patient's exam is consistent with hemodynamically significant aortic insufficiency with decrescendo diastolic murmur at 3/6 and a systolic crescendo decrescendo 2/6 murmur. The patient is currently maintained on digoxin 125 mcg, methylprednisolone 40 mg q. 12 hours, diltiazem at 30 q. 6 hours, metoprolol on a p.r.n. basis, midodrine because of marginal pressures in the past. This is on a p.r.n. basis, low-dose Lovenox, ipratropium, lorazepam, Zosyn, doxycycline, famotidine, and additional p.r.n. medications. Laboratory studies this morning revealed a white count of 7.9 down from 13.5 on the . Her H and H have remained low at 9.5 and 28.0. The platelet count is 246,000. Chemistries have revealed a sodium of 143, potassium of 4.2, chloride is 105, CO2 is 30, BUN is 51 with a creatinine of 1.2 and a GFR of 46. The patient's total bilirubin is 1.9; however, the rest of the liver enzymes are normal. C-reactive protein is elevated as expected. The patient's BNP this morning is 1240 and the albumin is low at 2.9 consistent with protein malnutrition. The free T3 is slightly low at 1.51 on yesterday's assessment and the T4 is 8.8. The family is currently not available at the bedside; however, the patient is confused intermittently and I do not think that she is capable of making conscious decision at this point in time, but it is my understanding based upon discussion with the nursing staff that the patient and the family are requesting only conservative medical management and they are attempting to take her home. I have recommended increasing the diltiazem to 60 q. 6 hours and can be adjusted to a once daily dosage when she goes home. The patient's long-term prognosis is poor given her multiple comorbid conditions and overall status. We will continue to follow this patient with you and make additional recommendations as needed and if the patient's family or the patient change their mind in regards to care, additional considerations will be given to other measures. TID: [id number] RECEIPT: [id number]
--- NOTE | 2025-01-27 16:27 | HMCIMG ---
CHEST 1VW REASON: pp COMPARISON: Prior chest radiograph from 01/26/2025 is available. FINDINGS: Single view of the chest was obtained. There is cardiomegaly with median sternotomy. There is uncoiling atherosclerotic change of thoracic aorta. There is a left-sided pacemaker with lead in right atrium and right ventricle. There is diffuse interstitial pulmonary edema. This appears to BE mildly resolving as compared to prior study. There is small bilateral pleural effusion.. Mediastinum and bony thorax appear unremarkable. There is deformity of the right humeral head suggesting of an old trauma. There is osteopenia of the bony thorax. IMPRESSION: 1. Cardiomegaly with median sternotomy with interstitial pulmonary edema which appears to BE mildly resolving as compared to prior radiograph
[2025-01-28] VITALS (15 sets, daily range): BP systolic 102–120; BP diastolic 40–75; PULSE 73–155; RESP 18–22; TEMP 97.3–98.7; O2SAT 95–100
[2025-01-28 05:11] LABS: IMMATURE GRANULOCYTE ABSOLUTE 0.34 K/uL (0-1); NUCLEATED RED BLOOD CELLS 0.2 % (0.0-0.19); PLATELET COUNT (AUTO) 246 K/uL (130-400); RED BLOOD CELL COUNT(AUTO) 2.98 MIL/uL (4.00-5.50); RED CELL DISTRIBUTION WIDTH 13.9 % (11.0-15.5); WHITE BLOOD COUNT (AUTO) 9.0 K/uL (4.8-10.8)
[2025-01-28 05:27] LABS: % IRON SATURATION 47.5 % (22-44); IRON, SERUM 79.0 mcg/dL (50-170)
[2025-01-28 05:40] LABS: CREATININE 1.0 mg/dL (0.5-1.0); GLOMERULAR FILTR. RATE CALC 57.0 mL/min (>90); GLUCOSE,RANDOM 130.0 mg/dL (70-105); SODIUM SERUM 141.0 mmol/L (136-145); UREA NITROGEN, BLOOD 50.0 mg/dL (7-18)
--- NOTE | 2025-01-28 08:46 | PN ---
PROBLEM LIST: * Paroxysmal atrial fibrillation with rapid ventricular response with persistent atrial fibrillation on this admission, with rate controlled. * History of conduction system disease, status post remote dual chamber permanent pacemaker implant with a Biotronik device with subsequent generator changed out in 01/2020 with a Biotronik device. * Hypertension. * History of normal coronary arteries by remote cardiac catheterization. * History of gastric ulcer with severe GI bleeding in 2019. * History of severe aortic stenosis, status post 3 separate surgical interventions, 2 with mechanical valve replacement in 2000 and finally redo surgery complicated by sepsis and perivalvular leak and hemolysis requiring a third surgery in [place] with aortic homograft and a bioprosthetic valve in 2021. * Evidence of moderate aortic insufficiency with an EF of 50-55% on this admission with a dilated left ventricular cavity, pressure half time is 441 milliseconds. * Ovarian cancer, status post hysterectomy and bilateral salpingo-oophorectomy with chemotherapy at [facility] in 2022. * History of recurrent epistaxis, resulting in discontinuation of anticoagulation therapy. * Presentation with hemoptysis on this admission felt to be secondary to right lower lobe pneumonia as per [facility]. * Positive sputum cultures for gram-positive cocci and gram-negative rods. * Altered mental status and dementia, improved. * Frail. * Octogenarian. This patient has been hospitalized predominantly because of hemoptysis. Unfortunately, she has continued to have atrial fibrillation and her rate is better controlled with the current medications. The patient has improved significantly. She has had a marked change in her status that she is now comfortable. She denies any symptoms of chest pain or shortness of breath. She has no palpitations, or other complaints. The patient's vital signs are stable. She is currently afebrile. Her blood pressure is 110/40. She is saturated 100% on room air. Heart rate is in the 70s and 80s and the respiratory rate is 18-20. The patient's examination has been remarkable for a 2-3/6 systolic ejection murmur and a 3/6 decrescendo diastolic murmur. The patient has a widened pulse pressure with a water-hammer pulse. She has no stigmata of congestive heart failure at this point in time. The patient is currently maintained on digoxin at 0.125 mg daily. She is on Solu-Medrol, diltiazem, diazepam, metoprolol p.r.n., midodrine p.r.n., low-dose Lovenox, Atrovent, furosemide, doxycycline, famotidine, and p.r.n. medications. Laboratory studies this morning revealed a sodium of 141, potassium 3.2, being managed per protocol, the chloride is 101, the CO2 is 31, her BUN is 50, creatinine is 1.0 with a GFR of 57, and a random glucose of 130. The patient's calcium is 8.4 and the magnesium is 1.8. The iron studies are consistent with an iron of 79 with a total iron binding capacity of 166, but the percentage saturation is high at 47.5. Yesterday, her bilirubin was elevated at 1.9. BNP was 1240 yesterday, currently down at 607. The patient has hypoalbuminemia consistent with protein malnutrition. The white count is 9.0 this morning down from 13.5 on the , H and H is 9.7 and 28.5 consistent with the patient's history of chronic anemia. Platelet count is 246,000. I had had multiple discussions with the patient and the family previously. Unfortunately, the patient had significant confusion, but the family had indicated that she did not desire any additional interventions or evaluations in regards to her cardiac status or valve in particular. The patient appears to be very alert this morning and oriented to time, place, and person. Her daughter in the room with her is Gale. Today, they informed me that they are willing to consider all options; however, they are planning on having her sent to [place] for additional evaluation and management by Dr. Mcdaniel, who is managing her valvular disease in the past. Given that, I think it is not unreasonable. Of note is that the patient has had an EF of 50-55% with stage 2 diastolic dysfunction. Despite the prior echocardiogram, the current echocardiogram suggests a normal left ventricular size. The patient has mild concentric left ventricular hypertrophy. A lead was noted in the right atrium and right ventricle. The left atrium was felt to be severely dilated. There is a bioprosthetic valve present with a mean gradient of 31 mmHg. The echo describes trace to mild aortic regurgitation, which is not commensurate with the patient's exam and status. There was evidence of moderate tricuspid regurgitation with a right ventricular systolic pressure of 52 mmHg consistent with moderate pulmonary hypertension. The IVC was dilated and there was no pericardial effusion. At this point, I have recommended we continue the current supportive measures. The patient's family is making arrangements to have her sent to [place] to a nursing facility and additional assessment with Dr. Mcdaniel. We will be happy to make additional recommendations as needed. TID: [id number] RECEIPT: [id number]
--- NOTE | 2025-01-28 10:59 | PN ---
[facility] PROGRESS NOTE Date Patient Seen: Jan 28, 2025 Time of Visit: 10:58 Supervising Physician: Trevor Jane MD Primary Care Physician: [facility] hospitalist team Outpatient Specialists: Inpatient Consults: [facility], critical Care team PROBLEM LIST: New onset AFib with RVR not on AC 2/2 epistaxis, now SR SVT Acute hypoxemic respiratory failure, SpO2 worsened on 01/23/2024 from prior/arrival POA Community-acquired pneumonia, POA worsening on 01/22/2025 POA Fluid overload, Elevated BNP, increased from POA (BNP 555 on 01/20/2025 and 1530 on 01/22/2025) Elevated DDIMER, negative for PE and DVT on 01/20/2025 Leukocytosis, POA, worsened from arrival LVEF 45-50% Lactic acidosis Acute on chronic renal failure stage 3a, GFR 51 Hyperglycemia Hypoalbuminemia Aortic valve stenosis history of Bioprosthetic aortic valve replacement Hypertension Multiple wound ulcers to bilateral lower extremities, POA Peripheral vascular disease, POA Hypertension, hyperlipidemia, uncontrolled diabetes mellitus Anemia of chronic disease Debility/frailty/general body weakness Severe bilateral hearing impairment Hematuria INTERVAL HISTORY: No major overnight events. on telel SR in the 's. she is currently in NAD on RA. pending a 6 min walk. She denies chest pain palpitations and sob. From pulmonary standpoint patient is stable at this time. We will sign off. Patient will need to follow-up with pulmonary service of choice 2 weeks postdischarge. Please reach to us should the need arise. On behalf of [facility] we are thankful for your team to let us participate in the care of this patient. We will be available if assistance in pulmonary critical care needed. Plan: Continue Zosyn Doxy and steroids change diuretics to po continue to wean steroids to prednisone 20mg po Supplemental O2, encouraged BiPAP at night Follow cardiology recs RT/nebulizers Dispo per primary team Follow up with scrap charger of choice in 1-2 weeks post DC REVIEW OF SYSTEMS: Unable to obtain ROS from patient due to patient being confused, and in respiratory distress. PHYSICAL EXAM: GENERAL: Anxious. HEENT: EOMI, Sclera non icteric, moist mucosa NECK: Supple, no JVD, trachea midline LUNGS: Tachypneic, on BiPAP, respiration rate 40s. Diminished breath sounds bilaterally. No wheezes HEART: Tachycardic. Regular rate and rhythm. Normal S1 and S2, without murmurs ABD: Abdomen soft, nontender. Bowel sounds present EXT: No clubbing cyanosis or edema NEURO: No attempt to follow command, no attempt to speak, no attempt to track. Vital Signs (last 8hr) Date Time Temp Pulse Resp B/P (MAP) Pulse Ox O2 Delivery O2 Flow Rate FiO2 01/28/25 09:58 85 01/28/25 07:30 97.5 85 20 119/43 100 Nasal Cannula 1.0 01/28/25 06:11 73 20 N/Cannula Low lpm 2.0 01/28/25 06:09 73 20 01/28/25 04:30 98.2 83 18 113/62 100 Room Air LABS: Hematology Labs: Test 01/28/25 05:02 Range/Units White Blood Count 9.0 4.8-10.8 K/uL Red Blood Count 2.98 L 4.00-5.50 MIL/uL Hemoglobin 9.7 L 12.0-16.0 g/dL Hematocrit 28.5 L 36-48 % Mean Corpuscular Volume 95.6 79-99 fL Mean Corpuscular Hemoglobin 32.6 27.0-33.0 pg Mean Corpuscular Hemoglobin Concent 34.0 32.0-36.0 g/dL Red Cell Distribution Width 13.9 11.0-15.5 % Platelet Count 246 130-400 K/uL Mean Platelet Volume 10.1 7.5-10.5 fL Immature Granulocyte % (Auto) 3.8 H 0-1 % Neutrophils (%) (Auto) 83.2 H 40.0-77.0 % Lymphocytes (%) (Auto) 6.3 L 21.0-51.0 % Monocytes (%) (Auto) 6.6 3.0-13.0 % Eosinophils (%) (Auto) 0.0 0.0-8.0 % Basophils (%) (Auto) 0.1 0.0-5.0 % Neutrophils # (Auto) 7.5 1.8-7.7 K/uL Lymphocytes # (Auto) 0.6 L 1.0-4.8 K/uL Monocytes # (Auto) 0.6 0.1-1.0 K/uL Eosinophils # (Auto) 0.00 0.00-0.70 K/uL Basophils # (Auto) 0.01 0.00-0.20 K/uL Absolute Immature Granulocyte (auto 0.34 0-1 K/uL Nucleated Red Blood Cells 0.2 H 0.0-0.19 % White Cell Morphology Comment See comments Chemistry Labs: Test 01/28/25 05:02 01/27/25 03:16 Range/Units Sodium Level 141 136-145 mmol/L Potassium Level 3.2 L 3.5-5.1 mmol/L Chloride Level 101 101-111 mmol/L Carbon Dioxide Level 31 21-32 mmol/L Blood Urea Nitrogen 50 H 7-18 mg/dL Creatinine 1.0 0.5-1.0 mg/dL Glomerular Filtration Rate Calc 57 >90 mL/min Random Glucose 130 H 70-105 mg/dL Total Calcium 8.4 L 8.5-10.1 mg/dL Magnesium Level 1.80 1.80-2.40 mg/dL Iron Level 79 50-170 mcg/dL Total Iron Binding Capacity 166 L 250-450 mcg/dL Percent Iron Saturation 47.5 H 22-44 % B-Type Natriuretic Peptide 607 H 0-100 pg/mL Total Bilirubin 1.9 H 0.2-1.0 mg/dL Aspartate Amino Transf (AST/SGOT) 12 10-37 U/L Alanine Aminotransferase (ALT/SGPT) 27 12-78 U/L Alkaline Phosphatase 64 50-136 U/L C-Reactive Protein, Quantitative 53.70 H 0.5-3.0 mg/L Total Protein 5.8 L 6.0-8.3 g/dL Albumin 2.9 L 3.5-5.0 g/dL DIAGNOSTICS / RADIOLOGY RESULTS: [ ] PLAN NEURO: Minimize central acting medications as possible. Maintain fall precautions, adequate lighting during the day PULMONARY: Supplemental 02 as needed. Maintain aspiration precautions at all times CARDIOVASCULAR: Follow hemodynamics. Vital signs per facility protocol GI & NUTRITION: Continue with nutritional support. Continue stool softeners and laxatives as needed. KIDNEYS & ELECTROLYTES: Strict monitoring of intake, output and overall fluid balance. Avoid nephrotoxic medications to the extent possible. Medications to be dosed according to renal function. Monitor electrolytes and replace as needed ENDOCRINE: Maintain blood glucose between 100-180 at all times. Hypoglycemia protocol in place INFECTIOUS DISEASE: Trend temperature, WBC and procalcitonin level Follow cultures, deescalate antibiotics as soon as possible. Panculture if new onset fever ONCOLOGY/HEMATOLOGY/COAGULATION: Monitor for s/s of bleeding Monitor hemoglobin, coagulation studies as needed SKIN: Pressure ulcer prevention per facility protocol Specialty mattress ORTHO/REHAB: Continue PT/OT Prophylaxis: Continue GI and DVT prophylaxis Code Status: Full Resuscitation Disposition: TBD ATTESTATION BY PHYSICIAN The patient has been seen and evaluated, the case has been discussed with the FORCER MAKER, I agree with the clinical findings and plan of care. Trevor Jane MD, [facility] Jan 28, 2025 10:59
--- NOTE | 2025-01-28 11:20 | HMCIMG ---
CHEST 1VW REASON: pp COMPARISON: Prior study from 01/27/2025 is available. FINDINGS: Single view of the chest was obtained. There is cardiomegaly with left ventricular contour with median sternotomy. There is uncoiling atherosclerotic change of thoracic aorta. There is a left-sided pacemaker with lead in right atrium and right ventricle. There is mild interstitial pulmonary edema.. Mediastinum and bony thorax appear unremarkable. The bony thorax demonstrate osteopenia. There is deformity of the proximal right humerus from an old trauma. IMPRESSION: 1. Unchanged from prior study 2. Cardiomegaly with median sternotomy 3. Mild interstitial pulmonary edema
--- NOTE | 2025-01-28 12:05 | PN ---
[facility] PROGRESS NOTE Date of Service: Jan 28, 2025 Time of Service: 12:05 SUBJECTIVE: 79-year-old female with past medical history of ovarian cancer, hypertension, history of gastric ulcer, history of history of aortic valve stenosis status post valve replacement who presented to the hospital secondary to hemoptysis. The patient states she has noted cough at home which is productive in nature. She has noted blood with her sputum. She does not have any hematemesis, melena, hematochezia. Denied any recent epistaxis. She has noted previous episodes of epistaxis in the past but denied any recent episode. Her blood is mainly present after coughing in the sputum. Denied any fever, chills, chest pain, abdominal pain, nausea. She does get short of breath with her underlying cough. She has been followed by Dr. Small as outpatient regards to aortic valve stenosis. She currently denies taking any antiplatelet or anticoagulants at home. She denied any night sweats, recent weight loss. Labs were notable for white count of 12.5, hemoglobin was 10.5, platelet count was 237 K, sodium was 132, potassium was 4.1, creatinine was 1.0. Chest x-ray infiltrates on the right side. Patient will be admitted for further medical management. 01/21/2025: Patient was seen and evaluated bedside in ED 11. Case discussed with RN, no acute overnight events. Patient says she is feeling well, denies chest pain, shortness of breath, palpitations, nausea, vomiting. X-ray shows airspace consolidation involving right middle and right lower lung and blunting of both costophrenic sulcus suggesting a pleural reaction. CT chest shows large consolidation likely of infectious origin, ground-glass opacities with interlobular septal thickening giving rise to crazy paving pattern in right lower lobe suggesting underlying pulmonary edema. Lab shows white count 14.9, CRP 106, BNP 555. EKG showed prolonged QTC, azithromycin was discontinued and doxycycline was started, continue Zosyn. Cardiology was consulted for further evaluation. 01/22/2025: Patient was seen and evaluated bedside in room 228. Patient developed acute delirium yesterday afternoon and tele psychiatric consultation was requested. Psychiatry evaluation revealed acute delirium and recommended to start Seroquel 12.5 mg b.i.d. p.r.n. for agitation, restlessness or psychosis and 25 mg q.h.s. for sleep. Lab this morning shows elevated white count at 18.3, BNP 1500, D-dimer 2294. X-ray revealed worsening consolidation on right side. Patient started on Lasix 40 mg q.12h, Solu-Medrol 40 mg q.6h, continue IV antibiotics. Infectious Disease, Cardiology, pulmonology on board and we will follow up with the recommendations. 01/23/2025: Patient was seen and evaluated in room 228 while patient's family was present at the bedside. Patient had high heart rate yesterday and the rhythm strip revealed SVTs for which metoprolol tartarate 25 mg once and midodrine 10 mg was given. This morning patient still had her heart rate in 120s but patient was asymptomatic. Patient currently denies shortness of breath, chest pain, palpitations and was well oriented to time, place, person. A repeat chest x-ray today showed slight improvement. Patient reported that she has had history of nosebleeds as a child and had more frequent episodes when she was taking Coumadin. At the time of admission she had hemoptysis when she noticed mild blood-streaked sputum while she cough but does not have hemoptysis now. Currently denies nosebleeds despite being on Lovenox 30 mg for DVT prophylaxis. Cardiology recommended continuing IV Lasix 40 mg q.12 and hold losartan. Patient admitted to declining evaluation with transesophageal ECHO in the past however would like to initiate the conversation with ax survey worker once the pneumonia is resolved after discharge from the hospital. 01/24/2025: Patient was seen and evaluated bedside in room 228. She is awake, alert, confused and having one on one sitter currently. Currently saturating 97% with3 L nasal cannula and Lab showed BNP 1210, white count 13.5, CRP trended down to 74. Blood culture showed no growth after24 hours, Legionella urine antigen is negative. Continue Lasix 40 mg q.12h , Zosyn and doxycycline. Infectious Disease, Cardiology, pulmonology on board and we will follow up their recommendation. 01/25/2025: Patient was seen and evaluated bedside in room 420. She is awake, alert, confused and having one on one sitter currently. Patient's heart rate high fluctuating in 140s and 150s, patient was in AFib with RVR this morning. Cardiology started digoxin, Cardizem and stopped Norvasc, patient will be upgraded to PCCU. Lab showed potassium 2.7 this morning, started replacing per protocol and held Lasix IV temporarily. White count trended down to 9.5, CRP trended down to 48, BNP trended up to 1910. Infectious Disease, Cardiology, pulmonology on board and we will follow up the recommendations. 01/26/2025: Patient was seen and evaluated bedside in room 223. She is awake, alert, confused and having one on one sitter currently. Patient heart rate has been improved to 100s, continue current regimen. White Count has trended up to 15.4, BNP trended down to 1370. Infectious Disease, Cardiology, and pulmonology on board and we will follow up with the recommendations. 01/27/2025: Patient was seen and evaluated bedside in room 223. She is awake, alert, confused and having one on one sitter currently. Patient heart rate this morning fluctuating in 100s and 110s, cardiology wanted to evaluate further with a OLIVER to look her aortic valve after her pneumonia is resolved. White count trended down to 7.9, BNP trended down to 1240, her digoxin level this morning within normal limits. Pending CT chest report. Started tapering Solu-Medrol, continue IV antibiotics, continue regimen recommended by Cardiology. Case management on board for disposition of patient to SNF/rehabilitation. Infectious Disease, Cardiology and pulmonology on board and we will follow up with the recommendations. 01/28/2025: Patient was seen and evaluated bedside in room 223. She is awake, alert, oriented x3. patient family said that her confusion has come down significantly. Patient heart rate is controlled in 80s and 90s, continue current regimen recommended by ax survey worker. BNP trended down to 607, her digoxin level this morning within normal limits. Infectious Disease recommended IV antibiotics for 7 days as outpatient, pending approval by insurance for [facility] for IV antibiotics. Pending 6 minute walk test. Once patient gets approval by insurance we will take cardiology recommendations and discharge the patient home. REVIEW OF SYSTEMS CONSTITUTIONAL: Denies fevers, chills, or night sweats. No unintentional weight loss reported. NEUROLOGICAL: Denies headache, motor weakness, sensory deficit, ve rtigo/spinning sensation, gait abnormalities, or tremors. ENT: No hearing loss, otalgia, otorrhea, rhinitis, rhinorrhea, hoarseness, or sore throat. CARDIOVASCULAR: Denies any exertional angina, dyspnea on exertion, orthopnea, paroxysmal nocturnal dyspnea, palpitations, life-threatening arrhythmias, claudication. PULMONARY: Positive for hemoptoic sputum, cough, sputum production, all resolved now SLEEP: Denies morning headaches, daytime somnolence or napping. Denies difficulty falling asleep, staying asleep, waking from sleep. Denies knowledge of snoring. GASTROINTESTINAL: Denies any type of dysphagia to either liquids or solids. Denies nausea, vomiting, pyrosis, early satiety, abdominal pain, diarrhea, constipation, or changes in stool consistency or caliber. Denies coffee-ground emesis, hematemesis, hematochezia, or melanotic stools. GENITOURINARY: Denies frequency, urgency, nocturia, hematuria or incontinence (Storage/Irritative symptoms.) Low urinary stream, straining to void, urinary intermittency or hesitancy, splitting of the voiding stream, terminal dribbling. ENDOCRINOLOGIC: Denies polyuria, polydipsia, polyphagia or heat/cold intolerances. HEMATOLOGIC: Denies thrombophilia/previous clots, or coagulopathy/bleeding disorders. PSYCHIATRIC: Denies any suicidal or homicidal ideation. Denies hallucinations. PHYSICAL EXAM GENERAL APPEARANCE: The patient is awake, alert, and oriented, in no acute cardiopulmonary distress. Patient is bright red blood in the cup present at bedside NEUROLOGICAL: Cranial nerves II-XII grossly intact. Motor is 5/5 in bilateral upper and lower extremities proximal to distal. No sensory deficits. HEENT: Face is symmetric. Pupils are equal and reactive. Extraocular movements are intact. NECK: Supple. No JVD. No thyromegaly. No submental, submandibular, pre- /postauricular, occipital or supraclavicular lymphadenopathy. CHEST: Normal chest expansion. No Telemetry. LUNGS: She has a crackles present bilaterally, more on the right side. CARDIOVASCULAR: Regular. S1 and S2 normal. No appreciable rubs, murmurs or gallops. ABDOMEN: Soft, nontender, and nondistended. There is no rebound, voluntary guarding, or rigidity. : Deferred. No Wallace. EXTREMITIES: Non-edematous and not cyanotic. No clubbing. Good capillary refill. SKIN: No skin breakdown. Vital Signs (last 8hr) Date Time Temp Pulse Resp B/P (MAP) Pulse Ox O2 Delivery O2 Flow Rate FiO2 01/28/25 11:51 98 20 01/28/25 11:51 98 18 N/A Room Air 21 01/28/25 11:49 95 18 21 155 22 21 01/28/25 10:58 95 01/28/25 09:58 85 01/28/25 08:00 100 Room Air* 0 21 01/28/25 07:30 97.5 85 20 119/43 100 Nasal Cannula 1.0 01/28/25 06:11 73 20 N/Cannula Low lpm 2.0 01/28/25 06:09 73 20 01/28/25 04:30 98.2 83 18 113/62 100 Room Air LABS: Laboratory: Test 01/28/25 05:02 01/27/25 03:16 Range/Units White Blood Count 9.0 4.8-10.8 K/uL Red Blood Count 2.98 L 4.00-5.50 MIL/uL Hemoglobin 9.7 L 12.0-16.0 g/dL Hematocrit 28.5 L 36-48 % Mean Corpuscular Volume 95.6 79-99 fL Mean Corpuscular Hemoglobin 32.6 27.0-33.0 pg Mean Corpuscular Hemoglobin Concent 34.0 32.0-36.0 g/dL Red Cell Distribution Width 13.9 11.0-15.5 % Platelet Count 246 130-400 K/uL Mean Platelet Volume 10.1 7.5-10.5 fL Immature Granulocyte % (Auto) 3.8 H 0-1 % Neutrophils (%) (Auto) 83.2 H 40.0-77.0 % Lymphocytes (%) (Auto) 6.3 L 21.0-51.0 % Monocytes (%) (Auto) 6.6 3.0-13.0 % Eosinophils (%) (Auto) 0.0 0.0-8.0 % Basophils (%) (Auto) 0.1 0.0-5.0 % Neutrophils # (Auto) 7.5 1.8-7.7 K/uL Lymphocytes # (Auto) 0.6 L 1.0-4.8 K/uL Monocytes # (Auto) 0.6 0.1-1.0 K/uL Eosinophils # (Auto) 0.00 0.00-0.70 K/uL Basophils # (Auto) 0.01 0.00-0.20 K/uL Absolute Immature Granulocyte (auto 0.34 0-1 K/uL Nucleated Red Blood Cells 0.2 H 0.0-0.19 % White Cell Morphology Comment See comments Sodium Level 141 136-145 mmol/L Potassium Level 3.2 L 3.5-5.1 mmol/L Chloride Level 101 101-111 mmol/L Carbon Dioxide Level 31 21-32 mmol/L Blood Urea Nitrogen 50 H 7-18 mg/dL Creatinine 1.0 0.5-1.0 mg/dL Glomerular Filtration Rate Calc 57 >90 mL/min Random Glucose 130 H 70-105 mg/dL Total Calcium 8.4 L 8.5-10.1 mg/dL Magnesium Level 1.80 1.80-2.40 mg/dL Iron Level 79 50-170 mcg/dL Total Iron Binding Capacity 166 L 250-450 mcg/dL Percent Iron Saturation 47.5 H 22-44 % B-Type Natriuretic Peptide 607 H 0-100 pg/mL Digoxin Level 1.20 # 0.50-2.00 ng/mL Total Bilirubin 1.9 H 0.2-1.0 mg/dL Aspartate Amino Transf (AST/SGOT) 12 10-37 U/L Alanine Aminotransferase (ALT/SGPT) 27 12-78 U/L Alkaline Phosphatase 64 50-136 U/L C-Reactive Protein, Quantitative 53.70 H 0.5-3.0 mg/L Total Protein 5.8 L 6.0-8.3 g/dL Albumin 2.9 L 3.5-5.0 g/dL Current Medications Medications (Trade) Dose Ordered Sig/Sadi Route PRN Reason Start Time Stop Time Status Last Admin Dose Admin Acetaminophen (TYLenol 325MG TAB) 650 mg Q4H PRN PO MILD PAIN (1-3) 01/20/25 13:00 02/19/25 12:59 Acetaminophen (TYLenol 325MG TAB) 650 mg Q6H PRN PO TEMPERATURE GREATER THAN 101.5 01/20/25 13:00 02/19/25 12:59 Albuterol (DUOneb) 1 UDVIAL [id number] IH 01/22/25 06:00 01/22/25 03:00 DC Albuterol Sulfate (Proventil 0.083% 2.5mg/3ml) 2.5 mg [id number] IH 01/22/25 03:00 01/22/25 14:40 DC 01/22/25 06:35 2.5 MG Albuterol Sulfate (Proventil 0.083% 2.5mg/3ml) 2.5 mg [id number] IH 01/22/25 18:00 01/22/25 19:08 DC Amlodipine Besylate (NorvASC 2.5MG TAB) 2.5 mg DAILY PO 01/22/25 09:00 01/25/25 07:40 DC 01/24/25 10:41 2.5 MG Amlodipine Besylate (NorvASC 5MG TAB) 5 mg DAILY PO 01/22/25 09:00 01/25/25 07:40 DC 01/24/25 10:41 5 MG Artificial Tears (Artificial Tears) 1 DROP Q2H PRN OP DRY EYES 01/20/25 13:00 02/19/25 12:59 Azithromycin 250 ml @ 250 mls/hr Q24H IVPB 01/21/25 14:30 01/21/25 10:33 DC Benzocaine (Cepacol Sore Throat Lozenge) 1 each Q2H PRN MM SORE THROAT 01/20/25 13:00 02/19/25 12:59 Dexmedetomidine/ Sodium Chloride (PRECEdex 200MCG/ 50ML-NS) 200 mcg PROTOCOL IV 01/22/25 03:30 01/28/25 11:25 DC Diazepam (VALium 5 MG/ML 2 ML SYG) 1.25 mg ONCE PRN IV ANXIETY 01/25/25 02:10 02/01/25 02:09 Digoxin (LANOxin 125mcg) 125 mcg DAILY PO 01/26/25 09:00 01/26/25 08:33 DC Digoxin (LANOxin 125mcg) 125 mcg DAILY PO 01/26/25 09:00 02/25/25 08:59 01/28/25 09:58 125 MCG Digoxin (LANOxin 250 MCG/ ML 2ML AMP) 125 mcg Q6H IV 01/25/25 14:00 01/26/25 02:00 DC 01/26/25 00:08 125 MCG Digoxin (LANOxin 250 MCG/ ML 2ML AMP) 250 mcg ONCE IV 01/25/25 07:30 01/25/25 08:00 DC 01/25/25 08:01 250 MCG Diltiazem HCl (CARDIzem 60MG TAB) 30 mg Q6H PO 01/25/25 07:30 02/24/25 07:29 01/28/25 06:37 30 MG Docusate Sodium (COLace 100MG CAP) 100 mg BID PRN PO CONSTIPATION 01/20/25 13:00 02/19/25 12:59 Doxycycline Hyclate 250 ml @ 125 mls/hr Q12H IV 01/21/25 10:30 01/31/25 10:29 01/28/25 09:57 125 MLS/HR Enoxaparin Sodium (Lovenox) 30 mg DAILY SQ 01/22/25 09:00 01/22/25 09:00 DC Enoxaparin Sodium (Lovenox) 30 mg DAILY SQ 01/22/25 16:00 01/22/25 19:25 DC Enoxaparin Sodium (Lovenox) 30 mg Q24H SQ 01/22/25 19:30 02/21/25 19:29 01/27/25 21:26 30 MG Famotidine (Pepcid 20mg Vial) 20 mg Q24H IV 01/20/25 21:00 02/19/25 20:59 01/27/25 21:24 20 MG Furosemide (LASix 20MG TAB) 20 mg AD PO 01/21/25 09:00 01/21/25 08:59 DC Furosemide (LASix 20MG TAB) 20 mg DAILY PO 01/23/25 09:00 01/22/25 09:17 DC Furosemide (LASix 40MG TAB) 40 mg BID@09,17 PO 01/28/25 17:00 02/27/25 16:59 Furosemide (LASix 40MG VIAL) 40 mg Q12H IV 01/22/25 09:30 01/28/25 11:25 DC 01/28/25 09:57 40 MG Guaifenesin (RobiTUSSin SUGAR-FREE 100 MG/ 5 ML UDCUP) 200 mg Q4H PRN PO COUGH 01/20/25 13:00 02/19/25 12:59 01/21/25 20:38 200 MG Guaifenesin/ Dextromethorphan (RobiTUSSin DM 200/20MG 10ML) 10 ml Q4H PRN PO COUGH 01/20/25 13:00 02/19/25 12:59 Ipratropium Wilbur (AtrovENT UD) 0.5 mg [id number] IH 01/22/25 03:00 01/22/25 14:30 DC 01/22/25 10:00 0.5 MG Ipratropium Wilbur (AtrovENT UD) 0.5 mg [id number] IH 01/22/25 18:00 02/21/25 02:59 01/28/25 11:08 0.5 MG Lactulose (Constulose 20gm/ 30ml Udcup) 20 gm BID PRN PO CONSTIPATION 01/20/25 13:00 02/19/25 12:59 Lidocaine HCl/Al Hydroxide/Mg Hydroxide/ Dicyclomine HCl 20ML OR AD MAALOX P... Q6H PRN PO HEARTBURN 01/20/25 13:00 02/19/25 12:59 Lisinopril (Prinivil 20mg) 20 mg DAILY PO 01/22/25 09:00 01/22/25 09:26 DC Loperamide HCl (Imodium) 2 mg Q6H PRN PO AFTER EACH LOOSE STOOL 01/20/25 13:00 02/19/25 12:59 Lorazepam (AtiVAN) 0.5 mg HS PRN PO INSOMNIA 01/21/25 22:30 02/20/25 22:29 01/23/25 22:36 0.5 MG Losartan Potassium (CozAAR 25MG TAB) 25 mg DAILY PO 01/22/25 11:00 01/23/25 10:48 DC 01/22/25 11:11 25 MG Losartan Potassium (CozAAR 25MG TAB) 25 mg DAILY PO 01/23/25 09:00 01/22/25 10:58 DC Magnesium Sulfate 50 ml @ 0 mls/hr PROTOCOL PRN IV hypomagnesemia 01/20/25 12:00 02/19/25 11:59 01/28/25 06:37 25 MLS/HR Methylprednisolone Sodium Succinate (Solu-medROL 40MG) 40 mg Q12H IVP 01/25/25 15:00 01/28/25 11:25 DC 01/28/25 03:23 40 MG Methylprednisolone Sodium Succinate (Solu-medROL 40MG) 40 mg Q6H IVP 01/22/25 21:00 01/25/25 07:40 DC 01/25/25 04:07 40 MG Methylprednisolone Sodium Succinate (Solu-medROL 125MG) 40 mg Q6H IVP 01/22/25 09:00 01/22/25 15:45 DC 01/22/25 15:37 40 MG Metoprolol Succinate (TopROL XL) 50 mg DAILY PO 01/21/25 09:00 01/22/25 09:17 DC 01/21/25 10:21 50 MG Metoprolol Tartrate (loprESSOR) 2.5 mg Q6H PRN IV INCREASED HEART RATE >130 BPM 01/24/25 20:00 02/23/25 19:59 01/25/25 06:35 2.5 MG Metoprolol Tartrate (loprESSOR) 25 mg BID PO 01/22/25 21:00 01/23/25 10:47 DC 01/23/25 09:40 25 MG Midodrine (PROAMatine 5 MG TABLET) 10 mg Q8H PRN PO MAP <65 01/22/25 23:00 02/21/25 22:59 01/23/25 00:16 10 MG Nitroglycerin (Nitrostat) 0.4 mg PROTOCOL PRN SL CHEST PAIN 01/20/25 13:00 02/19/25 12:59 Ondansetron HCl (zoFRAN 4MG INJ) 4 mg Q6H PRN IV NAUSEA/VOMITING 01/20/25 13:00 02/19/25 12:59 Piperacillin Sod/ Tazobactam Sod (Zosyn 3.375gm+NS 50ml) 3.375 gm Q8H IVPB 01/20/25 12:00 01/21/25 13:17 DC 01/21/25 04:05 3.375 GM Piperacillin Sod/ Tazobactam Sod (Zosyn 3.375gm+NS 50ml) 3.375 gm Q8H IVPB 01/21/25 14:30 01/31/25 14:29 01/28/25 06:36 3.375 GM Polyethylene Glycol (MIRalax 3350 17 GM POWD.PACK) 17 gm DAILY PRN PO CONSTIPATION 01/20/25 13:00 02/19/25 12:59 Potassium Chloride 100 ml @ 100 mls/hr AD PRN IV POTASSIUM PROTOCOL 01/20/25 12:00 02/19/25 11:59 01/25/25 08:59 100 MLS/HR Potassium Chloride (K-Dur/Klor-Con 20meq) 20 meq AD PRN PO POTASSIUM PROTOCOL 01/20/25 12:00 02/19/25 11:59 01/28/25 09:58 20 MEQ Potassium Chloride (KCl 10% Elixir 20meq/15ml) 20 meq AD PRN PO POTASSIUM PROTOCOL 01/20/25 12:00 02/19/25 11:59 01/28/25 11:58 20 MEQ Prednisone (deltaSONE/ oraSONE 20MG TAB) 20 mg DAILY PO 01/29/25 09:00 02/28/25 08:59 Quetiapine Fumarate (SEROquel 25 mg TAB) 12.5 mg BID PRN PO Agitation 01/21/25 22:30 01/26/25 08:42 DC Quetiapine Fumarate (SEROquel 25 mg TAB) 25 mg HS PO 01/22/25 21:00 01/26/25 08:42 DC Sodium Chloride (NS 50ml) 50 ml AD IV 01/20/25 12:00 01/20/25 12:10 DC DIAGNOSTICS / RADIOLOGY: [place] [address] IMAGING REPORT Signed PATIENT: NEHEMIAS BAINS MR#: [id number] : 1945 SEX: F AGE: 79 LOCATION: 2DH ORDER 2300 STATUS: ADM IN REPORT#: [id number] SERVICE 0600 REASON: pp ORDERING PHYSICIAN: APRYL STEPHENS PAC PROCEDURE: CXR1VW - CHEST 1VW CHEST 1VW REASON: pp COMPARISON: Prior study from 01/27/2025 is available. FINDINGS: Single view of the chest was obtained. There is cardiomegaly with left ventricular contour with median sternotomy. There is uncoiling atherosclerotic change of thoracic aorta. There is a left-sided pacemaker with lead in right atrium and right ventricle. There is mild interstitial pulmonary edema.. Mediastinum and bony thorax appear unremarkable. The bony thorax demonstrate osteopenia. There is deformity of the proximal right humerus from an old trauma. IMPRESSION: 1. Unchanged from prior study 2. Cardiomegaly with median sternotomy 3. Mild interstitial pulmonary edema DICTATED BY: SPRING RODRÍGUEZ MD DATE: 01/28/25 1117 ELECTRONICALLY SIGNED BY: SPRING RODRÍGUEZ MD DATE: 01/28/25 1120 [facility] [address] [place] [address] [id number] IMAGING REPORT Signed PATIENT: NEHEMIAS BAINS MR#: [id number] : 1945 SEX: F AGE: 79 LOCATION: 2DH ORDER 2300 STATUS: ADM IN REPORT#: [id number] SERVICE 0600 REASON: pp ORDERING PHYSICIAN: APRYL STEPHENS PAC PROCEDURE: CXR1VW - CHEST 1VW CHEST 1VW REASON: pp COMPARISON: Prior chest radiograph from 01/26/2025 is available. FINDINGS: Single view of the chest was obtained. There is cardiomegaly with median sternotomy. There is uncoiling atherosclerotic change of thoracic aorta. There is a left-sided pacemaker with lead in right atrium and right ventricle. There is diffuse interstitial pulmonary edema. This appears to BE mildly resolving as compared to prior study. There is small bilateral pleural effusion.. Mediastinum and bony thorax appear unremarkable. There is deformity of the right humeral head suggesting of an old trauma. There is osteopenia of the bony thorax. IMPRESSION: 1. Cardiomegaly with median sternotomy with interstitial pulmonary edema which appears to BE mildly resolving as compared to prior radiograph DICTATED BY: SPRING RODRÍGUEZ MD DATE: 01/27/25 162 ELECTRONICALLY SIGNED BY: SPRING RODRÍGUEZ MD DATE: 01/27/25 1627 [facility] [address] [place] [id number] IMAGING REPORT Signed PATIENT: NEHEMIAS BAINS MR#: [id number] : 1945 SEX: F AGE: 79 LOCATION: 2DH ORDER 1104 STATUS: ADM IN REPORT#: [id number] SERVICE 1055 REASON: HEMOPTYSIS ORDERING PHYSICIAN: DUTCH CASPER PAC PROCEDURE: CHEST HR - CT CHEST HIGH RESOLUTION (WO) EXAM: CT Chest Without IV contrast. CLINICAL HISTORY: HEMOPTYSIS TECHNIQUE: Axial computed tomography images of the chest without intravenous contrast. COMPARISON: CT chest contrast dated 20 January 2025. FINDINGS: LUNGS: Interval progression in multiple patchy ground-glass opacities with interlobular septal thickening is diffusely scattered along the bilateral lung parenchyma, with a few of these ground-glass opacities coalescing to form a consolidatory patch along the superior segment of the right lower lobe. Small sub-segmental atelectatic bands are seen along the left lower lobe. PLEURAL SPACES: Minimal right-sided pleural effusion is noted. HEART: Similar moderate cardiomegaly is present. There is stable ectasia of the ascending aorta, measuring up to 4.1 cm. Significant atherosclerotic changes with vessel wall calcification are seen along the thoracic aorta, the arch of the aorta, and the coronaries. The ICD device is seen along the left chest wall with its lead tip along the right atrium and ventricle. LYMPH NODES: No lymphadenopathy is evident. UPPER ABDOMEN: Hiatus hernia present. BONES: Trabeculation is seen along the visualized appendicular and axial skeleton, likely due to changes of osteopenia. Degenerative changes are seen in the spine. Sternotomy clips seen IMPRESSION: 1. Interval progression of bilateral patchy ground-glass opacities with interlobular septal thickening. This is nonspecific, but in the setting of hemoptysis this may represent alveolar hemorrhage. 2. Interval progression in focal consolidation in the right lower lobe superior segment, possibly worsening of pneumonia. 3. Minimal right pleural effusion. 4. Moderate cardiomegaly, unchanged. 5. Stable ectasia of the ascending aorta. /[place] DICTATED BY: CASSANDRA LOBATO MD DATE: 01/27/25 1020 ELECTRONICALLY SIGNED BY: CASSANDRA LOBATO MD DATE: 01/27/25 1020 ASSESSMENT: Hemoptysis POA Community-acquired pneumonia POA Aortic valve stenosis status post aortic valve replacement POA Atrial fibrillation vs SVT not on anticoagulation for history of epistaxis Hypertension POA Hyperlipidemia History of gastric ulcer History of ovarian cancer Mild hyponatremia PLAN: Community-acquired pneumonia POA * Patient came to ED with cough which is productive in nature noted blood with her sputum likely hemoptoic sputum. * CT chest showed large consolidation likely of infectious origin * WBC Count on 01/27/2025 trended down to 7.9 * Patient was started on Zosyn IV, azithromycin IV on 01/20/2025 * Patient's EKG showed prolonged QTC, azithromycin was discontinued this morning. * Continue IV Zosyn 3.375 G IV Q8 (day 9), started doxycycline 250 mL IV q.12h (day 8) * Switched IV soluMedrol 40 mg q.12h to oral prednisone 20 mg on 01/28/2025 * Critical Care on board, we will follow up with the recommendations. Hemoptysis, due to pneumonia POA * Patient noted blood after coughing out phlegm at home. * CBC shows hemoglobin 10.5, hematocrit 31.5 at presentation. * Patient denied further episodes of coughing out blood this morning. * CBC shows hemoglobin 9.7, hematocrit 28.5 on 01/28/2025 * Critical Care on board for further evaluation Aortic valve stenosis status post aortic valve replacement POA * Patient has history of recall stenosis status post valve replacement in 2000 * We echo from 09/23/2023 shows bioprosthetic aortic wall is present, with t hickened and possible degenerating left coronary cusp, moderate aortic regurgitation. * BNP 607 on 01/28/2025 * Switched IV Lasix to oral furosemide 40 mg b.i.d. on 01/28/2025 * 2D echo on 01/22/2025 showed LVEF of 50-55% with normal LV segmental wall motion, concentric LVH with stage II diastolic dysfunction. Bioprosthetic aortic valve present * Cardiology recommended outpatient CCTA in [place] if the patient refuses transesophageal echo procedure again for evaluation of paravalvular leak for aortic valve. Atrial fibrillation vs SVT not on anticoagulation for history of epistaxis * Patient had high heart rate in the range of 140s to 150s last night and rhythm strip revealed suspected atrial fibrillation or supraventricular tachycardia * Patient is started on digoxin, Cardizem 30 mg q.6 p.o. for AFib with RVR, discontinued Norvasc * Patient was started on metoprolol tartrate 25 mg once and a midodrine 10 mg was given * Cardiology recommended to hold losartan and defer use of beta blockers for the moment * Patient admitted to frequent nosebleeds in the past and increased frequency with Coumadin however no nosebleeds currently * Patient tolerating Lovenox 30 mg daily without any bleeding * We will follow up with Cardiology for further management of anticoagulation Pepcid 20 mg Q 24 H IV for GI prophylaxis Lovenox 30 mg SQ daily for DVT prophylaxis ATTESTATION BY PHYSICIAN I have seen and examined the patient. I reviewed the documentation, medical decision making, and treatment plan as noted by the resident provider above. I agree with the findings and plan of care. Geoffrey Cervantes MD, ADIL SHAH QUADRI MD Jan 28, 2025 12:05
[2025-01-28 12:47] LABS: INR 1.08 (0.85-1.15)
[2025-01-29] VITALS (15 sets, daily range): BP systolic 92–122; BP diastolic 39–64; PULSE 90–135; RESP 18–22; TEMP 97.6–98; O2SAT 92–97
--- NOTE | 2025-01-29 01:27 | PN ---
INFECTIOUS DISEASE FOLLOWUP NOTE SUBJECTIVE: The patient is seen and examined at bedside today. No fever, no chills . No bleeding tendencies. No palpitations or orthopnea. . No dysuria or frequency. No neck pain or neck swelling. PHYSICAL EXAMINATION: VITAL SIGNS: Temperature 97.3. EYES: No icterus. Pupils equal and reactive. HENT: No oral thrush seen. Moist oral mucosa. NECK: Supple. No JVD or thyromegaly. LUNGS: Good air entry. No rales. No rhonchi. CARDIOVASCULAR: S1 and S2 regular. No murmur heard. ABDOMEN: Full, soft, nontender. Bowel sound is present. CENTRAL NERVOUS SYSTEM: Awake, alert, and oriented x 3. No focal deficits. SKIN: No rashes, no itchiness. LYMPHATIC: No peripheral lymphadenopathy. HEMATOLOGIC: No bleeding or petechial lesions seen. MUSCULOSKELETAL: No joint swelling, erythema or tenderness. . ASSESSMENT: An 79-year-old female with multiple problems: * Pneumonia. * Hypoxic respiratory failure. * Anemia. * Hypertension. * History of ovarian cancer. * Leukocytosis. * . PLAN: * Continue . * Continue nutritional support. * Continue GI prophylaxis. * Monitor electrolytes. * Continue on telemetry. * The patient will be followed closely. TID: [id number] RECEIPT: [id number]
[2025-01-29 03:40] LABS: IMMATURE GRANULOCYTE ABSOLUTE 0.63 K/uL (0-1); NUCLEATED RED BLOOD CELLS 0.0 % (0.0-0.19); PLATELET COUNT (AUTO) 301 K/uL (130-400); RED BLOOD CELL COUNT(AUTO) 3.22 MIL/uL (4.00-5.50); RED CELL DISTRIBUTION WIDTH 14.5 % (11.0-15.5); WHITE BLOOD COUNT (AUTO) 20.6 K/uL (4.8-10.8)
[2025-01-29 03:50] LABS: CREATININE 1.2 mg/dL (0.5-1.0); GLOMERULAR FILTR. RATE CALC 46.0 mL/min (>90); GLUCOSE,RANDOM 95.0 mg/dL (70-105); SODIUM SERUM 143.0 mmol/L (136-145); UREA NITROGEN, BLOOD 54.0 mg/dL (7-18)
--- NOTE | 2025-01-29 07:55 | HMCIMG ---
EXAM: CR Chest, single view. CLINICAL HISTORY: Pleuritic pain. COMPARISON: Prior chest radiograph dated January 28, 2025. FINDINGS: Poststernotomy status. Cardiomegaly with bilateral hilar congestion. A battery pack is in the left anterior chest wall with pacemaker wires in the right atrium and ventricles. Subtle blunting of the bilateral costophrenic angle probably indicates minimal bilateral pleural effusion. No evidence of pneumothorax. Atherosclerotic calcification of the aortic arch. No acute osseous abnormality. Degenerative changes in the mid and lower thoracic spine. 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 IMPRESSION: Poststernotomy status. Cardiomegaly with bilateral hilar congestion. A battery pack is in the left anterior chest wall with pacemaker wires in the right atrium and ventricles. Subtle blunting of the bilateral costophrenic angle probably indicates minimal bilateral pleural effusion. No evidence of pneumothorax. Compared to the prior study, there is no significant interval change. /Foley
--- NOTE | 2025-01-29 11:09 | PN ---
[facility] Cardiology Progress Note PROBLEM LIST: [ *Paroxysmal atrial fibrillation with rapid ventricular response with persistent atrial fibrillation on this admission, with rate controlled. * 2D echo this admission, EF 50-55%, grade diastolic dysfunction, prosthetic aortic valve with peak and mean gradients of 59 and31 mm Hg, with decreased opening * History of conduction system disease, status post remote dual chamber permanent pacemaker implant with a Biotronik device with subsequent generator changed out in 01/2020 with a Biotronik device. * Hypertension. * History of normal coronary arteries by remote cardiac catheterization. * History of gastric ulcer with severe GI bleeding in 2019. * History of severe aortic stenosis, status post 3 separate surgical interventions, 2 with mechanical valve replacement in 2000 and finally redo surgery complicated by sepsis and perivalvular leak and hemolysis requiring a third surgery in [place] with aortic homograft and a bioprosthetic valve in 2021. * Evidence of moderate aortic insufficiency with an EF of 50-55% on this admission with a dilated left ventricular cavity, pressure half time is 441 milliseconds. * Ovarian cancer, status post hysterectomy and bilateral salpingo-oophorectomy with chemotherapy at [facility] in 2022. * History of recurrent epistaxis, resulting in discontinuation of anticoagulation therapy. * Presentation with hemoptysis on this admission felt to be secondary to right lower lobe pneumonia as per Pulmonary Critical Care Medicine. * Positive sputum cultures for gram-positive cocci and gram-negative rods. * Altered mental status and dementia, improved. * Frail. * Octogenarian * Suspected alveolar hemorrhage on CT scan ] INTERVAL HISTORY: [ Patient is sitting upright in a chair, enjoying lunch, watching the football game. Patient says she feels fantastic, even better than yesterday. Denies any chest tightness or pressure, palpitations, shortness or breath, leg edema. Says her breathing is good. Patient has been in RVR this morning up to the 140s but she is apparently asymptomatic during these episodes. Blood pressure [place] [id number] today, on prednisone. She is on digoxin 125 mcg daily, diltiazem. Denies fever, no hemoptysis, GI, bleeding] PHYSICAL EXAMINATION: Vital Signs (Last 48hrs) Date Time Temp Pulse Resp B/P (MAP) Pulse Ox O2 Delivery O2 Flow Rate FiO2 01/29/25 07:00 98.1 126 22 103/42 95 Room Air 01/29/25 06:42 130 18 N/A Room Air 21 01/29/25 06:37 126 18 01/29/25 03:25 97.9 124 18 92/62 94 Room Air 01/28/25 23:40 86 18 01/28/25 23:25 97.3 100 20 112/59 97 Room Air 01/28/25 20:00 100 Room Air* 0 21 01/28/25 19:25 97.5 86 20 102/52 97 Room Air 01/28/25 18:50 88 18 N/A Room Air 21 01/28/25 18:50 88 18 01/28/25 16:00 97.5 95 20 120/75 100 Room Air 01/28/25 12:00 98.8 120 20 120/55 100 Nasal Cannula 1.0 01/28/25 11:51 98 20 01/28/25 11:51 98 18 N/A Room Air 21 01/28/25 11:49 95 18 21 155 22 21 01/28/25 10:58 95 01/28/25 09:58 85 01/28/25 08:00 100 Room Air* 0 21 01/28/25 07:30 97.5 85 20 119/43 100 Nasal Cannula 1.0 01/28/25 06:11 73 20 N/Cannula Low lpm 2.0 01/28/25 06:09 73 20 01/28/25 04:30 98.2 83 18 113/62 100 Room Air 01/28/25 00:17 98.1 119 18 109/40 99 Nonrebreathing Mask 01/27/25 22:59 87 18 N/Cannula Low lpm 2.0 01/27/25 22:58 87 18 01/27/25 20:00 97 Nasal Cannula* 2 01/27/25 19:16 98.8 158 18 111/58 99 Nasal Cannula 1.0 01/27/25 18:51 87 18 N/Cannula Low lpm 2.0 28 01/27/25 18:50 87 18 01/27/25 16:00 97.5 82 21 105/50 99 Nasal Cannula 2.0 01/27/25 11:20 117 18 General: Resting comfortably, no acute distress, jaundiced appearing. HEENT: Atraumatic. Hearing is intact. No facial asymmetry, nasal discharge, icterus or lid lag. Cardiovascular: Tachycardic, irregular. No murmur. No edema. Respiratory: Limited air movement in the left base. No retractions, wheezes or rhonchi. Gastrointestinal: Benign, soft, nontender, nondistended. Extremities: No amputations. Range of motion is grossly normal. Neurology/Psychiatry: No tremors. Speech is clear. Alert and oriented x 3. Cooperative and pleasant. LABORATORY DATA: [ Laboratory Tests Test 01/29/25 03:14 White Blood Count 20.6 K/uL (4.8-10.8) #H Red Blood Count 3.22 MIL/uL (4.00-5.50) L Hemoglobin 10.4 g/dL (12.0-16.0) L Hematocrit 30.8 % (36-48) L Mean Corpuscular Volume 95.7 fL (79-99) Mean Corpuscular Hemoglobin 32.3 pg (27.0-33.0) Mean Corpuscular Hemoglobin Concent 33.8 g/dL (32.0-36.0) Red Cell Distribution Width 14.5 % (11.0-15.5) Platelet Count 301 K/uL (130-400) Mean Platelet Volume 10.4 fL (7.5-10.5) Immature Granulocyte % (Auto) 3.1 % (0-1) H Neutrophils (%) (Auto) 80.7 % (40.0-77.0) H Lymphocytes (%) (Auto) 7.3 % (21.0-51.0) L Monocytes (%) (Auto) 6.9 % (3.0-13.0) Eosinophils (%) (Auto) 1.8 % (0.0-8.0) Basophils (%) (Auto) 0.2 % (0.0-5.0) Neutrophils # (Auto) 16.6 K/uL (1.8-7.7) H Lymphocytes # (Auto) 1.5 K/uL (1.0-4.8) Monocytes # (Auto) 1.4 K/uL (0.1-1.0) H Eosinophils # (Auto) 0.36 K/uL (0.00-0.70) Basophils # (Auto) 0.04 K/uL (0.00-0.20) Absolute Immature Granulocyte (auto 0.63 K/uL (0-1) Nucleated Red Blood Cells 0.0 % (0.0-0.19) Sodium Level 143 mmol/L (136-145) Potassium Level 3.3 mmol/L (3.5-5.1) L Chloride Level 103 mmol/L (101-111) Carbon Dioxide Level 32 mmol/L (21-32) Blood Urea Nitrogen 54 mg/dL (7-18) H Creatinine 1.2 mg/dL (0.5-1.0) H Glomerular Filtration Rate Calc 46 mL/min (>90) Random Glucose 95 mg/dL (70-105) Total Calcium 8.3 mg/dL (8.5-10.1) L Magnesium Level 2.00 mg/dL (1.80-2.40) B-Type Natriuretic Peptide 485 pg/mL (0-100) H ] RADIOLOGY: [] PLAN: [Patient is sustaining AFib RVR this morning in the 120s to 140s. She is asymptomatic. She is on oral diltiazem 30 q.6 and mcg. Will give IV metoprolol. She was on Toprol 50 mg at home, start low-dose metoprolol 12.5. Continue scheduled midodrine and Lasix 40 b.i.d..] LYNNE PENN PAC Jan 29, 2025 11:09
--- NOTE | 2025-01-29 12:59 | PN ---
[facility] PROGRESS NOTE Date of Service: Jan 29, 2025 Time of Service: 12:52 SUBJECTIVE: 79-year-old female with past medical history of ovarian cancer, hypertension, history of gastric ulcer, history of history of aortic valve stenosis status post valve replacement who presented to the hospital secondary to hemoptysis. The patient states she has noted cough at home which is productive in nature. She has noted blood with her sputum. She does not have any hematemesis, melena, hematochezia. Denied any recent epistaxis. She has noted previous episodes of epistaxis in the past but denied any recent episode. Her blood is mainly present after coughing in the sputum. Denied any fever, chills, chest pain, abdominal pain, nausea. She does get short of breath with her underlying cough. She has been followed by Dr. Small as outpatient regards to aortic valve stenosis. She currently denies taking any antiplatelet or anticoagulants at home. She denied any night sweats, recent weight loss. Labs were notable for white count of 12.5, hemoglobin was 10.5, platelet count was 237 K, sodium was 132, potassium was 4.1, creatinine was 1.0. Chest x-ray infiltrates on the right side. Patient will be admitted for further medical management. 01/21/2025: Patient was seen and evaluated bedside in ED 11. Case discussed with RN, no acute overnight events. Patient says she is feeling well, denies chest pain, shortness of breath, palpitations, nausea, vomiting. X-ray shows airspace consolidation involving right middle and right lower lung and blunting of both costophrenic sulcus suggesting a pleural reaction. CT chest shows large consolidation likely of infectious origin, ground-glass opacities with interlobular septal thickening giving rise to crazy paving pattern in right lower lobe suggesting underlying pulmonary edema. Lab shows white count 14.9, CRP 106, BNP 555. EKG showed prolonged QTC, azithromycin was discontinued and doxycycline was started, continue Zosyn. Cardiology was consulted for further evaluation. 01/22/2025: Patient was seen and evaluated bedside in room 228. Patient developed acute delirium yesterday afternoon and tele psychiatric consultation was requested. Psychiatry evaluation revealed acute delirium and recommended to start Seroquel 12.5 mg b.i.d. p.r.n. for agitation, restlessness or psychosis and 25 mg q.h.s. for sleep. Lab this morning shows elevated white count at 18.3, BNP 1500, D-dimer 2294. X-ray revealed worsening consolidation on right side. Patient started on Lasix 40 mg q.12h, Solu-Medrol 40 mg q.6h, continue IV antibiotics. Infectious Disease, Cardiology, pulmonology on board and we will follow up with the recommendations. 01/23/2025: Patient was seen and evaluated in room 228 while patient's family was present at the bedside. Patient had high heart rate yesterday and the rhythm strip revealed SVTs for which metoprolol tartarate 25 mg once and midodrine 10 mg was given. This morning patient still had her heart rate in 120s but patient was asymptomatic. Patient currently denies shortness of breath, chest pain, palpitations and was well oriented to time, place, person. A repeat chest x-ray today showed slight improvement. Patient reported that she has had history of nosebleeds as a child and had more frequent episodes when she was taking Coumadin. At the time of admission she had hemoptysis when she noticed mild blood-streaked sputum while she cough but does not have hemoptysis now. Currently denies nosebleeds despite being on Lovenox 30 mg for DVT prophylaxis. Cardiology recommended continuing IV Lasix 40 mg q.12 and hold losartan. Patient admitted to declining evaluation with transesophageal ECHO in the past however would like to initiate the conversation with vocational horticulture instructor once the pneumonia is resolved after discharge from the hospital. 01/24/2025: Patient was seen and evaluated bedside in room 228. She is awake, alert, confused and having one on one sitter currently. Currently saturating 97% with3 L nasal cannula and Lab showed BNP 1210, white count 13.5, CRP trended down to 74. Blood culture showed no growth after24 hours, Legionella urine antigen is negative. Continue Lasix 40 mg q.12h , Zosyn and doxycycline. Infectious Disease, Cardiology, pulmonology on board and we will follow up their recommendation. 01/25/2025: Patient was seen and evaluated bedside in room 420. She is awake, alert, confused and having one on one sitter currently. Patient's heart rate high fluctuating in 140s and 150s, patient was in AFib with RVR this morning. Cardiology started digoxin, Cardizem and stopped Norvasc, patient will be upgraded to PCCU. Lab showed potassium 2.7 this morning, started replacing per protocol and held Lasix IV temporarily. White count trended down to 9.5, CRP trended down to 48, BNP trended up to 1910. Infectious Disease, Cardiology, pulmonology on board and we will follow up the recommendations. 01/26/2025: Patient was seen and evaluated bedside in room 223. She is awake, alert, confused and having one on one sitter currently. Patient heart rate has been improved to 100s, continue current regimen. White Count has trended up to 15.4, BNP trended down to 1370. Infectious Disease, Cardiology, and pulmonology on board and we will follow up with the recommendations. 01/27/2025: Patient was seen and evaluated bedside in room 223. She is awake, alert, confused and having one on one sitter currently. Patient heart rate this morning fluctuating in 100s and 110s, cardiology wanted to evaluate further with a OLIVER to look her aortic valve after her pneumonia is resolved. White count trended down to 7.9, BNP trended down to 1240, her digoxin level this morning within normal limits. Pending CT chest report. Started tapering Solu-Medrol, continue IV antibiotics, continue regimen recommended by Cardiology. Case management on board for disposition of patient to SNF/rehabilitation. Infectious Disease, Cardiology and pulmonology on board and we will follow up with the recommendations. 01/28/2025: Patient was seen and evaluated bedside in room 223. She is awake, alert, oriented x3. patient family said that her confusion has come down significantly. Patient heart rate is controlled in 80s and 90s, continue current regimen recommended by vocational horticulture instructor. BNP trended down to 607, her digoxin level this morning within normal limits. Infectious Disease recommended IV antibiotics for 7 days as outpatient, pending approval by insurance for [email or web address] for IV antibiotics. Pending 6 minute walk test. Once patient gets approval by insurance we will take cardiology recommendations and discharge the patient home. 01/29/25: Patient was seen and evaluated bedside in room 223. She is awake, alert, oriented x3. Patient reports feeling a lot better today. Patient denies any confusion, fever, chills or shortness of breath. BNP has been trended down to 485 from 607. Heart rate today was 113. Infectious Disease recommended IV antibiotics for 7 days as outpatient, pending approval by insurance for [facility] [[email or web address] for IV antibiotics. Once patient gets approval by insurance we will take cardiology recommendations and discharge the patient home. REVIEW OF SYSTEMS CONSTITUTIONAL: Denies fevers, chills, or night sweats. No unintentional weight loss reported. NEUROLOGICAL: Denies headache, motor weakness, sensory deficit, vertigo/spinning sensation, gait abnormalities, or tremors. ENT: No hearing loss, otalgia, otorrhea, rhinitis, rhinorrhea, hoarseness, or sore throat. CARDIOVASCULAR: Denies any exertional angina, dyspnea on exertion, orthopnea, paroxysmal nocturnal dyspnea, palpitations, life-threatening arrhythmias, claudication. PULMONARY: Positive for hemoptoic sputum, cough, sputum production, all resolved now SLEEP: Denies morning headaches, daytime somnolence or napping. Denies difficulty falling asleep, staying asleep, waking from sleep. Denies knowledge of snoring. GASTROINTESTINAL: Denies any type of dysphagia to either liquids or solids. Denies nausea, vomiting, pyrosis, early satiety, abdominal pain, diarrhea, constipation, or changes in stool consistency or caliber. Denies coffee-ground emesis, hematemesis, hematochezia, or melanotic stools. GENITOURINARY: Denies frequency, urgency, nocturia, hematuria or incontinence (Storage/Irritative symptoms.) Low urinary stream, straining to void, urinary intermittency or hesitancy, splitting of the voiding stream, terminal dribbling. ENDOCRINOLOGIC: Denies polyuria, polydipsia, polyphagia or heat/cold intolerances. HEMATOLOGIC: Denies thrombophilia/previous clots, or coagulopathy/bleeding disorders. PSYCHIATRIC: Denies any suicidal or homicidal ideation. Denies hallucinations. PHYSICAL EXAM GENERAL APPEARANCE: The patient is awake, alert, and oriented, in no acute cardiopulmonary distress. Patient is bright red blood in the cup present at bedside NEUROLOGICAL: Cranial nerves II-XII grossly intact. Motor is 5/5 in bilateral upper and lower extremities proximal to distal. No sensory deficits. HEENT: Face is symmetric. Pupils are equal and reactive. Extraocular movements are intact. NECK: Supple. No JVD. No thyromegaly. No submental, submandibular, pre- /postauricular, occipital or supraclavicular lymphadenopathy. CHEST: Normal chest expansion. No Telemetry. LUNGS: She has a crackles present bilaterally, more on the right side. CARDIOVASCULAR: Regular. S1 and S2 normal. No appreciable rubs, murmurs or gallops. ABDOMEN: Soft, nontender, and nondistended. There is no rebound, voluntary guarding, or rigidity. : Deferred. No Wallace. EXTREMITIES: Non-edematous and not cyanotic. No clubbing. Good capillary refill. SKIN: No skin breakdown. Vital Signs (last 8hr) Date Time Temp Pulse Resp B/P (MAP) Pulse Ox O2 Delivery O2 Flow Rate FiO2 01/29/25 11:52 128 01/29/25 11:24 113 18 N/A Room Air 21 01/29/25 11:21 113 18 01/29/25 11:00 97.9 118 20 107/43 94 Room Air 01/29/25 07:00 98.1 126 22 103/42 95 Room Air 01/29/25 06:42 130 18 N/A Room Air 21 01/29/25 06:37 126 18 LABS: Laboratory: Test 01/29/25 03:14 01/28/25 12:14 01/28/25 05:02 Range/Units White Blood Count 20.6 #H 4.8-10.8 K/uL Red Blood Count 3.22 L 4.00-5.50 MIL/uL Hemoglobin 10.4 L 12.0-16.0 g/dL Hematocrit 30.8 L 36-48 % Mean Corpuscular Volume 95.7 79-99 fL Mean Corpuscular Hemoglobin 32.3 27.0-33.0 pg Mean Corpuscular Hemoglobin Concent 33.8 32.0-36.0 g/dL Red Cell Distribution Width 14.5 11.0-15.5 % Platelet Count 301 130-400 K/uL Mean Platelet Volume 10.4 7.5-10.5 fL Immature Granulocyte % (Auto) 3.1 H 0-1 % Neutrophils (%) (Auto) 80.7 H 40.0-77.0 % Lymphocytes (%) (Auto) 7.3 L 21.0-51.0 % Monocytes (%) (Auto) 6.9 3.0-13.0 % Eosinophils (%) (Auto) 1.8 0.0-8.0 % Basophils (%) (Auto) 0.2 0.0-5.0 % Neutrophils # (Auto) 16.6 H 1.8-7.7 K/uL Lymphocytes # (Auto) 1.5 1.0-4.8 K/uL Monocytes # (Auto) 1.4 H 0.1-1.0 K/uL Eosinophils # (Auto) 0.36 0.00-0.70 K/uL Basophils # (Auto) 0.04 0.00-0.20 K/uL Absolute Immature Granulocyte (auto 0.63 0-1 K/uL Nucleated Red Blood Cells 0.0 0.0-0.19 % Sodium Level 143 136-145 mmol/L Potassium Level 3.3 L 3.5-5.1 mmol/L Chloride Level 103 101-111 mmol/L Carbon Dioxide Level 32 21-32 mmol/L Blood Urea Nitrogen 54 H 7-18 mg/dL Creatinine 1.2 H 0.5-1.0 mg/dL Glomerular Filtration Rate Calc 46 >90 mL/min Random Glucose 95 70-105 mg/dL Total Calcium 8.3 L 8.5-10.1 mg/dL Magnesium Level 2.00 1.80-2.40 mg/dL B-Type Natriuretic Peptide 485 H 0-100 pg/mL Prothrombin Time 11.4 9.6-11.6 SEC Prothromb Time International Ratio 1.08 0.85-1.15 White Cell Morphology Comment See comments Iron Level 79 50-170 mcg/dL Total Iron Binding Capacity 166 L 250-450 mcg/dL Percent Iron Saturation 47.5 H 22-44 % Digoxin Level 1.20 # 0.50-2.00 ng/mL Current Medications Medications (Trade) Dose Ordered Sig/Sadi Route PRN Reason Start Time Stop Time Status Last Admin Dose Admin Acetaminophen (TYLenol 325MG TAB) 650 mg Q4H PRN PO MILD PAIN (1-3) 01/20/25 13:00 02/19/25 12:59 Acetaminophen (TYLenol 325MG TAB) 650 mg Q6H PRN PO TEMPERATURE GREATER THAN 101.5 01/20/25 13:00 02/19/25 12:59 Albuterol (DUOneb) 1 UDVIAL [id number] IH 01/22/25 06:00 01/22/25 03:00 DC Albuterol Sulfate (Proventil 0.083% 2.5mg/3ml) 2.5 mg [id number] IH 01/22/25 03:00 01/22/25 14:40 DC 01/22/25 06:35 2.5 MG Albuterol Sulfate (Proventil 0.083% 2.5mg/3ml) 2.5 mg [id number] IH 01/22/25 18:00 01/22/25 19:08 DC Amlodipine Besylate (NorvASC 2.5MG TAB) 2.5 mg DAILY PO 01/22/25 09:00 01/25/25 07:40 DC 01/24/25 10:41 2.5 MG Amlodipine Besylate (NorvASC 5MG TAB) 5 mg DAILY PO 01/22/25 09:00 01/25/25 07:40 DC 01/24/25 10:41 5 MG Artificial Tears (Artificial Tears) 1 DROP Q2H PRN OP DRY EYES 01/20/25 13:00 02/19/25 12:59 Azithromycin 250 ml @ 250 mls/hr Q24H IVPB 01/21/25 14:30 01/21/25 10:33 DC Benzocaine (Cepacol Sore Throat Lozenge) 1 each Q2H PRN MM SORE THROAT 01/20/25 13:00 02/19/25 12:59 Dexmedetomidine/ Sodium Chloride (PRECEdex 200MCG/ 50ML-NS) 200 mcg PROTOCOL IV 01/22/25 03:30 01/28/25 11:25 DC Diazepam (VALium 5 MG/ML 2 ML SYG) 1.25 mg ONCE PRN IV ANXIETY 01/25/25 02:10 02/01/25 02:09 Digoxin (LANOxin 125mcg) 125 mcg DAILY PO 01/26/25 09:00 01/26/25 08:33 DC Digoxin (LANOxin 125mcg) 125 mcg DAILY PO 01/26/25 09:00 02/25/25 08:59 01/29/25 11:52 125 MCG Digoxin (LANOxin 250 MCG/ ML 2ML AMP) 125 mcg Q6H IV 01/25/25 14:00 01/26/25 02:00 DC 01/26/25 00:08 125 MCG Digoxin (LANOxin 250 MCG/ ML 2ML AMP) 250 mcg ONCE IV 01/25/25 07:30 01/25/25 08:00 DC 01/25/25 08:01 250 MCG Diltiazem HCl (CARDIzem 60MG TAB) 30 mg Q6H PO 01/25/25 07:30 02/24/25 07:29 01/29/25 06:40 30 MG Docusate Sodium (COLace 100MG CAP) 100 mg BID PRN PO CONSTIPATION 01/20/25 13:00 02/19/25 12:59 Doxycycline Hyclate 250 ml @ 125 mls/hr Q12H IV 01/21/25 10:30 01/31/25 10:29 01/29/25 11:52 125 MLS/HR Enoxaparin Sodium (Lovenox) 30 mg DAILY SQ 01/22/25 09:00 01/22/25 09:00 DC Enoxaparin Sodium (Lovenox) 30 mg DAILY SQ 01/22/25 16:00 01/22/25 19:25 DC Enoxaparin Sodium (Lovenox) 30 mg Q24H SQ 01/22/25 19:30 02/21/25 19:29 01/28/25 19:58 30 MG Famotidine (Pepcid 20mg Vial) 20 mg Q24H IV 01/20/25 21:00 02/19/25 20:59 01/28/25 20:37 20 MG Furosemide (LASix 20MG TAB) 20 mg AD PO 01/21/25 09:00 01/21/25 08:59 DC Furosemide (LASix 20MG TAB) 20 mg DAILY PO 01/23/25 09:00 01/22/25 09:17 DC Furosemide (LASix 40MG TAB) 40 mg BID@09,17 PO 01/28/25 17:00 02/27/25 16:59 01/29/25 11:52 40 MG Furosemide (LASix 40MG VIAL) 40 mg Q12H IV 01/22/25 09:30 01/28/25 11:25 DC 01/28/25 09:57 40 MG Guaifenesin (RobiTUSSin SUGAR-FREE 100 MG/ 5 ML UDCUP) 200 mg Q4H PRN PO COUGH 01/20/25 13:00 02/19/25 12:59 01/21/25 20:38 200 MG Guaifenesin/ Dextromethorphan (RobiTUSSin DM 200/20MG 10ML) 10 ml Q4H PRN PO COUGH 01/20/25 13:00 02/19/25 12:59 Ipratropium [place] (AtrovENT UD) 0.5 mg [id number] IH 01/22/25 03:00 01/22/25 14:30 DC 01/22/25 10:00 0.5 MG Ipratropium [place] (AtrovENT UD) 0.5 mg [id number] IH 01/22/25 18:00 02/21/25 02:59 01/29/25 11:21 0.5 MG Lactulose (Constulose 20gm/ 30ml Udcup) 20 gm BID PRN PO CONSTIPATION 01/20/25 13:00 02/19/25 12:59 Lidocaine HCl/Al Hydroxide/Mg Hydroxide/ Dicyclomine HCl 20ML OR AD MAALOX P... Q6H PRN PO HEARTBURN 01/20/25 13:00 02/19/25 12:59 Lisinopril (Prinivil 20mg) 20 mg DAILY PO 01/22/25 09:00 01/22/25 09:26 DC Loperamide HCl (Imodium) 2 mg Q6H PRN PO AFTER EACH LOOSE STOOL 01/20/25 13:00 02/19/25 12:59 Lorazepam (AtiVAN) 0.5 mg HS PRN PO INSOMNIA 01/21/25 22:30 02/20/25 22:29 01/23/25 22:36 0.5 MG Losartan Potassium (CozAAR 25MG TAB) 25 mg DAILY PO 01/22/25 11:00 01/23/25 10:48 DC 01/22/25 11:11 25 MG Losartan Potassium (CozAAR 25MG TAB) 25 mg DAILY PO 01/23/25 09:00 01/22/25 10:58 DC Magnesium Sulfate 50 ml @ 0 mls/hr PROTOCOL PRN IV hypomagnesemia 01/20/25 12:00 02/19/25 11:59 01/28/25 06:37 25 MLS/HR Methylprednisolone Sodium Succinate (Solu-medROL 40MG) 40 mg Q12H IVP 01/25/25 15:00 01/28/25 11:25 DC 01/28/25 03:23 40 MG Methylprednisolone Sodium Succinate (Solu-medROL 40MG) 40 mg Q6H IVP 01/22/25 21:00 01/25/25 07:40 DC 01/25/25 04:07 40 MG Methylprednisolone Sodium Succinate (Solu-medROL 125MG) 40 mg Q6H IVP 01/22/25 09:00 01/22/25 15:45 DC 01/22/25 15:37 40 MG Metoprolol Succinate (TopROL XL) 50 mg DAILY PO 01/21/25 09:00 01/22/25 09:17 DC 01/21/25 10:21 50 MG Metoprolol Tartrate (loprESSOR) 2.5 mg Q6H PRN IV INCREASED HEART RATE >130 BPM 01/24/25 20:00 02/23/25 19:59 01/25/25 06:35 2.5 MG Metoprolol Tartrate (loprESSOR) 25 mg BID PO 01/22/25 21:00 01/23/25 10:47 DC 01/23/25 09:40 25 MG Midodrine (PROAMatine 5 MG TABLET) 10 mg Q8H PRN PO MAP <65 01/22/25 23:00 02/21/25 22:59 01/23/25 00:16 10 MG Nitroglycerin (Nitrostat) 0.4 mg PROTOCOL PRN SL CHEST PAIN 01/20/25 13:00 02/19/25 12:59 Ondansetron HCl (zoFRAN 4MG INJ) 4 mg Q6H PRN IV NAUSEA/VOMITING 01/20/25 13:00 02/19/25 12:59 Piperacillin Sod/ Tazobactam Sod (Zosyn 3.375gm+NS 50ml) 3.375 gm Q8H IVPB 01/20/25 12:00 01/21/25 13:17 DC 01/21/25 04:05 3.375 GM Piperacillin Sod/ Tazobactam Sod (Zosyn 3.375gm+NS 50ml) 3.375 gm Q8H IVPB 01/21/25 14:30 01/31/25 14:29 01/29/25 06:39 3.375 GM Polyethylene Glycol (MIRalax 3350 17 GM POWD.PACK) 17 gm DAILY PRN PO CONSTIPATION 01/20/25 13:00 02/19/25 12:59 Potassium Chloride 100 ml @ 100 mls/hr AD PRN IV POTASSIUM PROTOCOL 01/20/25 12:00 02/19/25 11:59 01/25/25 08:59 100 MLS/HR Potassium Chloride (K-Dur/Klor-Con 20meq) 20 meq AD PRN PO POTASSIUM PROTOCOL 01/20/25 12:00 02/19/25 11:59 01/28/25 09:58 20 MEQ Potassium Chloride (KCl 10% Elixir 20meq/15ml) 20 meq AD PRN PO POTASSIUM PROTOCOL 01/20/25 12:00 02/19/25 11:59 01/29/25 11:58 20 MEQ Prednisone (deltaSONE/ oraSONE 20MG TAB) 20 mg DAILY PO 01/29/25 09:00 02/01/25 08:59 01/29/25 11:52 20 MG Quetiapine Fumarate (SEROquel 25 mg TAB) 12.5 mg BID PRN PO Agitation 01/21/25 22:30 01/26/25 08:42 DC Quetiapine Fumarate (SEROquel 25 mg TAB) 25 mg HS PO 01/22/25 21:00 01/26/25 08:42 DC Sodium Chloride (NS 50ml) 50 ml AD IV 01/20/25 12:00 01/20/25 12:10 DC DIAGNOSTICS / RADIOLOGY: [place] [address] IMAGING REPORT Signed PATIENT: NEHEMIAS BAINS MR#: [id number] : 1945 SEX: F AGE: 79 LOCATION: [facility] ORDER 2300 STATUS: ADM IN REPORT#: [id number] SERVICE 0600 REASON: pp ORDERING PHYSICIAN: APRYL STEPHENS PAC PROCEDURE: CXR1VW - CHEST 1VW EXAM: CR Chest, single view. CLINICAL HISTORY: Pleuritic pain. COMPARISON: Prior chest radiograph dated January 28, 2025. FINDINGS: Poststernotomy status. Cardiomegaly with bilateral hilar congestion. A battery pack is in the left anterior chest wall with pacemaker wires in the right atrium and ventricles. Subtle blunting of the bilateral costophrenic angle probably indicates minimal bilateral pleural effusion. No evidence of pneumothorax. Atherosclerotic calcification of the aortic arch. No acute osseous abnormality. Degenerative changes in the mid and lower thoracic spine. 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 IMPRESSION: Poststernotomy status. Cardiomegaly with bilateral hilar congestion. A battery pack is in the left anterior chest wall with pacemaker wires in the right atrium and ventricles. Subtle blunting of the bilateral costophrenic angle probably indicates minimal bilateral pleural effusion. No evidence of pneumothorax. Compared to the prior study, there is no significant interval change. /[place] DICTATED BY: ZHANE MOORE Jr., MD DATE: 01/29/25853 ELECTRONICALLY SIGNED BY: ZHANE MOORE Jr., MD DATE: 01/29/25853 ASSESSMENT: Hemoptysis POA Community-acquired pneumonia POA Aortic valve stenosis status post aortic valve replacement POA Atrial fibrillation vs SVT not on anticoagulation for history of epistaxis Hypertension POA Hyperlipidemia History of gastric ulcer History of ovarian cancer Mild hyponatremia PLAN: Community-acquired pneumonia POA * Patient came to ED with cough which is productive in nature noted blood with her sputum likely hemoptoic sputum. * CT chest showed large consolidation likely of infectious origin * WBC Count on 01/27/2025 trended down to 7.9. WBC today (01/29/25) is 20.6 * Patient was started on Zosyn IV, azithromycin IV on 01/20/2025 * Patient's EKG showed prolonged QTC, azithromycin was discontinued this morning. * Continue IV Zosyn 3.375 G IV Q8 (day 10), started doxycycline 250 mL IV q.12h (day 9) * Switched IV soluMedrol 40 mg q.12h to oral prednisone 20 mg on 01/28/2025 * Critical Care on board, we will follow up with the recommendations. Hemoptysis, due to pneumonia POA * Patient noted blood after coughing out phlegm at home. * CBC shows hemoglobin 10.5, hematocrit 31.5 at presentation. * Patient denied further episodes of coughing out blood this morning. * CBC shows hemoglobin 10.4, hematocrit 30.8 on 01/29/2025 * Critical Care on board for further evaluation Aortic valve stenosis status post aortic valve replacement POA * Patient has history of recall stenosis status post valve replacement in 2000 * We echo from 09/23/2023 shows bioprosthetic aortic wall is present, with thickened and possible degenerating left coronary cusp, moderate aortic regurgitation. * BNP 485 on 01/29/2025 * Switched IV Lasix to oral furosemide 40 mg b.i.d. on 01/28/2025 * 2D echo on 01/22/2025 showed LVEF of 50-55% with normal LV segmental wall motion, concentric LVH with stage II diastolic dysfunction. Bioprosthetic aortic valve present * Cardiology recommended outpatient CCTA in [place] if the patient refuses transesophageal echo procedure again for evaluation of paravalvular leak for aortic valve. Atrial fibrillation vs SVT not on anticoagulation for history of epistaxis * Patient had high heart rate in the range of 140s to 150s last night and rhythm strip revealed suspected atrial fibrillation or supraventricular tachycardia * Patient is started on digoxin, Cardizem 30 mg q.6 p.o. for AFib with RVR, discontinued Norvasc * Patient was started on metoprolol tartrate 25 mg once and a midodrine 10 mg was given * Cardiology recommended to hold losartan and defer use of beta blockers for the moment * Patient admitted to frequent nosebleeds in the past and increased frequency with Coumadin however no nosebleeds currently * Patient tolerating Lovenox 30 mg daily without any bleeding * We will follow up with Cardiology for further management of anticoagulation Pepcid 20 mg Q 24 H IV for GI prophylaxis Lovenox 30 mg SQ daily for DVT prophylaxis ATTESTATION BY PHYSICIAN I have seen and examined the patient. I reviewed the documentation, medical decision making, and treatment plan as noted by the resident provider above. I agree with the findings and plan of care. Geoffrey Cervantes MD, SHAJI MD Jan 29, 2025 12:59
--- NOTE | 2025-01-29 14:16 | NUR ---
received via fron tel unit verbally responsive denies pain oriented to rm call tuttle with reach
--- NOTE | 2025-01-29 14:28 | NUR ---
peeparing to dc hm dc fc leslie well iv dc leslie well cath intact dressing to iv removal site Addendum: 01/29/25 at 1507 by JAYDEN NOLEN LVN LVN incorrect pt
--- NOTE | 2025-01-29 16:44 | PN ---
INFECTIOUS DISEASE PROGRESS NOTE Date of Service: Jan 29, 2025 SUBJECTIVE: This is an 79-year-old female patient who was examined at bedside in room 223. Patient is awake and alert. Patient is sitting up to the bedside chair in no distress. Family visiting at bedside. The WBC trended up to 20.6, the Solu- Medrol however was discontinued yesterday. No fever, temperature is 98.1. No growth reported on the sputum cultures and blood cultures. Patient is currently on Zosyn and doxycycline. The BNP has improved to 485. We will continue to follow patient's care. PHYSICAL EXAM EYES: Anicteric. Pupils equal and reactive. HENT: No oral thrush seen, moist Oral mucosa NECK: Supple, no JVD or thyromegaly. LUNGS: Good air entry. Crackles to the right side. Diminished. Oxygen support via nasal cannula. CARDIOVASCULAR: S1, S2 regular. No murmur heard. ABDOMEN: Soft, non tender, bowel sounds present, no organomegaly. CENTRAL NERVOUS SYSTEM: Awake, alert, oriented x 1. SKIN: No rashes, no swelling. LYMPHATICS: No peripheral lymphadenopathy. MUSCULOSKELETAL: No joint swelling, erythema or tenderness. EXTREMITIES: No cyanosis or clubbing. BACK: No deformity, no pressure ulcer. GENITOURINARY: No dysuria or hematuria. Vital Sign (Last 12 Hours) 01/29/25 01/29/25 01/29/25 01/29/25 06:37 06:42 07:00 08:00 Temp 98.1 Pulse 126 130 126 Resp 18 18 22 B/P (MAP) 103/42 Pulse Ox 95 95 O2 Delivery N/A Room Air Room Air Room Air* O2 Flow Rate 0 FiO2 21 21 01/29/25 01/29/25 01/29/25 01/29/25 11:00 11:21 11:24 11:52 Temp 97.9 Pulse 118 113 113 128 Resp 20 18 18 B/P (MAP) 107/43 Pulse Ox 94 O2 Delivery Room Air N/A Room Air FiO2 21 01/29/25 14:20 Pulse Ox 97 O2 Delivery Room Air* O2 Flow Rate 0 FiO2 21 Intake & Output (last 24hrs) 01/28/25 01/28/25 01/29/25 15:00 23:00 07:00 Intake Total 300.0 ml 1500 ml 800.0 ml Output Total 2000 ml 200 ml 850 ml Balance -1700.0 ml 1300 ml -50.0 ml LABS: Laboratory: Test 01/29/25 03:14 01/28/25 12:14 01/28/25 05:02 Range/Units White Blood Count 20.6 #H 4.8-10.8 K/uL Red Blood Count 3.22 L 4.00-5.50 MIL/uL Hemoglobin 10.4 L 12.0-16.0 g/dL Hematocrit 30.8 L 36-48 % Mean Corpuscular Volume 95.7 79-99 fL Mean Corpuscular Hemoglobin 32.3 27.0-33.0 pg Mean Corpuscular Hemoglobin Concent 33.8 32.0-36.0 g/dL Red Cell Distribution Width 14.5 11.0-15.5 % Platelet Count 301 130-400 K/uL Mean Platelet Volume 10.4 7.5-10.5 fL Immature Granulocyte % (Auto) 3.1 H 0-1 % Neutrophils (%) (Auto) 80.7 H 40.0-77.0 % Lymphocytes (%) (Auto) 7.3 L 21.0-51.0 % Monocytes (%) (Auto) 6.9 3.0-13.0 % Eosinophils (%) (Auto) 1.8 0.0-8.0 % Basophils (%) (Auto) 0.2 0.0-5.0 % Neutrophils # (Auto) 16.6 H 1.8-7.7 K/uL Lymphocytes # (Auto) 1.5 1.0-4.8 K/uL Monocytes # (Auto) 1.4 H 0.1-1.0 K/uL Eosinophils # (Auto) 0.36 0.00-0.70 K/uL Basophils # (Auto) 0.04 0.00-0.20 K/uL Absolute Immature Granulocyte (auto 0.63 0-1 K/uL Nucleated Red Blood Cells 0.0 0.0-0.19 % Sodium Level 143 136-145 mmol/L Potassium Level 3.3 L 3.5-5.1 mmol/L Chloride Level 103 101-111 mmol/L Carbon Dioxide Level 32 21-32 mmol/L Blood Urea Nitrogen 54 H 7-18 mg/dL Creatinine 1.2 H 0.5-1.0 mg/dL Glomerular Filtration Rate Calc 46 >90 mL/min Random Glucose 95 70-105 mg/dL Total Calcium 8.3 L 8.5-10.1 mg/dL Magnesium Level 2.00 1.80-2.40 mg/dL B-Type Natriuretic Peptide 485 H 0-100 pg/mL Prothrombin Time 11.4 9.6-11.6 SEC Prothromb Time International Ratio 1.08 0.85-1.15 White Cell Morphology Comment See comments Iron Level 79 50-170 mcg/dL Total Iron Binding Capacity 166 L 250-450 mcg/dL Percent Iron Saturation 47.5 H 22-44 % Digoxin Level 1.20 # 0.50-2.00 ng/mL ASSESSMENT: Hypoxic respiratory failure, resolving. Pneumonia. Leukocytosis. Anemia. Heart failure. History of ovarian cancer. AFib RVR. PLAN: Continue Zosyn. Continue doxycycline. Continue bronchodilators. Continue diuretics. Continue GI prophylaxis. Continue oxygen support. Current plan is to discharge patient to home. This case was reviewed and discussed with my supervising physician Dr. Briceno and the above assessment and plan was formulated and agreed upon. ATTESTATION BY PHYSICIAN I have seen and examined the patient. I reviewed the documentation, medical decision making, and treatment plan as noted by the mid-level provider above. I agree with the findings and plan of care. JAN BRICENO MD, [facility] Jan 29, 2025 16:44
--- NOTE | 2025-01-29 21:00 | NUR ---
REPORT ASSIGNMENT CHANGED, REPORT GIVEN TO JIM BURLESON, PATIENT HAD EPISODES OF HR SUSTAINING IN THE 120'S -130'2, PATIENT ASYMPTOMATIC, SCHEDULED PM MEDS ALREADY ADMINISTERED, HR IMPROVED IN THE 90'S AT THIS TIME, BED LOCKED IN LOWEST POSITION, SIDE RAILS UP X 2, SISTER REMAINS AT BEDSIDE WITH PATIENT, PLAN OF CARE STILL ONGOING
[2025-01-30] VITALS (12 sets, daily range): BP systolic 99–127; BP diastolic 4–58; PULSE 69–127; RESP 16–22; TEMP 97.2–97.6; O2SAT 96–100
[2025-01-30 06:03] LABS: IMMATURE GRANULOCYTE ABSOLUTE 0.38 K/uL (0-1); NUCLEATED RED BLOOD CELLS 0.0 % (0.0-0.19); PLATELET COUNT (AUTO) 258 K/uL (130-400); RED BLOOD CELL COUNT(AUTO) 3.18 MIL/uL (4.00-5.50); RED CELL DISTRIBUTION WIDTH 14.7 % (11.0-15.5); WHITE BLOOD COUNT (AUTO) 12.6 K/uL (4.8-10.8)
[2025-01-30 06:17] LABS: CREATININE 1.0 mg/dL (0.5-1.0); GLOMERULAR FILTR. RATE CALC 57.0 mL/min (>90); GLUCOSE,RANDOM 97.0 mg/dL (70-105); SODIUM SERUM 142.0 mmol/L (136-145); UREA NITROGEN, BLOOD 40.0 mg/dL (7-18)
--- NOTE | 2025-01-30 08:47 | PN ---
[facility] Cardiology Progress Note PROBLEM LIST: [ * Paroxysmal atrial fibrillation with rapid ventricular response with persistent atrial fibrillation on this admission * 2D echo this admission, EF 50-55%, grade diastolic dysfunction, prosthetic aortic valve with peak and mean gradients of 59 and31 mm Hg, with decreased opening * History of conduction system disease, status post remote dual chamber permanent pacemaker implant with a Biotronik device with subsequent generator changed out in 01/2020 with a Biotronik device. * Hypertension. * History of normal coronary arteries by remote cardiac catheterization. * History of gastric ulcer with severe GI bleeding in 2019. * History of severe aortic stenosis, status post 3 separate surgical interventions, 2 with mechanical valve replacement in 2000 and finally redo surgery complicated by sepsis and perivalvular leak and hemolysis requiring a third surgery in [place] with aortic homograft and a bioprosthetic valve in 2021. * Evidence of moderate aortic insufficiency with an EF of 50-55% on this admission with a dilated left ventricular cavity, pressure half time is 441 milliseconds. * Ovarian cancer, status post hysterectomy and bilateral salpingo-oophorectomy with chemotherapy at [facility] in 2022. * History of recurrent epistaxis, resulting in discontinuation of anticoagulation therapy. * Presentation with hemoptysis on this admission felt to be secondary to right lower lobe pneumonia as per Pulmonary Critical Care Medicine. * Positive sputum cultures for gram-positive cocci and gram-negative rods. * Altered mental status and dementia, improved. * Frail. * Octogenarian * Suspected alveolar hemorrhage on CT scan ] INTERVAL HISTORY: [ Patient was transferred from 2nd floor. Yesterday she had a prolonged episode of RVR in the morning but was completely asymptomatic, stating she has felt great. She was started on low-dose metoprolol tartrate yesterday and overnight she did have nonsustained episodes of RVR. Patient again was completely asymptomatic during them. No palpitations, chest discomfort, shortness of breath or edema. She feels much better than yesterday. Son also concurs stating she looks 100% better. White count has decreased. No fever. Appetite is good.] PHYSICAL EXAMINATION: Vital Signs (Last 48hrs) Date Time Temp Pulse Resp B/P (MAP) Pulse Ox O2 Delivery O2 Flow Rate FiO2 01/30/25 06:57 18 N/A Room Air 21 01/30/25 06:56 96 18 01/30/25 04:00 97.5 117 18 119/58 100 Room Air 01/30/25 00:00 97.5 75 18 127/4 96 Room Air 01/29/25 23:42 117 18 01/29/25 21:00 92 Room Air* 0 21 01/29/25 20:00 97.5 135 20 122/64 92 Room Air 01/29/25 19:06 110 18 01/29/25 19:05 110 18 N/A Room Air 21 01/29/25 16:00 98.1 90 19 117/39 97 Room Air 01/29/25 14:20 97 Room Air* 0 21 01/29/25 11:52 128 01/29/25 11:24 113 18 N/A Room Air 21 01/29/25 11:21 113 18 01/29/25 11:00 97.9 118 20 107/43 94 Room Air 01/29/25 08:00 95 Room Air* 0 21 01/29/25 07:00 98.1 126 22 103/42 95 Room Air 01/29/25 06:42 130 18 N/A Room Air 21 01/29/25 06:37 126 18 01/29/25 03:25 97.9 124 18 92/62 94 Room Air 01/28/25 23:40 86 18 01/28/25 23:25 97.3 100 20 112/59 97 Room Air 01/28/25 20:00 100 Room Air* 0 01/28/25 19:25 97.5 86 20 102/52 97 Room Air 01/28/25 18:50 88 18 N/A Room Air 21 01/28/25 18:50 88 18 01/28/25 16:00 97.5 95 20 120/75 100 Room Air 01/28/25 12:00 98.8 120 20 120/55 100 Nasal Cannula 1.0 01/28/25 11:51 98 20 01/28/25 11:51 98 18 N/A Room Air 21 01/28/25 11:49 95 18 21 155 22 21 01/28/25 10:58 95 01/28/25 09:58 85 General: Resting comfortably, no acute distress, jaundiced appearing. HEENT: Atraumatic. Hearing is intact. No facial asymmetry, nasal discharge, icterus or lid lag. Cardiovascular: Irregularly irregular, slightly tachycardic. No murmur. No edema. Respiratory: Crackles at the right base. No retractions, wheezes or rhonchi. Gastrointestinal: Benign, soft, nontender, nondistended. Extremities: No amputations. Range of motion is grossly normal. Neurology/Psychiatry: No tremors. Speech is clear. Alert and oriented x 3. Cooperative and pleasant. LABORATORY DATA: [ Laboratory Tests Test 01/30/25 05:45 White Blood Count 12.6 K/uL (4.8-10.8) H Red Blood Count 3.18 MIL/uL (4.00-5.50) L Hemoglobin 10.2 g/dL (12.0-16.0) L Hematocrit 30.1 % (36-48) L Mean Corpuscular Volume 94.7 fL (79-99) Mean Corpuscular Hemoglobin 32.1 pg (27.0-33.0) Mean Corpuscular Hemoglobin Concent 33.9 g/dL (32.0-36.0) Red Cell Distribution Width 14.7 % (11.0-15.5) Platelet Count 258 K/uL (130-400) Mean Platelet Volume 10.5 fL (7.5-10.5) Immature Granulocyte % (Auto) 3.0 % (0-1) H Neutrophils (%) (Auto) 76.9 % (40.0-77.0) Lymphocytes (%) (Auto) 9.9 % (21.0-51.0) L Monocytes (%) (Auto) 8.6 % (3.0-13.0) Eosinophils (%) (Auto) 1.4 % (0.0-8.0) Basophils (%) (Auto) 0.2 % (0.0-5.0) Neutrophils # (Auto) 9.7 K/uL (1.8-7.7) H Lymphocytes # (Auto) 1.3 K/uL (1.0-4.8) Monocytes # (Auto) 1.1 K/uL (0.1-1.0) H Eosinophils # (Auto) 0.18 K/uL (0.00-0.70) Basophils # (Auto) 0.02 K/uL (0.00-0.20) Absolute Immature Granulocyte (auto 0.38 K/uL (0-1) Nucleated Red Blood Cells 0.0 % (0.0-0.19) Sodium Level 142 mmol/L (136-145) Potassium Level 4.6 mmol/L (3.5-5.1) Chloride Level 105 mmol/L (101-111) Carbon Dioxide Level 29 mmol/L (21-32) Blood Urea Nitrogen 40 mg/dL (7-18) H Creatinine 1.0 mg/dL (0.5-1.0) Glomerular Filtration Rate Calc 57 mL/min (>90) Random Glucose 97 mg/dL (70-105) Total Calcium 8.9 mg/dL (8.5-10.1) ] RADIOLOGY: [] PLAN: [Patient is still having episodes of RVR, though completely asymptomatic. She was on Toprol 50 mg at home. Yesterday she was started on low-dose metoprolol tartrate 12.5 mg, which will increase to 25 mg b.i.d.. Continue oral Cardizem she can be discharged on a long-acting dose. She is not a candidate for anticoagulation given her hemoptysis and suspected alveolar hemorrhage on CT scan. Continue current Lasix 40 b.i.d. and digoxin 125 mcg daily.] LYNNE PENN PAC Jan 30, 2025 08:47
--- NOTE | 2025-01-30 11:45 | PN ---
[facility] PROGRESS NOTE Date of Service: Jan 30, 2025 Time of Service: 11:44 SUBJECTIVE: 79-year-old female with past medical history of ovarian cancer, hypertension, history of gastric ulcer, history of history of aortic valve stenosis status post valve replacement who presented to the hospital secondary to hemoptysis. The patient states she has noted cough at home which is productive in nature. She has noted blood with her sputum. She does not have any hematemesis, melena, hematochezia. Denied any recent epistaxis. She has noted previous episodes of epistaxis in the past but denied any recent episode. Her blood is mainly present after coughing in the sputum. Denied any fever, chills, chest pain, abdominal pain, nausea. She does get short of breath with her underlying cough. She has been followed by Dr. Small as outpatient regards to aortic valve stenosis. She currently denies taking any antiplatelet or anticoagulants at home. She denied any night sweats, recent weight loss. Labs were notable for white count of 12.5, hemoglobin was 10.5, platelet count was 237 K, sodium was 132, potassium was 4.1, creatinine was 1.0. Chest x-ray infiltrates on the right side. Patient will be admitted for further medical management. 01/21/2025: Patient was seen and evaluated bedside in ED 11. Case discussed with RN, no acute overnight events. Patient says she is feeling well, denies chest pain, shortness of breath, palpitations, nausea, vomiting. X-ray shows airspace consolidation involving right middle and right lower lung and blunting of both costophrenic sulcus suggesting a pleural reaction. CT chest shows large consolidation likely of infectious origin, ground-glass opacities with interlobular septal thickening giving rise to crazy paving pattern in right lower lobe suggesting underlying pulmonary edema. Lab shows white count 14.9, CRP 106, BNP 555. EKG showed prolonged QTC, azithromycin was discontinued and doxycycline was started, continue Zosyn. Cardiology was consulted for further evaluation. 01/22/2025: Patient was seen and evaluated bedside in room 228. Patient developed acute delirium yesterday afternoon and tele psychiatric consultation was requested. Psychiatry evaluation revealed acute delirium and recommended to start Seroquel 12.5 mg b.i.d. p.r.n. for agitation, restlessness or psychosis and 25 mg q.h.s. for sleep. Lab this morning shows elevated white count at 18.3, BNP 1500, D-dimer 2294. X-ray revealed worsening consolidation on right side. Patient started on Lasix 40 mg q.12h, Solu-Medrol 40 mg q.6h, continue IV antibiotics. Infectious Disease, Cardiology, pulmonology on board and we will follow up with the recommendations. 01/23/2025: Patient was seen and evaluated in room 228 while patient's family was present at the bedside. Patient had high heart rate yesterday and the rhythm strip revealed SVTs for which metoprolol tartarate 25 mg once and midodrine 10 mg was given. This morning patient still had her heart rate in 120s but patient was asymptomatic. Patient currently denies shortness of breath, chest pain, palpitations and was well oriented to time, place, person. A repeat chest x-ray today showed slight improvement. Patient reported that she has had history of nosebleeds as a child and had more frequent episodes when she was taking Coumadin. At the time of admission she had hemoptysis when she noticed mild blood-streaked sputum while she cough but does not have hemoptysis now. Currently denies nosebleeds despite being on Lovenox 30 mg for DVT prophylaxis. Cardiology recommended continuing IV Lasix 40 mg q.12 and hold losartan. Patient admitted to declining evaluation with transesophageal ECHO in the past however would like to initiate the conversation with tracer bullet charging machine operator once the pneumonia is resolved after discharge from the hospital. 01/24/2025: Patient was seen and evaluated bedside in room 228. She is awake, alert, confused and having one on one sitter currently. Currently saturating 97% with3 L nasal cannula and Lab showed BNP 1210, white count 13.5, CRP trended down to 74. Blood culture showed no growth after24 hours, Legionella urine antigen is negative. Continue Lasix 40 mg q.12h , Zosyn and doxycycline. Infectious Disease, Cardiology, pulmonology on board and we will follow up their recommendation. 01/25/2025: Patient was seen and evaluated bedside in room 420. She is awake, alert, confused and having one on one sitter currently. Patient's heart rate high fluctuating in 140s and 150s, patient was in AFib with RVR this morning. Cardiology started digoxin, Cardizem and stopped Norvasc, patient will be upgraded to PCCU. Lab showed potassium 2.7 this morning, started replacing per protocol and held Lasix IV temporarily. White count trended down to 9.5, CRP trended down to 48, BNP trended up to 1910. Infectious Disease, Cardiology, pulmonology on board and we will follow up the recommendations. 01/26/2025: Patient was seen and evaluated bedside in room 223. She is awake, alert, confused and having one on one sitter currently. Patient heart rate has been improved to 100s, continue current regimen. White Count has trended up to 15.4, BNP trended down to 1370. Infectious Disease, Cardiology, and pulmonology on board and we will follow up with the recommendations. 01/27/2025: Patient was seen and evaluated bedside in room 223. She is awake, alert, confused and having one on one sitter currently. Patient heart rate this morning fluctuating in 100s and 110s, cardiology wanted to evaluate further with a OLIVER to look her aortic valve after her pneumonia is resolved. White count trended down to 7.9, BNP trended down to 1240, her digoxin level this morning within normal limits. Pending CT chest report. Started tapering Solu-Medrol, continue IV antibiotics, continue regimen recommended by Cardiology. Case management on board for disposition of patient to SNF/rehabilitation. Infectious Disease, Cardiology and pulmonology on board and we will follow up with the recommendations. 01/28/2025: Patient was seen and evaluated bedside in room 223. She is awake, alert, oriented x3. patient family said that her confusion has come down significantly. Patient heart rate is controlled in 80s and 90s, continue current regimen recommended by tracer bullet charging machine operator. BNP trended down to 607, her digoxin level this morning within normal limits. Infectious Disease recommended IV antibiotics for 7 days as outpatient, pending approval by insurance for [facility] for IV antibiotics. Pending 6 minute walk test. Once patient gets approval by insurance we will take cardiology recommendations and discharge the patient home. 01/29/25: Patient was seen and evaluated bedside in room 223. She is awake, alert, oriented x3. Patient reports feeling a lot better today. Patient denies any confusion, fever, chills or shortness of breath. BNP has been trended down to 485 from 607. Heart rate today was 113. Infectious Disease recommended IV antibiotics for 7 days as outpatient, pending approval by insurance for [facility] for IV antibiotics. Once patient gets approval by insurance we will take cardiology recommendations and discharge the patient home. 01/30/2025: Patient was seen and evaluated bedside in room 317. She is awake, alert, oriented x3. patient reports feeling a lot better, denies any confusion, fever, chest pain, shortness of breath, palpitations. Metoprolol 12.5 mg b.i.d. PO was started by Cardiology on 01/29/2025 and increased to 25 mg b.i.d. on 01/30/2025. Continue digoxin, diltiazem, Zosyn, doxycycline, prednisolone, furosemide. Patient will be discharged home after getting ID clearance and cardiology recommendations tomorrow. REVIEW OF SYSTEMS CONSTITUTIONAL: Denies fevers, chills, or night sweats. No unintentional weight loss reported. NEUROLOGICAL: Denies headache, motor weakness, sensory deficit, vertigo/spinning sensation, gait abnormalities, or tremors. ENT: No hearing loss, otalgia, otorrhea, rhinitis, rhinorrhea, hoarseness, or sore throat. CARDIOVASCULAR: Denies any exertional angina, dyspnea on exertion, orthopnea, paroxysmal nocturnal dyspnea, palpitations, life-threatening arrhythmias, claudication. PULMONARY: Positive for hemoptoic sputum, cough, sputum production, all resolved now SLEEP: Denies morning headaches, daytime somnolence or napping. Denies difficulty falling asleep, staying asleep, waking from sleep. Denies knowledge of snoring. GASTROINTESTINAL: Denies any type of dysphagia to either liquids or solids. Denies nausea, vomiting, pyrosis, early satiety, abdominal pain, diarrhea, constipation, or changes in stool consistency or caliber. Denies coffee-ground emesis, hematemesis, hematochezia, or melanotic stools. GENITOURINARY: Denies frequency, urgency, nocturia, hematuria or incontinence (Storage/Irritative symptoms.) Low urinary stream, straining to void, urinary intermittency or hesitancy, splitting of the voiding stream, terminal dribbling. ENDOCRINOLOGIC: Denies polyuria, polydipsia, polyphagia or heat/cold intolerances. HEMATOLOGIC: Denies thrombophilia/previous clots, or coagulopathy/bleeding disorders. PSYCHIATRIC: Denies any suicidal or homicidal ideation. Denies hallucinations. PHYSICAL EXAM GENERAL APPEARANCE: The patient is awake, alert, and oriented, in no acute cardiopulmonary distress. Patient is bright red blood in the cup present at bedside NEUROLOGICAL: Cranial nerves II-XII grossly intact. Motor is 5/5 in bilateral upper and lower extremities proximal to distal. No sensory deficits. HEENT: Face is symmetric. Pupils are equal and reactive. Extraocular movements are intact. NECK: Supple. No JVD. No thyromegaly. No submental, submandibular, pre- /postauricular, occipital or supraclavicular lymphadenopathy. CHEST: Normal chest expansion. No Telemetry. LUNGS: She has a crackles present bilaterally, more on the right side. CARDIOVASCULAR: Regular. S1 and S2 normal. No appreciable rubs, murmurs or gallops. ABDOMEN: Soft, nontender, and nondistended. There is no rebound, voluntary guarding, or rigidity. : Deferred. No Wallace. EXTREMITIES: Non-edematous and not cyanotic. No clubbing. Good capillary refill. SKIN: No skin breakdown. Vital Signs (last 8hr) Date Time Temp Pulse Resp B/P (MAP) Pulse Ox O2 Delivery O2 Flow Rate FiO2 01/30/25 11:30 100 Room Air* 0 21 01/30/25 10:21 69 01/30/25 08:00 97.2 69 16 99/42 100 Room Air 21 01/30/25 06:57 18 N/A Room Air 21 01/30/25 06:56 96 18 01/30/25 04:00 97.5 117 18 119/58 100 Room Air LABS: Laboratory: Test 01/30/25 05:45 01/29/25 03:14 01/28/25 12:14 Range/Units White Blood Count 12.6 H 4.8-10.8 K/uL Red Blood Count 3.18 L 4.00-5.50 MIL/uL Hemoglobin 10.2 L 12.0-16.0 g/dL Hematocrit 30.1 L 36-48 % Mean Corpuscular Volume 94.7 79-99 fL Mean Corpuscular Hemoglobin 32.1 27.0-33.0 pg Mean Corpuscular Hemoglobin Concent 33.9 32.0-36.0 g/dL Red Cell Distribution Width 14.7 11.0-15.5 % Platelet Count 258 130-400 K/uL Mean Platelet Volume 10.5 7.5-10.5 fL Immature Granulocyte % (Auto) 3.0 H 0-1 % Neutrophils (%) (Auto) 76.9 40.0-77.0 % Lymphocytes (%) (Auto) 9.9 L 21.0-51.0 % Monocytes (%) (Auto) 8.6 3.0-13.0 % Eosinophils (%) (Auto) 1.4 0.0-8.0 % Basophils (%) (Auto) 0.2 0.0-5.0 % Neutrophils # (Auto) 9.7 H 1.8-7.7 K/uL Lymphocytes # (Auto) 1.3 1.0-4.8 K/uL Monocytes # (Auto) 1.1 H 0.1-1.0 K/uL Eosinophils # (Auto) 0.18 0.00-0.70 K/uL Basophils # (Auto) 0.02 0.00-0.20 K/uL Absolute Immature Granulocyte (auto 0.38 0-1 K/uL Nucleated Red Blood Cells 0.0 0.0-0.19 % Sodium Level 142 136-145 mmol/L Potassium Level 4.6 3.5-5.1 mmol/L Chloride Level 105 101-111 mmol/L Carbon Dioxide Level 29 21-32 mmol/L Blood Urea Nitrogen 40 H 7-18 mg/dL Creatinine 1.0 0.5-1.0 mg/dL Glomerular Filtration Rate Calc 57 >90 mL/min Random Glucose 97 70-105 mg/dL Total Calcium 8.9 8.5-10.1 mg/dL Magnesium Level 2.00 1.80-2.40 mg/dL B-Type Natriuretic Peptide 485 H 0-100 pg/mL Prothrombin Time 11.4 9.6-11.6 SEC Prothromb Time International Ratio 1.08 0.85-1.15 Current Medications Medications (Trade) Dose Ordered Sig/Sadi Route PRN Reason Start Time Stop Time Status Last Admin Dose Admin Acetaminophen (TYLenol 325MG TAB) 650 mg Q4H PRN PO MILD PAIN (1-3) 01/20/25 13:00 02/19/25 12:59 Acetaminophen (TYLenol 325MG TAB) 650 mg Q6H PRN PO TEMPERATURE GREATER THAN 101.5 01/20/25 13:00 02/19/25 12:59 Albuterol (DUOneb) 1 UDVIAL [id number] IH 01/22/25 06:00 01/22/25 03:00 DC Albuterol Sulfate (Proventil 0.083% 2.5mg/3ml) 2.5 mg [id number] IH 01/22/25 03:00 01/22/25 14:40 DC 01/22/25 06:35 2.5 MG Albuterol Sulfate (Proventil 0.083% 2.5mg/3ml) 2.5 mg [id number] IH 01/22/25 18:00 01/22/25 19:08 DC Amlodipine Besylate (NorvASC 2.5MG TAB) 2.5 mg DAILY PO 01/22/25 09:00 01/25/25 07:40 DC 01/24/25 10:41 2.5 MG Amlodipine Besylate (NorvASC 5MG TAB) 5 mg DAILY PO 01/22/25 09:00 01/25/25 07:40 DC 01/24/25 10:41 5 MG Artificial Tears (Artificial Tears) 1 DROP Q2H PRN OP DRY EYES 01/20/25 13:00 02/19/25 12:59 Azithromycin 250 ml @ 250 mls/hr Q24H IVPB 01/21/25 14:30 01/21/25 10:33 DC Benzocaine (Cepacol Sore Throat Lozenge) 1 each Q2H PRN MM SORE THROAT 01/20/25 13:00 02/19/25 12:59 Dexmedetomidine/ Sodium Chloride (PRECEdex 200MCG/ 50ML-NS) 200 mcg PROTOCOL IV 01/22/25 03:30 01/28/25 11:25 DC Diazepam (VALium 5 MG/ML 2 ML SYG) 1.25 mg ONCE PRN IV ANXIETY 01/25/25 02:10 02/01/25 02:09 Digoxin (LANOxin 125mcg) 125 mcg DAILY PO 01/26/25 09:00 01/26/25 08:33 DC Digoxin (LANOxin 125mcg) 125 mcg DAILY PO 01/26/25 09:00 02/25/25 08:59 01/30/25 10:21 125 MCG Digoxin (LANOxin 250 MCG/ ML 2ML AMP) 125 mcg Q6H IV 01/25/25 14:00 01/26/25 02:00 DC 01/26/25 00:08 125 MCG Digoxin (LANOxin 250 MCG/ ML 2ML AMP) 250 mcg ONCE IV 01/25/25 07:30 01/25/25 08:00 DC 01/25/25 08:01 250 MCG Diltiazem HCl (CARDIzem 60MG TAB) 30 mg Q6H PO 01/25/25 07:30 02/24/25 07:29 01/30/25 07:23 30 MG Docusate Sodium (COLace 100MG CAP) 100 mg BID PRN PO CONSTIPATION 01/20/25 13:00 02/19/25 12:59 Doxycycline Hyclate 250 ml @ 125 mls/hr Q12H IV 01/21/25 10:30 01/31/25 10:29 01/30/25 10:21 125 MLS/HR Enoxaparin Sodium (Lovenox) 30 mg DAILY SQ 01/22/25 09:00 01/22/25 09:00 DC Enoxaparin Sodium (Lovenox) 30 mg DAILY SQ 01/22/25 16:00 01/22/25 19:25 DC Enoxaparin Sodium (Lovenox) 30 mg Q24H SQ 01/22/25 19:30 02/21/25 19:29 01/29/25 19:51 30 MG Famotidine (Pepcid 20mg Vial) 20 mg Q24H IV 01/20/25 21:00 02/19/25 20:59 01/29/25 19:50 20 MG Furosemide (LASix 20MG TAB) 20 mg AD PO 01/21/25 09:00 01/21/25 08:59 DC Furosemide (LASix 20MG TAB) 20 mg DAILY PO 01/23/25 09:00 01/22/25 09:17 DC Furosemide (LASix 40MG TAB) 40 mg BID@, PO 01/28/25 17:00 02/27/25 16:59 01/30/25 10:20 40 MG Furosemide (LASix 40MG VIAL) 40 mg Q12H IV 01/22/25 09:30 01/28/25 11:25 DC 01/28/25 09:57 40 MG Guaifenesin (RobiTUSSin SUGAR-FREE 100 MG/ 5 ML UDCUP) 200 mg Q4H PRN PO COUGH 01/20/25 13:00 02/19/25 12:59 01/21/25 20:38 200 MG Guaifenesin/ Dextromethorphan (RobiTUSSin DM 200/20MG 10ML) 10 ml Q4H PRN PO COUGH 01/20/25 13:00 02/19/25 12:59 Ipratropium Ismay (AtrovENT UD) 0.5 mg [id number] IH 01/22/25 03:00 01/22/25 14:30 DC 01/22/25 10:00 0.5 MG Ipratropium Ismay (AtrovENT UD) 0.5 mg [id number] IH 01/22/25 18:00 02/21/25 02:59 01/30/25 11:33 0.5 MG Lactulose (Constulose 20gm/ 30ml Udcup) 20 gm BID PRN PO CONSTIPATION 01/20/25 13:00 02/19/25 12:59 Lidocaine HCl/Al Hydroxide/Mg Hydroxide/ Dicyclomine HCl 20ML OR AD MAALOX P... Q6H PRN PO HEARTBURN 01/20/25 13:00 02/19/25 12:59 Lisinopril (Prinivil 20mg) 20 mg DAILY PO 01/22/25 09:00 01/22/25 09:26 DC Loperamide HCl (Imodium) 2 mg Q6H PRN PO AFTER EACH LOOSE STOOL 01/20/25 13:00 02/19/25 12:59 Lorazepam (AtiVAN) 0.5 mg HS PRN PO INSOMNIA 01/21/25 22:30 02/20/25 22:29 01/23/25 22:36 0.5 MG Losartan Potassium (CozAAR 25MG TAB) 25 mg DAILY PO 01/22/25 11:00 01/23/25 10:48 DC 01/22/25 11:11 25 MG Losartan Potassium (CozAAR 25MG TAB) 25 mg DAILY PO 01/23/25 09:00 01/22/25 10:58 DC Magnesium Sulfate 50 ml @ 0 mls/hr PROTOCOL PRN IV hypomagnesemia 01/20/25 12:00 02/19/25 11:59 01/28/25 06:37 25 MLS/HR Methylprednisolone Sodium Succinate (Solu-medROL 40MG) 40 mg Q12H IVP 01/25/25 15:00 01/28/25 11:25 DC 01/28/25 03:23 40 MG Methylprednisolone Sodium Succinate (Solu-medROL 40MG) 40 mg Q6H IVP 01/22/25 21:00 01/25/25 07:40 DC 01/25/25 04:07 40 MG Methylprednisolone Sodium Succinate (Solu-medROL 125MG) 40 mg Q6H IVP 01/22/25 09:00 01/22/25 15:45 DC 01/22/25 15:37 40 MG Metoprolol Succinate (TopROL XL) 12.5 mg BID PO 01/30/25 21:00 01/30/25 10:10 DC Metoprolol Succinate (TopROL XL) 50 mg DAILY PO 01/21/25 09:00 01/22/25 09:17 DC 01/21/25 10:21 50 MG Metoprolol Tartrate (loprESSOR) 2.5 mg AD PRN IV HEART RATE ABOVE 100 01/29/25 14:00 02/28/25 13:59 Metoprolol Tartrate (loprESSOR) 2.5 mg Q6H PRN IV INCREASED HEART RATE >130 BPM 01/24/25 20:00 01/29/25 13:46 DC 01/25/25 06:35 2.5 MG Metoprolol Tartrate (loprESSOR) 12.5 mg BID PO 01/29/25 21:00 01/30/25 10:10 DC 01/29/25 19:50 12.5 MG Metoprolol Tartrate (loprESSOR) 25 mg BID PO 01/22/25 21:00 01/23/25 10:47 DC 01/23/25 09:40 25 MG Metoprolol Tartrate (loprESSOR) 25 mg BID PO 01/30/25 21:00 03/01/25 20:59 Midodrine (PROAMatine 5 MG TABLET) 10 mg Q8H PRN PO MAP <65 01/22/25 23:00 02/21/25 22:59 01/23/25 00:16 10 MG Nitroglycerin (Nitrostat) 0.4 mg PROTOCOL PRN SL CHEST PAIN 01/20/25 13:00 02/19/25 12:59 Ondansetron HCl (zoFRAN 4MG INJ) 4 mg Q6H PRN IV NAUSEA/VOMITING 01/20/25 13:00 02/19/25 12:59 Piperacillin Sod/ Tazobactam Sod (Zosyn 3.375gm+NS 50ml) 3.375 gm Q8H IVPB 01/20/25 12:00 01/21/25 13:17 DC 01/21/25 04:05 3.375 GM Piperacillin Sod/ Tazobactam Sod (Zosyn 3.375gm+NS 50ml) 3.375 gm Q8H IVPB 01/21/25 14:30 01/31/25 14:29 01/30/25 07:23 3.375 GM Polyethylene Glycol (MIRalax 3350 17 GM POWD.PACK) 17 gm DAILY PRN PO CONSTIPATION 01/20/25 13:00 02/19/25 12:59 Potassium Chloride 100 ml @ 100 mls/hr AD PRN IV POTASSIUM PROTOCOL 01/20/25 12:00 02/19/25 11:59 01/25/25 08:59 100 MLS/HR Potassium Chloride (K-Dur/Klor-Con 20meq) 20 meq AD PRN PO POTASSIUM PROTOCOL 01/20/25 12:00 02/19/25 11:59 01/28/25 09:58 20 MEQ Potassium Chloride (KCl 10% Elixir 20meq/15ml) 20 meq AD PRN PO POTASSIUM PROTOCOL 01/20/25 12:00 02/19/25 11:59 01/29/25 21:50 20 MEQ Prednisone (deltaSONE/ oraSONE 20MG TAB) 20 mg DAILY PO 01/29/25 09:00 02/01/25 08:59 01/30/25 10:19 20 MG Quetiapine Fumarate (SEROquel 25 mg TAB) 12.5 mg BID PRN PO Agitation 01/21/25 22:30 01/26/25 08:42 DC Quetiapine Fumarate (SEROquel 25 mg TAB) 25 mg HS PO 01/22/25 21:00 01/26/25 08:42 DC Sodium Chloride (NS 50ml) 50 ml AD IV 01/20/25 12:00 01/20/25 12:10 DC DIAGNOSTICS / RADIOLOGY: [place] [id number] [address] IMAGING REPORT Signed PATIENT: NEHEMIAS BAINS MR#: [id number] : 1945 SEX: F AGE: 79 LOCATION: 2DH ORDER 2300 STATUS: ADM IN REPORT#: [id number] SERVICE 0600 REASON: pp ORDERING PHYSICIAN: APRYL STEPHENS PAC PROCEDURE: CXR1VW - CHEST 1VW EXAM: CR Chest, single view. CLINICAL HISTORY: Pleuritic pain. COMPARISON: Prior chest radiograph dated January 28, 2025. FINDINGS: Poststernotomy status. Cardiomegaly with bilateral hilar congestion. A battery pack is in the left anterior chest wall with pacemaker wires in the right atrium and ventricles. Subtle blunting of the bilateral costophrenic angle probably indicates minimal bilateral pleural effusion. No evidence of pneumothorax. Atherosclerotic calcification of the aortic arch. No acute osseous abnormality. Degenerative changes in the mid and lower thoracic spine. 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 IMPRESSION: Poststernotomy status. Cardiomegaly with bilateral hilar congestion. A battery pack is in the left anterior chest wall with pacemaker wires in the right atrium and ventricles. Subtle blunting of the bilateral costophrenic angle probably indicates minimal bilateral pleural effusion. No evidence of pneumothorax. Compared to the prior study, there is no significant interval change. /[place] DICTATED BY: ZHANE MOORE Jr., MD DATE: 01/29/25853 ELECTRONICALLY SIGNED BY: ZHANE MOORE Jr., MD DATE: 01/29/25853 ASSESSMENT: Hemoptysis POA Community-acquired pneumonia POA Aortic valve stenosis status post aortic valve replacement POA Atrial fibrillation vs SVT not on anticoagulation for history of epistaxis Hypertension POA Hyperlipidemia History of gastric ulcer History of ovarian cancer Mild hyponatremia PLAN: Community-acquired pneumonia POA * Patient came to ED with cough which is productive in nature noted blood with her sputum likely hemoptoic sputum. * CT chest showed large consolidation likely of infectious origin * WBC Count on 01/27/2025 trended down to 7.9. WBC today (01/30/25) is 12.6 * Patient was started on Zosyn IV, azithromycin IV on 01/20/2025 * Patient's EKG showed prolonged QTC, azithromycin was discontinued this morning. * Continue IV Zosyn 3.375 G IV Q8 (day 11), started doxycycline 250 mL IV q.12h (day 10) * Switched IV soluMedrol 40 mg q.12h to oral prednisone 20 mg on 01/28/2025 * Critical Care on board, we will follow up with the recommendations. Hemoptysis, due to pneumonia POA * Patient noted blood after coughing out phlegm at home. * CBC shows hemoglobin 10.5, hematocrit 31.5 at presentation. * Patient denied further episodes of coughing out blood this morning. * CBC shows hemoglobin 10.2, hematocrit 30.1 on 01/30/2025 * Critical Care on board for further evaluation Aortic valve stenosis status post aortic valve replacement POA * Patient has history of recall stenosis status post valve replacement in 2000 * We echo from 09/23/2023 shows bioprosthetic aortic wall is present, with thickened and possible degenerating left coronary cusp, moderate aortic regurgitation. * BNP 485 on 01/29/2025 * Switched IV Lasix to oral furosemide 40 mg b.i.d. on 01/28/2025 * 2D echo on 01/22/2025 showed LVEF of 50-55% with normal LV segmental wall motion, concentric LVH with stage II diastolic dysfunction. Bioprosthetic aortic valve present * Cardiology recommended outpatient CCTA in [place] if the patient refuses transesophageal echo procedure again for evaluation of paravalvular leak for aortic valve. Atrial fibrillation vs SVT not on anticoagulation for history of epistaxis * Patient had high heart rate in the range of 140s to 150s last night and rhythm strip revealed suspected atrial fibrillation or supraventricular tachycardia * Patient is started on digoxin, Cardizem 30 mg q.6 p.o. for AFib with RVR, discontinued Norvasc * Metoprolol tartrate increased to 25 mg b.i.d. PO by cardiology on 01/30/2025 * Patient admitted to frequent nosebleeds in the past and increased frequency with Coumadin however no nosebleeds currently * Patient tolerating Lovenox 30 mg daily without any bleeding * We will follow up with Cardiology for further management of anticoagulation Pepcid 20 mg Q 24 H IV for GI prophylaxis Lovenox 30 mg SQ daily for DVT prophylaxis ATTESTATION BY PHYSICIAN I have seen and examined the patient. I reviewed the documentation, medical decision making, and treatment plan as noted by the resident provider above. I agree with the findings and plan of care. Geoffrey Cervantes MD, ADIL SHAH QUADRI MD Jan 30, 2025 11:45
--- NOTE | 2025-01-30 13:32 | HMCIMG ---
Thanks for the correction???updating to reflect that all features are stable. EXAM: CHEST RADIOGRAPH, SINGLE VIEW Technique: A portable anteroposterior single-view radiograph of the chest was obtained. Sensitivity for small pleural effusions and small pneumothoraces is limited on a single frontal projection. Comparison is made with the single-view chest radiograph from January 29, 2025 at 4:38 a.m. Eastern Daylight Time. Clinical Information: Pre-procedural evaluation. Findings: Status post median sternotomy, unchanged. The cardiac silhouette remains enlarged, unchanged. Bilateral hilar vascular congestion is unchanged. A cardiac pacing device generator overlies the left anterior chest wall with leads to the right atrium and right ventricle, unchanged in position. Subtle blunting of the bilateral costophrenic angles is present, compatible with minimal pleural effusions, unchanged. No pneumothorax is identified, unchanged. Aortic arch atherosclerotic calcification is unchanged. No acute osseous abnormality is identified. Degenerative changes in the mid and lower thoracic spine are unchanged. An old malunited fracture of the surgical neck of the right humerus is unchanged. Impression: * No significant interval change compared with January 29, 2025 at 4:38 a.m. Eastern Daylight Time. * Cardiomegaly with bilateral hilar vascular congestion, unchanged. * Minimal bilateral pleural effusions without pneumothorax, unchanged. * Left chest cardiac pacing device and median sternotomy changes, unchanged. * Chronic osseous findings, including degenerative thoracic changes and old malunited fracture of the right humeral surgical neck, unchanged. /Melony
--- NOTE | 2025-01-30 20:47 | PN ---
INFECTIOUS DISEASE PROGRESS NOTE Date of Service: Jan 30, 2025 SUBJECTIVE: This is an 79-year-old female patient who was examined at bedside in room 223. Patient is awake and alert. The WBC trended up to 20.6, the Solu-Medrol however was discontinued yesterday. No fever, temperature is 98.1. No growth reported on the sputum cultures and blood cultures. Patient is currently on Zosyn and doxycycline. The BNP has improved to 485. We will continue to follow patient's care. PHYSICAL EXAM EYES: Anicteric. Pupils equal and reactive. HENT: No oral thrush seen, moist Oral mucosa NECK: Supple, no JVD or thyromegaly. LUNGS: Good air entry. Crackles to the right side. Diminished. Oxygen support via nasal cannula. CARDIOVASCULAR: S1, S2 regular. No murmur heard. ABDOMEN: Soft, non tender, bowel sounds present, no organomegaly. CENTRAL NERVOUS SYSTEM: Awake, alert, oriented x 1. SKIN: No rashes, no swelling. LYMPHATICS: No peripheral lymphadenopathy. MUSCULOSKELETAL: No joint swelling, erythema or tenderness. EXTREMITIES: No cyanosis or clubbing. BACK: No deformity, no pressure ulcer. GENITOURINARY: No dysuria or hematuria. Vital Sign (Last 12 Hours) 01/30/25 01/30/25 01/30/25 01/30/25 10:21 11:30 11:56 11:56 Pulse 69 72 Resp 18 18 Pulse Ox 100 O2 Delivery Room Air* N/A Room Air O2 Flow Rate 0 FiO2 21 21 01/30/25 01/30/25 01/30/25 01/30/25 12:00 12:06 16:50 18:26 Temp 97.5 97.5 Pulse 78 79 127 113 Resp 16 16 20 B/P (MAP) 99/50 120/44 Pulse Ox 98 97 O2 Delivery Room Air Room Air N/A Room Air FiO2 21 21 21 01/30/25 18:26 Pulse 106 Resp 22 Intake & Output (last 24hrs) 01/29/25 01/29/25 01/30/25 15:00 23:00 07:00 Intake Total 480 ml 435.0 ml 100.0 ml Output Total 300 ml Balance 480 ml 135.0 ml 100.0 ml LABS: Laboratory: Test 01/30/25 05:45 01/29/25 03:14 Range/Units White Blood Count 12.6 H 4.8-10.8 K/uL Red Blood Count 3.18 L 4.00-5.50 MIL/uL Hemoglobin 10.2 L 12.0-16.0 g/dL Hematocrit 30.1 L 36-48 % Mean Corpuscular Volume 94.7 79-99 fL Mean Corpuscular Hemoglobin 32.1 27.0-33.0 pg Mean Corpuscular Hemoglobin Concent 33.9 32.0-36.0 g/dL Red Cell Distribution Width 14.7 11.0-15.5 % Platelet Count 258 130-400 K/uL Mean Platelet Volume 10.5 7.5-10.5 fL Immature Granulocyte % (Auto) 3.0 H 0-1 % Neutrophils (%) (Auto) 76.9 40.0-77.0 % Lymphocytes (%) (Auto) 9.9 L 21.0-51.0 % Monocytes (%) (Auto) 8.6 3.0-13.0 % Eosinophils (%) (Auto) 1.4 0.0-8.0 % Basophils (%) (Auto) 0.2 0.0-5.0 % Neutrophils # (Auto) 9.7 H 1.8-7.7 K/uL Lymphocytes # (Auto) 1.3 1.0-4.8 K/uL Monocytes # (Auto) 1.1 H 0.1-1.0 K/uL Eosinophils # (Auto) 0.18 0.00-0.70 K/uL Basophils # (Auto) 0.02 0.00-0.20 K/uL Absolute Immature Granulocyte (auto 0.38 0-1 K/uL Nucleated Red Blood Cells 0.0 0.0-0.19 % Sodium Level 142 136-145 mmol/L Potassium Level 4.6 3.5-5.1 mmol/L Chloride Level 105 101-111 mmol/L Carbon Dioxide Level 29 21-32 mmol/L Blood Urea Nitrogen 40 H 7-18 mg/dL Creatinine 1.0 0.5-1.0 mg/dL Glomerular Filtration Rate Calc 57 >90 mL/min Random Glucose 97 70-105 mg/dL Total Calcium 8.9 8.5-10.1 mg/dL Magnesium Level 2.00 1.80-2.40 mg/dL B-Type Natriuretic Peptide 485 H 0-100 pg/mL ASSESSMENT: Hypoxic respiratory failure, resolving. Pneumonia. Leukocytosis. Anemia. Heart failure. History of ovarian cancer. AFib RVR. PLAN: Continue Zosyn. Continue doxycycline. Continue bronchodilators. Continue diuretics. Continue GI prophylaxis. Continue oxygen support. Current plan is to discharge patient to home. This case was reviewed and discussed with my supervising physician Dr. Briceno and the above assessment and plan was formulated and agreed upon. ATTESTATION BY PHYSICIAN I have seen and examined the patient. I reviewed the documentation, medical deci gladys making, and treatment plan as noted by the mid-level provider above. I agree with the findings and plan of care. JAN BRICENO MD, [facility] Jan 30, 2025 20:47
[2025-01-31] VITALS (8 sets, daily range): BP systolic 86–130; BP diastolic 46–55; PULSE 77–89; RESP 15–20; TEMP 97.4–97.8; O2SAT 97
[2025-01-31 05:46] LABS: IMMATURE GRANULOCYTE ABSOLUTE 0.50 K/uL (0-1); NUCLEATED RED BLOOD CELLS 0.0 % (0.0-0.19); PLATELET COUNT (AUTO) 279 K/uL (130-400); RED BLOOD CELL COUNT(AUTO) 3.14 MIL/uL (4.00-5.50); RED CELL DISTRIBUTION WIDTH 14.9 % (11.0-15.5); WHITE BLOOD COUNT (AUTO) 12.9 K/uL (4.8-10.8)
[2025-01-31 06:08] LABS: CREATININE 1.0 mg/dL (0.5-1.0); GLOMERULAR FILTR. RATE CALC 57.0 mL/min (>90); GLUCOSE,RANDOM 101.0 mg/dL (70-105); SODIUM SERUM 142.0 mmol/L (136-145); UREA NITROGEN, BLOOD 35.0 mg/dL (7-18)
[2025-01-31] MEDS ORDERED: RAMI5CAP72 PO (10:32)
[2025-01-31] MEDS ORDERED: POTA10CA95 PO (10:32)
[2025-01-31] MEDS ORDERED: FURO40TA5 PO (10:32)
[2025-01-31] MEDS ORDERED: METO-409 PO (10:32)
--- NOTE | 2025-01-31 10:41 | PN ---
[facility] CARDIOLOGY PROGRESS NOTE Date Patient Seen: Jan 31, 2025 Time of Visit: 10:32 Interval History: This 79-year-old female with a history of valvular heart disease, paroxysmal atrial fibrillation, prior pacemaker insertion was admitted with right upper lobe pneumonia and acute on chronic HFpEF. She has known deterioration of an aortic bioprosthesis with the associated moderate AR. The patient is markedly improved since admission currently he is free of any dyspnea or cough. Her leukocytosis is improving. Her 2D echocardiogram demonstrated: Conclusion The left ventricle is normal size. LVEF is 50-55% with normal LV segmental wall motion. Mild concentric left ventricular hypertrophy. Stage II diastolic dysfunction. The right ventricular systolic function is normal. Device lead is present in the rightsided chambers. The left atrium is severely dilated. Bioprosthetic aortic valve is present. (Prosthetic aortic valve opening is decreased with highest mean gradient of 31mmHg) Trace-mild aortic regurgitation, with AR pressure half-time 277 milliseconds. There is moderate tricuspid valve regurgitation noted, RVSP 52mmHg. IVC is dilated and collapses <50% with inspiration. There is no pericardial effusion. DICTATED BY: BOUCHRA VANCE MD DATE: 01/22/251205 Physical Examination: GENERAL: No acute distress. HEAD: Normal with no signs of head trauma. EYES: PERRLA, EOMI, conjunctiva and sclera normal. NECK: Supple without JVD. There is no tenderness, lymphadenopathy, or masses. No thyromegaly. Normal carotid upstrokes without bruits. LUNGS: Clear breath sounds bilaterally. No wheezes, or rhonchi. HEART: Normal rate and rhythm. Normal S1 and S2 with a 3/6 early peaking systolic ejection murmur loudest at the right upper sternal border and a 3/6 diastolic decrescendo murmur at the lower left sternal border. VASC: Peripheral pulses +2 bilaterally. EXT: No clubbing, cyanosis or edema. NEURO: Awake, alert, and oriented x3. No focal neurological deficits noted. Laboratory: Hematology Labs: Test 01/31/25 05:14 Range/Units White Blood Count 12.9 H 4.8-10.8 K/uL Red Blood Count 3.14 L 4.00-5.50 MIL/uL Hemoglobin 10.1 L 12.0-16.0 g/dL Hematocrit 29.9 L 36-48 % Mean Corpuscular Volume 95.2 79-99 fL Mean Corpuscular Hemoglobin 32.2 27.0-33.0 pg Mean Corpuscular Hemoglobin Concent 33.8 32.0-36.0 g/dL Red Cell Distribution Width 14.9 11.0-15.5 % Platelet Count 279 130-400 K/uL Mean Platelet Volume 10.9 H 7.5-10.5 fL Immature Granulocyte % (Auto) 3.9 H 0-1 % Neutrophils (%) (Auto) 77.0 40.0-77.0 % Lymphocytes (%) (Auto) 9.5 L 21.0-51.0 % Monocytes (%) (Auto) 8.1 3.0-13.0 % Eosinophils (%) (Auto) 1.3 0.0-8.0 % Basophils (%) (Auto) 0.2 0.0-5.0 % Neutrophils # (Auto) 9.9 H 1.8-7.7 K/uL Lymphocytes # (Auto) 1.2 1.0-4.8 K/uL Monocytes # (Auto) 1.0 0.1-1.0 K/uL Eosinophils # (Auto) 0.17 0.00-0.70 K/uL Basophils # (Auto) 0.02 0.00-0.20 K/uL Absolute Immature Granulocyte (auto 0.50 0-1 K/uL Nucleated Red Blood Cells 0.0 0.0-0.19 % Chemistry Labs: Test 01/31/25 05:14 Range/Units Sodium Level 142 136-145 mmol/L Potassium Level 4.9 3.5-5.1 mmol/L Chloride Level 105 101-111 mmol/L Carbon Dioxide Level 31 21-32 mmol/L Blood Urea Nitrogen 35 H 7-18 mg/dL Creatinine 1.0 0.5-1.0 mg/dL Glomerular Filtration Rate Calc 57 >90 mL/min Random Glucose 101 70-105 mg/dL Total Calcium 9.1 8.5-10.1 mg/dL B-Type Natriuretic Peptide 804 H 0-100 pg/mL Diagnostics / Radiology: Conclusion The left ventricle is normal size. LVEF is 50-55% with normal LV segmental wall motion. Mild concentric left ventricular hypertrophy. Stage II diastolic dysfunction. The right ventricular systolic function is normal. Device lead is present in the rightsided chambers. The left atrium is severely dilated. Bioprosthetic aortic valve is present. (Prosthetic aortic valve opening is decreased with highest mean gradient of 31mmHg) Trace-mild aortic regurgitation. There is moderate tricuspid valve regurgitation noted, RVSP 52mmHg. IVC is dilated and collapses <50% with inspiration. There is no pericardial effusion. 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 -cleared for discharge home on furosemide 40 p.o. daily (was on 20 mg every other day at home previously) Paroxysmal atrial fibrillation: Prohibitive risk for anticoagulation: -continue increased dose of metoprolol succinate ER 100 mg daily. Previously she was on 50 mg p.o. daily Essential hypertension: -previously was on ramipril 10 mg daily, amlodipine 7.5 daily, metoprolol succinate ER 50 mg daily, and furosemide 20 mg every other day -discharge home on ramipril 5 mg daily, metoprolol succinate ER 100 mg daily, and furosemide 40 mg daily -follow up with me at [facility] in one week TYLER CONNOR MD Jan 31, 2025 10:41
--- NOTE | 2025-01-31 14:42 | DS ---
Discharge Summary Hospital Course Summary: The patient is an 79-year-old woman with a history of ovarian cancer, hypertension, gastric ulcer, and aortic valve stenosis status post valve replacement, who presented to the hospital with hemoptysis. She reported coughing up blood-tinged sputum without any recent nosebleeds, fever, chills, chest pain, or abdominal pain. Initial evaluation revealed right-sided lung infiltrates on chest X-ray, anemia, and mild hyponatremia. She was admitted for further evaluation and management of hemoptysis and pneumonia, with Cardiology consulted due to her underlying valvular heart disease. During hospitalization, the patient was treated with IV antibiotics and diuretics for suspected pneumonia and fluid overload. She developed acute delirium, which was managed with psychiatric consultation and supportive care. Her condition was complicated by episodes of supraventricular tachycardia and later atrial fibrillation with rapid ventricular response, for which she was started on metoprolol, digoxin, and diltiazem. With ongoing care from Cardiology, Infectious Disease, and Pulmonology, her infection and heart rate gradually improved. Her respiratory status stabilized, confusion resolved, and inflammatory markers and BNP trended down. On 01/31/2025, she was alert, oriented, hemodynamically stable, and breathing comfortably on room air. She was discharged home on oral medications after getting clearance from Cardiology, Infectious Disease. We Educated Patient and family about patients condition and asked them to follow up with her marketing automation specialist in 1 week for further evaluation of her valvular heart disease. Patient was advised to take all medications as prescribed, follow up with her PCP in 1-2 weeks. Arcade Technician(s): CONSULTATION REPORT Name: NEHEMIAS BAINS Acct: [id number] MR: [id number] : 1945 Admit Date: 01/20/25 ANNABELLA RODRIGUEZ [place] [address] [place] [id number] [facility] CONSULTATION NOTE Date Patient Seen: Jan 20, 2025 Time of Visit: 14:58 Supervising Physician: Dr. Tacos Jane Reason for Consultation: Hemotysis, shortness of the breath Primary Care Physician: [ ] Outpatient Specialists: [ ] Inpatient Consults: [ ] PROBLEM LIST: 1. Acute hypoxic respiratory failure 2. Right lower lobe pneumonia 3. Hemotysis HPI: Nehemias Bains is an 79-year-old lady , health history: Hypertension, gastric ulcer, GERD, ovarian cancer status post treatment, aortic valves diagnosis s/p aortic valve replacement, presented to the emergency department on 01/20/2025 because of generalized body weakness, and hemoptysis. The patient reports having a few episodes. Patient denies Melena, hematochezia, & hematemesis, additionally patient denies recent ill person contact foreign travel, fever, chills, nauseousness, and diarrhea currently. Vital signs: Temperature 98.4, pulse 99, respirations 20, blood pressure 149/39, oxygen saturation 95 FiO2 21. Lab results: Sodium 132, potassium 4.1, BUN 33, creatinine 1.0, GFR 57, WBC 12.5, hemoglobin 10.5 hematocrit 31.5%, and platelets 237. Urine: Negative for nitrate, leukocyte esterase. EKG rate 106 beats per minute. Rhythm sinus tach. No ST segment elevation or depression. This is from ED provider report. Chest x-ray: Right lower lobe pneumonia. CT chest without contrast results: Ground-glass opacities right lower lobe. Pulmonary congestion. Recommendations: Telemetry. Antibiotics: Zithromax 250 mg IV Q 24 hours and Zosyn 3.375 g IV q.8 hours Breathing treatments scheduled q.6 hours Continue with DVT and GI prophylaxis A.m. labs PAST MEDICAL HX: see above PAST SURGICAL HX: noncontributory SOCIAL HISTORY: No tobacco, ETOH, or illicit drug use Coded Allergies: No Allergy Information Available (Verified Allergy, Unknown, 01/24/20) REVIEW OF SYSTEMS: 12 point ROS reviewed with patient. Pertinent positives mentioned above. Otherwise negative. PHYSICAL EXAM: GENERAL: alert, weak, awake oriented x 3 HEENT: EOMI, Sclera non icteric, moist mucosa NECK: Supple, no JVD, trachea midline LUNGS: Clear breath sounds bilaterally. No wheezes HEART: Regular rate and rhythm. Normal S1 and S2, without murmurs ABD: Abdomen soft, nontender. Bowel sounds present EXT: No clubbing cyanosis or edema NEURO: Alert and oriented to person, follows commands Vital Signs (last 8hr) Date Time Temp Pulse Resp B/P (MAP) Pulse Ox O2 Delivery O2 Flow Rate FiO2 01/20/25 10:58 82 24 01/20/25 09:10 98.4 99 20 149/38 95 Room Air* 0 21 01/20/25 09:05 98.4 99 20 149/38 95 0 LABS: Hematology Labs: Test 01/20/25 09:22 Range/Units White Blood Count 12.5 H 4.8-10.8 K/uL Red Blood Count 3.25 L 4.00-5.50 MIL/uL Hemoglobin 10.5 L 12.0-16.0 g/dL Hematocrit 31.5 L 36-48 % Mean Corpuscular Volume 96.9 79-99 fL Mean Corpuscular Hemoglobin 32.3 27.0-33.0 pg Mean Corpuscular Hemoglobin Concent 33.3 32.0-36.0 g/dL Red Cell Distribution Width 13.3 11.0-15.5 % Platelet Count 237 130-400 K/uL Mean Platelet Volume 10.3 7.5-10.5 fL Immature Granulocyte % (Auto) 0.6 0-1 % Neutrophils (%) (Auto) 84.0 H 40.0-77.0 % Lymphocytes (%) (Auto) 7.9 L 21.0-51.0 % Monocytes (%) (Auto) 6.6 3.0-13.0 % Eosinophils (%) (Auto) 0.7 0.0-8.0 % Basophils (%) (Auto) 0.2 0.0-5.0 % Neutrophils # (Auto) 10.5 H 1.8-7.7 K/uL Lymphocytes # (Auto) 1.0 1.0-4.8 K/uL Monocytes # (Auto) 0.8 0.1-1.0 K/uL Eosinophils # (Auto) 0.09 0.00-0.70 K/uL Basophils # (Auto) 0.02 0.00-0.20 K/uL Absolute Immature Granulocyte (auto 0.08 0-1 K/uL Nucleated Red Blood Cells 0.0 0.0-0.19 % White Cell Morphology Comment See comments Chemistry Labs: Test 01/20/25 09:22 Range/Units Sodium Level 132 L 136-145 mmol/L Potassium Level 4.1 3.5-5.1 mmol/L Chloride Level 99 L 101-111 mmol/L Carbon Dioxide Level 22 21-32 mmol/L Blood Urea Nitrogen 33 H 7-18 mg/dL Creatinine 1.0 0.5-1.0 mg/dL Glomerular Filtration Rate Calc 57 >90 mL/min Random Glucose 131 H 70-105 mg/dL Hemoglobin A1c 5.2 4.0-6.0 % Estimated Average Glucose (eAG) 103 70-126 mg/dL Total Calcium 9.0 8.5-10.1 mg/dL Magnesium Level 2.20 1.80-2.40 mg/dL Total Creatine Kinase 37 # 21-232 U/L Troponin I High Sensitivity 17 4-50 ng/L C-Reactive Protein, Quantitative 106.50 H 0.5-3.0 mg/L B-Type Natriuretic Peptide 555 H 0-100 pg/mL Procalcitonin 0.14 0.05-0.5 ng/mL Coagulation Labs: Test 01/20/25 09:22 Range/Units Prothrombin Time 10.4 9.6-11.6 SEC Prothromb Time International Ratio 0.98 0.85-1.15 Activated Partial Thromboplast Time 28.0 26.3-35.5 SEC DIAGNOSTICS / RADIOLOGY RESULTS: [ ] PLAN NEURO: Minimize central acting medications as possible. Maintain fall precautions, adequate lighting during the day PULMONARY: Supplemental 02 as needed. Maintain aspiration precautions at all times CARDIOVASCULAR: Follow hemodynamics. Vital signs per facility protocol GI & NUTRITION: Continue with nutritional support. Continue stool softeners and laxatives as needed. KIDNEYS & ELECTROLYTES: Strict monitoring of intake, output and overall fluid balance. Avoid nephrotoxic medications to the extent possible. Medications to be dosed according to renal function. Monitor electrolytes and replace as needed ENDOCRINE: Maintain blood glucose between 100-180 at all times. Hypoglycemia protocol in place INFECTIOUS DISEASE: Trend temperature, WBC and procalcitonin level Follow cultures, deescalate antibiotics as soon as possible. Panculture if new onset fever ONCOLOGY/HEMATOLOGY/COAGULATION: Monitor for s/s of bleeding Monitor hemoglobin, coagulation studies as needed SKIN: Pressure ulcer prevention per facility protocol Specialty mattress ORTHO/REHAB: Continue PT/OT Prophylaxis: Continue GI and DVT prophylaxis Code Status: Full Resuscitation Disposition: TBD Other: Total patient care time exceeds 35 minutes excluding all procedures. ANNABELLA RODRIGUEZ AGACNP Jan 20, 2025 14:58 Electronically Signed by: ANNABELLA [id number] Electronically Co-Signed by: TACOS JANE MD01/21/25 0853 CONSULTATION REPORT Name: NEHEMIAS BAINS Acct: [id number] MR: [id number] : 1945 Admit Date: 01/20/25 SEE CHILDRESS [facility] [address] [place] [id number] CONSULT NOTE: Reason for consult: delirium Reason for medical admission: 79-year-old female with past medical history of ovarian cancer, hypertension, history of gastric ulcer, history of history of aortic valve stenosis status post valve replacement who presented to the hospital secondary to hemoptysis. The patient states she has noted cough at home which is productive in nature. She has noted blood with her sputum. She does not have any hematemesis, melena, hematochezia. Denied any recent epistaxis. She has noted previous episodes of epistaxis in the past but denied any recent episode. Her blood is mainly present after coughing in the sputum. Denied any fever, chills, chest pain, abdominal pain, nausea. She does get short of breath with her underlying cough. She has been followed by Dr. Small as outpatient regards to aortic valve stenosis. She currently denies taking any antiplatelet or anticoagulants at home. She denied any night sweats, recent weight loss. Labs were notable for white count of 12.5, hemoglobin was 10.5, platelet count was 237 K, sodium was 132, potassium was 4.1, creatinine was 1.0 Chest x-ray infiltrates on the right side. 01/21/2025: Patient was seen and evaluated bedside in ED 11. Case discussed with RN, no acute overnight events. Patient says she is feeling well, denies chest pain, shortness of breath, palpitations, nausea, vomiting. X-ray shows airspace consolidation involving right middle and right lower lung and blunting of both costophrenic sulcus suggesting a pleural reaction. CT chest shows large consolidation likely of infectious origin, ground-glass opacities with interlobular septal thickening giving rise to crazy paving pattern in right lower lobe suggesting underlying pulmonary edema. Lab shows white count 14.9, CRP 106, BNP 555. EKG showed prolonged QTC, azithromycin was discontinued and doxycycline was started, continue Zosyn. Cardiology was consulted for further evaluation. CC: "I'm very well" HPI: Patient states she is doing very well today. Her son is in the room visiting her. When asked why she is in the hospital she starts talking about being to the same man for 51 years. 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 She says she is in the hospital to get her daughter checked out and she does not think she is the patient. When I ask her to tell me her name and . She tells me her name and address. When I ask her her again she is able to report it. She thinks she is in her house in [place]. She can tell me date, month and year. She reports the season as Fall and the next holiday as . She can report current president but not past president. She cannot do simple calculations. She can spell WORLD forwards and backwards. She cannot do serial 7's. She denies sadness or depression and she says she is very happy. She denied anxiety or nervousness. She denied AVH. She does not make any paranoid statements. She is eating and sleeping well. She is taking her medications. Son reports that she has not slept and she has been very restless and agitated. She has been seeing babies and dogs in the room and having conversations with people that are not there. Vital Signs Date Time Temp Pulse Resp B/P (MAP) Pulse Ox O2 Delivery O2 Flow Rate FiO2 01/21/25 16:00 97.3 77 16 123/66 97 Nasal Cannula 2.0 01/21/25 11:30 28 Current Medications Medications Dose Ordered Sig/Sadi Start Time Stop Time Status Last Admin Famotidine 20 mg Q24H 01/20/25 21:00 02/19/25 20:59 01/20/25 21:03 Potassium Chloride 100 ml @ 100 mls/hr AD PRN 01/20/25 12:00 02/19/25 11:59 Potassium Chloride 20 meq AD PRN 01/20/25 12:00 02/19/25 11:59 Potassium Chloride 20 meq AD PRN 01/20/25 12:00 02/19/25 11:59 Magnesium Sulfate 50 ml @ 0 mls/hr PROTOCOL PRN 01/20/25 12:00 02/19/25 11:59 Acetaminophen 650 mg Q6H PRN 01/20/25 13:00 02/19/25 12:59 Acetaminophen 650 mg Q4H PRN 01/20/25 13:00 02/19/25 12:59 Ondansetron HCl 4 mg Q6H PRN 01/20/25 13:00 02/19/25 12:59 Lactulose 20 gm BID PRN 01/20/25 13:00 02/19/25 12:59 Nitroglycerin 0.4 mg PROTOCOL PRN 01/20/25 13:00 02/19/25 12:59 Guaifenesin/ Dextromethorphan 10 ml Q4H PRN 01/20/25 13:00 02/19/25 12:59 Guaifenesin 200 mg Q4H PRN 01/20/25 13:00 02/19/25 12:59 Loperamide HCl 2 mg Q6H PRN 01/20/25 13:00 02/19/25 12:59 Docusate Sodium 100 mg BID PRN 01/20/25 13:00 02/19/25 12:59 Polyethylene Glycol 17 gm DAILY PRN 01/20/25 13:00 02/19/25 12:59 Lidocaine HCl/Al Hydroxide/Mg Hydroxide/ Dicyclomine HCl 20ML OR AD MAALOX P... Q6H PRN 01/20/25 13:00 02/19/25 12:59 Artificial Tears 1 DROP Q2H PRN 01/20/25 13:00 02/19/25 12:59 Benzocaine 1 each Q2H PRN 01/20/25 13:00 02/19/25 12:59 Metoprolol Succinate 50 mg DAILY 01/21/25 09:00 02/20/25 08:59 01/21/25 10:21 Amlodipine Besylate 5 mg DAILY 01/22/25 09:00 02/21/25 08:59 Lisinopril 20 mg DAILY 01/22/25 09:00 02/21/25 08:59 Amlodipine Besylate 2.5 mg DAILY 01/22/25 09:00 02/21/25 08:59 Doxycycline Hyclate 250 ml @ 125 mls/hr Q12H 01/21/25 10:30 01/31/25 10:29 01/21/25 11:06 Piperacillin Sod/ Tazobactam Sod 3.375 gm Q8H 01/21/25 14:30 01/31/25 14:29 01/21/25 14:45 Enoxaparin Sodium 30 mg DAILY 01/22/25 09:00 02/21/25 08:59 Laboratory Tests Test 01/21/25 05:07 01/21/25 17:16 White Blood Count 14.9 K/uL (4.8-10.8) H Red Blood Count 3.13 MIL/uL (4.00-5.50) L Hemoglobin 10.3 g/dL (12.0-16.0) L Hematocrit 29.9 % (36-48) L Mean Corpuscular Volume 95.5 fL (79-99) Mean Corpuscular Hemoglobin 32.9 pg (27.0-33.0) Mean Corpuscular Hemoglobin Concent 34.4 g/dL (32.0-36.0) Red Cell Distribution Width 13.7 % (11.0-15.5) Platelet Count 244 K/uL (130-400) Mean Platelet Volume 10.8 fL (7.5-10.5) H Immature Granulocyte % (Auto) 0.5 % (0-1) Neutrophils (%) (Auto) 92.5 % (40.0-77.0) H Lymphocytes (%) (Auto) 3.2 % (21.0-51.0) L Monocytes (%) (Auto) 3.7 % (3.0-13.0) Eosinophils (%) (Auto) 0.0 % (0.0-8.0) Basophils (%) (Auto) 0.1 % (0.0-5.0) Neutrophils # (Auto) 13.8 K/uL (1.8-7.7) H Lymphocytes # (Auto) 0.5 K/uL (1.0-4.8) L Monocytes # (Auto) 0.6 K/uL (0.1-1.0) Eosinophils # (Auto) 0.00 K/uL (0.00-0.70) Basophils # (Auto) 0.01 K/uL (0.00-0.20) Absolute Immature Granulocyte (auto 0.07 K/uL (0-1) Nucleated Red Blood Cells 0.0 % (0.0-0.19) Sodium Level 136 mmol/L (136-145) 136 mmol/L (136-145) Potassium Level 4.4 mmol/L (3.5-5.1) 5.2 mmol/L (3.5-5.1) H Chloride Level 101 mmol/L (101-111) 101 mmol/L (101-111) Carbon Dioxide Level 21 mmol/L (21-32) 23 mmol/L (21-32) Blood Urea Nitrogen 27 mg/dL (7-18) H 26 mg/dL (7-18) H Creatinine 1.0 mg/dL (0.5-1.0) 1.1 mg/dL (0.5-1.0) H Glomerular Filtration Rate Calc 57 mL/min (>90) 51 mL/min (>90) Random Glucose 138 mg/dL (70-105) H 117 mg/dL (70-105) H Total Calcium 9.4 mg/dL (8.5-10.1) 9.5 mg/dL (8.5-10.1) Mycoplasma pneumoniae IgM Antibody NEGATIVE (NEGATIVE) Ammonia < 10 umol/L (11-32) L Vitamin B12 Level 5005 pg/mL (193-986) H MSE: Patient is an 79 yo female. She is awake and alert. She is pleasant but confused. She is orient to person. Speech is fluent. Eye contact is intermittent. Gait is not evaluated. No AIMS or psychomotor disturbances. Mood is "happy" and affect is a bit elevated. Thought process is mostly goal directed but a bit odd and tangential. Thought content is + for AVH. No SI, HI, paranoia. Memory and cognition are impaired. Insight and judgment are limited. Assessment: Acute delirium Recommendations: -Patient likely having acute delirium from multiple medical issues. Her WBC and Cr are trending up. She is hallucinating, agitated and not sleeping. Ultimately, treating the underlying cause of the delirium is the main treatment and this is being addressed by medical team. -Recommend that EKG be repeated. Her QTc was elevated yesterday but she was also tachycardic. -Recommend use of PRN antipsychotics if QTc has come down. Seroquel 12.5 mg BID PRN for agitation, restlessness or psycohsis and 25 mg QHS for sleep. -If she cannot tolerate antipsychotics due to QTc then recommend PRN Ativan tonight 0.5-1 mg QHS to help her rest and get some sleep. Getting her back on a good sleep schedule will also greatly help the delirium. USE BENOS VERY SPARINGLY. They will not help the psychosis at all, they will only calm her down. -Patient does not meet criteria for psychiatric hospitalization and that is not necessary at this time. -Please re-consult as needed. *20 mins was spent [id number] with patient and 25 mins was spent on chart review and documentation. SEE CHILDRESS DO Jan 21, 2025 19:05 Electronically Signed by: SEE CHILDRESS DO01/21/251920 Electronically Co-Signed by: CONSULTATION REPORT Name: NEHEMIAS BAINS Acct: [id number] MR: [id number] : 1945 Admit Date: 01/20/25 BOUCHRA CLAROS MD [place] [address] [address] [facility] CARDIOLOGY CONSULTATION NOTE Date Patient Seen: Jan 22, 2025 Time of Visit: 11:34 Requesting Physician: [ ] Reason for Consultation: [ ] History of Present Illness: [ 79-year-old female that follows up in cardiology clinic with Dr Small , with a history of sick sinus syndrome status post permanent pacemaker insertion and subsequent generator replacement on 01/24/2020 with a Biotronik Edora 8 DR-T dual-chamber device, brief self-limiting episodes of atrial fibrillation and atrial tachycardia (with recurrent epistaxis limiting anticoagulation in the past), hypertension, stable 3,8 cm descending aortic aneurysm, normal coronaries by remote cardiac catheterization 03/26/2001, prior gastric ulcer with upper GI bleed in 2019, severe aortic stenosis status post mechanical aortic valve replacement in March 2001, complicated by a perivalvular leak, requiring a redo aortic valve replacement with a mechanical prosthesis on 03/31/2001, complicated by sepsis and perivalvular leak with hemolysis, requiring a second redo procedure in [place], [place] with a homograft in April 2001. 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 Finally she has been diagnosed with ovarian cancer, status post chemotherapy and hysterectomy/oophorectomy in early 2021, followed at [facility]. 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 Of note she is known to have perivalvular leak with at least moderate degree of aortic insufficiency. Her 2D echocardiogram 09/23/2023 demonstrated an increased LV cavity size to 5.5 cm, moderate central valvular aortic regurgitation primarily over the left coronary cusp with a 30% jet diameter and within AR pressure half- time of 441 ms. She was recommended to undergo a transesophageal 2D echocardiogram in February 2024 which she declined. Patient currently on BiPAP support, altered, alert and oriented x2, she is not endorsing any chest pain, side from ongoing shortness of breath. Past Medical History: [ Refer to chart] Past Surgical History: [Refer to HPI ] Family History: [Refer to HPI ] Social History: [Refer to HPI ] Habits: [Never] smoker. [Denies] alcohol consumption. [Denies] illicit drug use Review of Systems: A review of12 point system was negative set per HPI Physical Examination: GENERAL: Anxious. HEENT: EOMI, Sclera non icteric, moist mucosa NECK: Supple, no JVD, trachea midline LUNGS: Tachypneic, on BiPAP, respiration rate 40s. Diminished breath sounds bilaterally. No wheezes HEART: Tachycardic. Regular rate and rhythm. Normal S1 and S2, without murmurs ABD: Abdomen soft, nontender. Bowel sounds present EXT: No clubbing cyanosis or edema NEURO: Altered, alert and oriented x2 Vital Signs (last 8hr) Date Time Temp Pulse Resp B/P (MAP) Pulse Ox O2 Delivery O2 Flow Rate FiO2 01/22/25 10:30 86 18 N/Cannula Low lpm 4.0 36 01/22/25 10:02 82 38 35 01/22/25 10:00 50 01/22/25 10:00 88 22 121/46 99 BIPAP 40 01/22/25 09:00 89 23 115/43 100 BIPAP 60 01/22/25 08:22 82 38 70 01/22/25 08:00 100 Bi-PAP+ 70 01/22/25 08:00 98.2 86 22 123/38 100 BIPAP 70 01/22/25 06:39 66 28 01/22/25 06:37 90 28 80 01/22/25 06:30 99.7 80 26 111/46 100 BIPAP 80 01/22/25 06:00 79 25 113/39 100 BIPAP 80 01/22/25 05:30 80 27 102/49 100 BIPAP 80 01/22/25 05:00 92 29 132/57 100 BIPAP 100 01/22/25 05:00 100 Bi-PAP+ 100 01/22/25 04:30 100.2 80 24 136/59 99 BIPAP 100 01/22/25 04:15 71 24 124/73 99 BIPAP 100 Laboratory: [ ] Hematology Labs: Test 01/22/25 03:44 01/22/25 01:35 Range/Units White Blood Count 18.3 H 4.8-10.8 K/uL Red Blood Count 2.92 L 4.00-5.50 MIL/uL Hemoglobin 9.5 L 12.0-16.0 g/dL Hematocrit 27.6 L 36-48 % Mean Corpuscular Volume 94.5 79-99 fL Mean Corpuscular Hemoglobin 32.5 27.0-33.0 pg Mean Corpuscular Hemoglobin Concent 34.4 32.0-36.0 g/dL Red Cell Distribution Width 13.8 11.0-15.5 % Platelet Count 276 130-400 K/uL Mean Platelet Volume 10.5 7.5-10.5 fL Nucleated Red Blood Cells 0.0 0.0-0.19 % Immature Granulocyte % (Auto) 0.7 0-1 % Neutrophils (%) (Auto) 87.3 H 40.0-77.0 % Lymphocytes (%) (Auto) 4.4 L 21.0-51.0 % Monocytes (%) (Auto) 7.4 3.0-13.0 % Eosinophils (%) (Auto) 0.1 0.0-8.0 % Basophils (%) (Auto) 0.1 0.0-5.0 % Neutrophils # (Auto) 14.5 H 1.8-7.7 K/uL Lymphocytes # (Auto) 0.7 L 1.0-4.8 K/uL Monocytes # (Auto) 1.2 H 0.1-1.0 K/uL Eosinophils # (Auto) 0.01 0.00-0.70 K/uL Basophils # (Auto) 0.01 0.00-0.20 K/uL Absolute Immature Granulocyte (auto 0.11 0-1 K/uL Chemistry Labs: Test 01/22/25 07:50 01/22/25 03:44 01/22/25 01:35 01/21/25 17:16 Range/Units Lactic Acid Level 1.3 0.8-2.5 mmol/L Magnesium Level 2.10 1.80-2.40 mg/dL Thyroid Stimulating Hormone (TSH) 0.56 0.36-3.74 uIU/mL Sodium Level 139 136-145 mmol/L Potassium Level 4.0 3.5-5.1 mmol/L Chloride Level 102 101-111 mmol/L Carbon Dioxide Level 21 21-32 mmol/L Blood Urea Nitrogen 26 H 7-18 mg/dL Creatinine 1.1 H 0.5-1.0 mg/dL Glomerular Filtration Rate Calc 51 >90 mL/min Random Glucose 148 H 70-105 mg/dL Total Calcium 8.9 8.5-10.1 mg/dL Total Bilirubin 1.5 H 0.2-1.0 mg/dL Aspartate Amino Transf (AST/SGOT) 24 10-37 U/L Alanine Aminotransferase (ALT/SGPT) 30 12-78 U/L Alkaline Phosphatase 67 50-136 U/L C-Reactive Protein, Quantitative 85.20 H 0.5-3.0 mg/L B-Type Natriuretic Peptide 1530 H 0-100 pg/mL Total Protein 6.4 6.0-8.3 g/dL Albumin 3.2 L 3.5-5.0 g/dL Troponin I High Sensitivity 28 4-50 ng/L Ammonia < 10 L 11-32 umol/L Vitamin B12 Level 5005 H 193-986 pg/mL Coagulation Labs: Test 01/22/25 03:44 Range/Units D-Dimer Quantitative (PE/DVT) 2294 *H 0-500 ng/mL Diagnostics / Radiology: [Copy/Paste Echos/Imaging Report here] Assessment: [Sick sinus syndrome status post permanent pacemaker insertion and subsequent generator replacement on 01/24/2020 with a Biotronik Edora 8 DR-T dual-chamber device Atrial fibrillation not on anticoagulation for history of epistaxis Hypertension Stable ascending aortic aneurysm (3.8 cm) Hemoptysis Community-acquired pneumonia Plan: [# moderate prosthetic aortic valve regurgitation ] Status post mechanical aortic valve replacement in March 2001 Complicated by a perivalvular leak, requiring a redo aortic valve replacement with a mechanical prosthesis on 03/31/2001 Complicated by sepsis and perivalvular leak with hemolysis, requiring a second redo procedure in [place], [place] with a homograft in April 2001. She is known to have perivalvular leak with at least moderate degree of aortic insufficiency. Her 2D echocardiogram 09/23/2023 demonstrated an increased LV cavity size to 5.5 cm, moderate central valvular aortic regurgitation primarily over the left coronary cusp with a 30% jet diameter and within AR pressure half-time of 441 ms. She was recommended to undergo a transesophageal 2D echocardiogram in February 2024 which she declined. Strict I's and O's and daily weights. We will start Lasix IV 40 mg every 12 hours For afterload reduction we will start [id number] mg daily Defer use of beta-blockers for the moment given her aortic regurgitation Keep on telemetry, monitor/replace electrolytes as needed We will order a repeat 2D echocardiogram to assess her bioprosthetic aortic valve and wall motion abnormalities Thank you for this consult cardiology will continue to follow along, formal recommendations pending 2D echocardiogram results Bouchra claros MD ATTESTATION BY PHYSICIAN I have seen and examined the patient, reviewed the above documentation, participated in medical decision making, made necessary modifications, and agree with the treatment plan as documented by my mid-level provider above. MD PINKY Glez,BOUCHRA Argueta MD Jan 22, 2025 12:01 Electronically Signed by: BOUCHRA CLAROS MD01/22/25 1201 Electronically Co-Signed by: CONSULTATION REPORT Name: NEHEMIAS BAINS Acct: [id number] MR: [id number] : 1945 Admit Date: 01/20/25 JAN BRICENO MD [place] [address] [place] [id number] INFECTIOUS DISEASE CONSULTATION DATE OF SERVICE: 01/22/2025 REASON FOR CONSULTATION: Pneumonia and antibiotic management. HISTORY OF PRESENT ILLNESS: An 79-year-old female with a history of ovarian cancer, hypertension, gastric ulcer, and aortic stenosis, brought to the Emergency Room with ____. The patient has no fever, no chills. The patient has some pleuritic pain. CT angiogram done, came back unremarkable, but shows large consolidation. The patient developed respiratory failure and was admitted to the ICU. No nausea, vomiting, or diarrhea. The patient has been started on Zosyn and doxycycline. PAST MEDICAL HISTORY: * Ovarian cancer. * Gastroesophageal reflux disease. * Hypertension. * Atrial fibrillation. * Stenosis. PAST SURGICAL HISTORY: * Mitral valve replacement. ALLERGIES: No known drug allergy. CURRENT MEDICATIONS: * Zosyn. * Solu-Medrol. * Lasix. * Pepcid. * Doxycycline. * Meropenem. SOCIAL HISTORY: No alcohol, tobacco or illicit drug use. FAMILY HISTORY: Noncontributory. REVIEW OF SYSTEMS: Greater than 10 systems were reviewed, negative except as documented above. PHYSICAL EXAMINATION: GENERAL: Elderly female, alert, not in distress. VITAL SIGNS: Temperature 97.9, pulse 93, respiratory rate 18, BP 122/52. EYES: No icterus. Pupils are equal and reactive. HENT: No oral thrush. Moist oral mucosa. NECK: Supple. No JVD or thyromegaly. LUNGS: Good air entry. Crackles bilaterally. CARDIOVASCULAR SYSTEM: S1, S2, regular. No murmur, no gallop. ABDOMEN: Full, soft. Bowel sounds are present. CENTRAL NERVOUS SYSTEM: The patient is awake, alert, and oriented x3. No focal deficits. SKIN: No rashes. LYMPHATIC: No peripheral lymphadenopathy. BACK: No deformity, no pressure ulcer. MUSCULOSKELETAL: No joint swelling, erythema or tenderness. LABORATORY DATA: Sodium 139, potassium 4.0, BUN 21, creatinine 1.1. WBC 13.7, hemoglobin 9.5, platelets 276. Sputum culture shows normal iram. RADIOLOGY DATA: CT chest negative for pulmonary embolism, showed large consolidation. ASSESSMENT: An 79-year-old female who presented with cough, shortness of breath. * Pneumonia. * Possible respiratory failure. * Anemia. * Hypertension. * History of ovarian cancer. * Leukocytosis due to steroids. PLAN: * We will continue Zosyn. * Continue doxycycline. * Continue nutritional support. * Continue ____. * Follow up cultures. * Continue DVT prophylaxis. * Continue bronchodilator. * Continue Solu-Medrol. * Monitor electrolytes and correct as needed. Thank you for allowing me to participate in the care of this patient. TID: [id number] RECEIPT: [id number] Electronically Signed by: JAN BRICENO MD01/28/25 5855 Electronically Co-Signed by: Procedure(s): [facility] [address] [place] [address] [phone] IMAGING REPORT Signed PATIENT: NEHEMIAS BAINS MR#: [id number] : 1945 SEX: F AGE: 79 LOCATION: 3CH ORDER 0911 STATUS: ADM IN REPORT#: [id number] SERVICE 0909 REASON: cp ORDERING PHYSICIAN: NIDIA MCKEON MD PROCEDURE: CXR1VW - CHEST 1VW CHEST 1VW REASON: cp COMPARISON: None. FINDINGS: Single view of the chest was obtained. There is cardiomegaly with median sternotomy with cardiac revascularization procedure. There is a left-sided pacemaker with lead in right atrium and right ventricle. The lung avila demonstrate airspace consolidation involving the right upper and middle lobe. The left lung appears to be clear. There is blunting of both costophrenic sulcus suggesting of pleural reaction.. Mediastinum appears minimal. The bony thorax demonstrate osteopenia and deformity of the right humeral neck suggesting of an old trauma. IMPRESSION: 1. Cardiomegaly with median sternotomy with cardiac tube aspiration procedure 2. There is airspace consolidation involving the right middle and right lower lung 3. There is blunting of both costophrenic sulcus suggesting a pleural reaction. DICTATED BY: SPRING RODRÍGUEZ MD DATE: 01/21/25 1306 ELECTRONICALLY SIGNED BY: SPRING RODRÍGUEZ MD DATE: 01/21/25 1310 [facility] [address] [place] [address] [phone] IMAGING REPORT Signed PATIENT: NEHEMIAS BAINS MR#: [id number] : 1945 SEX: F AGE: 79 LOCATION: EDHIP ORDER 1340 STATUS: ADM IN REPORT#: [id number] SERVICE 1339 REASON: hemoptysis ORDERING PHYSICIAN: MERVIN FARNSWORTH MD PROCEDURE: PE CHEST - CT CHEST PE WWO EXAM: CTA examination of the chest. CLINICAL HISTORY: Hemoptysis. TECHNIQUE: Thin collimated axial CTA images of the chest were obtained, and sagittal and coronal reformatted images were also submitted. A CT scan is done according to ALARA (As Low as Reasonably Achievable). COMPARISON: None provided. FINDINGS: There is a large consolidation along with areas of groundglass opacities with interlobular septal thickening, giving rise to a crazy paving pattern in the right lower lobe. Similar smaller areas are in the right middle lobe and the inferior segment of the lingula. Small subsegmental atelectasis in the left lower lobe posteriorly. No pleural effusions. No pericardial effusion. Moderate cardiomegaly. 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 No filling defect or pulmonary thromboembolism. Significant atherosclerotic calcification of the thoracic aorta. Moderate calcification of the coronary arteries. There is an AICD device. No axillary, supraclavicular, or mediastinal lymphadenopathy. Limited views of the upper abdomen demonstrate no abnormality. No acute or suspicious osseous abnormality. IMPRESSION: No pulmonary thromboembolism. Large consolidation is likely of infectious origin. The areas of groundglass opacities with interlobular septal thickening giving rise to a crazy paving pattern in the right lower lobe could suggest underlying pulmonary edema. Similar smaller areas are in the right middle lobe and the inferior segment of the lingula. Small subsegmental atelectasis in the left lower lobe posteriorly. Moderate cardiomegaly. 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 Other chronic findings as described. /[place] DICTATED BY: ZHANE MOORE Jr., MD DATE: 01/21/25139 ELECTRONICALLY SIGNED BY: ZHANE MOORE Jr., MD DATE: 01/21/25139 [place] [address] IMAGING REPORT Signed PATIENT: NEHEMIAS BAINS MR#: [id number] : 1945 SEX: F AGE: 79 LOCATION: 4AH ORDER STATUS: ADM IN REPORT#: [id number] SERVICE 005 REASON: SOB ORDERING PHYSICIAN: [employer]ANI [employer] PROCEDURE: CXR1VW - CHEST 1VW EXAM: CR Chest, 1 view CLINICAL HISTORY: Shortness of breath. COMPARISON: Chest radiograph dated 01/20/2025. FINDINGS: Status poststernotomy. Left-sided cardiac pacemaker device in place. Moderate cardiomegaly with mild pulmonary vascular congestion. Diffuse airspace disease on the right side with air bronchogram in the right upper to mid zones, concerning pneumonia. Small pleural effusions bilaterally. Mild to moderate COPD. Mild atherosclerotic aorta. Mild osteopenia. Oblique fracture around the right humeral neck. Degenerative osseous changes. No acute osseous abnormality. IMPRESSION: Diffuse airspace disease on the right side with air bronchogram in the right upper to mid zones, concerning pneumonia. Mild interval worsening in this finding. Stable moderate cardiomegaly with mild pulmonary vascular congestion. Stable small pleural effusions bilaterally. /[place] DICTATED BY: ZHANE OMORE Jr., MD DATE: 01/22/25353 ELECTRONICALLY SIGNED BY: ZHANE MOORE Jr., MD DATE: 01/22/25353 [place] [address] IMAGING REPORT Signed PATIENT: NEHEMIAS BAINS MR#: [id number] : 1945 SEX: F AGE: 79 LOCATION: 2DH ORDER 0239 STATUS: ADM IN REPORT#: [id number] SERVICE 0800 REASON: OVERLOAD ORDERING PHYSICIAN: [employer] PROCEDURE: ECHO CMP - ECHO 2-D COMPLETE APPROVED REPORT EXAM: Two-dimensional and M-mode echocardiogram with Doppler and color Doppler. INDICATION ICD: overload 2D Dimensions RVDd 3.7 cm LVEF(%) 45.8 (>50%) LVED Vol(simp.) 121.0 mL IVSd 0.8 (0.7-1.1cm) FS(%) 23 % LVES Vol(simp.) 59.5 mL LVDd 5.2 (3.8-5.6cm) LA (2D) 3.3 (1.6-4.0cm) LVEF(%, simp.) 51 % PWd 1.0 (0.7-1.1cm) Ao Root(2D) 2.5 (2.0-3.7cm) LA ESV INDEX (BP) 62.42 mL/m2 LVDs 4.0 (2.5-4.0cm) LVOT diam 2.1 (1.8-2.4cm) IVC diam 2.3 cm Deformation Strain Apical 4 -16.6 % Apical 2 -15.0 % Apical 3 -19.9 % Global Strain -17.2 % M-Mode Dimensions EPSS 1.2 cm Aortic Valve AoV Vmax 3.3 m/s Ao Peak GR 45.4 mmHg LVOT Vmax 1.2 m/s AoV VTI 0.7 m Ao Mean GR 25.5 mmHg LVOT VTI 0.23 m THEE (VMAX) 1.24 cm2 Al P1/2T 277 ms THEE (VTI) 1.2 cm2 Mitral Valve MV E Vmax 76.1 cm/s DECEL Time 143 ms MV A Vmax 91.5 cm/s P 1/2 T 43 ms E/A ratio 0.8 MVA (PHT) 5.1 cm2 TDI E/E' Medial 17.5 E/E' Lateral 6.9 Medial E' Peak V 4.34 cm/s Lateral E' Peak V 11.09 cm/s Pulmonary Valve PV Vmax 1.2 m/s PV VTI 0.24 m PV Mean GR 3.0 mmHg PV Peak GR 5.9 mmHg Tricuspid Valve TR Vmax 3.0 m/s RAP (EST) 15 mmHg RVSP 52.2 mmHg TR Peak GR 37.2 mmHg Left Ventricle The left ventricle is normal size. There is normal LV segmental wall motion. Mild concentric left ventricular hypertrophy. LVEF is 50-55%. Stage II diastolic dysfunction. Right Ventricle The right ventricle is normal size. The right ventricular systolic function is normal. Device lead is present in the right ventricle. Atria The left atrium is severely dilated. The right atrium is dilated. Pacemaker lead is present in the right atrium. Aortic Valve Bioprosthetic aortic valve is present. Prosthetic aortic valve opening is decreased with highest mean gradient of 31mmHg, pk gradient of 59mmHg. Trace- mild aortic regurgitation. There is no aortic valvular stenosis. Mitral Valve The mitral valve is normal in structure. Mitral regurgitation is mild. There is no mitral valve stenosis. Tricuspid Valve The tricuspid valve is normal in structure. There is moderate tricuspid valve regurgitation noted, RVSP 52mmHg. Pulmonic Valve Pulmonic valve is not well visualized. There is no pulmonic valvular regurg itation. Great Vessels The aortic root is normal in size. IVC is dilated and collapses <50% with inspiration. Pericardium There is no pericardial effusion. Other Information Quality : Good Conclusion The left ventricle is normal size. LVEF is 50-55% with normal LV segmental wall motion. Mild concentric left ventricular hypertrophy. Stage II diastolic dysfunction. The right ventricular systolic function is normal. Device lead is present in the rightsided chambers. The left atrium is severely dilated. Bioprosthetic aortic valve is present. (Prosthetic aortic valve opening is decreased with highest mean gradient of 31mmHg) Trace-mild aortic regurgitation. There is moderate tricuspid valve regurgitation noted, RVSP 52mmHg. IVC is dilated and collapses <50% with inspiration. There is no pericardial effusion. DICTATED BY: BOUCHRA CLAROS MD DATE: 01/22/25 1206 ELECTRONICALLY SIGNED BY: BOUCHRA CLAROS MD DATE: 01/22/[address] [address] IMAGING REPORT Signed PATIENT: NEHEMIAS BAINS MR#: [id number] : 1945 SEX: F AGE: 79 LOCATION: 2DH ORDER 1025 STATUS: ADM IN REPORT#: [id number] SERVICE 1024 REASON: Elevated D-dimer ORDERING PHYSICIAN: SAMMIE LOVE MD PROCEDURE: VENOUS BRETT - US VENOUS DOPPLER BILATERAL EXAMINATION: SPECTRAL DOPPLER ULTRASOUND EXAMINATION OF THE BILATERAL LOWER EXTREMITY VEINS. CLINICAL HISTORY: Elevated D-Dimer. COMPARISON: None provided. TECHNIQUE: Real-time ultrasound scan of the veins of the bilateral lower extremity with color Doppler flow, spectral waveform analysis and compression. FINDINGS: DEEP VEINS: The common femoral, superficial femoral, and popliteal veins are echolucent and compressible. There is normal color Doppler flow throughout. The visualized calf veins appear patent. SUPERFICIAL VEINS: The greater saphenous veins are patent and compressible. SOFT TISSUES: No popliteal fossa cyst or other abnormalities. IMPRESSION: No deep venous thrombosis evident in the bilateral lower extremity. No superficial thrombophlebitis in the bilateral lower extremity. /[place] DICTATED BY: CASSANDRA LOBATO MD DATE: 01/23/25929 ELECTRONICALLY SIGNED BY: CASSANDRA LOBATO MD DATE: 01/23/25929 [place] [address] IMAGING REPORT Signed PATIENT: NEHEMIAS BAINS MR#: [id number] : 1945 SEX: F AGE: 79 LOCATION: [facility] ORDER 2300 STATUS: ADM IN REPORT#: [id number] SERVICE 0600 REASON: CAP ORDERING PHYSICIAN: TONI MAR MD PROCEDURE: CXR1VW - CHEST 1VW EXAM: CR Chest, 1 view CLINICAL HISTORY: Shortness of breath. COMPARISON: Chest radiograph dated 01/20/2025. FINDINGS: Status poststernotomy. Left-sided cardiac pacemaker device in place. Moderate cardiomegaly. Mild pulmonary vascular congestion and diffuse airspace disease on the right side with air bronchogram in the right upper to mid zones -slightly improved when compared with the prior exam. Small pleural effusions bilaterally. Mild to moderate COPD. Mild atherosclerotic aorta. Mild osteopenia. Oblique fracture around the right humeral neck. Degenerative osseous changes. No acute osseous abnormality. IMPRESSION: Mild pulmonary vascular congestion and diffuse airspace disease on the right side with air bronchogram in the right upper to mid zones -slightly improved when compared with the prior exam. Otherwise, stable exam. /[place] DICTATED BY: CASSANDRA LOBATO MD DATE: 01/23/25921 ELECTRONICALLY SIGNED BY: CASSANDRA LOBATO MD DATE: 01/23/[address] [address] IMAGING REPORT Signed PATIENT: NEHEMIAS BAINS MR#: [id number] : 1945 SEX: F AGE: 79 LOCATION: [facility] ORDER 2 STATUS: ADM IN REPORT#: [id number] SERVICE 1 REASON: f/up pneumonia ORDERING PHYSICIAN: SAMMIE LOVE MD PROCEDURE: CXR1VW - CHEST 1VW EXAM: CR Chest, 1 view CLINICAL HISTORY: Shortness of breath. COMPARISON: Chest radiograph dated 01/23/2025. FINDINGS: Status poststernotomy. Left-sided cardiac pacemaker device in place. Moderate cardiomegaly. diffuse airspace disease on the right side with air bronchogram in the right upper to mid zones -worsened when compared with the prior exam. Small pleural effusions bilaterally. Mild to moderate COPD. Mild atherosclerotic aorta. Mild osteopenia. Oblique fracture around the right humeral neck. Degenerative osseous changes. No acute osseous abnormality. IMPRESSION: 1. Worsening right-sided diffuse airspace disease with air bronchogram in the right upper to mid zones, concerning for pneumonia. 2. Oblique fracture around the right humeral neck. 3. Small bilateral pleural effusions. 4. Moderate cardiomegaly. 5. Mild to moderate COPD. 6. Status post sternotomy with left-sided cardiac pacemaker in place. 7. Mild atherosclerotic aorta. 8. Mild osteopenia and degenerative osseous changes. /[place] DICTATED BY: ALIYA BACA MD DATE: 01/24/252326 ELECTRONICALLY SIGNED BY: ALIYA BACA MD DATE: 01/24/252326 [facility] [address] [place], [place] [address] IMAGING REPORT Signed PATIENT: NEHEMIAS BAINS MR#: [id number] : 1945 SEX: F AGE: 79 LOCATION: [facility] ORDER 230 STATUS: ADM IN REPORT#: [id number] SERVICE 06 REASON: CAP ORDERING PHYSICIAN: TONI MAR MD PROCEDURE: CXR1VW - CHEST 1VW EXAM: CHEST RADIOGRAPH, ONE VIEW Technique: Single frontal chest radiograph was obtained. Evaluation is limited by the single projection, which reduces sensitivity for small pneumothorax, small effusions, and subtle parenchymal or mediastinal abnormalities. Clinical Information: History of community-acquired pneumonia. Comparison: Chest radiograph dated January 24, 2025 at 08:57 Eastern Daylight Time. Findings: Cardiac silhouette is enlarged. Left costophrenic angle is obscured on the single frontal view. Diffuse prominence of the bronchovascular markings is present. Patchy inhomogeneous air-space opacity is present in the right hemithorax, which may reflect consolidation or atelectasis. Median sternotomy wires are present and unchanged. A cardiac pacemaker is in situ with intact-appearing leads. Mild calcification of the aortic arch with unfolding of the thoracic aorta is present. No pneumothorax is identified on this single projection. No acute osseous abnormality is identified.IMPRESSION: 1. Patchy inhomogeneous air-space opacity in the right hemithorax, possibly representing consolidation or atelectasis. 2. Left costophrenic angle obscuration, potentially indicating pleural effusion. 3. Enlarged cardiac silhouette. 4. Diffuse prominence of bronchovascular markings. /[place] DICTATED BY: ALIYA BACA MD DATE: 01/26/251052 ELECTRONICALLY SIGNED BY: ALIYA BACA MD DATE: 01/26/251052 [facility] [address] [place] [address] [phone] IMAGING REPORT Signed PATIENT: NEHEMIAS BAINS MR#: [id number] : 1945 SEX: F AGE: 79 LOCATION: [facility] ORDER 2300 STATUS: ADM IN REPORT#: [id number] SERVICE 0600 REASON: pp ORDERING PHYSICIAN: APRYL STEPHENS PAC PROCEDURE: CXR1VW - CHEST 1VW EXAM: CHEST RADIOGRAPH, ONE VIEW Technique: A single frontal chest radiograph was obtained. Single-view technique limits sensitivity for small pleural effusions, small pneumothoraces, and subtle mediastinal or parenchymal abnormalities. Clinical Information: ???pp??? per requisition. Comparison: Chest radiograph dated January 25, 2025 at 05:33 EDT. Findings: Cardiac silhouette is enlarged. Left costophrenic angle remains obscured on this projection; a small left pleural effusion cannot be excluded. Diffuse prominence of the bronchovascular markings is present, compatible with vascular congestion; appearance is unchanged from the prior study. Patchy inhomogeneous air-space opacity is present in the right hemithorax, which may reflect consolidation or atelectasis; unchanged. Median sternotomy wires are present and unchanged. Cardiac pacemaker is in situ with intact-appearing leads. Mild calcification of the aortic arch with unfolding of the thoracic aorta is noted. No pneumothorax is identified on this single projection. No acute osseous abnormality is identified. Impression: * Cardiomegaly with stable diffuse vascular congestion. * Stable patchy right-sided air-space opacity???atelectasis versus consolidation in the appropriate clinical context. * Left costophrenic angle obscuration; a small left pleural effusion cannot be excluded on a single frontal view. * Postsurgical median sternotomy changes and cardiac pacemaker with intact-appearing leads. * Aortic arch atherosclerotic calcification with unfolding of the thoracic aorta. /[place] DICTATED BY: ALIYA BACA MD DATE: 01/26/251727 ELECTRONICALLY SIGNED BY: ALIYA BACA MD DATE: 01/26/251727 [place] [phone] IMAGING REPORT Signed PATIENT: NEHEMIAS BAINS MR#: [id number] : 1945 SEX: F AGE: 79 LOCATION: 2DH ORDER 1104 STATUS: ADM IN REPORT#: [id number] SERVICE 1056 REASON: HEMOPTYSIS ORDERING PHYSICIAN: DUTCH CASPER PAC PROCEDURE: CHEST HR - CT CHEST HIGH RESOLUTION (WO) EXAM: CT Chest Without IV contrast. CLINICAL HISTORY: HEMOPTYSIS TECHNIQUE: Axial computed tomography images of the chest without intravenous contrast. COMPARISON: CT chest contrast dated 20 January 2025. FINDINGS: LUNGS: Interval progression in multiple patchy ground-glass opacities with interlobular septal thickening is diffusely scattered along the bilateral lung parenchyma, with a few of these ground-glass opacities coalescing to form a consolidatory patch along the superior segment of the right lower lobe. Small sub-segmental atelectatic bands are seen along the left lower lobe. PLEURAL SPACES: Minimal right-sided pleural effusion is noted. HEART: Similar moderate cardiomegaly is present. There is stable ectasia of the ascending aorta, measuring up to 4.1 cm. Significant atherosclerotic changes with vessel wall calcification are seen along the thoracic aorta, the arch of the aorta, and the coronaries. The ICD device is seen along the left chest wall with its lead tip along the right atrium and ventricle. LYMPH NODES: No lymphadenopathy is evident. UPPER ABDOMEN: Hiatus hernia present. BONES: Trabeculation is seen along the visualized appendicular and axial skeleton, likely due to changes of osteopenia. Degenerative changes are seen in the spine. Sternotomy clips seen IMPRESSION: 1. Interval progression of bilateral patchy ground-glass opacities with interlobular septal thickening. This is nonspecific, but in the setting of hemoptysis this may represent alveolar hemorrhage. 2. Interval progression in focal consolidation in the right lower lobe superior segment, possibly worsening of pneumonia. 3. Minimal right pleural effusion. 4. Moderate cardiomegaly, unchanged. 5. Stable ectasia of the ascending aorta. /[place] DICTATED BY: CASSANDRA LOBATO MD DATE: 01/27/25 1020 ELECTRONICALLY SIGNED BY: CASSANDRA LOBATO MD DATE: 01/27/25 1020 [facility] [address] [place] [id number] IMAGING REPORT Signed PATIENT: NEHEMIAS BAINS MR#: [id number] : 1945 SEX: F AGE: 79 LOCATION: 2DH ORDER 99 STATUS: ADM IN REPORT#: [id number] SERVICE 9 REASON: pp ORDERING PHYSICIAN: APRYL STEPHENS PAC PROCEDURE: CXR1VW - CHEST 1VW CHEST 1VW REASON: pp COMPARISON: Prior chest radiograph from 01/26/2025 is available. FINDINGS: Single view of the chest was obtained. There is cardiomegaly with median sternotomy. There is uncoiling atherosclerotic change of thoracic aorta. There is a left-sided pacemaker with lead in right atrium and right ventricle. There is diffuse interstitial pulmonary edema. This appears to BE mildly resolving as compared to prior study. There is small bilateral pleural effusion.. Mediastinum and bony thorax appear unremarkable. There is deformity of the right humeral head suggesting of an old trauma. There is osteopenia of the bony thorax. IMPRESSION: 1. Cardiomegaly with median sternotomy with interstitial pulmonary edema which appears to BE mildly resolving as compared to prior radiograph DICTATED BY: SPRING RODRÍGUEZ MD DATE: 01/27/251620 ELECTRONICALLY SIGNED BY: SPRING RODRÍGUEZ MD DATE: 01/27/251626 [facility] [address] [place] [address] [phone] IMAGING REPORT Signed PATIENT: NEHEMIAS BAINS MR#: [id number] : 1945 SEX: F AGE: 79 LOCATION: 2DH ORDER 99 STATUS: ADM IN REPORT#: [id number] SERVICE 06 REASON: pp ORDERING PHYSICIAN: APRYL STEPHENS PAC PROCEDURE: CXR1VW - CHEST 1VW CHEST 1VW REASON: pp COMPARISON: Prior study from 01/27/2025 is available. FINDINGS: Single view of the chest was obtained. There is cardiomegaly with left ventricular contour with median sternotomy. There is uncoiling atherosclerotic change of thoracic aorta. There is a left-sided pacemaker with lead in right atrium and right ventricle. There is mild interstitial pulmonary edema.. Mediastinum and bony thorax appear unremarkable. The bony thorax demonstrate osteopenia. There is deformity of the proximal right humerus from an old trauma. IMPRESSION: 1. Unchanged from prior study 2. Cardiomegaly with median sternotomy 3. Mild interstitial pulmonary edema DICTATED BY: SPRING RODRÍGUEZ MD DATE: 01/28/25 1117 ELECTRONICALLY SIGNED BY: SPRING RODRÍGUEZ MD DATE: 01/28/[address] [address] IMAGING REPORT Signed PATIENT: NEHEMIAS BAINS MR#: [id number] : 1945 SEX: F AGE: 79 LOCATION: [facility] ORDER 2300 STATUS: ADM IN REPORT#: [id number] SERVICE 0600 REASON: pp ORDERING PHYSICIAN: APRYL STEPHENS PAC PROCEDURE: CXR1VW - CHEST 1VW EXAM: CR Chest, single view. CLINICAL HISTORY: Pleuritic pain. COMPARISON: Prior chest radiograph dated January 28, 2025. FINDINGS: Poststernotomy status. Cardiomegaly with bilateral hilar congestion. A battery pack is in the left anterior chest wall with pacemaker wires in the right atrium and ventricles. Subtle blunting of the bilateral costophrenic angle probably indicates minimal bilateral pleural effusion. No evidence of pneumothorax. Atherosclerotic calcification of the aortic arch. No acute osseous abnormality. Degenerative changes in the mid and lower thoracic spine. 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 IMPRESSION: Poststernotomy status. Cardiomegaly with bilateral hilar congestion. A battery pack is in the left anterior chest wall with pacemaker wires in the right atrium and ventricles. Subtle blunting of the bilateral costophrenic angle probably indicates minimal bilateral pleural effusion. No evidence of pneumothorax. Compared to the prior study, there is no significant interval change. /[place] DICTATED BY: ZHANE MOORE Jr., MD DATE: 01/29/25853 ELECTRONICALLY SIGNED BY: ZHANE MOORE Jr., MD DATE: 01/29/25853 [place] [address] [place] [id number] IMAGING REPORT Signed PATIENT: NEHEMIAS BAINS MR#: [id number] : 1945 SEX: F AGE: 79 LOCATION: [facility] ORDER 99 STATUS: ADM IN REPORT#: [id number] SERVICE 06 REASON: pp ORDERING PHYSICIAN: APRYL STEPHENS PAC PROCEDURE: CXR1VW - CHEST 1VW Thanks for the correction???updating to reflect that all features are stable. EXAM: CHEST RADIOGRAPH, SINGLE VIEW Technique: A portable anteroposterior single-view radiograph of the chest was obtained. Sensitivity for small pleural effusions and small pneumothoraces is limited on a single frontal projection. Comparison is made with the single-view chest radiograph from January 29, 2025 at 4:38 a.m. [place] Daylight Time. Clinical Information: Pre-procedural evaluation. Findings: Status post median sternotomy, unchanged. The cardiac silhouette remains enlarged, unchanged. Bilateral hilar vascular congestion is unchanged. A cardiac pacing device generator overlies the left anterior chest wall with leads to the right atrium and right ventricle, unchanged in position. Subtle blunting of the bilateral costophrenic angles is present, compatible with minimal pleural effusions, unchanged. No pneumothorax is identified, unchanged. Aortic arch atherosclerotic calcification is unchanged. No acute osseous abnormality is identified. Degenerative changes in the mid and lower thoracic spine are unchanged. An old malunited fracture of the surgical neck of the right humerus is unchanged. Impression: * No significant interval change compared with January 29, 2025 at 4:38 a.m. [place] Daylight Time. * Cardiomegaly with bilateral hilar vascular congestion, unchanged. * Minimal bilateral pleural effusions without pneumothorax, unchanged. * Left chest cardiac pacing device and median sternotomy changes, unchanged. * Chronic osseous findings, including degenerative thoracic changes and old malunited fracture of the right humeral surgical neck, unchanged. /[place] DICTATED BY: ALIYA BACA MD DATE: 01/30/251431 ELECTRONICALLY SIGNED BY: ALIYA BACA MD DATE: 01/30/251431 Assessment/Plan: ASSESSMENT: Hemoptysis POA Community-acquired pneumonia POA Aortic valve stenosis status post aortic valve replacement POA Atrial fibrillation vs SVT not on anticoagulation for history of epistaxis Hypertension POA Hyperlipidemia History of gastric ulcer History of ovarian cancer Mild hyponatremia Discharge Instructions: You were admitted for community-acquired pneumonia and treated with IV antibiotics and steroids during your hospital stay. Continue to monitor for fever, worsening cough, shortness of breath, or chest pain, and seek medical attention if any occur. You have a history of atrial fibrillation and multiple valve surgeries with perivalvular leaks. Because of recurrent nosebleeds (epistaxis), you are not on blood thinners at this time. You also had fluid overload, so your diuretic (Furosemide) dose was increased. Follow a low-sodium diet, monitor daily weight, and contact your doctor if your weight increases by more than 23 lbs in one day or 5 lbs in a week. Avoid excess fluid intake unless otherwise instructed. Stop taking Amlodipine as discussed. Furosemide 40 mg once daily. (The dose has been increased from 20 mg to 40 mg daily to help manage volume overload and prevent fluid buildup) Metoprolol succinate extended release 100 mg once daily. (The dose has been increased from 50 mg to 100 mg daily for better heart rate control in atrial fibrillation) Ramipril 5 mg once daily. (The dose has been reduced from 10 mg to 5 mg daily to optimize blood pressure control and monitor kidney function) Amlodipine has been discontinued. The patient should stop taking amlodipine as discussed during discharge. No oral antibiotics on discharge. Furosemide 40 mg once daily. (The dose has been increased from 20 mg to 40 mg daily to help manage volume overload and prevent fluid buildup) Metoprolol succinate extended release 100 mg once daily. (The dose has been increased from 50 mg to 100 mg daily for better heart rate control in atrial fibrillation) Ramipril 5 mg once daily. (The dose has been reduced from 10 mg to 5 mg daily to optimize blood pressure control and monitor kidney function) Amlodipine has been discontinued. The patient should stop taking amlodipine as discussed during discharge. No oral antibiotics on discharge. Home Medications: Active Scripts Potassium Chloride (Potassium Chloride) 10 Meq Capsule.er, 1 CAP PO DAILY for 30 Days, #90 CAP 3 Refills Prov:TYLER SMALL MD 01/31/25 Metoprolol Succinate (Metoprolol Succinate) 100 Mg Tab.er.24h, 100 MG PO DAILY, #90 TAB 3 Refills Prov:TYLER SMALL MD 01/31/25 Ramipril (Ramipril) 5 Mg Capsule, 1 CAP PO DAILY for 90 Days, #90 CAP 3 Refills Prov:TYLER SMALL MD 01/31/25 Furosemide (Furosemide) 40 Mg Tablet, 40 MG PO DAILY, #90 TAB 3 Refills Prov:TYLER SMALL MD 01/31/25 Discontinued Reported Medications Furosemide (Furosemide) 20 Mg Tablet, 1 TAB PO AD for 30 Days, #30 TAB 0 Refills 01/21/25 Amlodipine Besylate (Amlodipine Besylate) 10 Mg Tablet, 1.5 TAB PO DAILY for 30 Days, #30 TAB 0 Refills 01/21/25 Ramipril (Ramipril) 10 Mg Capsule, 1 CAP PO DAILY for 30 Days, #30 CAP 0 Refills 01/21/25 Discontinued Scripts Metoprolol Succinate (Metoprolol Succinate) 50 Mg Tab.er.24h, 50 MG PO DAILY for 30 Days, #30 TAB Prov:ERICKA MAIN Jr., MD 04/17/21 New Medications: Furosemide (Furosemide) 40 Mg Tablet 40 MG PO DAILY, #90 TAB 3 Refills Metoprolol Succinate (Metoprolol Succinate) 100 Mg Tab.er.24h 100 MG PO DAILY, #90 TAB 3 Refills Potassium Chloride (Potassium Chloride) 10 Meq Capsule.er 1 CAP PO DAILY for 30 Days, #90 CAP 3 Refills Ramipril (Ramipril) 5 Mg Capsule 1 CAP PO DAILY for 90 Days, #90 CAP 3 Refills Discontinued Medications: Amlodipine Besylate (Amlodipine Besylate) 10 Mg Tablet 1.5 TAB PO DAILY for 30 Days, #30 TAB 0 Refills Furosemide (Furosemide) 20 Mg Tablet 1 TAB PO AD for 30 Days, #30 TAB 0 Refills Metoprolol Succinate (Metoprolol Succinate) 50 Mg Tab.er.24h 50 MG PO DAILY for 30 Days, #30 TAB Ramipril (Ramipril) 10 Mg Capsule 1 CAP PO DAILY for 30 Days, #30 CAP 0 Refills Time spent arranging discharge: 1-30 minutes ATTESTATION BY PHYSICIAN I have seen and examined the patient. I reviewed the documentation, medical decision making, and treatment plan as noted by the resident above. I agree with the findings and plan of care. STACY BAUMAN MD, ADIL SHAH QUADRI MD Jan 31, 2025 14:42
--- NOTE | 2025-01-31 15:00 | NUR ---
DISCHARGE PT. GOT DISCHARGED, REMOVED IV, EDUCATION GIVEN APPOINTMENT CONFIRMED. LEFT FACILITY IN STABLE CONDITION VIA PRIVATE CAR WITH FAMILY MEMBER.
--- NOTE | 2025-01-31 15:30 | NUR ---
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 Last week MBSS order was cancelled by MD for this week. As per documentation post cancellation, patient tolerating PO diet (01/27/25), enjoying lunch (01/28/25), and eating well (01/31/25). No new orders for MBSS this Friday and patient has discharged today. As per nurse, patient was tolerating diet with no overt s/s of aspiration. All questions answered. Addendum: 01/31/25 at 1535 [facility] Amended: Links added. Addendum: 01/31/25 at 1543 by QUAN BAER [facility] Last week MBSS order was cancelled due to patient not needing MBSS as there were no s/s of aspiration.
--- NOTE | 2025-01-31 16:43 | HMCIMG ---
EXAM: XR Chest, PA(1 view). CLINICAL HISTORY: Pre-procedural evaluation. COMPARISON: 01/30/2025. FINDINGS: LUNGS: Bilateral hilar vascular congestion is unchanged. No consolidation. PLEURAL SPACES: Subtle blunting of the bilateral costophrenic angles is present, compatible with minimal pleural effusions, unchanged. No pneumothorax is identified, unchanged. HEART: The cardiac silhouette remains enlarged, unchanged. A cardiac pacing device generator overlies the left anterior chest wall with leads to the right atrium and right ventricle, unchanged in position. Aortic arch atherosclerotic calcification is unchanged. BONES: Status post median sternotomy, unchanged. No acute osseous abnormality is identified. Degenerative changes in the mid and lower thoracic spine are unchanged. An old malunited fracture of the surgical neck of the right humerus is not visualized at this time examination. IMPRESSION: 1. No acute findings. 2. Unchanged enlarged cardiac silhouette. 3. Unchanged bilateral hilar vascular congestion. 4. Unchanged minimal bilateral pleural effusions. 5. Unchanged aortic arch atherosclerotic calcification. 6. Degenerative changes in the mid and lower thoracic spine. 7. Several stable chronic and incidental findings are noted, as detailed in the body of the report. /[place]
--- NOTE | 2025-01-31 20:42 | PN ---
INFECTIOUS DISEASE PROGRESS NOTE Date of Service: Jan 31, 2025 SUBJECTIVE: This is an 79-year-old female patient who was examined at bedside in room 317. Patient is awake, alert and sitting up to the bedside chair. Patient's and her son visiting at bedside. Patient is cleared for discharge from Infectious Disease standpoint. No antibiotics needed on discharge. PHYSICAL EXAM EYES: Anicteric. Pupils equal and reactive. HENT: No oral thrush seen, moist Oral mucosa NECK: Supple, no JVD or thyromegaly. LUNGS: Good air entry. Crackles to the right side. Diminished. Oxygen support via nasal cannula. CARDIOVASCULAR: S1, S2 regular. No murmur heard. ABDOMEN: Soft, non tender, bowel sounds present, no organomegaly. CENTRAL NERVOUS SYSTEM: Awake, alert, oriented x 1. SKIN: No rashes, no swelling. LYMPHATICS: No peripheral lymphadenopathy. MUSCULOSKELETAL: No joint swelling, erythema or tenderness. EXTREMITIES: No cyanosis or clubbing. BACK: No deformity, no pressure ulcer. GENITOURINARY: No dysuria or hematuria. Vital Sign (Last 12 Hours) 01/31/25 01/31/25 01/31/25 01/31/25 08:52 11:10 12:00 12:00 Temp 97.5 97.5 Pulse 77 87 78 78 Resp 19 16 16 B/P (MAP) 113/47 113/47 130/55 86/52 Pulse Ox 100 100 O2 Delivery Room Air Room Air Intake & Output (last 24hrs) 01/30/25 01/30/25 01/31/25 15:00 23:00 07:00 Intake Total 360.0 ml 1370.0 ml 120 ml Output Total 400 ml 950 ml Balance -40.0 ml 420.0 ml 120 ml LABS: Laboratory: Test 01/31/25 05:14 Range/Units White Blood Count 12.9 H 4.8-10.8 K/uL Red Blood Count 3.14 L 4.00-5.50 MIL/uL Hemoglobin 10.1 L 12.0-16.0 g/dL Hematocrit 29.9 L 36-48 % Mean Corpuscular Volume 95.2 79-99 fL Mean Corpuscular Hemoglobin 32.2 27.0-33.0 pg Mean Corpuscular Hemoglobin Concent 33.8 32.0-36.0 g/dL Red Cell Distribution Width 14.9 11.0-15.5 % Platelet Count 279 130-400 K/uL Mean Platelet Volume 10.9 H 7.5-10.5 fL Immature Granulocyte % (Auto) 3.9 H 0-1 % Neutrophils (%) (Auto) 77.0 40.0-77.0 % Lymphocytes (%) (Auto) 9.5 L 21.0-51.0 % Monocytes (%) (Auto) 8.1 3.0-13.0 % Eosinophils (%) (Auto) 1.3 0.0-8.0 % Basophils (%) (Auto) 0.2 0.0-5.0 % Neutrophils # (Auto) 9.9 H 1.8-7.7 K/uL Lymphocytes # (Auto) 1.2 1.0-4.8 K/uL Monocytes # (Auto) 1.0 0.1-1.0 K/uL Eosinophils # (Auto) 0.17 0.00-0.70 K/uL Basophils # (Auto) 0.02 0.00-0.20 K/uL Absolute Immature Granulocyte (auto 0.50 0-1 K/uL Nucleated Red Blood Cells 0.0 0.0-0.19 % Sodium Level 142 136-145 mmol/L Potassium Level 4.9 3.5-5.1 mmol/L Chloride Level 105 101-111 mmol/L Carbon Dioxide Level 31 21-32 mmol/L Blood Urea Nitrogen 35 H 7-18 mg/dL Creatinine 1.0 0.5-1.0 mg/dL Glomerular Filtration Rate Calc 57 >90 mL/min Random Glucose 101 70-105 mg/dL Total Calcium 9.1 8.5-10.1 mg/dL B-Type Natriuretic Peptide 804 H 0-100 pg/mL ASSESSMENT: Hypoxic respiratory failure, resolving. Pneumonia. Leukocytosis. Anemia. Heart failure. History of ovarian cancer. AFib RVR. PLAN: Patient is cleared for discharge from Infectious Disease standpoint. No antibiotics needed on discharge. This case was reviewed and discussed with my supervising physician Dr. Briceno and the above assessment and plan was formulated and agreed upon. ATTESTATION BY PHYSICIAN I have seen and examined the patient. I reviewed the documentation, medical decision making, and treatment plan as noted by the mid-level provider above. I agree with the findings and plan of care. JAN BRICENO MD, [facility] Jan 31, 2025 20:42
== END 2025-01-31 15:00 | disposition home or self-care (01) | DRG 871 ==
LOC: EDH 09:01 → EDHIP 11:56 → 3CH 01-21 10:45 → 4AH 01-21 22:20 → 2CH 01-22 04:49 → 2DH 01-22 14:02 → 4CH 01-24 11:58 → 2DH 01-25 14:02 → 3CH 01-29 14:20
PROVIDERS: ADMIT Internal Medicine; ATTEND Internal Medicine
PROC: 5A09357 Assistance with Respiratory Ventilation, Less than 24 Consecutive Hours, Continuous Positive Airway Pressure (ICD-10-PCS; principal; 2025-01-22)
DX: A41.9 Sepsis, unspecified organism (principal); I50.33 Acute on chronic diastolic (congestive) heart failure; J96.01 Acute respiratory failure with hypoxia; J96.02 Acute respiratory failure with hypercapnia; J15.9 Unspecified bacterial pneumonia; R04.2 Hemoptysis; I47.10 Supraventricular tachycardia, unspecified; L97.919 Non-pressure chronic ulcer of unspecified part of right lower leg with unspecified severity; L97.929 Non-pressure chronic ulcer of unspecified part of left lower leg with unspecified severity; N17.9 Acute kidney failure, unspecified; E87.20 Acidosis, unspecified; E87.1 Hypo-osmolality and hyponatremia; I13.0 Hypertensive heart and chronic kidney disease with heart failure and stage 1 through stage 4 chronic kidney disease, or unspecified chronic kidney disease; E46 Unspecified protein-calorie malnutrition; F03.92 Unspecified dementia, unspecified severity, with psychotic disturbance; F03.94 Unspecified dementia, unspecified severity, with anxiety; G93.40 Encephalopathy, unspecified; I48.19 Other persistent atrial fibrillation; Z68.1 Body mass index [BMI] 19.9 or less, adult; I35.2 Nonrheumatic aortic (valve) stenosis with insufficiency; I49.5 Sick sinus syndrome; I71.21 Aneurysm of the ascending aorta, without rupture; N18.31 Chronic kidney disease, stage 3a; T38.0X5A Adverse effect of glucocorticoids and synthetic analogues, initial encounter; H91.93 Unspecified hearing loss, bilateral; F41.9 Anxiety disorder, unspecified; E87.70 Fluid overload, unspecified; E78.5 Hyperlipidemia, unspecified; E11.65 Type 2 diabetes mellitus with hyperglycemia; E11.22 Type 2 diabetes mellitus with diabetic chronic kidney disease; E11.51 Type 2 diabetes mellitus with diabetic peripheral angiopathy without gangrene; K21.9 Gastro-esophageal reflux disease without esophagitis; D63.8 Anemia in other chronic diseases classified elsewhere; E88.09 Other disorders of plasma-protein metabolism, not elsewhere classified; D64.9 Anemia, unspecified; Y92.89 Other specified places as the place of occurrence of the external cause; I27.20 Pulmonary hypertension, unspecified; I45.9 Conduction disorder, unspecified; I50.9 Heart failure, unspecified; Z85.43 Personal history of malignant neoplasm of ovary; Z87.11 Personal history of peptic ulcer disease; Z90.710 Acquired absence of both cervix and uterus; Z92.21 Personal history of antineoplastic chemotherapy; Z95.0 Presence of cardiac pacemaker; Z95.3 Presence of xenogenic heart valve; Z79.899 Other long term (current) drug therapy
CPT/HCPCS: 36415; 36600; 71045; 71250; 71270; 80048; 80053; 80162; 81001; 82140; 82435; 82550; 82607; 82803; 82947; 83010; 83036; 83540; 83550; 83605; 83615; 83735; 83880; 84100; 84132; 84145; 84295; 84436; 84443; 84481; 84484; 85014; 85018; 85025; 85027; 85378; 85610; 85730; 86140; 86376; 86738; 86800; 86850; 86900; 86901; 87040; 87071; 87205; 87449; 87635; 87804; 87880; 93005; 93306; 93356; 93970; 94640; 94660; 94664; 94760; 96374; 99285; G0378; J0456; J1160; J1200; J1650; J1938; J2543; J2919; J3360; J3475; J3480; J3490; P9046; Q9967; J1308

== ENCOUNTER 2025-02-28 22:19 | Emergency (ER) | payer MEDICARE ==
[~2025-02-28] VITALS: Ht 157.5 cm; Wt 49.4 kg
[~2025-02-28 22:19] MED LIST changes: -FE F1CAP33 PO; +FURO40TA5 PO; -METO-391 PO; +METO-409 PO; -OMEP40CA21 PO; +POTA10CA95 PO; +RAMI5CAP72 PO
--- NOTE | 2025-02-28 22:44 | ERN ---
ED Note History of Present Illness Stated Complaint: C/O CP Chief Complaint: Chest Pain Time Seen by MD: 22:36 Dictation: This is an 79-year-old female who presented to the emergency room with complaints of chest pain/epigastric that started a few hours ago. She denied any radiation to the arm or neck. She was recently admitted to the hospital in January for hemoptysis and URI symptoms and she was treated for pneumonia. She denied any nausea vomitings abdominal pain. She denied any relief of chest pain leaning forward. She denied any nausea vomitings. She stated that she ate dinner around 7:00 p.m. and a few hours later when she was trying to lay down be jeff experiencing more of epigastric pain. Last bowel movement was 2 days ago. Son accompanied her Temperature 98.5 pulse 109 respirations 20 blood pressure 137/59 with a pulse oximetry of 98 to 100% on room air. BMI is 19.9 Her chronic medical problems include aortic stenosis status post aortic valve replacement by donor valve in early ., AICD/pacemaker, history of ovarian cancer, hypertension and gastric ulcer. Currently she has been re-evaluated for a repeat aortic valve replacement due to worsening aortic regurgitation Allergies: Coded Allergies: No Allergy Information Available (Verified Allergy, Unknown, 01/24/20) No Known Allergies (Unverified Allergy, Unknown, 02/28/25) Home Meds Active Scripts Pantoprazole Sodium (Pantoprazole Sodium) 40 Mg Tablet.dr, 1 TAB PO DAILY for 30 Days, #30 TAB 0 Refills Prov:CINDY DONALDSON MD 03/01/25 Potassium Chloride (Potassium Chloride) 10 Meq Capsule.er, 1 CAP PO DAILY for 30 Days, #90 CAP 3 Refills Prov:TYLER CONNOR MD 01/31/25 Metoprolol Succinate (Metoprolol Succinate) 100 Mg Tab.er.24h, 100 MG PO DAILY, #90 TAB 3 Refills Prov:TYLER CONNOR MD 01/31/25 Ramipril (Ramipril) 5 Mg Capsule, 1 CAP PO DAILY for 90 Days, #90 CAP 3 Refills Prov:TYLER CONNOR MD 01/31/25 Furosemide (Furosemide) 40 Mg Tablet, 40 MG PO DAILY, #90 TAB 3 Refills Prov:TYLER CONNOR MD 01/31/25 Past Medical History Past Medical History: Hypertension, Pneumonia Additional Past Medical Hx: ovarian cancer gastric ulcer Surgical History: Pacer/AICD, Other Surgical History Other: AORTIC VALVE REPLACEMENT Family History: Negative Social History: Negative, Lives with family History: Not Applicable RN Note Reviewed/Agreed w/PFSH: Yes Review of System Dictation Constitutional: Negative for fever,chills, and weight loss Eyes: Negative for injury, pain,redness, and discharge ENT: Negative for injury,pain or swelling Cardiovascular: Positive for chest pain, palpitations, and edema Respiratory: Negative for shortness of breath, cough, and wheezing, Abdomen/GI: Positive for upper abdominal pain, denies nausea, vomiting, diarrhea, and constipation Back: Negative for injury and pain : Negative for injury, bleeding and discharge MS/Extremity: Negative for injury and deformity Skin: Negative for rash, and discoloration Neuro: Negative for headache, weakness, numbness, tingling, and seizure Psych: Negative for suicide ideation, homicidal ideation, and hallucinations Initial Vital Sign VS Vital Signs Date Time Temp Pulse Resp B/P (MAP) Pulse Ox O2 Delivery O2 Flow Rate FiO2 02/28/25 22:26 98.4 109 20 137/59 100 Room Air 02/28/25 22:43 0 21 Physical Exam Dictation General: awake, alert, NAD frail elderly lady who is extremely pleasant and delightful Head/Face: Normocephalic, atraumatic Eyes: PERRL, EOMI, vision at baseline ENT: oral cavity clear, TMs clear, no signs of infection Neck: Trachea midline, supple, no nuchal rigidity Cardiovascular: RRR, normal S1/S2, No MRGs, no JVD Respiratory: CTAB, no respiratory distress, No rales or wheezes Abdomen: Soft, mild tenderness in the epigastric area, non-distended, normal bowel sounds, no guarding or rebound. Skin: Warm, dry, normal turgor, no rash MS/Extremity: Pulses equal, no cyanosis, neurovascular intact, FROM Neuro: COAx4, GCS 15, strength 5/5, CN 2-12 intact, normal cerebellar exam, normal gait, Psych: Normal behavior, mood, and affect normal Extremities-trace edema without any palpable cords, Homans sign is negative Results (Laboratory/Radiology) Laboratory/Radiology Laboratory Tests Test 02/28/25 22:57 02/28/25 23:03 White Blood Count 8.4 K/uL (4.8-10.8) Red Blood Count 3.44 MIL/uL (4.00-5.50) L Hemoglobin 11.1 g/dL (12.0-16.0) L Hematocrit 35.1 % (36-48) L Mean Corpuscular Volume 102.0 fL (79-99) H Mean Corpuscular Hemoglobin 32.3 pg (27.0-33.0) Mean Corpuscular Hemoglobin Concent 31.6 g/dL (32.0-36.0) L Red Cell Distribution Width 17.2 % (11.0-15.5) H Platelet Count 204 K/uL (130-400) Mean Platelet Volume 9.7 fL (7.5-10.5) Immature Granulocyte % (Auto) 0.5 % (0-1) Neutrophils (%) (Auto) 69.3 % (40.0-77.0) Lymphocytes (%) (Auto) 14.7 % (21.0-51.0) L Monocytes (%) (Auto) 13.6 % (3.0-13.0) H Eosinophils (%) (Auto) 1.3 % (0.0-8.0) Basophils (%) (Auto) 0.6 % (0.0-5.0) Neutrophils # (Auto) 5.9 K/uL (1.8-7.7) Lymphocytes # (Auto) 1.2 K/uL (1.0-4.8) Monocytes # (Auto) 1.2 K/uL (0.1-1.0) H Eosinophils # (Auto) 0.11 K/uL (0.00-0.70) Basophils # (Auto) 0.05 K/uL (0.00-0.20) Absolute Immature Granulocyte (auto 0.04 K/uL (0-1) Nucleated Red Blood Cells 0.0 % (0.0-0.19) Sodium Level 135 mmol/L (136-145) L Potassium Level 3.1 mmol/L (3.5-5.1) L Chloride Level 98 mmol/L (101-111) L Carbon Dioxide Level 28 mmol/L (21-32) Blood Urea Nitrogen 21 mg/dL (7-18) H Creatinine 1.2 mg/dL (0.5-1.0) H Glomerular Filtration Rate Calc 46 mL/min (>90) Random Glucose 108 mg/dL (70-105) H Total Calcium 8.5 mg/dL (8.5-10.1) Total Creatine Kinase 30 U/L (21-232) Troponin I High Sensitivity 24 ng/L (4-50) Urine Color YELLOW (YELLOW) Urine Appearance CLEAR (CLEAR) Urine pH 6.0 (5.0-8.0) Urine Specific [place] 1.012 (1.001-1.031) Urine Protein 10 mg/dL (NEGATIVE) H Urine Glucose (UA) NEGATIVE mg/dL (NEGATIVE) Urine Ketones NEGATIVE mg/dL (NEGATIVE) Urine Occult Blood MODERATE (NEGATIVE) H Urine Nitrate NEGATIVE (NEGATIVE) Urine Bilirubin NEGATIVE mg/dL (NEGATIVE) Urine Urobilinogen 0.2 mg/dL (0.2-1.0) Urine Leukocyte Esterase NEGATIVE [place]/uL Urine RBC 2-5 /HPF (0-1) H Urine WBC 0-1 /HPF (0-1) Urine Bacteria Rare /HPF (None Seen) Labs Reviewed?: Yes EKG Comment: Twelve lead EKG done on 02/28/2025 at 10:24 p.m. showed a heart rate of 94, QRS 111, QT/QTC 398/499. Atrial fibrillation with controlled ventricular response diffuse ST-T depressions mild intraventricular conduction delay. Compared to old EKG there new EKG changes noted. Patient has a pacemaker/AICD in place. Interpreted by ER MD Dr. Donaldson X-RAY Comment: REASON: CHEST PAIN ORDERING PHYSICIAN: CINDY DONALDSON MD PROCEDURE: CXR1VW - CHEST 1VW EXAM: CR Chest, 1 view CLINICAL HISTORY: Chest pain. COMPARISON: 01/31/2025. FINDINGS: Moderate cardiomegaly. Status poststernotomy with left-sided cardiac pacemaker device in place. Small pleural effusions bilaterally. Mild COPD. No pneumothorax. No acute osseous abnormality. Mild osteopenia. Degenerative osseous changes. Old healed fracture around the right proximal humerus. IMPRESSION: Moderate cardiomegaly. Status poststernotomy with left-sided cardiac pacemaker device in place. Small pleural effusions bilaterally. Mild COPD. Compared to the prior study, there is no significant interval change. /[place] DICTATED BY: ZHANE MOORE Jr., MD DATE: 03/01/2524 ELECTRONICALLY SIGNED BY: ZHANE MOORE Jr., MD DATE: 03/01/2524 ED Course ED Course Orders Procedure Category Date Status Time Vital Signs Per CPOE 02/28/25 Transmitted Routine 22:29 Chest 1vw RAD 02/28/25 Resulted 22:29 12 Lead Ekg Tracing- EKG 02/28/25 Logged Technical 22:29 Oxygen By Nc/Pulse Ox CPOE 02/28/25 Transmitted 22:29 Maintain Iv CPOE 02/28/25 Transmitted 22:29 Iv Insertion CPOE 02/28/25 Transmitted 22:29 Cardiac Monitoring CPOE 02/28/25 Transmitted 22:29 Pulse Oximetry With CPOE 02/28/25 Transmitted Vs And Prn 22:29 Cbc With Differential LAB 02/28/25 Complete 22:29 Activity: Br W/Brp CPOE 02/28/25 Transmitted With Assist 22:29 Creatine Kinase, Total LAB 02/28/25 Complete 22:29 Troponin I High LAB 02/28/25 Complete Sensitivity 22:29 Urinalysis Profile LAB 02/28/25 Complete 22:29 Basic Metabolic Panel LAB 02/28/25 Complete 22:29 Morphine 2mg Syg PHA 02/28/25 Complete (Morphine 2mg Syg) 23:30 Potassium Bicarb/Cit PHA 03/01/25 Complete Ac 25meq (K-Lyte Ta 00:00 Pantoprazole 40mg Inj PHA 03/01/25 Complete (Protonix 40mg Inj 00:30 Current Medications Medications (Trade) Dose Ordered Sig/Sadi Route PRN Reason Start Time Stop Time Status Last Admin Dose Admin Morphine Sulfate (morPHINE 2MG SYG) 2 mg ONCE ONCE IVP 02/28/25 23:30 02/28/25 23:31 DC 03/01/25 00:13 Pantoprazole Sodium (PROTonix 40MG INJ) 40 mg ONCE ONCE IVP 03/01/25 00:30 03/01/25 00:31 DC 03/01/25 00:26 Potassium Bicarbonate (K-Lyte Tablet Eff 25 Meq Tablet.eff) 50 meq ONCE ONCE PO 03/01/25 00:00 03/01/25 00:03 DC 03/01/25 00:15 Vital Signs Date Time Temp Pulse Resp B/P (MAP) Pulse Ox O2 Delivery O2 Flow Rate FiO2 03/01/25 01:18 98.2 102 20 138/48 98 Room Air* 0 02/28/25 22:43 98.4 98 18 126/72 99 Room Air* 0 02/28/25 22:26 98.4 109 20 137/59 100 Room Air Medical Decision Making MDM Differential diagnosis: Esophagitis, gastroesophageal reflux disease, hiatal hernia, gastritis, pericarditis, costochondritis, pleurisy, unstable angina This is an 79-year-old female who presented to the emergency room with complaint s of chest pain/epigastric that started a few hours ago. She denied any radiation to the arm or neck. She was recently admitted to the hospital in January for hemoptysis and URI symptoms and she was treated for pneumonia. She denied any nausea vomitings abdominal pain. She denied any relief of chest pain leaning forward. She denied any nausea vomitings. She stated that she ate dinner around 7:00 p.m. and a few hours later when she was trying to lay down began experiencing more of epigastric pain. Last bowel movement was 2 days ago. Son accompanied her Temperature 98.5 pulse 109 respirations 20 blood pressure 137/59 with a pulse oximetry of 98 to 100% on room air. BMI is 19.9 Her chronic medical problems include aortic stenosis status post aortic valve replacement by donor valve in early ., AICD/pacemaker, history of ovarian cancer, hypertension and gastric ulcer. Currently she has been re-evaluated for a repeat aortic valve replacement due to worsening aortic regurgitation 11:20 p.m. CBC showed a white count of 8.9 hemoglobin 11.4 MCV is 102. 11:41 p.m. labs reviewed BNP 7 showed a sodium of 135 chloride 98 potassium 3.1 BUN and creatinine are 21 and 1.2.(renal function is actually better than before) Chest x-ray and EKG did not show any new changes at this time. Her presentation seemed more gastric rather than cardiac and patient received a trial of PPI and potassium repletion. On re-evaluation patient felt significantly improved and there was no evidence of any positive troponins. Patient is being evaluated as outpatient for a repeat aortic valve repair. Also on the chest x-ray there were small pleural effusions patient denied any shortness of breath. Patient recently had hemoptysis and is currently not on any anticoagulation. I have asked the patient and her son to follow up with Cardiology and returned to the emergency room should she have any new symptoms. During this presentation she seemed to have had more pain in the upper abdomen rather than the chest during clarification. Rationale: Tests considered and ordered secondary to shared decision making include: Labs EKG and chest x-ray Previous outside records reviewed: Old ER visits. Risk of complication and/or morbidity or mortality of patient management: None Medications-Per medication reconciliation Need for hospitalization: Patient does not meet criteria for hospitalization. Need for emergency major/minor surgery: No There are no social concerns with this patient. Prescription drug management Prescriptions will include symptomatic care Patient's prior external medical records from other ER visits were reviewed by me as indicated. Prior testing and results from previous visits were reviewed. Prior tests were taken into account with medical decision making and resource utilization, independent historian/historians were used to obtain complete medical history. I independently interpreted the test that were performed, results were reviewed by me and considered findings on radiology if ordered. Medical management and examination interpretation discussions were had by me with other qualified healthcare professionals as indicated for the patient's care. Problem List Problem List: (1) Hypokalemia (2) Gastritis (3) Esophagitis (4) Mild dehydration DX & DISP Disposition: Discharge Departure Impression: Primary Impression: Gastritis Additional Impressions: Esophagitis, Mild dehydration, Hypokalemia, Aortic valve replaced Condition: Stable Scripts Pantoprazole Sodium (Pantoprazole Sodium) 40 Mg Tablet.dr 1 TAB PO DAILY for 30 Days, #30 TAB 0 Refills Prov: CINDY DONALDSON MD 03/01/25 Additional Instructions: Patient and the caregiver have been informed of all the diagnostic tests and the imaging conducted during the today's visit to the emergency room and has verbalized understanding of the results I have personally reviewed and interpreted all diagnostic exams performed here in the ER today as well as the vital signs documented by the nursing staff. The patient is now being discharged to home and should follow up with the primary care physician or the specialist as directed by the ER staff. Referrals: AMEYA HOLDER MD (PCP) CINDY DONALDSON MD Feb 28, 2025 22:44
[2025-02-28 23:07] LABS: IMMATURE GRANULOCYTE ABSOLUTE 0.04 K/uL (0-1); NUCLEATED RED BLOOD CELLS 0.0 % (0.0-0.19); PLATELET COUNT (AUTO) 204 K/uL (130-400); RED BLOOD CELL COUNT(AUTO) 3.44 MIL/uL (4.00-5.50); RED CELL DISTRIBUTION WIDTH 17.2 % (11.0-15.5); WHITE BLOOD COUNT (AUTO) 8.4 K/uL (4.8-10.8)
[2025-02-28 23:12] LABS: ADD UA MICROSCOPIC YES; APPEARANCE,URINE CLEAR (CLEAR); GLUCOSE, URINE (UA) NEGATIVE (NEGATIVE); LEUKOCYTE ESTERASE ,URINE NEGATIVE Leu/uL (NEGATIVE); NITRATE,URINE NEGATIVE (NEGATIVE); OCCULT BLOOD,URINE MODERATE (NEGATIVE)
[2025-02-28 23:23] LABS: CREATINE KINASE, TOTAL 30.0 U/L (21-232); CREATININE 1.2 mg/dL (0.5-1.0); GLOMERULAR FILTR. RATE CALC 46.0 mL/min (>90); GLUCOSE,RANDOM 108.0 mg/dL (70-105); SODIUM SERUM 135.0 mmol/L (136-145); UREA NITROGEN, BLOOD 21.0 mg/dL (7-18)
--- NOTE | 2025-02-28 23:26 | HMCIMG ---
EXAM: CR Chest, 1 view CLINICAL HISTORY: Chest pain. COMPARISON: 01/31/2025. FINDINGS: Moderate cardiomegaly. Status poststernotomy with left-sided cardiac pacemaker device in place. Small pleural effusions bilaterally. Mild COPD. No pneumothorax. No acute osseous abnormality. Mild osteopenia. Degenerative osseous changes. Old healed fracture around the right proximal humerus. IMPRESSION: Moderate cardiomegaly. Status poststernotomy with left-sided cardiac pacemaker device in place. Small pleural effusions bilaterally. Mild COPD. Compared to the prior study, there is no significant interval change. /[place]
[2025-03-01] MEDS ORDERED: PANT40TA54 PO (00:12)
[2025-03-01 01:18] VITALS: BP 138/48; PULSE 102; RESP 20; TEMP 98.2; O2SAT 98
--- NOTE | 2025-03-01 05:57 | EKG ---
[facility] Test Date: 2025-02-28 Test Time: 22:24:27 Pat Name: NEHEMIAS BAINS Department: [facility] Room: Gender: F Sulfur Burner: [id number] : 1945 Requested By: CINDY CORRAL Order Number: [id number] Reading MD: Clovis Rushing Measurements Intervals [place] Rate: 94 P: 0 ID: 0 QRS: 73 QRSD: 111 T: -84 QT: 398 QTc: 499 Interpretive Statements Atrial fibrillation Repol abnrm suggests ischemia or strain, diffuse leads Compared to ECG 01/24/2025 19:28:15 Early repolarization now present Possible ischemia now present Supraventricular tachycardia no longer present Ventricular premature complex(es) no longer present Myocardial infarct finding no longer present ST (T wave) deviation no longer present Electronically Signed On 03-01-2025 21:17:28 CREATIVE ENGAGEMENT DIRECTOR by Clovis Rushing Please click the below link to view image of tracing.
== END 2025-03-01 01:10 | disposition home or self-care (01) ==
LOC: EDH 22:19
DX: K29.70 Gastritis, unspecified, without bleeding (principal); K20.90 Esophagitis, unspecified without bleeding; E86.0 Dehydration; E87.6 Hypokalemia; I10 Essential (primary) hypertension; J44.9 Chronic obstructive pulmonary disease, unspecified; Z79.899 Other long term (current) drug therapy; Z85.43 Personal history of malignant neoplasm of ovary; Z87.01 Personal history of pneumonia (recurrent); Z87.11 Personal history of peptic ulcer disease; Z95.2 Presence of prosthetic heart valve; Z95.810 Presence of automatic (implantable) cardiac defibrillator
CPT/HCPCS: 99285; 71045; 82550; 84484; 80048; 85025; 81001; 36415; 93005; 96374; 96375; J2270; J2470

== ENCOUNTER 2025-03-16 06:48 | Observation (INO) | payer MEDICARE ==
[2025-03-14 13:25] VITALS: BP 126/50; PULSE 90; RESP 17; TEMP 97.5
[2025-03-14 13:39] LABS: IMMATURE GRANULOCYTE ABSOLUTE 0.03 K/uL (0-1); NUCLEATED RED BLOOD CELLS 0.0 % (0.0-0.19); PLATELET COUNT (AUTO) 302 K/uL (130-400); RED BLOOD CELL COUNT(AUTO) 3.39 MIL/uL (4.00-5.50); RED CELL DISTRIBUTION WIDTH 15.6 % (11.0-15.5); WHITE BLOOD COUNT (AUTO) 6.6 K/uL (4.8-10.8)
[2025-03-14 13:42] LABS: APPEARANCE,URINE CLEAR (CLEAR); GLUCOSE, URINE (UA) NEGATIVE (NEGATIVE); LEUKOCYTE ESTERASE ,URINE NEGATIVE Leu/uL (NEGATIVE); NITRATE,URINE NEGATIVE (NEGATIVE); OCCULT BLOOD,URINE NEGATIVE (NEGATIVE)
[2025-03-14 13:44] LABS: ADD UA MICROSCOPIC YES
[2025-03-14 13:47] LABS: INR 1.23 (0.85-1.15)
--- NOTE | 2025-03-14 13:49 | EKG ---
[facility] Test Date: 2025-03-14 Test Time: 13:12:42 Pat Name: NEHEMIAS BAINS [facility] Room: Gender: F Head Of Housekeeping: [id number] : 1945 Requested By: MARCUS CONNOR Order Number: [id number] Reading MD: Marcus Connor Measurements Intervals [place] Rate: 91 P: 0 HI: 0 QRS: 97 QRSD: 113 T: -78 QT: 439 QTc: 541 Interpretive Statements Atrial fibrillation Consider left ventricular hypertrophy Repol abnrm suggests ischemia, diffuse leads Prolonged QT interval Compared to ECG 02/28/2025 22:24:27 Prolonged QT interval now present Possible ischemia still present Electronically Signed On 03-15-2025 20:10:30 SHOE STITCHER ODD by Marcus Connor Please click the below link to view image of tracing.
[2025-03-14 14:00] LABS: CREATININE 1.6 mg/dL (0.5-1.0); GLOMERULAR FILTR. RATE CALC 32.0 mL/min (>90); GLUCOSE,RANDOM 97.0 mg/dL (70-105); SODIUM SERUM 140.0 mmol/L (136-145); UREA NITROGEN, BLOOD 23.0 mg/dL (7-18)
--- NOTE | 2025-03-14 15:05 | HMCIMG ---
Comparison: February 28, 2025 Findings: There are infiltrates noted in the lower lobes bilaterally There are associated pleural effusions. The heart is enlarged. Pacemaker is noted. There are no acute fractures or pneumothorax. IMPRESSION:Bilateral lower lobe infiltrates and effusions. /[place]
[2025-03-16] VITALS (22 sets, daily range): BP systolic 118–148; BP diastolic 3–58; PULSE 83–107; RESP 14–18; TEMP 97.2–98; O2SAT 99
[~2025-03-16] VITALS: Ht 162.6 cm; Wt 50.3 kg
[~2025-03-16 06:48] MED LIST changes: +APIX2.5T PO; +PANT40TA54 PO
[2025-03-16] MEDS: LIDOCAINE HCL 2% VISCOUS 15 ML UDCUP PO ONE ×2 (09:40→11:30)
[2025-03-16] MEDS: MIDAZOLAM HCL 1 MG/ML 2ML VIAL IVP ONE ×2 (11:29→11:30)
--- NOTE | 2025-03-16 11:38 | PRN ---
Procedure Note TRANSESOPHAGEAL ECHOCARDIOGRAM INDICATION FOR PROCEDURE: Rule out cardioembolic source PROCEDURE: Transesophageal echo with conscious sedation DATE OF PROCEDURE: 03/16/2025 [employer] HEADGATE OPERATOR: Marcus Connor MD, [facility] PROCEDURE NOTE: After informed consent was obtained, and time-out procedure performed, the patient was sedated with Versed 1 mg and fentanyl 50 mcg with good results. The transesophageal echo probe was passed easily and images were obtained in standard views. The patient tolerated the procedure well and had no immediate complications noted. She slept throughout the procedure with O2 sats of 98- 100%. FINDINGS: Severely dilated left atrium with left atrial spontaneous echo contrast. Mild global hypokinesis with LVEF estimate of 45%. No evidence of left atrial appendage thrombus. Aortic valve homograft imaging was limited by acoustic shadowing from the aortic annulus. Three leaflets were seen and there appeared to be slight flickering of the noncoronary cusp suggestive of a small tear or perforation. This was not clearly visualized but suspected. Moderate, with some features of severe aortic regurgitation with 38% LVOT diameter jet; AR pressure half-time of 280 milliseconds; no evidence of pre systolic closure of the mitral valve; holodiastolic flow reversals in the descending thoracic aorta. Aortic root appeared free of any complex aortic plaque as did the descending thoracic aorta. Moderate mitral regurgitation. [id number] tricuspid regurgitation with regurgitant jet in the area of RV pacing wire. IMPRESSION: [id number] aortic regurgitation. PLAN: Proceed with cardiac MRI of the aortic regurgitation to assess regurgitant volume and regurgitant fraction. MARCUS CONNOR MD Mar 16, 2025 11:38
--- NOTE | 2025-03-16 13:01 | NUR ---
VOIP NETWORK TECHNICIAN TEAM HERE FOR PT
[2025-03-16] MEDS ORDERED: IOHEXOL 350 MG/ML 100ML INFUS..BTL IV ONE ×2 (13:17→13:31)
[2025-03-16] MEDS ORDERED: LIDOCAINE HCL 400MG/20ML VIAL ONE (13:17)
[2025-03-16] MEDS ORDERED: IOHEXOL-350 50ML VIAL IV ONE (13:17)
[2025-03-16] MEDS ORDERED: BIVALIRUDIN 250 MG/VIAL IV ONE (13:17)
[2025-03-16] MEDS ORDERED: HEParin-NS 1,000 UNIT/500 ML 1,000 ML IV ONE (13:18)
[2025-03-16] MEDS ORDERED: NITROGLYCERIN 50MG VIAL ONE (13:18)
[2025-03-16] MEDS ORDERED: HEParin-NS 1,000 UNIT/500 ML 500 ML IV ONE (13:31)
--- NOTE | 2025-03-16 14:53 | CONS ---
[facility] CARDIOLOGY CONSULTATION REPORT Date Patient Seen: Mar 16, 2025 Time of Visit: 14:19 Requesting Physician: Dr. Vick Sims Reason for Consultation: Acute confusional state following transesophageal echo History of Present Illness: This pleasant 79-year-old Latin-Burkin[place] female with a history of stable 4.1 cm thoracic aortic aneurysm, essential hypertension, prior gastric ulcer with upper GI bleed in 2019, recurrent epistaxis episodes, and severe aortic stenosis status post remote mechanical aortic valve replacement at [facility] with a [employer] mechanical prosthesis March 2001 complicated by perivalvular leak requiring a redo with a [employer] mechanical prosthesis 03/31/2001 complicated by recurrent perivalvular leak with hemolysis requiring a 2nd redo procedure in [facility] with an aortic valve homograft (bioprosthesis) April 2001. He has been known to have a moderate central valvular jet of aortic regurgitation which has been stable since 2018 until 2024 when we noted the murmur does change in quality and noted the patient to develop congestive symptoms. During a hospitalization for pneumonia 01/20 through 01/31/2025 with a right upper lobe pneumonia 2D echocardiogram demonstrated an LVEF of 50-55%, stage II diastolic dysfunction, and a dysfunctional prosthetic valve. The RV systolic pressure was 52 mm of mercury. She was admitted today for a transesophageal echo and right and left heart catheterization to define the nature of her aortic valve regurgitation, rule out a flail leaflet, and to assess the severity of her aortic regurgitation. After her OLIVER she developed an acute confusional state an d is currently admitted for further assessment. The right and left heart catheterization was canceled. The patient has a prior history of paroxysmal atrial fibrillation which became persistent in late January 2025. She was initiated on amiodarone and Eliquis anticoagulation at a weight and age adjusted dose of 2.5 b.i.d.. Her rate was controlled today on admission but she continues in atrial fibrillation. Also of note the patient has been diagnosed with ovarian cancer in 2021 status post hysterectomy, oophorectomy, and chemotherapy and she is followed at [facility] in his felt to be in remission. The patient's OLIVER today 03/16/2025 demonstrated mild global hypokinesis with an LVEF of 45%. Severe left atrial dilatation with spontaneous left atrial cont rast, acoustic shadowing over the aortic bioprosthesis but as visualized the the aortic leaflets appeared to be pliable, with [id number] aortic regurgitation over the noncoronary cusp, with slight flickering over the noncoronary cusp suggestive of a small tear or perforation. In addition there was an AR LVOT area jet of 38%, an AR pressure half-time of 280 milliseconds, an d holodiastolic flow reversals in the descending thoracic aorta. There was no evidence of pre-systolic closure of the mitral valve. The regurgitant volume was 46 mL (> 50 severe), and the regurgitant fraction was reported as 89% (greater than 60% is severe). Past Medical History: As outlined above and as summarized below Past Surgical History: Aortic valve replacement March 2001 x2 due to recurrent perivalvular leak, and 2nd redo with aortic valve homograft and [facility] April 2001 x2 Permanent pacemaker insertion and subsequent generator replacement 01/24/2020 with a [email or web address] Edora 8 DR-T dual-chamber device Family History: Noncontributory Social History: Noncontributory Habits: Never smoker. Denies alcohol consumption. Denies illicit drug use Home Meds: Amiodarone 200 mg p.o. daily Eliquis 2.5 mg p.o. b.i.d. Metoprolol succinate ER 100 mg p.o. q.a.m. and 50 mg p.o. q.p.m. Furosemide 40 mg p.o. daily Ramipril 5 mg p.o. daily KCL 10 mEq p.o. daily Pantoprazole 40 mg p.o. daily Review of Systems: CONST: [No fever, fatigue, or weight changes.] EYES: [No recent vision problems.] ENT: [No congestion, ear pain, or sore throat.] C/V: [No chest pain, palpitations, or edema.] RESP: [No cough, congestion, wheezing or shortness of breath.] GI: [No abdominal pain, nausea, vomiting, constipation, or diarrhea.] : [No incontinence or dysuria.] SKIN: [No rash.] NEURO: [No headache, focal numbness or weakness, dizziness, or seizures.] PSYCH: [No depression or anxiety.] HEME: [No abnormal bruising or bleeding.] LYMPH: [No swollen glands.] Physical Examination: GENERAL: No acute distress. HEAD: Normal with no signs of head trauma. EYES: PERRLA, EOMI, conjunctiva and sclera normal. ENT: Hearing grossly intact, normal oropharynx. NECK: There is JVD to the angle of the jaw bilaterally. There is no tenderness, lymphadenopathy, or masses. No thyromegaly. Normal carotid upstrokes without bruits. LUNGS: Bilateral rales to the upper chest. No wheezes, or rhonchi. HEART: Irregularly irregular rhythm with rate of 100-110 beats per minute. Normal S1 and S2 with a 2/6 early peaking systolic ejection murmur loudest at the right upper sternal border and a 2/6 diastolic decrescendo murmur at the lower left sternal border. There was no gallop or rub. VASC: Peripheral pulses +2 bilaterally. ABD: Bowel sounds normal, soft, nontender, no masses, no organomegaly. No audible bruits. : Not examined LYMPH: No lymphadenopathy noted. EXT: No clubbing, cyanosis or edema. SKIN: No rashes or lesions noted. NEURO: Awake, alert, and oriented x2 (prior to transesophageal ECHO was oriented x3). No focal sensory or strength deficits noted. Vital Signs (last 8hr) Date Time Temp Pulse Resp B/P (MAP) Pulse Ox O2 Delivery O2 Flow Rate FiO2 03/16/25 12:50 83 14 126/3 97 Room Air 03/16/25 12:20 87 15 118/55 99 Room Air 03/16/25 12:10 91 16 127/51 98 Room Air 03/16/25 12:00 88 14 131/52 99 Room Air 03/16/25 11:50 85 14 124/37 99 Room Air 03/16/25 11:40 100 03/16/25 11:40 98.1 88 15 129/40 99 Room Air 03/16/25 07:10 97.2 100 16 123/54 95 Room Air 100 Laboratory: Diagnostics / Radiology: OLIVER 03/16/2025: FINDINGS: Severely dilated left atrium with left atrial spontaneous echo contrast. Mild global hypokinesis with LVEF estimate of 45%. No evidence of left atrial appendage thrombus. Aortic valve homograft imaging was limited by acoustic shadowing from the aortic annulus. Three leaflets were seen and there appeared to be slight flickering of the noncoronary cusp suggestive of a small tear or perforation. This was not clearly visualized but suspected. Moderate, with some features of severe aortic regurgitation with 38% LVOT diameter jet; AR pressure half-time of 280 milliseconds; no evidence of pre systolic closure of the mitral valve; holodiastolic flow reversals in the descending thoracic aorta. Aortic root appeared free of any complex aortic plaque as did the descending thoracic aorta. Moderate mitral regurgitation. Ncbkfxqr-fr-equmrr tricuspid regurgitation with regurgitant jet in the area of RV pacing wire. IMPRESSION: Pavpgvrv-[id number]-fnircx aortic regurgitation. Marcus Connor MD, [facility] Impression and Plan: Acute confusional state and status post transesophageal echo (10:39 a.m. medications administered) 03/16/2025: -likely persisting effects of sedation which included Versed 1 mg and fentanyl 50 mcg prior to OLIVER -rule out CVA in patient with persistent atrial fibrillation with Eliquis held for two days for planned right and left heart catheterization today -right and left heart catheterization canceled and will be rescheduled when the patient is lucid. Moqrpnmp-im-ublyut bioprosthetic aortic valve insufficiency, chronically moderate since 2017, worsening in 2024 with OLIVER 03/16/2025 demonstrated mlegsezl-zp-[id number] aortic insufficiency: Acute on chronic diastolic congestive heart failure: LVEF of 45% by transesophageal echo 03/16/2025: -continue with plans for right and left heart catheterization and possible valve in valve TAVR for [id number]-vt-kzgrlt aortic insufficiency with CHF, if patient willing to proceed -begin IV Lasix diuresis 20 q.12 hours History of severe aortic stenosis status post aortic valve replacement March 2001 complicated by acute perivalvular leak x 2and 2nd redo aortic valve replacement April 2001 in [facility] with aortic homograft: Hddrjskd-zj-[id number] aortic insufficiency by OLIVER 03/16/2025, with acute on chronic diastolic congestive heart failure: -as above Persistent atrial fibrillation 02/03/2025, status post initiation of amiodarone 200 mg daily and Eliquis anticoagulation (2.5 b.i.d.): Long-term Eliquis anticoagulation initiated February 2025 (age and weight adjusted dose of 2.5 mg b.i.d.): Sick sinus syndrome status post permanent pacemaker insertion and generator replacement 01/24/2020 with a [employer] Edora 8 DRT-T dual-chamber device: -continue metoprolol succinate ER 100 mg q.a.m. and 50 mg q.p.m. for rate control -hold Eliquis anticoagulation pending right and left heart catheterization to be rescheduled for tomorrow -may begin IV heparin if CT scan of the brain this afternoon demonstrates no intracranial bleed pending right and left heart catheterization to be rescheduled tomorrow Recent hospitalization at [facility] 01/20/2025 through 01/31/2025 with a right upper lobe pneumonia: Comorbidities: Normal coronary arteries by remote cardiac catheterization 03/26/2001 Stable 4.1 cm thoracic aortic aneurysm Essential hypertension Prior gastric ulcer with upper GI bleed 2019 History of recurrent epistaxis Ovarian cancer status post chemotherapy and hysterectomy/oophorectomy 2021, followed at [facility] and felt to be in remission MARCUS CONNOR MD Mar 16, 2025 14:53
[2025-03-16] MEDS ORDERED: GLUCAGON 1MG KIT 1 MG ML IM PRN (15:00)
[2025-03-16] MEDS ORDERED: DEXTROSE 50%-WATER 50 ML DISP.SYRIN IV PRN (15:00)
--- NOTE | 2025-03-16 15:07 | HP ---
[facility] HISTORY AND PHYSICAL Date of Service: Mar 16, 2025 Time of Service: 15:07 HISTORY OF PRESENT ILLNESS: Date of service: 03/16/2025, patient was seen in day surgery unit 49-year-old female with previous history of thoracic aortic aneurysm, essential hypertension, prior history of gastric ulcer with GI bleeding in 2019, history of severe aortic stenosis status post mechanical aortic valve [place] [facility] [place], complicated by perivalvular leak requiring redo mechanical prosthesis in 03/31/2001 complicated by recurrent perivalvular leak with hemolysis requiring secondary to procedure with aortic valve homograft in 04/2001. Patient with previous known history of moderate aortic regurgitation with recent hospitalization in [facility] [place] with right upper lobe pneumonia. Patient was electively admitted for a transesophageal echocardiogram as well as a right and left heart catheterization. Patient underwent transesophageal echocardiogram by Dr. Small today which showed findings of LVEF of 45% and features of [id number] aortic regurgitation. Postprocedure after OLIVER, patient was noted to have episodes of confusion and patient's cardiac catheterization was canceled due to issues with confusion. Patient has a previous history of paroxysmal atrial fibrillation and has been maintained on chronic therapy with amiodarone as well as Eliquis. Eliquis has been on hold over the last 2-3 days in anticipation of cardiac catheterization and OLIVER today. Patient denies any focal weakness of upper or lower extremities. Patient was seen in day surgery unit. She is able to tell me her name but does not know the place or the date today. She denies any focal weakness of upper or lower extremities. She denies any numbness to the face or headache postprocedure. Patient will be monitored closely, reports that patient may have had some issues with mild confusion earlier this morning close to 5:30 a.m. when she woke up. Discussed with , patient's confusion could be secondary to sedative medication use during OLIVER. Reports that patient had some issues with confusion during her previous hospitalization in [facility] secondary to pneumonia. We will monitor neurologic status closely. Family denies any previous history of stroke. We will follow up CT head without contrast to ensure there is no acute intracranial abnormality. We will monitor neurologic status closely and see how patient progresses in the next 24 hours. Patient will be placed on IV heparin drip tonight in case patient agrees to cardiac catheterization tomorrow. REVIEW OF SYSTEMS CONSTITUTIONAL: Denies fevers, chills, or night sweats. No unintentional weight loss reported. NEUROLOGICAL: Noted to be confused post OLIVER today ENT: No hearing loss, otalgia, otorrhea, rhinitis, rhinorrhea, hoarseness, or sore throat. CARDIOVASCULAR: Denies any exertional angina, dyspnea on exertion, orthopnea, paroxysmal nocturnal dyspnea, palpitations, life-threatening arrhythmias, claudication. PULMONARY: Denies any shortness of breath, cough, phlegm/sputum, hemoptysis, pleuritic chest pain. SLEEP: Denies morning headaches, daytime somnolence or napping. Denies difficulty falling asleep, staying asleep, waking from sleep. Denies knowledge of snoring. GASTROINTESTINAL: Denies any type of dysphagia to either liquids or solids. Denies nausea, vomiting, pyrosis, early satiety, abdominal pain, diarrhea, constipation, or changes in stool consistency or caliber. Denies coffee-ground emesis, hematemesis, hematochezia, or melanotic stools. GENITOURINARY: Denies frequency, urgency, nocturia, hematuria or incontinence (Storage/Irritative symptoms.) Low urinary stream, straining to void, urinary intermittency or hesitancy, splitting of the voiding stream, terminal dribbling. ENDOCRINOLOGIC: Denies polyuria, polydipsia, polyphagia or heat/cold intolerances. HEMATOLOGIC: Denies thrombophilia/previous clots, or coagulopathy/bleeding disorders. ONCOLOGIC: Denies personal history of malignancy. DERMATOLOGIC: Denies rashes or pruritus. PSYCHIATRIC: Denies any suicidal or homicidal ideation. Denies hallucinations. PAST MEDICAL HISTORY: stable 4.1 cm thoracic aortic aneurysm, essential hypertension, prior gastric ulcer with upper GI bleed in 2019, recurrent epistaxis episodes, and severe aortic stenosis status post remote mechanical aortic valve replacement at [facility] with a [place] mechanical prosthesis March 2001 complicated by perivalvular leak requiring a redo with a [employer] mechanical prosthesis 03/31/2001 complicated by recurrent perivalvular leak with hemolysis requiring a 2nd redo procedure in [facility] with an aortic valve homograft (bioprosthesis) April 2001, History of paroxysmal atrial fibrillation maintained on chronic anticoagulation with Eliquis, she has a previous history of ovarian cancer in 2021 followed at [facility] and she is status post hysterectomy, oophorectomy, and chemotherapy PAST SURGICAL HISTORY: Aortic valve replacement March 2001 x2 due to recurrent perivalvular leak, and 2nd redo with aortic valve homograft and [facility] April 2001 x2 Permanent pacemaker insertion and subsequent generator replacement 01/24/2020 with a [employer] [place]ora 8 DR-T dual-chamber device Hysterectomy, oophorectomy, chemotherapy PAST SOCIAL HISTORY: Resides with at home, denies active smoking or alcohol consumption FAMILY HISTORY: Denies pertinent family history Allergies: No known drug allergies Home Meds: Amiodarone 200 mg p.o. daily Eliquis 2.5 mg p.o. b.i.d. Metoprolol succinate ER 100 mg p.o. q.a.m. and 50 mg p.o. q.p.m. Furosemide 40 mg p.o. daily Ramipril 5 mg p.o. daily KCL 10 mEq p.o. daily Pantoprazole 40 mg p.o. daily Coded Allergies: No Allergy Information Available (Verified Allergy, Unknown, 01/24/20) No Known Drug Allergies (Unverified Allergy, Unknown, 03/14/25) PHYSICAL EXAM GENERAL APPEARANCE: The patient is awake, able to tell me her name unable to tell me the place or date NEUROLOGICAL: Cranial nerves II-XII grossly intact. Motor is 5/5 in bilateral upper and lower extremities proximal to distal. No sensory deficits. HEENT: Face is symmetric. Pupils are equal and reactive. Extraocular movements are intact. NECK: Supple. No JVD. No thyromegaly. No submental, submandibular, pre- /postauricular, occipital or supraclavicular lymphadenopathy. CHEST: Normal chest expansion. No Telemetry. LUNGS: Absence of any rales, rhonchi or any wheezing. CARDIOVASCULAR: Regular. S1 and S2 normal. 2/6 murmur noted of the right upper sternal border ABDOMEN: Soft, nontender, and nondistended. There is no rebound, voluntary guarding, or rigidity. : Deferred. No Wallace. EXTREMITIES: Non-edematous and not cyanotic. No clubbing. Good capillary refill. SKIN: No skin breakdown. Vital Sign (Last 24 Hours) 03/16/25 03/16/25 11:40 12:50 Temp 98.1 Pulse 83 Resp 14 B/P (MAP) 126/3 Pulse Ox 97 O2 Delivery Room Air FiO2 100 LABS: Laboratory Tests Test 03/16/25 15:25 03/16/25 16:54 White Blood Count 5.7 K/uL (4.8-10.8) Red Blood Count 3.45 MIL/uL (4.00-5.50) L Hemoglobin 11.2 g/dL (12.0-16.0) L Hematocrit 34.8 % (36-48) L Mean Corpuscular Volume 100.9 fL (79-99) H Mean Corpuscular Hemoglobin 32.5 pg (27.0-33.0) Mean Corpuscular Hemoglobin Concent 32.2 g/dL (32.0-36.0) Red Cell Distribution Width 15.7 % (11.0-15.5) H Platelet Count 269 K/uL (130-400) Mean Platelet Volume 10.0 fL (7.5-10.5) Immature Granulocyte % (Auto) 0.5 % (0-1) Neutrophils (%) (Auto) 57.8 % (40.0-77.0) Lymphocytes (%) (Auto) 23.0 % (21.0-51.0) Monocytes (%) (Auto) 13.6 % (3.0-13.0) H Eosinophils (%) (Auto) 3.7 % (0.0-8.0) Basophils (%) (Auto) 1.4 % (0.0-5.0) Neutrophils # (Auto) 3.3 K/uL (1.8-7.7) Lymphocytes # (Auto) 1.3 K/uL (1.0-4.8) Monocytes # (Auto) 0.8 K/uL (0.1-1.0) Eosinophils # (Auto) 0.21 K/uL (0.00-0.70) Basophils # (Auto) 0.08 K/uL (0.00-0.20) Absolute Immature Granulocyte (auto 0.03 K/uL (0-1) Nucleated Red Blood Cells 0.0 % (0.0-0.19) Sodium Level 141 mmol/L (136-145) Potassium Level 3.4 mmol/L (3.5-5.1) L Chloride Level 103 mmol/L (101-111) Carbon Dioxide Level 27 mmol/L (21-32) Blood Urea Nitrogen 23 mg/dL (7-18) H Creatinine 1.5 mg/dL (0.5-1.0) H Glomerular Filtration Rate Calc 35 mL/min (>90) Random Glucose 85 mg/dL (70-105) Total Calcium 8.9 mg/dL (8.5-10.1) Magnesium Level 1.80 mg/dL (1.80-2.40) Total Bilirubin 1.1 mg/dL (0.2-1.0) H Aspartate Amino Transf (AST/SGOT) 19 U/L (10-37) Alanine Aminotransferase (ALT/SGPT) 19 U/L (12-78) Alkaline Phosphatase 82 U/L (50-136) Ammonia < 10 umol/L (11-32) L C-Reactive Protein, Quantitative 18.90 mg/L (0.5-3.0) H B-Type Natriuretic Peptide 1680 pg/mL (0-100) H Total Protein 6.1 g/dL (6.0-8.3) Albumin 2.9 g/dL (3.5-5.0) L Procalcitonin < 0.05 ng/mL (0.05-0.5) L Prothrombin Time 12.3 SEC (9.6-11.6) H Prothromb Time International Ratio 1.18 (0.85-1.15) H Activated Partial Thromboplast Time 24.2 SEC (26.3-35.5) L Current Medications Medications (Trade) Dose Ordered Sig/Sadi Route PRN Reason Start Time Stop Time Status Last Admin Dose Admin Acetaminophen (TYLenol 325MG TAB) 650 mg Q6H PRN PO MILD PAIN (1-3) 03/16/25 15:00 04/15/25 14:59 Amiodarone HCl (pacERONE 200MG) 200 mg DAILY PO 03/17/25 09:00 04/16/25 08:59 Dextrose (D50w) 50 ml AD PRN IV HYPOGLYCEMIA PROTOCOL 03/16/25 15:00 04/15/25 14:59 Furosemide (LASix 20MG VIAL) 20 mg Q12H IV 03/16/25 21:00 04/15/25 20:59 Furosemide (LASix 40MG TAB) 40 mg DAILY PO 03/17/25 09:00 03/16/25 14:49 DC Glucagon (Glucagon 1mg Kit) 1 mg AD PRN IM HYPOGLYCEMIA PROTOCOL 03/16/25 15:00 04/15/25 14:59 Lisinopril (Prinivil 10mg) 10 mg DAILY PO 03/17/25 09:00 04/16/25 08:59 Metoprolol Succinate (TopROL XL) 50 mg HS PO 03/16/25 21:00 04/15/25 20:59 Metoprolol Succinate (TopROL XL) 100 mg DAILY PO 03/17/25 09:00 04/16/25 08:59 Miscellaneous Medication (Metoprolol Succinate ) 0.5 tab HS PO 03/16/25 21:00 03/16/25 14:50 DC Miscellaneous Medication (Metoprolol Succinate ) 100 mg DAILY PO 03/17/25 09:00 03/16/25 14:50 DC Miscellaneous Medication (Potassium Chloride ) 1 cap DAILY PO 03/17/25 09:00 03/16/25 14:50 DC Miscellaneous Medication (Ramipril ) 1 cap DAILY PO 03/17/25 09:00 03/16/25 14:50 DC Ondansetron HCl (zoFRAN 4MG INJ) 4 mg Q6H PRN IVP NAUSEA/VOMITING 03/16/25 15:00 04/15/25 14:59 Pantoprazole Sodium (PROTonix 40MG TAB) 40 mg HS PO 03/16/25 21:00 04/15/25 20:59 Pantoprazole Sodium (PROTonix 40MG TAB) 40 mg HS PO 03/16/25 21:00 03/16/25 14:49 DC Potassium Chloride (K-Dur 10meq Sr Tab) 10 meq DAILY PO 03/17/25 09:00 04/16/25 08:59 Sodium Chloride (Normal Saline Flush) 10 ml Q8H IV 03/16/25 15:00 04/15/25 14:59 Thiamine HCl (Vitamin B-1) 100 mg DAILY IVP 03/17/25 09:00 04/16/25 08:59 Vitamin B Complex/ Vit C/Folic Acid (Nephrovite Tablet) 1 cap DAILY PO 03/17/25 09:00 04/16/25 08:59 DIAGNOSTICS / RADIOLOGY: SERVICE [id number] REASON: hypoxia post OLIVER ORDERING PHYSICIAN: VICK SIMS MD PROCEDURE: CXR1VW - CHEST 1VW EXAM: CR Chest, 1 View. CLINICAL HISTORY: hypoxia post OLIVER COMPARISON: Radiograph dated March 14, 2025 FINDINGS: Mild interstitial and airspace disease throughout both lungs compatible with pulmonary edema. Small bilateral pleural effusions. Stable cardiomegaly with pacemaker leads unchanged in positions. Mild central pulmonary vascular congestion. IMPRESSION: 1. Mild bilateral pulmonary edema with small pleural effusions. 2. Mild central pulmonary vascular congestion. /[place] DICTATED BY: ZHANE MOORE Jr., MD DATE: 03/16/251740 ELECTRONICALLY SIGNED BY: ZHANE MOORE Jr., MD DATE: 03/16/251740 ASSESSMENT: Toxic/metabolic encephalopathy, POA Acute on chronic diastolic heart failure exacerbation, POA [id number] aortic insufficiency noted on OLIVER from 01/07/[address] Small, POA History of severe aortic stenosis status post aortic valve replacement March 2001 complicated by acute perivalvular leak x 2 and 2nd redo aortic valve repl acement April 2001 in [facility] with aortic homograft, POA History of persistent atrial fibrillation maintained on chronic therapy with amiodarone and chronic anticoagulation therapy with Eliquis, POA History of sick sinus syndrome status post permanent pacemaker placement, POA Recent hospitalization [place] [facility] [place] secondary to right upper lobe pneumonia, POA CKD stage 3, POA Debility, POA Hypertension, POA History of gastric ulcer with history of upper GI bleeding in 2019, POA History of ovarian cancer status post chemotherapy and hysterectomy/oophorectomy in 2021, POA History of stable 4.1 cm thoracic aortic aneurysm, POA PLAN: Patient will be monitored closely in medical-surgical floor under telemetry monitoring We will follow up results of CT head without contrast to rule out any acute intracranial abnormality If CT head findings are negative, we will initiate patient on heparin drip due to history of atrial fibrillation enter reduce risk of stroke while awaiting car diac catheterization possibly tomorrow once patient is more lucid We will monitor neurologic status closely Patient will be placed on delirium precautions, confusion could be secondary to sedative and narcotic use during OLIVER procedure, we will see how patient progresses tomorrow, if confusion is persistent, we will consider Neurology evaluation tomorrow Appreciate recommendations by Dr. Small Patient was noted to be hypoxic during OLIVER, chest x-ray shows bilateral vascular congestion, BNP is noted to be elevated, we will start patient on IV Lasix 20 mg b.i.d. We will maintain potassium greater than four and magnesium greater than two Continue with home dose of Amiodarone 200 mg daily, lisinopril 10 mg daily, metoprolol succinate 100 mg in a.m. and 50 mg at bedtime, we will keep patient on GI prophylaxis Protonix We will avoid any sedative or narcotics, we will keep patient sitter at bedside, we will keep patient on fall precautions All labs will be repeated in the morning, we will see if patient he is agreeable to cardiac catheterization tomorrow Labs including CBC, BMP were reviewed which is currently similar to labs from 03/14/2025, we will obtain a urinalysis to ensure there is no urinary tract infection Plan of care was discussed with daughter and at bedside Date of service: 03/16/2025 Vick Sims Advanced Care Planning: Which of the following were discussed: Hospice care: Yes __ No _x_ Therapeutic options: Yes _x_ No __ Advance directives: Yes _x_ No __ Other discussions: Discussed with who?: Patient Voluntary nature of this service was explained to the patient? Yes _x_ No __ Amount of time spent: 20 minutes VICK SIMS MD Mar 16, 2025 15:07
--- NOTE | 2025-03-16 15:16 | HMCSR ---
APPROVED REPORT EXAM: Transesophageal echocardiogram with color flow Doppler. Study Details: 3D/2D transesphageal echocardiogram with color Doppler and Doppler INDICATION ICD: I35.0 Non-rheumatic aortic valve stenosis PROCEDURE After obtaining informed consent, patient underwent transesophageal echo in the Day Pateint Room 1 . 15 mL 2% Viscous Lidocaine was given as a topical anesthetic prior to the administration of the conscious sedation. Type of Sedation: Conscious Sedation Sedation was administered by please refer to medication administration record.. Sedation was achieved with please refer to medication administration record. intravenously. Transesophageal probe was inserted and advanced into esophagus without difficulty by Marcus Small MD . OLIVER was performed and images were obtained, probe was removed without complications. Throughout the procedure, the blood pressure, pulse oximetry, cardiac rhythm, and rate were monitored. Left Ventricle The left ventricle is normal size. Mild global hypokinesis. There is normal left ventricular wall thickness. LVEF is 45%. No left ventricle thrombus noted on this study. Indeterminate diastolic dysfunction. Right Ventricle The right ventricle is normal size. The right ventricular systolic function is normal. Atria The left atrium is severely dilated. Spontaneous contrast noted in left atrium. There is no mass or thrombus suspected in the left atrium. No evidence of PFO/ASD by color Doppler. The right atrium is severely dilated. Spontaneous contrast noted in right atrium. There is no mass or thrombus suspected in the right atrium. Aortic Valve Bioprosthetic aortic valve is present. Aortic valve homograft imaging was limited due to acoustic shadowing from the aortic annulus. The aortic leaflets appear thin and pliable as visualized. There was slight flickering of the non coronary cusp suggestive of a small tear or perforation. Color Doppler suggestive of moderate AR. Features of severe aortic regurgitation included holosystoolic flow reversal in the descending aorta, and a regurgitant fraction of >60% (was 89%). Features of moderate to severe AR included an AR pressure 1/2 time of 280 ms, AR regurgitant volume of 46 mL (> 50 mL is severe). Moderate to severe aortic regurgitation is present. There is no aortic valvular stenosis. Mitral Valve The mitral valve is mildly thickened. There is moderate mitral valve regurgitation noted with two centric jets. No presystolic closure of the mitral noted. There is no mitral valve stenosis. Tricuspid Valve The tricuspid valve leaflets are mildly thickened. There is moderate tricuspid valve regurgitation noted. Pulmonic Valve Pulmonic valve is not well visualized. There is no pulmonic valvular regurgitation. Great Vessels The aortic root is normal in size. Ascending aorta appears normal in size. Diastolic flow reversal noted on the ascending aorta. Descending aorta appears normal in size. Pericardium There is no pericardial effusion. Conclusion The left ventricle is normal size. LVEF is 45%. Mild global hypokinesis. Moderate to severe aortic regurgitation is present. Bioprosthetic aortic valve is present. Aortic valve homograft imaging was limited due to acoustic shadowing from the aortic annulus. The aortic leaflets appear thin and pliable as visualized. There was slight flickering of the non coronary cusp suggestive of a small tear or perforation. Color Doppler suggestive of moderate AR. Features of severe aortic regurgitation included holosystoolic flow reversal in the descending aorta, and a regurgitant fraction of >60% (was 89%). Features of moderate to severe AR included an AR pressure 1/2 time of 280 ms, AR regurgitant volume of 46 mL (> 50 mL is severe). There is no aortic valvular stenosis. There is moderate mitral valve regurgitation noted with two centric jets. No presystolic closure of the mitral noted. There is moderate tricuspid valve regurgitation noted. Ascending aorta appears normal in size. Diastolic flow reversal noted on the ascending aorta. Descending aorta appears normal in size. There is no pericardial effusion.
--- NOTE | 2025-03-16 15:40 | HMCIMG ---
EXAM: CT Head Without IV contrast. CLINICAL HISTORY: new onset confusion TECHNIQUE: Axial computed tomography images of the head/brain without intravenous contrast. COMPARISON: None provided. FINDINGS: BRAIN: No evidence of acute hemorrhage. No mass lesion. No CT evidence for acute territorial infarct. No midline shift or extra-axial collections. VENTRICLES: No hydrocephalus. ORBITS: The orbits are unremarkable. SINUSES AND MASTOIDS: The paranasal sinuses and mastoid air cells are clear. BONES: No fracture. SOFT TISSUES: Unremarkable. IMPRESSION: No acute intracranial abnormality. /[place]
[2025-03-16 15:54] LABS: IMMATURE GRANULOCYTE ABSOLUTE 0.03 K/uL (0-1); NUCLEATED RED BLOOD CELLS 0.0 % (0.0-0.19); PLATELET COUNT (AUTO) 269 K/uL (130-400); RED BLOOD CELL COUNT(AUTO) 3.45 MIL/uL (4.00-5.50); RED CELL DISTRIBUTION WIDTH 15.7 % (11.0-15.5); WHITE BLOOD COUNT (AUTO) 5.7 K/uL (4.8-10.8)
[2025-03-16 16:08] LABS: CREATININE 1.5 mg/dL (0.5-1.0); GLOMERULAR FILTR. RATE CALC 35 mL/min (>90); GLUCOSE,RANDOM 85 mg/dL (70-105); SODIUM SERUM 141 mmol/L (136-145); UREA NITROGEN, BLOOD 23 mg/dL (7-18)
[2025-03-16 16:12] LABS: ASPARTATE AMINOTRANSFERASE 19 U/L (10-37); TOTAL PROTEIN, SERUM 6.1 g/dL (6.0-8.3)
[2025-03-16] MEDS ORDERED: MAGNESIUM 2GM PREMIX 50ML 50 ML IV SCH (16:30)
[2025-03-16] MEDS ORDERED: PoTASSium chl 10% ELIXIR 20MEQ 20 MEQ/15 ML UDCUP PO PRN (16:30)
[2025-03-16] MEDS: PoTASSium chloRIDE 20MEQ ER 20 MEQ ERTAB PO PRN (16:39)
--- NOTE | 2025-03-16 16:42 | HMCIMG ---
EXAM: CR Chest, 1 View. CLINICAL HISTORY: hypoxia post OLIVER COMPARISON: Radiograph dated March 14, 2025 FINDINGS: Mild interstitial and airspace disease throughout both lungs compatible with pulmonary edema. Small bilateral pleural effusions. Stable cardiomegaly with pacemaker leads unchanged in positions. Mild central pulmonary vascular congestion. IMPRESSION: 1. Mild bilateral pulmonary edema with small pleural effusions. 2. Mild central pulmonary vascular congestion. /[place]
[2025-03-16 17:18] LABS: INR 1.18 (0.85-1.15)
--- NOTE | 2025-03-16 19:00 | NUR ---
PT lying in bed w/ eyes open A&Ox2 w/ confusion. [place] Lazo initially agreed to [facility] with aortagram however upon family meeting has decided to "hold off on procedure for a few days until she feels better". Dr Sims and Dr Small notified.
[2025-03-16] MEDS: SODIUM CHLORIDE 0.9 % (FLUSH) 10 ML SYG IV SCH (21:17)
[2025-03-17] VITALS: BP 125/39; PULSE 90; RESP 18; TEMP 97.7
[2025-03-17 04:00] VITALS: BP 123/51; PULSE 97; RESP 20; TEMP 97.7
[2025-03-17 04:48] LABS: IMMATURE GRANULOCYTE ABSOLUTE 0.03 K/uL (0-1); NUCLEATED RED BLOOD CELLS 0.0 % (0.0-0.19); PLATELET COUNT (AUTO) 313 K/uL (130-400); RED BLOOD CELL COUNT(AUTO) 3.57 MIL/uL (4.00-5.50); RED CELL DISTRIBUTION WIDTH 15.7 % (11.0-15.5); WHITE BLOOD COUNT (AUTO) 6.6 K/uL (4.8-10.8)
[2025-03-17 05:19] LABS: ASPARTATE AMINOTRANSFERASE 18.0 U/L (10-37); CREATININE 1.7 mg/dL (0.5-1.0); GLOMERULAR FILTR. RATE CALC 30.0 mL/min (>90); GLUCOSE,RANDOM 99.0 mg/dL (70-105); SODIUM SERUM 140.0 mmol/L (136-145); TOTAL PROTEIN, SERUM 6.0 g/dL (6.0-8.3); UREA NITROGEN, BLOOD 25.0 mg/dL (7-18)
[2025-03-17 08:00] VITALS: BP 135/50; PULSE 78; RESP 18; TEMP 99.5
[2025-03-17 08:01] VITALS: O2SAT 92
[2025-03-17] MEDS: Vitamin B Complex/Vit C/Folic Acid PO SCH (08:51)
[2025-03-17] MEDS: PoTASSium chloRIDE 10MEQ SR 10 MEQ/TAB TAB.SR.24H PO SCH (08:51)
[2025-03-17] MEDS: LISINOPRIL 10 MG TABLET PO SCH (08:51)
[2025-03-17] MEDS: THIAMINE HCL 100 MG/ML 2ML VIAL IVP SCH (08:52)
[2025-03-17] MEDS ORDERED: POTASSIUM CHLORIDE PO SCH (09:00)
[2025-03-17] MEDS ORDERED: NON-FORMULARY MEDICATION 1 EACH (Metoprolol Succinate 100 MG) PO SCH (09:00)
--- NOTE | 2025-03-17 10:00 | PN ---
[facility] CARDIOLOGY PROGRESS NOTE Date Patient Seen: Mar 17, 2025 Time of Visit: 09:44 Interval History: This pleasant 79-year-old [place] female with a history of stable 4.1 cm thoracic aortic aneurysm, essential hypertension, prior gastric ulcer with upper GI bleed in 2019, recurrent epistaxis episodes, and severe aortic stenosis status post remote mechanical aortic valve replacement at [facility] with a [employer] mechanical prosthesis March 2001 complicated by perivalvular leak requiring a redo with a [employer] mechanical prosthesis 03/31/2001 complicated by recurrent perivalvular leak with hemolysis requiring a 2nd redo procedure in [facility] with an aortic valve homograft (bioprosthesis) April 2001. He has been known to have a moderate central valvular jet of aortic regurgitation which has been stable since 2018 until 2024 when we noted the murmur does change in quality and noted the patient to develop congestive symptoms. During a hospitalization for pneumonia 01/20 through 01/31/2025 with a right upper lobe pneumonia 2D echocardiogram demonstrated an LVEF of 50-55%, stage II diastolic dysfunction, and a dysfunctional prosthetic valve. The RV systolic pressure was 52 mm of mercury. She was admitted today for a transesophageal echo and right and left heart catheterization to define the nature of her aortic valve regurgitation, rule out a flail leaflet, and to assess the severity of her aortic regurgitation. After her OLIVER she developed an acute confusional state and is currently admitted for further assessment. The right and left heart catheterization was canceled. The patient has a prior history of paroxysmal atrial fibrillation which became persistent in late January 2025. She was initiated on amiodarone and Eliquis anticoagulation at a weight and age adjusted dose of 2.5 b.i.d.. Her rate was controlled today on admission but she continues in atrial fibrillation. Also of note the patient has been diagnosed with ovarian cancer in 2021 status post hysterectomy, oophorectomy, and chemotherapy and she is followed at [facility] in his felt to be in remission. The patient's OLIVER today 03/16/2025 demonstrated mild global hypokinesis with an LVEF of 45%. Severe left atrial dilatation with spontaneous left atrial contrast, acoustic shadowing over the aortic bioprosthesis but as visualized the the aortic leaflets appeared to be pliable, with [id number] aortic regu rgitation over the noncoronary cusp, with slight flickering over the noncoronary cusp suggestive of a small tear or perforation. In addition there was an AR LVOT area jet of 38%, an AR pressure half-time of 280 milliseconds, and holodiastolic flow reversals in the descending thoracic aorta. There was no evidence of pre-systolic closure of the mitral valve. The regurgitant volume was 46 mL (> 50 severe), and the regurgitant fraction was reported as 89% (greater than 60% is severe). Overnight the patient's mental status is cleared. She relates today that she has had recent difficulties with her memory. A CT scan of the head noncontrast was negative as was an ammonia level and routine lab studies. Her altered mental status after the OLIVER appears to be clearly related to sedation and her compromised cognitive state. Today she wishes to proceed with her follow up appointment with Dr. Ismael Mcdaniel which has been scheduled at [facility] in [place]. I explained that we can proceed with right and left heart catheterization today with a night toward TAVR for her chronic severe AR with associated CHF, but she prefers to proceed with her follow up appointment in [place]. She is cleared for discharge on an increased dose of furosemide. Home Meds: Amiodarone 200 mg p.o. daily Eliquis 2.5 mg p.o. b.i.d. Metoprolol succinate ER 100 mg p.o. q.a.m. and 50 mg p.o. q.p.m. Furosemide 40 mg p.o. daily Ramipril 5 mg p.o. daily KCL 10 mEq p.o. daily Pantoprazole 40 mg p.o. daily Physical Examination: GENERAL: No acute distress. HEAD: Normal with no signs of head trauma. EYES: PERRLA, EOMI, conjunctiva and sclera normal. NECK: Supple without JVD. There is no tenderness, lymphadenopathy, or masses. No thyromegaly. Normal carotid upstrokes without bruits. LUNGS: Bibasilar rales persist. No wheezes, or rhonchi. HEART: Normal rate and rhythm. Normal S1 and S2 with a 2/6 early peaking systolic ejection murmur loudest at the right upper sternal border and a two to 3/6 diastolic decrescendo murmur at the lower left sternal border. There are no audible gallops or rubs. VASC: Peripheral pulses +2 bilaterally. EXT: No clubbing, cyanosis or edema. NEURO: Awake, alert, and oriented x3. No focal neurological deficits noted. Laboratory: Hematology Labs: Test 03/17/25 04:29 Range/Units White Blood Count 6.6 4.8-10.8 K/uL Red Blood Count 3.57 L 4.00-5.50 MIL/uL Hemoglobin 11.4 L 12.0-16.0 g/dL Hematocrit 35.3 L 36-48 % Mean Corpuscular Volume 98.9 79-99 fL Mean Corpuscular Hemoglobin 31.9 27.0-33.0 pg Mean Corpuscular Hemoglobin Concent 32.3 32.0-36.0 g/dL Red Cell Distribution Width 15.7 H 11.0-15.5 % Platelet Count 313 130-400 K/uL Mean Platelet Volume 10.0 7.5-10.5 fL Immature Granulocyte % (Auto) 0.5 0-1 % Neutrophils (%) (Auto) 54.7 40.0-77.0 % Lymphocytes (%) (Auto) 26.9 21.0-51.0 % Monocytes (%) (Auto) 12.9 3.0-13.0 % Eosinophils (%) (Auto) 3.8 0.0-8.0 % Basophils (%) (Auto) 1.2 0.0-5.0 % Neutrophils # (Auto) 3.6 1.8-7.7 K/uL Lymphocytes # (Auto) 1.8 1.0-4.8 K/uL Monocytes # (Auto) 0.9 0.1-1.0 K/uL Eosinophils # (Auto) 0.25 0.00-0.70 K/uL Basophils # (Auto) 0.08 0.00-0.20 K/uL Absolute Immature Granulocyte (auto 0.03 0-1 K/uL Nucleated Red Blood Cells 0.0 0.0-0.19 % Chemistry Labs: Test 03/17/25 04:29 03/16/25 15:25 Range/Units Sodium Level 140 136-145 mmol/L Potassium Level 3.9 3.5-5.1 mmol/L Chloride Level 104 101-111 mmol/L Carbon Dioxide Level 25 21-32 mmol/L Blood Urea Nitrogen 25 H 7-18 mg/dL Creatinine 1.7 H 0.5-1.0 mg/dL Glomerular Filtration Rate Calc 30 >90 mL/min Random Glucose 99 70-105 mg/dL Total Calcium 9.2 8.5-10.1 mg/dL Total Bilirubin 1.2 H 0.2-1.0 mg/dL Aspartate Amino Transf (AST/SGOT) 18 10-37 U/L Alanine Aminotransferase (ALT/SGPT) 19 12-78 U/L Alkaline Phosphatase 79 50-136 U/L B-Type Natriuretic Peptide 1320 H 0-100 pg/mL Total Protein 6.0 6.0-8.3 g/dL Albumin 2.8 L 3.5-5.0 g/dL Magnesium Level 1.80 1.80-2.40 mg/dL Ammonia < 10 L 11-32 umol/L C-Reactive Protein, Quantitative 18.90 H 0.5-3.0 mg/L Procalcitonin < 0.05 L 0.05-0.5 ng/mL Coagulation Labs: Test 03/17/25 04:29 03/16/25 16:54 Range/Units Activated Partial Thromboplast Time 76.1 #H 26.3-35.5 SEC Prothrombin Time 12.3 H 9.6-11.6 SEC Prothromb Time International Ratio 1.18 H 0.85-1.15 Diagnostics / Radiology: Transesophageal echocardiogram 03/16/2025: Conclusion: The left ventricle is normal size. LVEF is 45%. Mild global hypokinesis. Moderate to severe aortic regurgitation is present. Bioprosthetic aortic valve is present. Aortic valve homograft imaging was limited due to acoustic shadowing from the aortic annulus. The aortic leaflets appear thin and pliable as visualized. There was slight flickering of the non coronary cusp suggestive of a small tear or perforation. Color Doppler suggestive of moderate AR. Features of severe aortic regurgitation included holosystoolic flow reversal in the descending aorta, and a regurgitant fraction of >60% (was 89%). Features of moderate to severe AR included an AR pressure 1/2 time of 280 ms, AR regurgitant volume of 46 mL (> 50 mL is severe). There is no aortic valvular stenosis. There is moderate mitral valve regurgitation noted with two centric jets. No presystolic closure of the mitral noted. There is moderate tricuspid valve regurgitation noted. Ascending aorta appears normal in size. Diastolic flow reversal noted on the ascending aorta. Descending aorta appears normal in size. There is no pericardial effusion. DICTATED BY: TYLER CONNOR MD DATE: 03/16/25 0834 Impression and Plan: Acute confusional state and status post transesophageal echo (10:39 a.m. medications administered) 03/16/2025: -likely persisting effects of sedation which included Versed 1 mg and fentanyl 50 mcg prior to OLIVER -noncontrast CT of the head ruled out any acute process/CVA -family prefers to defer right and left heart catheterization today until she undergoes CT surgical evaluation with Dr. Ismael Mcdaniel at [facility] on Friday. Copies of records and CD of her 2D echo will be provided. Chronic severe bioprosthetic aortic valve insufficiency, chronically moderate since 2017, worsening in 2024 with OLIVER 03/16/2025 demonstrated features consistent with severe aortic insufficiency: Acute on chronic diastolic congestive heart failure: LVEF of 45% by transesophageal echo 03/16/2025: -consider cardiac MRI to assess aortic valve regurgitant fraction and regurgitant volume -continue with plans for right and left heart catheterization and possible valve in valve TAVR for chronic severe aortic insufficiency with CHF, but patient would like to defer pending appt. with Dr. Ismael Mcdaniel at [facility] on Friday. -increase furosemide to 40 p.o. b.i.d. History of severe aortic stenosis status post aortic valve replacement March 2001 complicated by acute perivalvular leak x 2 and 2nd redo aortic valve replacement April 2001 in [facility] with aortic homograft: Chronic severe aortic insufficiency by OLIVER 03/16/2025, with acute on chronic diastolic congestive heart failure: -as above -consider cardiac MRI to assess aortic valve regurgitant fraction and regurgitant volume Persistent atrial fibrillation 02/03/2025, status post initiation of amiodarone 200 mg daily and Eliquis anticoagulation (2.5 b.i.d.): Long-term Eliquis anticoagulation initiated February 2025 (age and weight adjusted dose of 2.5 mg b.i.d.): Sick sinus syndrome status post permanent pacemaker insertion and generator replacement 01/24/2020 with a [employer] 8 DRT-T dual-chamber device: -continue metoprolol succinate ER 100 mg q.a.m. and 50 mg q.p.m. for rate control -hold Eliquis anticoagulation pending right and left heart catheterization to be rescheduled for tomorrow -may begin IV heparin if CT scan of the brain this afternoon demonstrates no intracranial bleed pending right and left heart catheterization to be rescheduled tomorrow Recent hospitalization at [facility] 01/20/2025 through 01/31/2025 with a right upper lobe pneumonia: -cleared on chest x-ray Comorbidities: Normal coronary arteries by remote cardiac catheterization 03/26/2001 Stable 4.1 cm thoracic aortic aneurysm Essential hypertension Prior gastric ulcer with upper GI bleed 2019 History of recurrent epistaxis Ovarian cancer status post chemotherapy and hysterectomy/oophorectomy 2021, followed at [facility] and felt to be in remission TYLER CONNOR MD Mar 17, 2025 10:00
[2025-03-17] MEDS ORDERED: FURO40TA5 PO (10:10)
[2025-03-17] MEDS ORDERED: POTA10CA95 PO (10:10)
--- NOTE | 2025-03-17 10:41 | NUR ---
DCP:HOME Pt currently lives at home with her . Pt denies having any DME, home health, or provider services. Pt states that she is able to complete ADLs independently. PCP is Dr. Sandeep Curry and uses [facility] for any RX needs. At DC pt will want to go home and family can assist with transportation.
[2025-03-17] MEDS ORDERED: 0.9%NACL 10ML VIAL IV SCH (15:00)
--- NOTE | 2025-03-17 19:46 | DS ---
Discharge Summary Hospital Course Summary: 79 Year old female with a history of thoracic aortic aneurysm, mechanical aortic valve replacement complicated by paravalvular leak and hemolysis, paroxysmal atrial fibrillation, htn and prior GI bleed was admitted for her transesophageal echocardiogram and a planned cardiac catheterization following OLIVER she developed acute confusion without neuro focal neurological deficits, leading to the cancellation of the catheterization. Eliquis had been held preprocedure, neurological monitoring and noncontrast head CT were performed to rule out acute pathology. Her confusion, improved with supportive care, and she remained. Hemodynamically stable she is discharged in stable condition with instructions to resume her medication as directed and monitor for neurological symptoms and follow up with the Cardiology and the primary care. And patient wants to undergo her catheterization in the [facility]. Bung Remover(s): [facility] CARDIOLOGY CONSULTATION REPORT Date Patient Seen: Mar 16, 2025 Time of Visit: 14:19 Requesting Physician: Dr. Vick Sims Reason for Consultation: Acute confusional state following transesophageal echo History of Present Illness: This pleasant 79-year-old Latin-Montenegrin female with a history of stable 4.1 cm thoracic aortic aneurysm, essential hypertension, prior gastric ulcer with upper GI bleed in 2019, recurrent epistaxis episodes, and severe aortic stenosis status post remote mechanical aortic valve replacement at [facility] with a [employer] mechanical prosthesis March 2001 complicated by perivalvular leak requiring a redo with a [employer] mechanical prosthesis 03/31/2001 complicated by recurrent perivalvular leak with hemolysis requiring a 2nd redo procedure in [facility] with an aortic valve homograft (bioprosthesis) April 2001. He has been known to have a moderate central valvular jet of aortic regurgitation which has been stable since 2017 until 2024 when we noted the murmur does change in quality and noted the patient to develop congestive symptoms. During a hospitalization for pneumonia 01/20 through 01/31/2025 with a right upper lobe pneumonia 2D echocardiogram demonstrated an LVEF of 50-55%, stage II diastolic dysfunction, and a dysfunctional prosthetic valve. The RV systolic pressure was 52 mm of mercury. She was admitted today for a transesophageal echo and right and left heart catheterization to define the nature of her aortic valve regurgitation, rule out a flail leaflet, and to assess the severity of her aortic regurgitation. After her OLIVER she developed an acute confusional state and is currently admitted for further assessment. The right and left heart catheterization was canceled. The patient has a prior history of paroxysmal atrial fibrillation which became persistent in late January 2025. She was initiated on amiodarone and Eliquis anticoagulation at a weight and age adjusted dose of 2.5 b.i.d.. Her rate was controlled today on admission but she continues in atrial fibrillation. Also of note the patient has been diagnosed with ovarian cancer in 2021 status post hysterectomy, oophorectomy, and chemotherapy and she is followed at [facility] in his felt to be in remission. The patient's OLIVER today 03/16/2025 demonstrated mild global hypokinesis with an LVEF of 45%. Severe left atrial dilatation with spontaneous left atrial contr ast, acoustic shadowing over the aortic bioprosthesis but as visualized the the aortic leaflets appeared to be pliable, with mnbuovga-bm-ofkenn aortic regurgitation over the noncoronary cusp, with slight flickering over the noncoronary cusp suggestive of a small tear or perforation. In addition there was an AR LVOT area jet of 38%, an AR pressure half-time of 280 milliseconds, and holodiastolic flow reversals in the descending thoracic aorta. There was no evidence of pre-systolic closure of the mitral valve. The regurgitant volume was 46 mL (> 50 severe), and the regurgitant fraction was reported as 89% (greater than 60% is severe). Past Medical History: As outlined above and as summarized below Past Surgical History: Aortic valve replacement March 2001 x2 due to recurrent perivalvular leak, and 2nd redo with aortic valve homograft and [facility] April 2001 x2 Permanent pacemaker insertion and subsequent generator replacement 01/24/2020 with a [employer] Edora 8 DR-T dual-chamber device Family History: Noncontributory Social History: Noncontributory Habits: Never smoker. Denies alcohol consumption. Denies illicit drug use Home Meds: Amiodarone 200 mg p.o. daily Eliquis 2.5 mg p.o. b.i.d. Metoprolol succinate ER 100 mg p.o. q.a.m. and 50 mg p.o. q.p.m. Furosemide 40 mg p.o. daily Ramipril 5 mg p.o. daily KCL 10 mEq p.o. daily Pantoprazole 40 mg p.o. daily Review of Systems: CONST: [No fever, fatigue, or weight changes.] EYES: [No recent vision problems.] ENT: [No congestion, ear pain, or sore throat.] C/V: [No chest pain, palpitations, or edema.] RESP: [No cough, congestion, wheezing or shortness of breath.] GI: [No abdominal pain, nausea, vomiting, constipation, or diarrhea.] : [No incontinence or dysuria.] SKIN: [No rash.] NEURO: [No headache, focal numbness or weakness, dizziness, or seizures.] PSYCH: [No depression or anxiety.] HEME: [No abnormal bruising or bleeding.] LYMPH: [No swollen glands.] Physical Examination: GENERAL: No acute distress. HEAD: Normal with no signs of head trauma. EYES: PERRLA, EOMI, conjunctiva and sclera normal. ENT: Hearing grossly intact, normal oropharynx. NECK: There is JVD to the angle of the jaw bilaterally. There is no tenderness, lymphadenopathy, or masses. No thyromegaly. Normal carotid upstrokes without bruits. LUNGS: Bilateral rales to the upper chest. No wheezes, or rhonchi. HEART: Irregularly irregular rhythm with rate of 100-110 beats per minute. Normal S1 and S2 with a 2/6 early peaking systolic ejection murmur loudest at the right upper sternal border and a 2/6 diastolic decrescendo murmur at the lower left sternal border. There was no gallop or rub. VASC: Peripheral pulses +2 bilaterally. ABD: Bowel sounds normal, soft, nontender, no masses, no organomegaly. No audible bruits. : Not examined LYMPH: No lymphadenopathy noted. EXT: No clubbing, cyanosis or edema. SKIN: No rashes or lesions noted. NEURO: Awake, alert, and oriented x2 (prior to transesophageal ECHO was oriented x3). No focal sensory or strength deficits noted. Vital Signs (last 8hr) Date Time Temp Pulse Resp B/P (MAP) Pulse Ox O2 Delivery O2 Flow Rate FiO2 03/16/25 12:50 83 14 126/3 97 Room Air 03/16/25 12:20 87 15 118/55 99 Room Air 03/16/25 12:10 91 16 127/51 98 Room Air 03/16/25 12:00 88 14 131/52 99 Room Air 03/16/25 11:50 85 14 124/37 99 Room Air 03/16/25 11:40 100 03/16/25 11:40 98.1 88 15 129/40 99 Room Air 03/16/25 07:10 97.2 100 16 123/54 95 Room Air 100 Laboratory: Diagnostics / Radiology: OLIVER 03/16/2025: FINDINGS: Severely dilated left atrium with left atrial spontaneous echo contrast. Mild global hypokinesis with LVEF estimate of 45%. No evidence of left atrial appendage thrombus. Aortic valve homograft imaging was limited by acoustic shadowing from the aortic annulus. Three leaflets were seen and there appeared to be slight flickering of the noncoronary cusp suggestive of a small tear or perforation. This was not clearly visualized but suspected. Moderate, with some features of severe aortic regurgitation with 38% LVOT diameter jet; AR pressure half-time of 280 milliseconds; no evidence of pre systolic closure of the mitral valve; holodiastolic flow reversals in the descending thoracic aorta. Aortic root appeared free of any complex aortic plaque as did the descending thoracic aorta. Moderate mitral regurgitation. Zjvephoh-su-gtmstq tricuspid regurgitation with regurgitant jet in the area of RV pacing wire. IMPRESSION: Hmfmknoj-uh-ortugr aortic regurgitation. Marcus Small MD, FACC Impression and Plan: Acute confusional state and status post transesophageal echo (10:39 a.m. medications administered) 03/16/2025: -likely persisting effects of sedation which included Versed 1 mg and fentanyl 50 mcg prior to OLIVER -rule out CVA in patient with persistent atrial fibrillation with Eliquis held f or two days for planned right and left heart catheterization today -right and left heart catheterization canceled and will be rescheduled when the patient is lucid. Thjphfrl-me-xqlvhp bioprosthetic aortic valve insufficiency, chronically moderate since 2017, worsening in 2024 with OLIVER 03/16/2025 demonstrated vcwmkwbi-je-zujjho aortic insufficiency: Acute on chronic diastolic congestive heart failure: LVEF of 45% by transesophageal echo 03/16/2025: -continue with plans for right and left heart catheterization and possible valve in valve TAVR for qunempzg-yp-xhyldz aortic insufficiency with CHF, if patient willing to proceed -begin IV Lasix diuresis 20 q.12 hours History of severe aortic stenosis status post aortic valve replacement March 2001 complicated by acute perivalvular leak x 2and 2nd redo aortic valve replacement April 2001 in [facility] with aortic homograft: Dllhletm-oh-lggucx aortic insufficiency by OLIVER 03/16/2025, with acute on chronic diastolic congestive heart failure: -as above Persistent atrial fibrillation 02/03/2025, status post initiation of amiodarone 200 mg daily and Eliquis anticoagulation (2.5 b.i.d.): Long-term Eliquis anticoagulation initiated February 2025 (age and weight adjusted dose of 2.5 mg b.i.d.): Sick sinus syndrome status post permanent pacemaker insertion and generator replacement 01/24/2020 with a [employer] Edora 8 DRT-T dual-chamber device: -continue metoprolol succinate ER 100 mg q.a.m. and 50 mg q.p.m. for rate control -hold Eliquis anticoagulation pending right and left heart catheterization to be rescheduled for tomorrow -may begin IV heparin if CT scan of the brain this afternoon demonstrates no intracranial bleed pending right and left heart catheterization to be rescheduled tomorrow Recent hospitalization at [facility] 01/20/2025 through 01/31/2025 with a right upper lobe pneumonia: Comorbidities: Normal coronary arteries by remote cardiac catheterization 03/26/2001 Stable 4.1 cm thoracic aortic aneurysm Essential hypertension Prior gastric ulcer with upper GI bleed 2019 History of recurrent epistaxis Ovarian cancer status post chemotherapy and hysterectomy/oophorectomy 2021, followed at [facility] and felt to be in remission MARCUS SMALL MD Mar 16, 2025 14:53 Electronically Signed by: MARCUS SMALL MD03/16/25 1457 Electronically Co-Signed by: Procedure(s): [place] [address] IMAGING REPORT Signed PATIENT: NEHEMIAS BAINS MR#: [id number] : 1945 SEX: F AGE: 79 LOCATION: [facility] ORDER 1233 STATUS: PRE [facility] REPORT#: [id number] SERVICE 1231 REASON: PRE OP ORDERING PHYSICIAN: MARCUS SMALL MD PROCEDURE: CXR1VW - CHEST 1VW Comparison: February 28, 2025 Findings: There are infiltrates noted in the lower lobes bilaterally There are associated pleural effusions. The heart is enlarged. Pacemaker is noted. There are no acute fractures or pneumothorax. IMPRESSION:Bilateral lower lobe infiltrates and effusions. /[facility] DICTATED BY: DUTCH ALVES MD DATE: 03/14/251603 ELECTRONICALLY SIGNED BY: DUTCH ALVES MD DATE: 03/14/251603 [facility] [address] [place] [id number] IMAGING REPORT Signed PATIENT: NEHEMIAS BAINS MR#: [id number] : 1945 SEX: F AGE: 79 LOCATION: [facility] ORDER 1 STATUS: ADM IN REPORT#: [id number] SERVICE REASON: NONRHEUMATIC AVS ORDERING PHYSICIAN: MARCUS SMALL MD PROCEDURE: ECHO OLIVER - ECHO OLIVER--TRANSESOPHAGEAL APPROVED REPORT EXAM: Transesophageal echocardiogram with color flow Doppler. Study Details: 3D/2D transesphageal echocardiogram with color Doppler and Doppler INDICATION ICD: I35.0 Non-rheumatic aortic valve stenosis PROCEDURE After obtaining informed consent, patient underwent transesophageal echo in the [facility] 1 . 15 mL 2% Viscous Lidocaine was given as a topical anesthetic prior to the administration of the conscious sedation. Type of Sedation: Conscious Sedation Sedation was administered by please refer to medication administration record.. Sedation was achieved with please refer to medication administration record. intravenously. Transesophageal probe was inserted and advanced into esophagus without difficulty by Marcus Small MD . OLIVER was performed and images were obtained, probe was removed without complications. Throughout the procedure, the blood pressure, pulse oximetry, cardiac rhythm, and rate were monitored. Left Ventricle The left ventricle is normal size. Mild global hypokinesis. There is normal left ventricular wall thickness. LVEF is 45%. No left ventricle thrombus noted on thi s study. Indeterminate diastolic dysfunction. Right Ventricle The right ventricle is normal size. The right ventricular systolic function is normal. Atria The left atrium is severely dilated. Spontaneous contrast noted in left atrium. There is no mass or thrombus suspected in the left atrium. No evidence of PFO/ASD by color Doppler. The right atrium is severely dilated. Spontaneous contrast noted in right atrium. There is no mass or thrombus suspected in the right atrium. Aortic Valve Bioprosthetic aortic valve is present. Aortic valve homograft imaging was limited due to acoustic shadowing from the aortic annulus. The aortic leaflets appear thin and pliable as visualized. There was slight flickering of the non coronary cusp suggestive of a small tear or perforation. Color Doppler suggestive of moderate AR. Features of severe aortic regurgitation included holosystoolic flow reversal in the descending aorta, and a regurgitant fraction of >60% (was 89%). Features of moderate to severe AR included an AR pressure 1/2 time of 280 ms, AR regurgitant volume of 46 mL (> 50 mL is severe). Moderate to severe aortic regurgitation is present. There is no aortic valvular stenosis. Mitral Valve The mitral valve is mildly thickened. There is moderate mitral valve regu rgitation noted with two centric jets. No presystolic closure of the mitral noted. There is no mitral valve stenosis. Tricuspid Valve The tricuspid valve leaflets are mildly thickened. There is moderate tricuspid valve regurgitation noted. Pulmonic Valve Pulmonic valve is not well visualized. There is no pulmonic valvular regurgitation. Great Vessels The aortic root is normal in size. Ascending aorta appears normal in size. Diastolic flow reversal noted on the ascending aorta. Descending aorta appears n ormal in size. Pericardium There is no pericardial effusion. Conclusion The left ventricle is normal size. LVEF is 45%. Mild global hypokinesis. Moderate to severe aortic regurgitation is present. Bioprosthetic aortic valve is present. Aortic valve homograft imaging was limited due to acoustic shadowing from the aortic annulus. The aortic leaflets appear thin and pliable as visualized. There was slight flickering of the non coronary cusp suggestive of a small tear or perforation. Color Doppler suggestive of moderate AR. Features of severe aortic regurgitation included holosystoolic flow reversal in the descending aorta, and a regurgitant fraction of >60% (was 89%). Features of moderate to severe AR included an AR pressure 1/2 time of 280 ms, AR regurgitant volume of 46 mL (> 50 mL is severe). There is no aortic valvular stenosis. There is moderate mitral valve regurgitation noted with two centric jets. No presystolic closure of the mitral noted. There is moderate tricuspid valve regurgitation noted. Ascending aorta appears normal in size. Diastolic flow reversal noted on the ascending aorta. Descending aorta appears normal in size. There is no pericardial effusion. DICTATED BY: MARCUS SMALL MD DATE: 03/16/25833 ELECTRONICALLY SIGNED BY: MARCUS SMALL MD DATE: 03/16/25 151 [facility] [address] [place] [phone] IMAGING REPORT Signed PATIENT: NEHEMIAS BAINS MR#: [id number] : 1945 SEX: F AGE: 79 LOCATION: [facility] ORDER 27 STATUS: ADM IN REPORT#: [id number] SERVICE 26 REASON: new onset confusion ORDERING PHYSICIAN: MARCUS SMALL MD PROCEDURE: HEAD WO - CT HEAD/BRAIN W/O CONTRAST EXAM: CT Head Without IV contrast. CLINICAL HISTORY: new onset confusion TECHNIQUE: Axial computed tomography images of the head/brain without intravenous contrast. COMPARISON: None provided. FINDINGS: BRAIN: No evidence of acute hemorrhage. No mass lesion. No CT evidence for acute territorial infarct. No midline shift or extra-axial collections. VENTRICLES: No hydrocephalus. ORBITS: The orbits are unremarkable. SINUSES AND MASTOIDS: The paranasal sinuses and mastoid air cells are clear. BONES: No fracture. SOFT TISSUES: Unremarkable. IMPRESSION: No acute intracranial abnormality. /[facility] DICTATED BY: KERRY PHAN DO DATE: 03/16/251638 ELECTRONICALLY SIGNED BY: KERRY PHAN DO DATE: 03/16/251638 [facility] [address] [place] [phone] IMAGING REPORT Signed PATIENT: NEHEMIAS BAINS MR#: [id number] : 1945 SEX: F AGE: 79 LOCATION: [facility] ORDER 42 STATUS: ADM IN REPORT#: [id number] SERVICE 41 REASON: hypoxia post OLIVER ORDERING PHYSICIAN: VICK SIMS MD PROCEDURE: CXR1VW - CHEST 1VW EXAM: CR Chest, 1 View. CLINICAL HISTORY: hypoxia post OLIVER COMPARISON: Radiograph dated March 14, 2025 FINDINGS: Mild interstitial and airspace disease throughout both lungs compatible with pulmonary edema. Small bilateral pleural effusions. Stable cardiomegaly with pacemaker leads unchanged in positions. Mild central pulmonary vascular congestion. IMPRESSION: 1. Mild bilateral pulmonary edema with small pleural effusions. 2. Mild central pulmonary vascular congestion. /[facility] [place] DICTATED BY: ZHANE MOORE Jr., MD DATE: 03/16/251740 ELECTRONICALLY SIGNED BY: ZHANE MOORE Jr., MD DATE: 03/16/251740 Assessment/Plan: ASSESSMENT: Toxic/metabolic encephalopathy, POA Acute on chronic diastolic heart failure exacerbation, POA Curvgzfo-oi-rncncf aortic insufficiency noted on OLIVER from 01/07/[address] Small, POA History of severe aortic stenosis status post aortic valve replacement March 2001 complicated by acute perivalvular leak x 2 and 2nd redo aortic valve replacement April 2001 in [facility] with aortic homograft, POA History of persistent atrial fibrillation maintained on chronic therapy with amiodarone and chronic anticoagulation therapy with Eliquis, POA History of sick sinus syndrome status post permanent pacemaker placement, POA Recent hospitalization in [facility] in 01/2025 secondary to right upper lobe pneumonia, POA CKD stage 3, POA Debility, POA Hypertension, POA History of gastric ulcer with history of upper GI bleeding in 2019, POA History of ovarian cancer status post chemotherapy and hysterectomy/oophorectomy in 2021, POA History of stable 4.1 cm thoracic aortic aneurysm, POA Plan 1. Medications Resume all home medications as directed including anticoagulation Eliquis and amiodarone, Activity Resume normal activities as tolerated avoid strenuous activity or heavy lifting Monitoring Immediately contact ED if there is any new or worsening confusion Difficulty in speaking Diet Maintain heart healthy, low-sodium diet Follow up Follow up with PCP within 1 week And screw remover within1 week Discharge Instructions: 1. Medications Resume all home medications as directed including anticoagulation Eliquis and amiodarone, Activity Resume normal activities as tolerated avoid strenuous activity or heavy lifting Monitoring Immediately contact ED if there is any new or worsening confusion Difficulty in speaking Diet Maintain heart healthy, low-sodium diet Follow up Follow up with PCP within 1 week And screw remover within1 week Home Medications: Active Scripts Potassium Chloride (Potassium Chloride) 10 Meq Capsule.er, 1 CAP PO BID for 30 Days, #60 CAP 3 Refills Prov:MARCUS SMALL MD 03/17/25 Furosemide (Furosemide) 40 Mg Tablet, 1 TAB PO BID for 30 Days, #60 TAB 3 Refills Prov:MARCUS SMALL MD 03/17/25 Metoprolol Succinate (Metoprolol Succinate) 100 Mg Tab.er.24h, 100 MG PO DAILY, #90 TAB 3 Refills Prov:MARCUS SMALL MD 01/31/25 Ramipril (Ramipril) 5 Mg Capsule, 1 CAP PO DAILY for 90 Days, #90 CAP 3 Refills Prov:MARCUS SMALL MD 01/31/25 Reported Medications Apixaban (Eliquis) 2.5 Mg Tablet, 2.5 MG PO BID, TAB 03/14/25 Pantoprazole Sodium (Pantoprazole Sodium) 40 Mg Tablet.dr, 40 MG PO HS, TAB 03/14/25 Metoprolol Succinate (Metoprolol Succinate) 100 Mg Tab.er.24h, 0.5 TAB PO HS for 30 Days, #30 TAB 0 Refills 03/14/25 Discontinued Scripts Potassium Chloride (Potassium Chloride) 10 Meq Capsule.er, 1 CAP PO DAILY for 30 Days, #90 CAP 3 Refills Prov:MARCUS SMALL MD 01/31/25 Furosemide (Furosemide) 40 Mg Tablet, 40 MG PO DAILY, #90 TAB 3 Refills Prov:MARCUS SMALL MD 01/31/25 Pantoprazole Sodium (Pantoprazole Sodium) 40 Mg Tablet.dr, 1 TAB PO DAILY for 30 Days, #30 TAB 0 Refills Prov:CINDY CORRAL MD 03/01/25 Time spent arranging discharge: 1-30 minutes ATTESTATION BY PHYSICIAN I have seen and examined the patient. I reviewed the documentation, medical decision making, and treatment plan as noted by the resident physician above. I agree with the findings and plan of care. DEEPAK OCHOA IV, MD, HARSHA MD Mar 17, 2025 19:46
--- NOTE | 2025-03-19 00:42 | HMCIMG ---
EXAM: Chest X-ray, TECHNIQUE: 2 views. PA and lateral views INDICATION: heart failure (Hx) COMPARISON: CXR dated 03/16/2025. FINDINGS: LUNGS: Bilateral hilar vascular congestion is noted with diffuse bilateral interstitial markings bilaterally, unchanged from previous CXR dated 03/16/2025. No focal consolidation. Bibasilar atelectasis unchanged from CXR dated . PLEURAL SPACES: Small bilateral pleural effusions, unchanged from CXR dated 03/16/2025. HEART: Cardiomegaly, unchanged from CXR dated . Cardiac pacemaker with leads to the right atrium and right ventricle, unchanged in position. Ectasia of the ascending aorta and aortic arch, with significant atherosclerotic changes; also unchanged from CXR dated 03/16/2025. BONES: Status post median sternotomy, unchanged. No acute osseous abnormality is identified. Degenerative changes in the mid and lower thoracic spine are unchanged. An old malunited fracture of the surgical neck of the right humerus, unchanged from CXR dated 03/16/2025. IMPRESSION: 1. Bilateral hilar vascular congestion is noted with diffuse bilateral increase interstitial markings, cardiomegaly and bilateral pleural effusion. These findings are unchanged from CXR dated 03/16/2025.); overall findings are suggestive of possible congestive heart failure with pulmonary edema. Clinical and echocardiography correlation is recommended. 2. Stable ectasia of ascending aorta and aortic arch with aortic atherosclerotic calcification, compared to CXR dated 03/16/2025. 3. Several stable chronic and incidental findings are noted, as detailed in the body of the report, unchanged from CXR dated 03/16/2025. /[place]
== END 2025-03-17 13:30 | disposition home or self-care (01) ==
LOC: DAH 06:48 → INTOOBSV 14:36 → DAHIP 14:36 → 4BH 15:53 → EDSTATUS 03-23 12:00
PROVIDERS: ADMIT Internal Medicine; ATTEND Internal Medicine
DX: I35.0 Nonrheumatic aortic (valve) stenosis (principal); G92.8 Other toxic encephalopathy; I07.1 Rheumatic tricuspid insufficiency; I49.5 Sick sinus syndrome; I13.0 Hypertensive heart and chronic kidney disease with heart failure and stage 1 through stage 4 chronic kidney disease, or unspecified chronic kidney disease; I50.33 Acute on chronic diastolic (congestive) heart failure; N18.30 Chronic kidney disease, stage 3 unspecified; R09.02 Hypoxemia; Z79.01 Long term (current) use of anticoagulants; Z79.899 Other long term (current) drug therapy; Z85.43 Personal history of malignant neoplasm of ovary; Z87.11 Personal history of peptic ulcer disease; Z90.710 Acquired absence of both cervix and uterus; Z92.21 Personal history of antineoplastic chemotherapy; Z95.0 Presence of cardiac pacemaker; Z95.3 Presence of xenogenic heart valve; Z98.890 Other specified postprocedural states
CPT/HCPCS: 80048; 83880 ×3; 85025 ×3; 85610 ×2; 85730 ×5; 81001; 36415 ×3; 71045 ×2; 93005; 96365; 96366 ×2; 96375 ×2; 99152; 99153; 96361; 83735; 80053 ×2; 82140; 86850; 86900; 86901; 86140; 70450; 93325; 93312; 84145; 96374; 71046; C1894 ×3; Q9965 ×2; G0378 ×23; G0379; J3010; J3490 ×3; J2250; J1938 ×3; J1644 ×3; Q9967; A4615; A4215; A4223 ×3; A4657; A7002; A4222; A4221; A4663; A4216; A4606; J3411; 96360; J0583; G0500